=== PATIENT | female | born 1950 | race African-American/Black ===

== ENCOUNTER 2016-09-24 22:23 | Inpatient (IN) | payer OTHER, MEDICAID ==
[~2016-09-24] VITALS: Ht 165.1 cm; Wt 73.7 kg
[~2016-09-24 22:23] MED LIST: ATOR40TA49 PO; BENT20TA PO; CETI10 PO; FIORIC PO; HYDR-2768 PO; LISI-363 PO; LORTA5 PO; MULTTAB24 PO; NAPHSOL EACH EYE; OFLO1DRO8 EACH EYE; PRAV20; PROM25SU8 PO; SLOWTAB PO; SULF-154 PO; VENTAER INH; VITATAB11
[2016-09-24 22:26] VITALS: BP 227/112; PULSE 102; RESP 18; TEMP 100; O2SAT 100
[2016-09-24] MEDS ORDERED: ASPIRIN 81 MG CHEW TAB PO ONE (22:45)
[2016-09-24] MEDS ORDERED: NITROGLYCERIN 0.4 MG SL 25 TABS/BTL SL ONE (22:45)
[2016-09-24] MEDS ORDERED: SODIUM CHLORIDE 0.9% FLUSH 10 ML FLUSH IVF PRN (22:45)
[2016-09-24] MEDS ORDERED: NITROGLYCERIN 2% OINT 1 GM PACKET TOP ONE (22:45)
[2016-09-24 22:46] VITALS: BP 262/146; PULSE 107; RESP 28; TEMP 99.3; O2SAT 98
[2016-09-24 22:49] VITALS: BP_SYST 197; BP_SYST 262; BP_DIAS 135; BP_DIAS 146; PULSE 107
[2016-09-24 22:51] VITALS: O2SAT 98
[2016-09-24 23:14] LABS: AUTOMATED NEUTROPHIL # 6.2 TH/MM3 (1.8-7.7); BASOPHIL # 0.1 TH/MM3 (0-0.2); EOSINOPHIL # 0.2 TH/MM3 (0-0.4); HEMATOCRIT 40.7 % (35.0-46.0); HEMO FLAGS DIFF FINAL; LYMPH % 21.4 % (9.0-44.0); LYMPHOCYTE # 1.9 TH/MM3 (1.0-4.8); MEAN CELL VOLUME 87.8 FL (80.0-100.0); MEAN CORPUSCULAR HEMOGLOBIN 28.4 PG (27.0-34.0); MEAN CORPUSCULAR HGB CONC 32.3 % (32.0-36.0); MONO % 6.7 % (0.0-8.0); NEUT % 68.9 % (16.0-70.0); PLATELET COUNT 242 TH/MM3 (150-450); RED BLOOD COUNT 4.64 MIL/MM3 (4.00-5.30); RED CELL DISTRIBUTION WIDTH 13.3 % (11.6-17.2)
--- NOTE | 2016-09-24 23:17 | PD ---
HPI Chief Complaint: Chest Pain Time Seen by Provider: 22:44 Travel History International Travel<30 days: No Contact w/Intl Traveler<30days: No Traveled to known affect area: No History of Present Illness HPI The patient is a 66 year old female who presents to the [facility] emergency department with a history of chest pain that she reports began 2 days ago. She reports that the location of the pain was across her chest. She reports that it was a pressure sensation like someone was sitting on her chest. She reports that it has been constant. She reports that additionally today she began to have a sharp pain in the left side of her chest. She reports having shortness of breath associated with this. She reports having nausea and dizziness that occurred twice earlier today. The patient reports that she is currently being evaluated by Dr. Julien for a high-grade uterine carcinoma suspicious for carcinosarcoma. She reports that she has a hysterectomy scheduled for Friday. The patient reports that she does have a history of asthma. She last used her inhaler at 5 AM. She reports that she last took her blood pressure medication at 5 AM. The patient arrives with a blood pressure 197/135. The patient reports that she's had vaginal bleeding intermittently for the last 2 days. She reports having lower abdominal pain. The patient reports that she's had a dry cough. She reports having nausea without vomiting. On review of systems, the patient otherwise denies any neck pain, diarrhea, urinary symptoms, or neurologic symptoms. The patient denies having any prior history of cardiac disease. She denies ever having a stress test done previously. [facility] Past Medical History Narrative Medical The patient's past medical history is significant for type 2 diabetes mellitus, hyperlipidemia, hypertension, high grade uterine carcinoma, pulmonary nodules. Asthma: Yes Cardiovascular Problems: Yes (htn ) High Cholesterol: Yes Hypertension: Yes Immunizations Current: Yes Migraines: Yes Tetanus Vaccination: Unknown Influenza Vaccination: No ?: Not Menopausal: Yes Past Surgical History Narrative Surgical The patient's past surgical history is significant for a bilateral tubal ligation. Hysterectomy: No Social History Alcohol Use: Yes (occasional ) Tobacco Use: No Substance Use: No Allergies-Medications (Allergen,Severity, Reaction): Coded Allergies: No Known Allergies (Verified , 09/24/16) Reported Meds & Prescriptions Reported Meds & Active Scripts Active Reported Metformin (Metformin HCl) 500 Mg Tab 500 Mg PO DAILY With a meal Pravastatin 20 Mg Tab 20 Mg PO DAILY Lisinopril 20 Mg Tab 20 Mg PO DAILY Hydrochlorothiazide 25 Mg Tab 25 Mg PO BID Proventil Hfa 6.7 GM Inh (Albuterol Sulfate) 90 Mcg/Act Aer 1 Puff INH Q4H PRN Review of Systems Except as stated in HPI: all other systems reviewed are Neg General / Constitutional: No: Fever Eyes: No: Visual changes HENT: No: Headaches Cardiovascular: Positive: Chest Pain or Discomfort, Dyspnea on exertion Respiratory: Positive: Cough, Shortness of Breath, Wheezing Gastrointestinal: Positive: Nausea, Abdominal Pain, No: Vomiting, Diarrhea, Hematemesis, Hematochezia, Constipation, Changes in Bowel Habits, Indigestion, Loss of Appetite Genitourinary: No: Dysuria Musculoskeletal: Positive: Myalgias, No: Pain Skin: No Rash Neurologic: No: Weakness, Focal Abnormalities, Coordination Problem, Change in Mentation, Slurred Speech, Sensory Disturbance Psychiatric: No: Depression Endocrine: No: Polydipsia Hematologic/Lymphatic: No: Easy Bruising Physical Exam Narrative General: The patient is a well-developed well-nourished female in no acute distress. Head and Neck exam: Head is normocephalic atraumatic. Eyes: EOMI, pupils are equal round and reactive to light. Nose: Midline septum with pink mucous membranes Mouth: Dentition unremarkable. Moist mucus membranes. Posterior oropharynx is not erythematous. No tonsillar hypertrophy. Uvula midline. Airway patent. Neck: No palpable lymphadenopathy. No nuchal rigidity. No thyromegaly. Cardiovascular: Sinus tachycardia in the 1 teens without murmurs, gallops, or rubs. No pulse deficit to the extremities as simultaneous auscultation and palpation of her radial artery. Lungs: Clear to auscultation bilaterally. No wheezes, rhonchi, or rales. Abdomen: Soft, with reported tenderness on palpation in bilateral lower quadrants of the abdomen in the suprapubic area. No guarding, rebound, or rigidity. Negative [place] sign. No tenderness specifically on palpation of McBurney's point. Normal bowel sounds are audible. Extremities: No clubbing, cyanosis, or edema. 2+ pulses in all 4 extremities. No calf tenderness on palpation. Back: No spinous process tenderness to palpation. No costovertebral angle tenderness to palpation. Neurologic Exam: Grossly nonfocal. Skin Exam: No rash noted. Intact skin that is warm and dry. Data Data Last Documented VS Vital Signs Date Time Temp Pulse Resp B/P Pulse Ox O2 Delivery O2 Flow Rate FiO2 09/24/16 22:51 98 Room Air 09/24/16 22:49 107 262/146 197/135 09/24/16 22:46 99.3 28 Orders Electrocardiogram (09/24/16 22:45) B-Type Natriuretic Peptide (09/24/16 22:45) Ckmb (Isoenzyme) Profile (09/24/16 22:45) Complete Blood Count With Diff (09/24/16 22:45) Comprehensive Metabolic Panel (09/24/16 22:45) D-Dimer (09/24/16 22:45) Magnesium (Mg) (09/24/16 22:45) Prothrombin Time / Inr (Pt) (09/24/16 22:45) Act Partial Throm Time (Ptt) (09/24/16 22:45) Troponin I (09/24/16 22:45) Lipase (09/24/16 22:45) Chest, Single Ap (09/24/16 22:45) Ecg Monitoring (09/24/16 22:45) Bilateral Bp Monitoring (09/24/16 22:45) Iv Access Insert/Monitor (09/24/16 22:45) Oximetry (09/24/16 22:45) Oxygen Administration (09/24/16 22:45) Aspirin Chew (Aspirin Chew) (09/24/16 22:45) Nitroglycerin 2% Oint (Nitroglycerin 2% (09/24/16 22:45) Sodium Chloride 0.9% Flush (Ns Flush) (09/24/16 22:45) Nitroglycerin Sl (Nitrostat Sl) (09/24/16 22:45) Labetalol Inj (Trandate Inj) (09/24/16 23:30) CKMB (09/24/16 23:00) CKMB% (09/24/16 23:00) Ct Pulmonary Angiogram (09/25/16 00:35) Urinalysis - C+S If Indicated (09/25/16 01:24) Morphine Inj (Morphine Inj) (09/25/16 01:30) Ondansetron Inj (Zofran Inj) (09/25/16 01:30) Enalaprilat Inj (Vasotec Inj) (09/25/16 01:30) Admit Order (Ed Use Only) (09/25/16 01:33) Labs Laboratory Tests Test 09/24/16 23:00 White Blood Count 9.0 TH/MM3 Red Blood Count 4.64 MIL/MM3 Hemoglobin 13.2 GM/DL Hematocrit 40.7 % Mean Corpuscular Volume 87.8 FL Mean Corpuscular Hemoglobin 28.4 PG Mean Corpuscular Hemoglobin 32.3 % Concent Red Cell Distribution Width 13.3 % Platelet Count 242 TH/MM3 Mean Platelet Volume 9.0 FL Neutrophils (%) (Auto) 68.9 % Lymphocytes (%) (Auto) 21.4 % Monocytes (%) (Auto) 6.7 % Eosinophils (%) (Auto) 2.0 % Basophils (%) (Auto) 1.0 % Neutrophils # (Auto) 6.2 TH/MM3 Lymphocytes # (Auto) 1.9 TH/MM3 Monocytes # (Auto) 0.6 TH/MM3 Eosinophils # (Auto) 0.2 TH/MM3 Basophils # (Auto) 0.1 TH/MM3 CBC Comment DIFF FINAL Differential Comment Prothrombin Time 11.1 SEC Prothromb Time International 1.0 RATIO Ratio Activated Partial 30.8 SEC Thromboplast Time D-Dimer Quantitative (PE/DVT) 0.70 MG/L FEU Sodium Level 135 MEQ/L Potassium Level 3.6 MEQ/L Chloride Level 100 MEQ/L Carbon Dioxide Level 28.8 MEQ/L Anion Gap 6 MEQ/L Blood Urea Nitrogen 11 MG/DL Creatinine 1.02 MG/DL Estimat Glomerular Filtration 65 ML/MIN Rate Random Glucose 122 MG/DL Calcium Level 9.3 MG/DL Magnesium Level 2.1 MG/DL Total Bilirubin 0.6 MG/DL Aspartate Amino Transf 22 U/L (AST/SGOT) Alanine Aminotransferase 28 U/L (ALT/SGPT) Alkaline Phosphatase 103 U/L Total Creatine Kinase 508 U/L Creatine Kinase MB 4.3 NG/ML Creatine Kinase MB % 0.8 % Troponin I LESS THAN 0.02 NG/ML B-Type Natriuretic Peptide 40 PG/ML Total Protein 8.1 GM/DL Albumin 3.8 GM/DL Lipase 160 U/L [facility] Medical Decision Making Medical Screen Exam Complete: Yes Emergency Medical Condition: Yes Medical Record Reviewed: Yes Interpretation(s) Last Impressions CT Angiography 09/25/16 0035 Signed Impressions: Service Date/Time: Sunday, September 25, 2016 01:37 - CONCLUSION: 1. The study is negative for pulmonary embolism. 2. Numerous bilateral pulmonary nodules measuring up to 7 mm. Recommend correlation with clinical history for history of malignancy. In the absence of malignancy, recommend followup CT in 6 months. James Crook MD Chest X-Ray 09/24/16 2245 Signed Impressions: Service Date/Time: Saturday, September 24, 2016 23:16 - CONCLUSION: The lungs are clear. James Crook MD Differential Diagnosis Acute coronary syndrome, versus congestive heart failure, versus pulmonary embolism, versus pain related to lung metastasis, versus pneumonia Narrative Course During the course of the patients emergency department visit, the patients history, examination, and differential diagnosis were reviewed with the patient. The patient had IV access obtained and blood work sent for analysis. The patient's was on a cardiac care unit nurse with oximetry and blood pressure monitoring. An ECG was done on arrival. The patient's ECG reveals a sinus tachycardia heart rate of 104, no acute ST segment elevation or depression. The patient was initially provided aspirin 162 mg by mouth 1, sublingual nitroglycerin 1, nitroglycerin 1 inch to the chest wall, labetalol 10 mg IV. The patients laboratory studies were reviewed and remarkable for a CBC that is within normal limits, CMP is remarkable for sodium of 135, creatinine 1.02, glucose 122, CPK 508, MB percent 0.8, troponin I less than 0.02, BNP is 40, lipase 160, PT 11.1, PTT 30.8, d-dimer 0.70. The patient will have a CTA to rule out PE. Radiology studies were reviewed and remarkable for a chest x-ray that shows that the patient's lungs are clear. CTA to rule out PE shows that the study is negative for pulmonary embolism. Numerous bilateral pulmonary nodules measuring up to 7 mm are noted. Given the patient's new chest pain and the fact that she is point to be undergoing a hysterectomy on Friday of this next week. I did recommend that she be admitted for further evaluation of her chest pain including her rule out serial cardiac enzyme protocol and stress testing and follow. The patients results were discussed with the patient, including the plan of care. I explained that further testing and/ or monitoring is indicated based on the patients history, examination, and/ or laboratory findings. Therefore, I recommended admission for additional evaluation. The patient expressed understanding and was agreeable with this plan. The patient was admitted to the hospital in stable condition and sent to a bed under the care of the chest pain center. Diagnosis Primary Impression: Chest pain, rule out acute myocardial infarction Additional Impressions: Uterine cancer Qualified Code: C54.9 - Malignant neoplasm of body of uterus, unspecified site Pulmonary nodules Admitting Information Admitting Physician Requests: Observation Nidhi Cheng MD Sep 24, 2016 23:17
[2016-09-24] MEDS ORDERED: LABETALOL HCL 100 MG/20 ML VIAL IV PUSH ONE (23:30)
[2016-09-24 23:33] LABS: APTT (PATIENT) 30.8 SEC (24.3-30.1); PROTHROMBIN TIME - PATIENT 11.1 SEC (9.8-11.6)
[2016-09-24 23:42] LABS: ANION GAP 6 MEQ/L (5-15); AST (GOT) 22 U/L (15-37); BICARBONATE 28.8 MEQ/L (21.0-32.0); BLOOD UREA NITROGEN 11 MG/DL (7-18); CHLORIDE 100 MEQ/L (98-107); GLOMERULAR FILTRATION RATE 65 ML/MIN (>89); MAGNESIUM 2.1 MG/DL (1.5-2.5); POTASSIUM 3.6 MEQ/L (3.5-5.1); SODIUM (NA) 135 MEQ/L (136-145)
[2016-09-24 23:47] LABS: ALKALINE PHOSPHATASE 103 U/L (45-117); ALT (GPT) 28 U/L (10-53); CREATINE KINASE 508 U/L (26-192); TOTAL BILIRUBIN ADULT 0.6 MG/DL (0.2-1.0)
[2016-09-25] VITALS (10 sets, daily range): BP systolic 130–208; BP diastolic 67–102; PULSE 85–107; RESP 18–24; TEMP 99.1–102.5; O2SAT 96–98
[2016-09-25] LABS: CKMB 4.3 NG/ML (0.5-3.6)
--- NOTE | 2016-09-25 00:48 | RADRPT ---
EXAM DATE/TIME: 09/24/2016 23:16 [facility] COMPARISON: No previous studies available for comparison. INDICATIONS : Chest pain. MEDICAL HISTORY : None. SURGICAL HISTORY : None. ENCOUNTER: Initial ACUITY: 1 day PAIN SCORE: 0/10 LOCATION: Bilateral chest FINDINGS: A single view of the chest demonstrates the lungs to be symmetrically aerated without evidence of mas s, infiltrate or effusion. The cardiomediastinal contours are unremarkable. Osseous structures are intact. CONCLUSION: The lungs are clear. James Crook MD on September 25, 2016 at 0:46 Board Certified Radiologist. This report was verified electronically.
[2016-09-25] MEDS ORDERED: ONDANSETRON HCL 4 MG/2 ML VIAL IV PUSH ONE (01:30)
[2016-09-25] MEDS ORDERED: MORPHINE SULFATE 4 MG/ML INJ IV PUSH ONE (01:30)
[2016-09-25] MEDS ORDERED: ENALAPRILAT 1.25 MG/ML VIAL IV PUSH ONE (01:30)
[2016-09-25] MEDS ORDERED: IOHEXOL 350 MG/ML 10 ML VIAL (for RAD DIAG) IV ONE (01:42)
--- NOTE | 2016-09-25 01:53 | RADRPT ---
EXAM DATE/TIME: 09/25/2016 01:37 This report includes an Addendum and supersedes previous reports for this exam. [facility] COMPARISON: No previous studies available for comparison. INDICATIONS : Shortness of breath with chest pain. Elevated D-Dimer. IV CONTRAST: 70 cc Omnipaque 350 (iohexol) IV RADIATION DOSE: 23.38 CTDIvol (mGy) MEDICAL HISTORY : Cardiovascular disease. Hypertension. Asthma SURGICAL HISTORY : None. ENCOUNTER: Initial ACUITY: 1 day PAIN SCALE: 10/10 LOCATION: Bilateral chest TECHNIQUE: Volumetric scanning of the chest was performed using a pulmonary embolism protocol MIP images were re constructed. Using automated exposure control and adjustment of the mA and/or kV according to patien t size, radiation dose was kept as low as reasonably achievable to obtain optimal diagnostic quality images. DICOM format image data is available electronically for review and comparison. Follow-up recommendations for detected pulmonary nodules are based at a minimum on nodule size and pa tient risk factors according to Fleischner Society Guidelines. FINDINGS: PULMONARY ARTERIES: No filling defects are seen in the pulmonary arteries through the segmental level. LUNGS: There are at least 10 noncalcified nodules in both lungs. The largest is lower lateral left lung nuc lear pleural surface measuring 7 mm (image #[id number]). The other nodules measure 4 mm or less. PLEURAE: There is no pleural thickening or pleural effusion. MEDIASTINUM: There is good visualization of the great vessels of the middle mediastinum. No evidence of mediastin al or hilar adenopathy/mass. CONCLUSION: 1. The study is negative for pulmonary embolism. 2. Numerous bilateral pulmonary nodules measuring up to 7 mm. Recommend correlation with clinical history for history of malignancy. In the absence of malignancy, recommend followup CT in 6 months. James Crook MD on September 25, 2016 at 1:46 Board Certified Radiologist. This report was verified electronically. ADDENDUM: The multiple pulmonary nodules were described in detail on the CT scan of the chest dated 08/09/16. T here is been little change in this very short interval. These still remain concerning for malignancy . Yoshi Huerta MD FACR on September 25, 2016 at 9:54 Board Certified Radiologist. This report was verified electronically.
[2016-09-25] MEDS ORDERED: SODIUM CHLORIDE 0.9% FLUSH 10 ML FLUSH IV FLUSH PRN (03:00)
[2016-09-25] MEDS ORDERED: ALBU6.7H INH (03:14)
[2016-09-25] MEDS ORDERED: HYDR25TA5 PO (03:14)
[2016-09-25] MEDS ORDERED: PRAV20TA2 PO (03:14)
[2016-09-25] MEDS ORDERED: LISI-515 PO (03:14)
[2016-09-25] MEDS ORDERED: METF500T PO (03:14)
[2016-09-25 04:08] LABS: BACTERIA, URINE RARE /hpf; BLOOD, URINE MOD (NEG); GLUCOSE,URINE NEG (NEG); KETONE, URINE NEG (NEG); NITRITE,URINE NEG (NEG); RENAL EPITHELIAL CELLS 2 /hpf; SQUAMOUS EPITHELIAL CELL URINE <1 /hpf (0-5); URINE COLOR LIGHT-YELLOW (YELLW/STRAW)
[2016-09-25 04:09] LABS: COMMENT (UR) CULTURE INDICATED; CULTURE IF INDICATED CULTURE INDICATED
[2016-09-25 04:31] LABS: CREATINE KINASE 438 U/L (26-192)
[2016-09-25 04:44] LABS: CKMB 1.7 NG/ML (0.5-3.6)
[2016-09-25] MEDS: NITROGLYCERIN 2% OINT 1 GM PACKET TOP SCH ×4 (06:02→23:46)
[2016-09-25 06:49] LABS: CREATINE KINASE 420 U/L (26-192)
[2016-09-25 07:02] LABS: CKMB 1.2 NG/ML (0.5-3.6)
[2016-09-25] MEDS: LISINOPRIL 10 MG TAB PO SCH (09:56)
[2016-09-25] MEDS: ACETAMINOPHEN/HYDROcodone 325 MG/7.5 MG TAB PO PRN ×3 (09:56→20:57)
[2016-09-25] MEDS: SODIUM CHLORIDE 0.9% FLUSH 10 ML FLUSH IV FLUSH SCH ×2 (09:57→21:00)
[2016-09-25] MEDS ORDERED: DEXTROSE 50% IN WATER 50 ML VIAL(D50) IV PRN (10:45)
[2016-09-25] MEDS ORDERED: LISINOPRIL 20 MG TAB PO SCH (10:45)
[2016-09-25] MEDS ORDERED: GLUCAGON 1 MG/ML VIAL IM/SQ PRN (10:45)
[2016-09-25] MEDS: INSULIN ASPART SUPPLEMENTAL SCALE SQ SCH ×3 (11:00→21:00)
--- NOTE | 2016-09-25 11:39 | HHI.HP ---
[facility] Primary Care Physician Ashia Hewitt M.D. Chief Complaint Chest pain History of Present Illness Ms. Lowry is a 66-year-old female patient with a known medical history of asthma , type 2 diabetes, hypertension, hyperlipidemia and high grade uterine carcinoma who presented to the ED with complaints of chest pain. Patient states that the pain began 2 days ago in her midsternal chest area while she was ironing at her home. She characterized the pain as intermittent, aching and sharp in nature lasting about 2-3 minutes and would slowly subside. She does admit to associated headache and difficulty breathing. Denies any associated nausea, vomiting or diaphoresis. Currently denies any chest discomfort but does complain of aching pain in her lower abdomen with movement. It is important to note that patient has been following with Dr. Julien for a high-grade uterine carcinoma and vaginal bleeding and has a scheduled hysterectomy for this Friday. Denies any recent illness including fever, chills, cough, shortness of breath, vomiting or diarrhea. UA was collected in ED indicative of a UTI. D- dimer elevated at 0.70 and CTA performed showing numerous bilateral pulmonary nodules. Records were reviewed and Dr. Julien aware, previous CT chest obtained 2 weeks ago. Review of Systems Respiratory: COMPLAINS OF: Shortness of breath Cardiovascular: COMPLAINS OF: Chest pain Past Family Social History Allergies: Coded Allergies: No Known Allergies (Verified , 09/24/16) Past Medical History Hypertension Hyperlipidemia Type 2 diabetes mellitus High grade uterine carcinoma Multiple pulmonary nodules Past Surgical History Bilateral tubal ligation Reported Medications Reported Meds & Active Scripts Active Reported Metformin (Metformin HCl) 500 Mg Tab 500 Mg PO DAILY With a meal Pravastatin 20 Mg Tab 20 Mg PO DAILY Lisinopril 20 Mg Tab 20 Mg PO DAILY Hydrochlorothiazide 25 Mg Tab 25 Mg PO BID Proventil Hfa 6.7 GM Inh (Albuterol Sulfate) 90 Mcg/Act Aer 1 Puff INH Q4H PRN Active Ordered Medications Current Medications Medications (Trade) Dose Ordered Sig/Courtney Route Start Time Stop Time Status Last Admin (NS Flush) 2 ml UNSCH PRN IVF 09/24/16 22:45 (NS Flush) 2 ml UNSCH PRN IV FLUSH 09/25/16 03:00 (NS Flush) 2 ml BID IV FLUSH 09/25/16 09:00 09/25/16 09:57 ([place] 7.5-325 Mg) 1 tab Q4H PRN PO 09/25/16 03:00 09/25/16 09:56 (Zofran Inj) 4 mg Q6H PRN IV 09/25/16 03:00 (Prinivil) 10 mg DAILY PO 09/25/16 09:00 09/25/16 09:56 (Nitroglycerin 2% Oint) 1 inch Q6HR TOP 09/25/16 06:00 09/25/16 06:02 (Hydrodiuril) 25 mg BID PO 09/25/16 21:00 (Prinivil) 20 mg DAILY PO 09/25/16 10:45 (Pravachol) 20 mg DAILY PO 09/25/16 10:45 (D50w (Vial) Inj) 25 ml UNSCH PRN IV 09/25/16 10:45 (Glucagon Inj) 1 mg UNSCH PRN IM/SQ 09/25/16 10:45 Family History Paternal medical history is significant for [place] at the age of 4747 years old and is now . Maternal medical history significant for liver disease. Social History Patient denies any current tobacco or alcohol use. Denies any illicit drug use. Physical Exam Vital Signs Vital Signs Date Time Temp Pulse Resp B/P Pulse Ox O2 Delivery O2 Flow Rate FiO2 09/25/16 09:45 99.1 96 18 181/85 97 09/25/16 05:14 92 18 177/86 97 09/25/16 03:32 86 18 179/95 97 09/25/16 02:50 97 Nasal Cannula 1.00 09/25/16 02:00 99 18 207/93 98 09/25/16 01:00 95 18 208/102 98 09/24/16 22:51 98 Room Air 09/24/16 22:50 98 Room Air 09/24/16 22:49 107 262/146 197/135 09/24/16 22:46 99.3 107 28 262/146 98 09/24/16 22:26 100.0 102 18 227/112 100 Physical Exam GENERAL: Well-nourished, well-developed female patient, lying in bed. SKIN: Warm and dry. HEAD: Atraumatic. Normocephalic. EYES: Pupils equal and round. No scleral icterus. No injection or drainage. ENT: No nasal bleeding or discharge. Mucous membranes pink and moist. NECK: Trachea midline. No JVD. CARDIOVASCULAR: Regular rate and rhythm. Chest pain reproducible to palpation. RESPIRATORY: No accessory muscle use. Clear to auscultation. Breath sounds equal bilaterally. GASTROINTESTINAL: Abdomen soft. Tender to palpation. MUSCULOSKELETAL: Extremities without clubbing, cyanosis, or edema. No obvious deformities. NEUROLOGICAL: Awake and alert. No obvious cranial nerve deficits. Motor grossly within normal limits. Five out of 5 muscle strength in the arms and legs. Normal speech. PSYCHIATRIC: Appropriate mood and affect; insight and judgment normal. Laboratory Laboratory Tests Test 09/24/16 09/25/16 09/25/16 09/25/16 23:00 03:30 03:35 05:45 White Blood Count 9.0 Red Blood Count 4.64 Hemoglobin 13.2 Hematocrit 40.7 Mean Corpuscular Volume 87.8 Mean Corpuscular Hemoglobin 28.4 Mean Corpuscular Hemoglobin 32.3 Concent Red Cell Distribution Width 13.3 Platelet Count 242 Mean Platelet Volume 9.0 Neutrophils (%) (Auto) 68.9 Lymphocytes (%) (Auto) 21.4 Monocytes (%) (Auto) 6.7 Eosinophils (%) (Auto) 2.0 Basophils (%) (Auto) 1.0 Neutrophils # (Auto) 6.2 Lymphocytes # (Auto) 1.9 Monocytes # (Auto) 0.6 Eosinophils # (Auto) 0.2 Basophils # (Auto) 0.1 CBC Comment DIFF FINAL Differential Comment Prothrombin Time 11.1 Prothromb Time International 1.0 Ratio Activated Partial 30.8 Thromboplast Time D-Dimer Quantitative (PE/DVT) 0.70 Sodium Level 135 Potassium Level 3.6 Chloride Level 100 Carbon Dioxide Level 28.8 Anion Gap 6 Blood Urea Nitrogen 11 Creatinine 1.02 Estimat Glomerular Filtration 65 Rate Random Glucose 122 Calcium Level 9.3 Magnesium Level 2.1 Total Bilirubin 0.6 Aspartate Amino Transf 22 (AST/SGOT) Alanine Aminotransferase 28 (ALT/SGPT) Alkaline Phosphatase 103 Total Creatine Kinase 508 438 420 Creatine Kinase MB 4.3 1.7 1.2 Creatine Kinase MB % 0.8 0.4 0.3 Troponin I LESS THAN 0.02 LESS THAN 0.02 LESS THAN 0.02 B-Type Natriuretic Peptide 40 Total Protein 8.1 Albumin 3.8 Lipase 160 Urine Color LIGHT-YELLOW Urine Turbidity HAZY Urine pH 8.0 Urine Specific [place] 1.036 Urine Protein TRACE Urine Glucose (UA) NEG Urine Ketones NEG Urine Occult Blood MOD Urine Nitrite NEG Urine Bilirubin NEG Urine Urobilinogen LESS THAN 2.0 Urine Leukocyte Esterase LARGE Urine RBC 26 Urine WBC 135 Urine Squamous Epithelial <1 Cells Urine Renal Epithelial Cells 2 Urine Bacteria RARE Microscopic Urinalysis Comment CULTURE INDICATED Date/Time Procedure Status Source Growth 09/25/16 03:35 Urine Culture Received Urine Clean Catch Pending Result Diagram: 09/24/16 2300 09/24/[address] Angiography 09/25/16 0035 Signed Impressions: Service Date/Time: Sunday, September 25, 2016 01:37 - CONCLUSION: 1. The study is negative for pulmonary embolism. 2. Numerous bilateral pulmonary nodules measuring up to 7 mm. Recommend correlation with clinical history for history of malignancy. In the absence of malignancy, recommend followup CT in 6 months. James Crook MD ADDENDUM: The multiple pulmonary nodules were described in detail on the CT scan of the chest dated 08/09/16. There is been little change in this very short interval. These still remain concerning for malignancy. Yoshi Huerta MD FACR Chest X-Ray 09/24/16 2245 Signed Impressions: Service Date/Time: Saturday, September 24, 2016 23:16 - CONCLUSION: The lungs are clear. James Crook MD Assessment and Plan Assessment and Plan * Chest pain: Admitted to chest pain center. Serial EKGs and serial troponins ordered for ruling out purposes. Trponins all negative. CXR negative. EKG unremarkable, NSR, no ST change. D-dimer elevated, CTA performed showing multiple pulmonary nodules. Negative for PE. Patient seen and examined in the chest pain center by Dr. Hugo Presley and Nuclear ETT ordered. If test is negative with no presence of ischemia patient will be discharged home with recommendations to follow up with PCP and Dr. Julien. Control pain [place] PRN per pain scale. * Hypertension: Significantly elevated upon presentation. Continue home medications, Lisinopril and HCTZ. Monitor BP. Control pain. * Dyslipidemia: Continue home Pravastatin * Type 2 diabetes mellitus: ACCU checks ACHS, with sliding scale insulin, cover as needed. * Urinary tract infection: UA obtained showing increase in leukocyte esterase, urine culture pending. Will order for Bactrim prescription upon discharge. Patient is stable at this time and agreeable to the plan. Giovani Berry Sep 25, 2016 11:39
[2016-09-25] MEDS: PRAVASTATIN SOD 20 MG TAB PO SCH (12:18)
[2016-09-25] MEDS: ONDANSETRON HCL 4 MG/2 ML VIAL IV PRN ×2 (15:00→20:56)
[2016-09-25] MEDS ORDERED: REGADENOSON INJ 0.4 MG/5 ML SYR ONE (15:10)
--- NOTE | 2016-09-25 15:55 | EKG ---
Date Performed: 09/25/2016 Time Performed: 05:50:42 PTAGE: 66 years EKG: Sinus rhythm NORMAL ECG PREVIOUS TRACING : 09/25/2016 03.19 Since previous tracing, no significant change noted DOCTOR: Hugo Presley Interpretating Date/Time 09/25/2016 15:52:56
--- NOTE | 2016-09-25 15:55 | EKG ---
Date Performed: 09/25/2016 Time Performed: 03:19:52 PTAGE: 66 years EKG: Sinus rhythm NORMAL ECG PREVIOUS TRACING : 07/10/2010 13.34 Since previous tracing, no significant change noted DOCTOR: Hugo Presley Interpretating Date/Time 09/25/2016 15:53:19
--- NOTE | 2016-09-25 15:57 | EKG ---
Date Performed: 09/24/2016 Time Performed: 22:44:16 PTAGE: 66 years EKG: SINUS TACHYCARDIA POSSIBLE LEFT ATRIAL ENLARGEMENT ABNORMAL RHYTHM ECG NO PREVIOUS TRACING DOCTOR: Hugo Presley Interpretating Date/Time 09/25/2016 15:54:51
--- NOTE | 2016-09-25 15:59 | TR ---
Date Performed: 09/25/2016 Time Performed: 15:28:26 DOCTOR: Hugo Presley DRUG LIST: CLINICAL HISTORY: REASON FOR TEST: REASON FOR ENDING: OBSERVATION: CONCLUSION: Lexiscan stress test was performed under standard four minute protocol. Rad[place] e was injected one minute prior to ending the test. No electrocardiographic abormalities were present to suggest ischemia. Nuclear imaging and interpretation are pending. COMMENTS:
[2016-09-25] MEDS ORDERED: SODIUM CHLOR 0.9% 1000 ML INJ 1,000 ML IV SCH (17:33)
[2016-09-25] MEDS ORDERED: cefTRIAXone INJ 1,000 MG in SODIUM CHLORIDE 0.9% INJ 100 ML IV ONE (18:00)
[2016-09-25] MEDS ORDERED: ACETAMINOPHEN 325 MG TAB PO ONE (18:00)
--- NOTE | 2016-09-25 18:02 | RADRPT ---
EXAM DATE/TIME: 09/25/2016 14:24 CORRECTION Corrected on: September 26, 2016; Surgical History now reads None [place] COMPARISON: CT PULMONARY ANGIOGRAM, September 25, 2016, 1:37. CHEST SINGLE AP, September 24, 2016, 23:16. INDICATIONS : Left chest pain with dyspnea, dizziness and nausea for 2 days. Angina. DOSE: 27.2 mCi Tc99m Myoview at stress. 8.7 mCi Tc99m Myoview at rest. 0.4 mg Lexiscan STRESS SYMPTOMS: Nausea. EJECTION FRACTION: 66% MEDICAL HISTORY : Hypercholesterolemia. Hypertension. Asthma. SURGICAL HISTORY : None ENCOUNTER: Initial ACUITY: 2 days PAIN SCALE: 7/10 LOCATION: Left chest TECHNIQUE: The patient underwent pharmacologic stress with infusion of prescribed dose. Continuous ECG tracing was monitored during stress. Gated SPECT imaging was performed after stress and conventional SPECT i maging was performed at rest. The examination was performed on a SPECT/CT scanner, both attenuation and non-corrected datasets were reviewed. FINDINGS: DISTRIBUTION: The maximum perfused segment at stress is in the lateral wall. There is a summed stress score of zero . PERFUSION STUDY: The pattern of perfusion at stress is within normal limits. GATED STUDY: There is intact wall motion and thickening without hypokinetic or dyskinetic segments. CONCLUSION: 1. Normal wall motion and calculated ejection fraction. 2. No fixed or reversible wall defects to suggest ischemia or infarction. RISK CATEGORY: Low (<1% Annual Mortality Rate) Ricky Rahman MD on September 25, 2016 at 17:57 Board Certified Radiologist. This report was verified electronically.
[2016-09-25] MEDS: HYDROCHLOROTHIAZIDE 25 MG TAB PO SCH (20:56)
[2016-09-26] VITALS (7 sets, daily range): BP systolic 118–158; BP diastolic 65–74; PULSE 98–110; RESP 18; TEMP 97.8–101.1; O2SAT 95–97
[2016-09-26] MEDS: NITROGLYCERIN 2% OINT 1 GM PACKET TOP SCH ×4 (06:00→22:03)
[2016-09-26] MEDS: INSULIN ASPART SUPPLEMENTAL SCALE SQ SCH ×4 (06:35→21:00)
[2016-09-26] MEDS: ACETAMINOPHEN/HYDROcodone 325 MG/7.5 MG TAB PO PRN ×3 (06:50→22:04)
[2016-09-26 08:07] LABS: AUTOMATED NEUTROPHIL # 17.1 TH/MM3 (1.8-7.7); BASOPHIL # 0.1 TH/MM3 (0-0.2); BASOPHIL % 0.5 % (0.0-2.0); HEMO FLAGS DIFF FINAL; LYMPH % 4.2 % (9.0-44.0); LYMPHOCYTE # 0.8 TH/MM3 (1.0-4.8); MEAN CELL VOLUME 88.4 FL (80.0-100.0); MEAN CORPUSCULAR HEMOGLOBIN 28.6 PG (27.0-34.0); MEAN CORPUSCULAR HGB CONC 32.4 % (32.0-36.0); MONO % 6.1 % (0.0-8.0); NEUT % 89.2 % (16.0-70.0); PLATELET COUNT 195 TH/MM3 (150-450); RED BLOOD COUNT 4.07 MIL/MM3 (4.00-5.30); RED CELL DISTRIBUTION WIDTH 13.3 % (11.6-17.2); WHITE BLOOD COUNT 19.2 TH/MM3 (4.0-11.0)
[2016-09-26 08:30] LABS: ALT (GPT) 17 U/L (10-53); ANION GAP 9 MEQ/L (5-15); AST (GOT) 15 U/L (15-37); BLOOD UREA NITROGEN 11 MG/DL (7-18); CHLORIDE 98 MEQ/L (98-107); GLOMERULAR FILTRATION RATE 57 ML/MIN (>89); MAGNESIUM 1.9 MG/DL (1.5-2.5); POTASSIUM 3.3 MEQ/L (3.5-5.1); SODIUM (NA) 133 MEQ/L (136-145)
[2016-09-26 08:44] LABS: ALKALINE PHOSPHATASE 86 U/L (45-117); FREE T4 1.49 NG/DL (0.76-1.46); TOTAL BILIRUBIN ADULT 1.9 MG/DL (0.2-1.0)
[2016-09-26] MEDS: SODIUM CHLORIDE 0.9% FLUSH 10 ML FLUSH IV FLUSH SCH ×2 (09:43→21:00)
[2016-09-26] MEDS: LISINOPRIL 10 MG TAB PO SCH (09:43)
[2016-09-26] MEDS: PRAVASTATIN SOD 20 MG TAB PO SCH (09:43)
[2016-09-26] MEDS: HYDROCHLOROTHIAZIDE 25 MG TAB PO SCH ×2 (09:43→21:00)
--- NOTE | 2016-09-26 11:17 | HHI.PR ---
Subjective Remarks Follow up for chest pain, UTI, uterine cancer. The patient states she's feeling "a little" better this morning. She had some chest discomfort last night, but none since. Denies any shortness of breath today. She complains of lower abdominal pain and heavy vaginal bleeding which is concerning to her. Denies dysuria. Denies fevers today but did have fevers last night, Tmax 102.5. She is concerned about going home. She is requesting to stay in the hospital until her surgery on Friday. She is requesting to see Dr. Julien. Objective Vitals Vital Signs Date Time Temp Pulse Resp B/P Pulse Ox O2 Delivery O2 Flow Rate FiO2 09/26/16 08:30 98.3 105 18 129/66 95 09/26/16 00:16 97.8 101 18 158/72 95 09/25/16 23:54 97 09/25/16 22:32 18 09/25/16 21:12 99.3 100 24 200/88 96 09/25/16 18:31 100.5 09/25/16 17:16 102.5 107 20 169/81 96 Result Diagram: 09/26/16 0752 09/26/16 [address] Angiography 09/25/16 0035 Signed Impressions: Service Date/Time: Sunday, September 25, 2016 01:37 - CONCLUSION: 1. The study is negative for pulmonary embolism. 2. Numerous bilateral pulmonary nodules measuring up to 7 mm. Recommend correlation with clinical history for history of malignancy. In the absence of malignancy, recommend followup CT in 6 months. James Crook MD ADDENDUM: The multiple pulmonary nodules were described in detail on the CT scan of the chest dated 08/09/16. There is been little change in this very short interval. These still remain concerning for malignancy. Yoshi Huerta MD FACR Myocardial Perfusion Scan Nuc Med 09/25/16 0000 Signed Impressions: Service Date/Time: Sunday, September 25, 2016 14:24 - CONCLUSION: 1. Normal wall motion and calculated ejection fraction. 2. No fixed or reversible wall defects to suggest ischemia or infarction. RISK CATEGORY: Low (<1%% Annual Mortality Rate) Ricky Rahman MD Chest X-Ray 09/24/16 5085 Signed Impressions: Service Date/Time: Saturday, September 24, 2016 23:16 - CONCLUSION: The lungs are clear. James Crook MD Objective Remarks GENERAL: Well-nourished, well-developed female patient in NAD. SKIN: Warm and dry. No rash. HEENT: Normocephalic. Atraumatic. Pupils equal and round. Mucous membranes pink and moist. CARDIOVASCULAR: Regular rate and rhythm. S1, S2 noted. No murmur appreciated. RESPIRATORY: No accessory muscle use. Clear to auscultation. Breath sounds equal bilaterally. GASTROINTESTINAL: Abdomen soft, nondistended, diffuse lower abdominal TTP. Normoactive bowel sounds x4. MUSCULOSKELETAL: No obvious deformities. Extremities without clubbing, cyanosis , or edema. NEUROLOGICAL: Awake and alert. No obvious cranial nerve deficits. Motor grossly within normal limits. Normal speech. PSYCHIATRIC: Appropriate mood and affect; insight and judgment normal. Medications and IVs Current Medications Medications (Trade) Dose Ordered Sig/Courtney Route Start Time Stop Time Status Last Admin (NS Flush) 2 ml UNSCH PRN IVF 09/24/16 22:45 (NS Flush) 2 ml UNSCH PRN IV FLUSH 09/25/16 03:00 09/25/16 17:44 (NS Flush) 2 ml BID IV FLUSH 09/25/16 09:00 09/26/16 09:43 ([place] 7.5-325 Mg) 1 tab Q4H PRN PO 09/25/16 03:00 09/26/16 06:50 (Zofran Inj) 4 mg Q6H PRN IV 09/25/16 03:00 09/25/16 20:56 (Prinivil) 10 mg DAILY PO 09/25/16 09:00 09/26/16 09:43 (Nitroglycerin 2% Oint) 1 inch Q6HR TOP 09/25/16 06:00 09/26/16 06:00 (Hydrodiuril) 25 mg BID PO 09/25/16 21:00 09/26/16 09:43 (Pravachol) 20 mg DAILY PO 09/25/16 10:45 09/26/16 09:43 (D50w (Vial) Inj) 25 ml UNSCH PRN IV 09/25/16 10:45 Glucagon 1 mg 1 mg UNSCH PRN IM/SQ 09/25/16 10:45 (Rocephin Inj/NS Inj) 100 ml @ 200 mls/hr Q24H IV 09/26/16 18:00 A/P Problem List: (1) Chest pain, rule out acute myocardial infarction ICD Code: R07.9 Status: Acute (2) Endometrial carcinoma ICD Code: C54.1 Status: Acute Assessment and Plan 66-year-old female with history of high-grade endometrial cancer, HTN, HLD, DM, asthma, presents with chest pain. Chest pain: Patient initially admitted to [facility], ACS ruled out with negative serial cardiac enzymes and EKG without acute ischemic changes. Nuclear stress test was unremarkable. D-dimer elevated, CT-PA negative for PE however did show multiple pulmonary nodules, little change compared to previous CT chest on 08/09/16. Patient transferred to hospitalist due to UTI with high-grade fevers. Chest pain resolved. Sepsis with UTI: Patient meets sepsis criteria with fever Tmax 102.5, tachycardia HR 107, leukocytosis WBC 19.2 K, sourceUTI. Continue antibiotics with IV Rocephin. Preliminary urine culture with group B strep, Staphylococcus species, awaiting final culture&sensitivities. Monitor CBC. 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 Patient complains of worsening heavy vaginal bleeding. She does not feel comfortable going home, requests to see Dr. Julien. Will consult Dr. Julien. Continue pain control prn. Pulmonary Nodules: seen on chest CT, consistent with previous CT 08/09/16. Dr Julien aware and following. Hypokalemia: likely secondary to decreased oral intake. Given po KCl replacement. Monitor. Hypertension: chronic, stable. Continue patient's home meds, lisinopril and HCTZ. Monitor BP, adjust antihypertensives as needed. Diabetes Mellitus: chronic, holding Metformin for now after receiving contrast. Monitor Accu-checks. Cover with SSI. Hyperlipidemia: chronic, continue home statin. DVT Prophylaxis: teds/SCDs Jossie Ricketts PA-C Sep 26, 2016 11:17
[2016-09-26] MEDS ORDERED: POTASSIUM CHLORIDE 20 MEQ CONTROLLED RELEASE TAB PO ONE (12:00)
--- NOTE | 2016-09-26 15:29 | PD.CONS ---
History of Present Illness Service [facility]C Consult Requested By SUSAN Bolden Reason for Consult heavy vaginal bleeding uterine sarcoma Primary Care Physician Ashia Hewitt M.D. Diagnoses: (1) Uterine cancer (2) Chest pain, rule out acute myocardial infarction (3) UTI (urinary tract infection) History of Present Illness This is a 66 year old female with diagnosis of carcinosarcoma of the uterus who we first met in the [facility]c clinic on 09/06/16. At the time of her initial consultation with Dr. Julien she reported postmenopausal bleeding for at least 4 months. She was seen by Dr. Grimm who performed an U/S that shown uterus that measured at least 10cm, endometrial biopsy was performed and showed a malignant spindle-cell tumor, high grade suspicious for carcinosarcoma. CT scan obtained shown multiple pulmonary nodules, CT of abd/pelvis showed no evidence of metastatic disease but commented on a markedly enlarged uterus with a wide fundus. No overt adenopathy ascites, retroperitoneal adenopathy, or ascites. Do to finding Ms. Lowry is scheduled for X Lap hyst with BSO, staging and possible biopsies. She presented to the hospital on 09/24/16 with complaints of chest pain and SOA. 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 During her stay in the ER she has been ruled out for VA and PE. CT scan shown pulmonary nodules that have not changed from prior CT. Mrs. Lowry had hem completed on admission 09/24/16 was 13 today 09/26/16 had decreased some to 11. The patient reports that since this past Friday her PMB has increased a great deal, she reports going through at least 1 large stanley-pad every hour. I spoke with her ER nurse who confirmed that Ms. Lowry is changing large stanley-pads at least 2 an hour for the past few hours. Ms. Lowry reports that she is also having a lot more pelvic cramping along with the bleeding. She has been febrile during her hospital stay and has been found to have at UTI. Review of Systems Respiratory: COMPLAINS OF: Shortness of breath Cardiovascular: COMPLAINS OF: Chest pain Gastrointestinal: COMPLAINS OF: Abdominal pain Genitourinary: COMPLAINS OF: Abnormal vaginal bleeding Except as stated in HPI: all other systems reviewed are Neg Past Family Social History Allergies: Coded Allergies: No Known Allergies (Verified , 09/24/16) Past Medical History diabetes high cholesterol hypertension vaginal bleeding past 3 months uterine cancer pulmonary nodules concerning for metastatic disease Past Surgical History tubal ligation Reported Medications Proventil HFA 6.7mg HCTZ Hydrochlorothiazide 25mg Lisinopril 20mg Metformin 500mg Pravastatin 40mg Active Ordered Medications Current Medications Aspirin (Aspirin Chew) 162 mg ONCE ONCE PO Last administered on 09/25/16 00: 33; Start 09/24/16 at 22:45; Stop 09/24/16 at 22:48; Status DC Nitroglycerin (Nitroglycerin 2% Oint) 1 inch ONCE ONCE TOP Last administered on 09/25/16 00:34; Start 09/24/16 at 22:45; Stop 09/24/16 at 22:48; Status DC Sodium Chloride (NS Flush) 2 ml UNSCH PRN IVF FLUSH AFTER USING IV ACCESS; Start 09/24/16 at 22:45 Nitroglycerin (Nitrostat Sl) 0.4 mg ONCE ONCE SL Last administered on 00:33; Start 09/24/16 at 22:45; Stop 09/24/16 at 22:48; Status DC Labetalol HCl (Trandate Inj) 10 mg ONCE ONCE IV PUSH Last administered on 09/25 00:34; Start 09/24/16 at 23:30; Stop 09/24/16 at 23:31; Status DC Morphine Sulfate (Morphine Inj) 4 mg ONCE ONCE IV PUSH Last administered on 02:06; Start 09/25/16 at 01:30; Stop 09/25/16 at 01:31; Status DC Ondansetron HCl (Zofran Inj) 4 mg ONCE ONCE IV PUSH Last administered on 02:05; Start 09/25/16 at 01:30; Stop 09/25/16 at 01:31; Status DC Enalaprilat (Vasotec Inj) 1.25 mg ONCE ONCE IV PUSH Last administered on 09/25 02:06; Start 09/25/16 at 01:30; Stop 09/25/16 at 01:31; Status DC Iohexol (Omnipaque 350 Inj) 70 ml STK-MED ONCE IV Last administered on 01:42; Start 09/25/16 at 01:42; Stop 09/25/16 at 01:43; Status DC Sodium Chloride (NS Flush) 2 ml UNSCH PRN IV FLUSH FLUSH AFTER USING IV ACCESS Last administered on 09/25/16 17:44; Start 09/25/16 at 03:00 Sodium Chloride (NS Flush) 2 ml BID IV FLUSH Last administered on 09/26/16 09: 43; Start 09/25/16 at 09:00 Acetaminophen/ Hydrocodone Bitart ([place] 7.5-325 Mg) 1 tab Q4H PRN PO PAIN SCALE 1 TO 7 Last administered on 09/26/16 13:02; Start 09/25/16 at 03:00 Ondansetron HCl (Zofran Inj) 4 mg Q6H PRN IV NAUSEA Last administered on 20:56; Start 09/25/16 at 03:00 Lisinopril (Prinivil) 10 mg DAILY PO Last administered on 09/26/16 09:43; Start 09/25/16 at 09:00 Nitroglycerin (Nitroglycerin 2% Oint) 1 inch Q6HR TOP Last administered on 09/26 13:03; Start 09/25/16 at 06:00 Hydrochlorothiazide (Hydrodiuril) 25 mg BID PO Last administered on 09/26/16 09:43; Start 09/25/16 at 21:00 Lisinopril (Prinivil) 20 mg DAILY PO ; Start 09/25/16 at 10:45; Stop 09/25/16 at 11:54; Status DC Pravastatin Sodium (Pravachol) 20 mg DAILY PO Last administered on 09/26/16 09 :43; Start 09/25/16 at 10:45 Insulin Aspart (NovoLOG SUPPLEMENTAL SCALE) 1 ACHS SLIDING SCALE SQ ; Start at 11:00 Dextrose (D50w (Vial) Inj) 25 ml UNSCH PRN IV HYPOGLYCEMIA-SEE COMMENTS; Start 09/25/16 at 10:45 Glucagon (Glucagon Inj) 1 mg UNSCH PRN IM/SQ HYPOGLYCEMIA-SEE COMMENTS; Start 09/25/16 at 10:45 Regadenoson 0.4 mg 0.4 mg STK-MED ONCE .ROUTE Last administered on 09/25/16 15 :10; Start 09/25/16 at 15:10; Stop 09/25/16 at 15:11; Status DC Ceftriaxone Sodium 1000 mg/ Sodium Chloride 100 ml @ 200 mls/hr ONCE ONCE IV Last administered on 09/25/16 17:44; Start 09/25/16 at 18:00; Stop 09/25/16 at 18:29; Status DC Sodium Chloride (NS 1000 ml Inj) 1,000 ml @ 125 mls/hr Q8H IV Last administered on 09/25/16 17:44; Start 09/25/16 at 17:33; Stop 09/26/16 at 01:32 ; Status DC Acetaminophen 650 mg 650 mg NOW ONCE PO Last administered on 09/25/16 18:00; Start 09/25/16 at 18:00; Stop 09/25/16 at 18:01; Status DC Ceftriaxone Sodium/Sodium Chloride (Rocephin Inj/NS Inj) 100 ml @ 200 mls/hr Q24H IV ; Start 09/26/16 at 18:00 Potassium Chloride (KCl) 40 meq ONCE ONCE PO Last administered on 09/26/16 13 :02; Start 09/26/16 at 12:00; Stop 09/26/16 at 12:01; Status DC Social History Pt is single non smoker or alcohol Physical Exam Vital Signs Vital Signs Date Time Temp Pulse Resp B/P Pulse Ox O2 Delivery O2 Flow Rate FiO2 09/26/16 11:22 98.9 104 18 134/65 96 09/26/16 09:30 110 09/26/16 08:30 98.3 105 18 129/66 95 09/26/16 00:16 97.8 101 18 158/72 95 09/25/16 23:54 97 09/25/16 22:32 18 09/25/16 21:12 99.3 100 24 200/88 96 09/25/16 18:31 100.5 09/25/16 17:16 102.5 107 20 169/81 96 Physical Exam GENERAL: This is a well-nourished, well-developed patient, in no apparent distress. SKIN: No rashes, ecchymoses or lesions. Cool and dry. HEAD: Atraumatic. Normocephalic. No temporal or scalp tenderness. EYES: Pupils equal round and reactive. Extraocular motions intact. No scleral icterus. No injection or drainage. CARDIOVASCULAR: Regular rate and rhythm without murmurs, gallops, or rubs. RESPIRATORY: Clear to auscultation. Breath sounds equal bilaterally. No wheezes , rales, or rhonchi. GASTROINTESTINAL: Abdomen soft, tender to palpation, + BS X 4 MUSCULOSKELETAL: Extremities without clubbing, cyanosis, or edema. No joint tenderness, effusion, or edema noted. No calf tenderness. Negative Homans sign bilaterally. NEUROLOGICAL: Awake and alert. Normal speech. Laboratory Laboratory Tests Test 09/26/16 07:52 White Blood Count 19.2 Red Blood Count 4.07 Hemoglobin 11.7 Hematocrit 36.0 Mean Corpuscular Volume 88.4 Mean Corpuscular Hemoglobin 28.6 Mean Corpuscular Hemoglobin 32.4 Concent Red Cell Distribution Width 13.3 Platelet Count 195 Mean Platelet Volume 8.5 Neutrophils (%) (Auto) 89.2 Lymphocytes (%) (Auto) 4.2 Monocytes (%) (Auto) 6.1 Eosinophils (%) (Auto) 0.0 Basophils (%) (Auto) 0.5 Neutrophils # (Auto) 17.1 Lymphocytes # (Auto) 0.8 Monocytes # (Auto) 1.2 Eosinophils # (Auto) 0.0 Basophils # (Auto) 0.1 CBC Comment DIFF FINAL Differential Comment Sodium Level 133 Potassium Level 3.3 Chloride Level 98 Carbon Dioxide Level 26.0 Anion Gap 9 Blood Urea Nitrogen 11 Creatinine 1.15 Estimat Glomerular Filtration 57 Rate Random Glucose 132 Lactic Acid Level 1.1 Calcium Level 8.5 Phosphorus Level 2.4 Magnesium Level 1.9 Total Bilirubin 1.9 Aspartate Amino Transf 15 (AST/SGOT) Alanine Aminotransferase 17 (ALT/SGPT) Alkaline Phosphatase 86 Total Protein 7.1 Albumin 2.9 Free Thyroxine 1.49 Thyroid Stimulating Hormone 0.512 3rd Gen Date/Time Procedure Status Source Growth 09/25/16 03:35 Urine Culture - Preliminary Resulted Urine Clean Catch Group B Beta Strep Staphylococcus Species Result Diagram: 09/26/16 0752 09/26/16 [address] Angiography 09/25/16 0035 Signed Impressions: Service Date/Time: Sunday, September 25, 2016 01:37 - CONCLUSION: 1. The study is negative for pulmonary embolism. 2. Numerous bilateral pulmonary nodules measuring up to 7 mm. Recommend correlation with clinical history for history of malignancy. In the absence of malignancy, recommend followup CT in 6 months. James Crook MD ADDENDUM: The multiple pulmonary nodules were described in detail on the CT scan of the chest dated 08/09/16. There is been little change in this very short interval. These still remain concerning for malignancy. Yoshi Huerta MD FACR Myocardial Perfusion Scan Nuc Med 09/25/16 0000 Signed Impressions: Service Date/Time: Sunday, September 25, 2016 14:24 - CONCLUSION: 1. Normal wall motion and calculated ejection fraction. 2. No fixed or reversible wall defects to suggest ischemia or infarction. RISK CATEGORY: Low (<1%% Annual Mortality Rate) Ricky Rahman MD Chest X-Ray 09/24/16 2245 Signed Impressions: Service Date/Time: Saturday, September 24, 2016 23:16 - CONCLUSION: The lungs are clear. James Crook MD Assessment and Plan Problem List: (1) Uterine cancer Status: Acute Plan: Ms. Lowry is scheduled for X Lap hysterectomy with BSO and staging, poss BX. for Friday09/30/16 At this point surgery is still scheduled to go forward for Friday09/30/[address] Julien Patient continue to have vaginal bleeding order was placed to IR for uterine artery embolization to help with decreasing vaginal bleeding. OK to discharge home once Ok with Med Team (2) Pulmonary nodules Status: Acute Plan: Concerning for metastatic disease (3) UTI (urinary tract infection) Status: Acute Plan: Antibiotics per Med Team and we thank them for their care with Ms. Lowry continue to monitor for fevers, elevation in WBCs with labs today pt is going to be put on full admission for sepsis per Med Team (4) Chest pain, rule out acute myocardial infarction Status: Resolved Plan: Ms. Lowry has r/o for cardiac event and PE continue to monitor for cp supportive care nitroglycerine per EMR Discussed Condition With RN Yaima Ricketts, PA Dr. Julien and he is in agreement with plan of care. Problem Qualifiers (1) Uterine cancer: Qualified Code: C54.9 - Malignant neoplasm of body of uterus, unspecified site (2) UTI (urinary tract infection): Qualified Code: N39.0 - Urinary tract infection with hematuria, site unspecified Haris Merrill Sep 26, 2016 15:17
[2016-09-26 16:26] LABS: HEMOGLOBIN A1a 1.2 %; HEMOGLOBIN A1b 1.8 %; HEMOGLOBIN Ao 84.3 %; HEMOGLOBIN LA1C 2.1 %; HEMOGLOBIN P3 3.9 %
[2016-09-26] MEDS: cefTRIAXone INJ 1,000 MG in SODIUM CHLORIDE 0.9% INJ 100 ML IV SCH (18:10)
[2016-09-26] MEDS: ONDANSETRON HCL 4 MG/2 ML VIAL IV PRN (22:03)
[2016-09-27] VITALS (15 sets, daily range): BP systolic 115–191; BP diastolic 64–101; PULSE 78–101; RESP 14–18; TEMP 96.6–98.5; O2SAT 91–100
[2016-09-27] MEDS: ACETAMINOPHEN/HYDROcodone 325 MG/7.5 MG TAB PO PRN ×2 (05:03→23:29)
[2016-09-27] MEDS: NITROGLYCERIN 2% OINT 1 GM PACKET TOP SCH ×4 (05:03→23:29)
[2016-09-27] MEDS: INSULIN ASPART SUPPLEMENTAL SCALE SQ SCH ×4 (07:00→20:56)
--- NOTE | 2016-09-27 08:25 | MB ---
cc: CRESCENCIO MIRELES THERESE A. M.D. MOLPUS, KELLY L. MD SCHNEIDER, JULIE D. MD BARTHOLOMEW, BETH A. MD DATE OF CONSULTATION 09/27/2016 REASON FOR CONSULTATION Patient known to us with uterine carcinosarcoma, vaginal bleeding. PHYSICIANS REQUESTING CONSULT Priyanka Menjivar MD and Crescencio Mireles This patient is seen and evaluated by me. The findings are reviewed and she is examined and counseled by me in conjunction with our nurse practitioner (Haris Merrill). I agree with her findings, assessment, and plan of care. HISTORY This is a 66-year-old female who we recently met in an office consultation with a diagnosis of postmenopausal bleeding, enlarged uterus and endometrial sampling suggesting a sarcoma favoring a carcinosarcoma. Additional findings were that of multifocal bilateral pulmonary nodules greater than 20 that were suspicious for metastatic disease. There was no overt adenopathy, ascites, intraperitoneal or retroperitoneal nodularity. The uterus itself was quite prominent estimated at approximately 16 cm with a widened fundus and lower uterine segment. She is scheduled for surgery this forthcoming Friday (09/30/2016) via exploratory laparotomy. The patient presented to the emergency room with chest pain, a sense of feeling short of breath. She has been evaluated and apparently excluded pulmonary emboli or a cardiac event. However, she reports in the 48 hours, she has had heavier more bleeding than she has noticed at any time in the prior five months. She has been passing fairly large clots both by her report and confirmed by her nurse often staining a with a large volume of blood. Previous hemoglobin 13, hemoglobin yesterday 11, hemoglobin this morning not yet available. She is seen in consultation for further evaluation and recommendation regarding these findings. In addition to her cardiac/pulmonary evaluation, she has been started on antibiotics for a urinary tract infection. She has been intermittently febrile this morning and she is afebrile. PAST MEDICAL HISTORY, SURGICAL HISTORY, MEDICATIONS, FAMILY HISTORY, REVIEW OF SYSTEMS As outlined in the chart and as are documented. Nothing further to add to that, the exception being the increased bleeding over the last two days and nurse reports that it is often even somewhat serosanguineous in appearance. OBJECTIVE Her urine culture showed group B beta strep and staph species. A CT angiography again notes multiple pulmonary nodules that are suspicious for malignancy. It was negative for pulmonary emboli. The largest pulmonary nodule is 7 mm. Myocardial perfusion scan shows an ejection fraction of 66%, normal wall motion and no fixed or reversible wall defect to suggest ischemia or infarction. Chest x-ray shows no acute change. Labs yesterday white count 19, H&H 11.7 and 36.0, platelets 195. Electrolytes potassium slightly low at 3.3, BUN and creatinine 11 and 1.15. Calcium, mag and phos were essentially normal. Free T4 was elevated at 1.49. Troponin-I were less than 0.02. PHYSICAL EXAMINATION Maximum temperature yesterday 101.1 degrees, currently afebrile, pulse 91-105, respiration 18, blood pressure 120-180 over 65-88, O2 saturations greater than equal to 96%. GENERAL: She is alert, oriented x3 in no acute distress. Reports that her chest pain has resolved. LUNGS: Her lungs are clear at the apices. CARDIOVASCULAR: Regular rate and rhythm. LYMPH NODE SURVEY: Negative. Mild rales at the bases. ABDOMEN: Soft in the right and left upper quadrant. It is nonacute, some discomfort in the lower midline below the umbilicus where there is a mass effect consistent with enlarged uterus. BACK: No CVA tenderness or spinal point tenderness. PELVIC: Exam deferred given recent office pelvic exam. EXTREMITIES: Nontender. Neurovascular intact. No palpable cords. DISCUSSION Time is spent discussion with Kinsey Lowry reviewing the findings in her case today. I am sorry that she is feeling poorly. In the absence of a cardiac event and forthcoming surgery, it would be helpful if she could stop taking the aspirin if primary medicine and cardiology have no opposition. We are still going to move forward as scheduled for surgery barring any significant change. She is to continue antibiotics which should help get ahead of a urinary tract infection between now and the time of scheduled. I spoke with Dr. Toney Haji in interventional radiology and she is tentatively scheduled for bilateral uterine artery embolization today due to her recent significant increase in active bleeding in an effort to try to reduce bleeding to help offset more profound anemia and to help reduce blood loss at the time of surgery. She understands she has a markedly enlarged uterus, hemorrhagic significant tumor consistent with sarcoma and the multiple pulmonary nodules are suspicious for metastatic disease which would not be unlike the clinical behavior of a sarcoma. I reviewed the anticipated surgery. The plan for exploratory laparotomy, the pros, cons, risks and benefits, as well as the problems associated with not having the surgery. She expressed a good understanding and agrees. Furthermore, she understands the procedure recommended with the uterine artery embolization. She is in favor of that, in favor of anything that helps reduce the bleeding and she agrees to move forward as well. ASSESSMENT 1. Uterine sarcoma with increased bleeding, especially in the last 48 hours. 2. Chest pain apparently ruled out for pulmonary emboli and acute cardiac event. 3. Urinary tract infection on antibiotics. 4. Extensive discussion. 5. Plan for surgery this forthcoming Friday09/30/2016. PLAN 1. Continue supportive care, antibiotics, electrolyte repletion, hydration. I am grateful for the excellent medical and cardiac care. 2. Interventional radiology has been consulted to move forward with bilateral uterine artery embolization today. 3. Continue antibiotics for urinary tract infection. 4. Anticipate moving forward with surgery on Friday. She will need to be n.p.o. after midnight, clear liquids on Friday and the mechanical bowel prep as she has previously been instructed. SCD's telephone cleaner to the operating room, but I would avoid preoperative heparin. Thank you the consultation. MD DARRYL Castillo/ROSAS /7:39 AM /8:00 AM
[2016-09-27] MEDS: SODIUM CHLORIDE 0.9% FLUSH 10 ML FLUSH IV FLUSH SCH ×2 (09:00→20:56)
[2016-09-27] MEDS ORDERED: fentaNYL CITRATE 250 MCG/5 ML AMP ONE (10:14)
[2016-09-27] MEDS ORDERED: MIDAZOLAM HCL 2 MG/2 ML VIAL ONE ×3 (10:14→12:06)
[2016-09-27] MEDS ORDERED: KETOROLAC TROMETHAMINE 30 MG/ML (IVP) VIAL ONE (11:10)
--- NOTE | 2016-09-27 11:14 | HHI.PR ---
Subjective Remarks Follow up for sepsis/UTI, uterine cancer, heavy vaginal bleeding. The patient reports continue heavy vaginal bleeding. Denies any fevers/chills or dysuria. Denies chest pain or shortness of breath. She is hoping to stay until her procedure on Friday, does not feel comfortable going home with continued heavy bleeding. She is going for uterine embolization today. Objective Vitals Vital Signs Date Time Temp Pulse Resp B/P Pulse Ox O2 Delivery O2 Flow Rate FiO2 09/27/16 08:23 97 21 09/27/16 08:09 98.3 82 18 115/64 97 09/27/16 08:04 85 09/27/16 06:35 95 162/88 09/27/16 06:26 18 09/27/16 04:41 98.4 91 18 180/80 100 09/27/16 00:14 98.5 101 18 120/65 96 09/26/16 21:58 101.1 105 18 135/74 97 09/26/16 16:16 98 09/26/16 15:13 98.3 98 18 118/65 96 09/26/16 11:22 98.9 104 18 134/65 96 Result Diagram: 09/26/16 0752 09/26/16 [address] Angiography 09/25/16 0035 Signed Impressions: Service Date/Time: Sunday, September 25, 2016 01:37 - CONCLUSION: 1. The study is negative for pulmonary embolism. 2. Numerous bilateral pulmonary nodules measuring up to 7 mm. Recommend correlation with clinical history for history of malignancy. In the absence of malignancy, recommend followup CT in 6 months. James Crook MD ADDENDUM: The multiple pulmonary nodules were described in detail on the CT scan of the chest dated 08/09/16. There is been little change in this very short interval. These still remain concerning for malignancy. Yoshi Huerta MD FACR Myocardial Perfusion Scan Nuc Med 09/25/16 0000 Signed Impressions: Service Date/Time: Sunday, September 25, 2016 14:24 - CONCLUSION: 1. Normal wall motion and calculated ejection fraction. 2. No fixed or reversible wall defects to suggest ischemia or infarction. RISK CATEGORY: Low (<1%% Annual Mortality Rate) Ricky Rahman MD Chest X-Ray 09/24/16 4245 Signed Impressions: Service Date/Time: Saturday, September 24, 2016 23:16 - CONCLUSION: The lungs are clear. James Crook MD Objective Remarks GENERAL: Well-nourished, well-developed female patient in NAD. SKIN: Warm and dry. No rash. HEENT: Normocephalic. Atraumatic. Pupils equal and round. Mucous membranes pink and moist. CARDIOVASCULAR: Regular rate and rhythm. S1, S2 noted. No murmur appreciated. RESPIRATORY: No accessory muscle use. Clear to auscultation. Breath sounds equal bilaterally. GASTROINTESTINAL: Abdomen soft, nondistended, diffuse lower abdominal TTP. Normoactive bowel sounds x4. MUSCULOSKELETAL: No obvious deformities. Extremities without clubbing, cyanosis , or edema. NEUROLOGICAL: Awake and alert. No obvious cranial nerve deficits. Motor grossly within normal limits. Normal speech. PSYCHIATRIC: Appropriate mood and affect; insight and judgment normal. Medications and IVs Current Medications Medications (Trade) Dose Ordered Sig/Courtney Route Start Time Stop Time Status Last Admin (NS Flush) 2 ml UNSCH PRN IVF 09/24/16 22:45 (NS Flush) 2 ml UNSCH PRN IV FLUSH 09/25/16 03:00 09/25/16 17:44 (NS Flush) 2 ml BID IV FLUSH 09/25/16 09:00 09/26/16 09:43 ([place] 7.5-325 Mg) 1 tab Q4H PRN PO 09/25/16 03:00 09/27/16 05:03 (Zofran Inj) 4 mg Q6H PRN IV 09/25/16 03:00 09/26/16 22:03 (Prinivil) 10 mg DAILY PO 09/25/16 09:00 09/26/16 09:43 (Nitroglycerin 2% Oint) 1 inch Q6HR TOP 09/25/16 06:00 09/27/16 05:03 (Hydrodiuril) 25 mg BID PO 09/25/16 21:00 09/26/16 21:00 (Pravachol) 20 mg DAILY PO 09/25/16 10:45 09/26/16 09:43 (D50w (Vial) Inj) 25 ml UNSCH PRN IV 09/25/16 10:45 Glucagon 1 mg 1 mg UNSCH PRN IM/SQ 09/25/16 10:45 (Rocephin Inj/NS Inj) 100 ml @ 200 mls/hr Q24H IV 09/26/16 18:00 09/26/16 18:10 A/P Problem List: (1) Chest pain, rule out acute myocardial infarction ICD Code: R07.9 Status: Resolved (2) Endometrial carcinoma ICD Code: C54.1 Status: Acute Assessment and Plan 66-year-old female with history of high-grade endometrial cancer, HTN, HLD, DM, asthma, presents with chest pain. Chest pain: Patient initially admitted to [facility], ACS ruled out with negative serial cardiac enzymes and EKG without acute ischemic changes. Nuclear stress test was unremarkable. D-dimer elevated, CT-PA negative for PE however did show multiple pulmonary nodules, little change compared to previous CT chest on 08/09/16. Patient transferred to hospitalist due to UTI with high-grade fevers. Chest pain resolved. Sepsis with UTI: Patient meets sepsis criteria with fever Tmax 102.5, tachycardia HR 107, leukocytosis WBC 19.2 K, sourceUTI. Continue antibiotics with IV Rocephin. Urine culture with group B strep, Staphylococcus aureus, sensitive to Rocephin, will continue with plan to transition to po abx at discharge. 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 Patient complains of worsening heavy vaginal bleeding. Consult Dr. Julien. IR consulted for uterine artery embolization. Continue pain control prn. Pulmonary Nodules: seen on chest CT, consistent with previous CT 08/09/16. Dr Julien aware and following. Hypokalemia: likely secondary to decreased oral intake. Give po KCl replacement. Monitor. Hypertension: chronic, stable. Continue patient's home meds, lisinopril and HCTZ. Monitor BP, adjust antihypertensives as needed. Diabetes Mellitus: chronic, holding Metformin for now after receiving contrast. Monitor Accu-checks. Cover with SSI. Hyperlipidemia: chronic, continue home statin. DVT Prophylaxis: teds/SCDs Discharge Planning Admit to inpatient with sepsis/UTI, heavy vaginal bleeding, going for uterine artery embolization today. Transfer to . Jossie Ricketts PA-C Sep 27, 2016 11:14 am
--- NOTE | 2016-09-27 12:57 | PD.RAD ---
Post Procedure Progress Note Pre Procedure Diagnosis: (1) Endometrial carcinoma (2) Vaginal bleeding Post Procedure Diagnosis: (1) Endometrial carcinoma (2) Vaginal bleeding Procedure Date: Sep 27, 2016 Supervising Radiologist: James Hjai JR Proceduralist/Assist: Kirk Schmitt, RT(R), Ludy Jaramillo, RT(R), Patty Villalobos RT(R)() Anesthesia: Conscious Sedation Plan of Activity Patient to Unit: ROPU Patient Condition: Good See PACS Report for procedural detail/treatment Vascular-Arterial Procedure Procedure 1 Procedure(s): Angiogram, Embolization Access Access Site(s): Bilateral Femoral Artery Findings: Pelvic angiography shows pelvic mass with neoangiogenesis. Many tiny feeding branches arising off of the anterior circulation of both internal iliac arteries. Successful gelfoam embolization of the majority of the branches suppling the uterus and mass. Some branches just too tiny to gain access with a catheter. The volume embolized should decrease or stop the vaginal bleeding and will aid in surgical blood loss. Jr. Adithya,James Shafer MD Sep 27, 2016 12:57
[2016-09-27] MEDS ORDERED: HYDROmorphone HCL PF 1 MG/ML VIAL IV ONE (13:30)
[2016-09-27] MEDS ORDERED: POTASSIUM CHLORIDE 20 MEQ CONTROLLED RELEASE TAB PO ONE (13:45)
[2016-09-27] MEDS ORDERED: NALOXONE HCL 0.4 MG/ML AMP IV PRN (14:00)
[2016-09-27] MEDS ORDERED: ONDANSETRON HCL 4 MG/2 ML VIAL IV PRN (14:00)
[2016-09-27] MEDS: PCA - TOTAL MG DILAUDID DELIVERED PER SHIFT OTHER SCH ×2 (14:00→22:35)
[2016-09-27] MEDS ORDERED: IOHEXOL 350 MG/ML 50 ML BTL (for RAD DIAG) OTHER ONE (14:12)
[2016-09-27] MEDS: HYDROmorphone HCL PCA 6 MG/30 ML IV SCH (14:45)
--- NOTE | 2016-09-27 15:36 | RADRPT ---
EXAM DATE/TIME: 09/27/2016 00:00 [facility] COMPARISON: No previous studies available for comparison. INDICATIONS : Patient presents with uterine cancer in need of uterine embolization due to vaginal bleeding. Patient for surgery on Friday. MEDICAL HISTORY : HTN DM High grade uterine carcinoma Hyperlipidemia Multiple pulmonary nodules SURGICAL HISTORY : Bilat tubal ligation ENCOUNTER: Initial ACUITY: 2 days PAIN SCORE: 3/10 LOCATION: abdomenLower FLUORO TIME: 32.0 minutes IMAGE SERIES: 29 ACCESS SITE: Bilateral Femoral artery SEDATION TIME: 123 minutes CONTRAST: 1.) 134 cc Omnipaque (iohexol) 350 MEDICATION(S): 1.) 8 mg midazolam (Versed) IV 2.) 400 mcg fentanyl (Sublimaze) IV 3.) 30 mg toradol IV 4.) 300 mcg Nitroglycerin IV DEVICE(S): 1.) Right uterine artery Gelfoam 2.) Left uterine artery Gelfoam PROCEDURE : 1. Ultrasound-guided puncture of the right and left common femoral arteries. 2. Left internal iliac artery arteriogram. 3. Left uterine artery arteriogram. 4. Embolization of the left uterine artery. 5. Right internal iliac artery arteriogram. 6. Right uterine artery arteriogram. 7. Embolization of the right uterine artery. 8. Conscious sedation with continuous EKG and oximetry monitoring. The risks, benefits and alternatives to the procedure were explained and verbal and written consent w as obtained. The site was prepped in sterile fashion. Full sterile technique was used, including ca p, mask, sterile gloves and gown and a large sterile sheet. Hand hygiene and 2% chlorhexidine and/or betadine/alcohol prep was utilized per protocol for cutaneous antisepsis. The skin and subcutaneous tissues were infiltrated with local anesthetic solution. With ultrasound and fluoroscopic guidance the right femoral artery was punctured. An Omni Flush cath eter was placed over aortic bifurcation into the left internal iliac artery where imaging was perform ed to identify the uterine artery. These diagnostic images do not show a dominant primary supply fro m a single vessel to the uterus and mass. Rather multiple small vessels are seen arising from the ant erior division of the internal iliac artery. 3 branches of the anterior division of the internal carine c artery were selected. One was selected with the Berenstein catheter while the remaining 2 were yomi cted with a microcatheter. Selective angiography was performed from these levels with Gelfoam emboliz ation also performed. This was performed to stasis. The ipsilateral internal iliac artery was then selected from the right approach. This generated diffi culty as the tight angle kept kinking the catheter. A second access was therefore performed involving the left common femoral artery. This was performed in the same fashion as the right access. The righ t internal iliac artery was then selected from this approach and this resolved the issue. Selective a ngiography of the right internal iliac artery shows multiple branches arising from the anterior divis ion supplying the uterus and mass. No dominant uterine artery branch is identified. The shear number of these vessels necessitated more proximal embolization. This embolization was performed utilizing G elfoam. This included the obturator artery. Stasis was noted. Both sheaths were removed and hemostasi s obtained involving pressure. Conscious sedation was performed with the prescribed dosages and duration as above in the presence of an independent trained radiology nurse to assist in the monitoring of the patient. EKG and oximetry remained stable throughout the procedure. The patient tolerated the procedure well and there were n o complications. The patient was sent to post anesthesia recovery in stable condition. CONCLUSION: Patient with a uterine mass with significant neoangiogenesis. Bilateral pelvic embolization performed as detailed above. James Haji Jr., MD on September 27, 2016 at 15:27 Board Certified Radiologist. This report was verified electronically.
[2016-09-27] MEDS: cefTRIAXone INJ 1,000 MG in SODIUM CHLORIDE 0.9% INJ 100 ML IV SCH (17:41)
[2016-09-27] MEDS: PRAVASTATIN SOD 20 MG TAB PO SCH (17:42)
[2016-09-27] MEDS: LISINOPRIL 10 MG TAB PO SCH (17:42)
[2016-09-27] MEDS: HYDROCHLOROTHIAZIDE 25 MG TAB PO SCH (21:04)
[2016-09-28] VITALS (8 sets, daily range): BP systolic 129–161; BP diastolic 68–89; PULSE 86–103; RESP 16–18; TEMP 97.4–102.2; O2SAT 93–100
[2016-09-28] MEDS: PCA - TOTAL MG DILAUDID DELIVERED PER SHIFT OTHER SCH ×3 (06:31→22:53)
[2016-09-28] MEDS: INSULIN ASPART SUPPLEMENTAL SCALE SQ SCH ×4 (06:35→20:10)
[2016-09-28] MEDS: NITROGLYCERIN 2% OINT 1 GM PACKET TOP SCH ×4 (06:36→23:33)
[2016-09-28] MEDS: SODIUM CHLORIDE 0.9% FLUSH 10 ML FLUSH IV FLUSH SCH ×2 (09:00→20:10)
[2016-09-28] MEDS: HYDROCHLOROTHIAZIDE 25 MG TAB PO SCH ×2 (09:28→20:11)
[2016-09-28] MEDS: LISINOPRIL 10 MG TAB PO SCH (09:28)
[2016-09-28] MEDS: PRAVASTATIN SOD 20 MG TAB PO SCH (09:28)
[2016-09-28 13:04] LABS: AUTOMATED NEUTROPHIL # 10.3 TH/MM3 (1.8-7.7); BASOPHIL # 0.1 TH/MM3 (0-0.2); BASOPHIL % 0.5 % (0.0-2.0); EOSINOPHIL # 0.2 TH/MM3 (0-0.4); EOSINOPHIL % 1.4 % (0.0-4.0); HEMATOCRIT 33.9 % (35.0-46.0); HEMO FLAGS DIFF FINAL; LYMPH % 9.4 % (9.0-44.0); LYMPHOCYTE # 1.2 TH/MM3 (1.0-4.8); MEAN CELL VOLUME 87.7 FL (80.0-100.0); MEAN CORPUSCULAR HEMOGLOBIN 28.4 PG (27.0-34.0); MEAN CORPUSCULAR HGB CONC 32.4 % (32.0-36.0); MONO % 8.2 % (0.0-8.0); NEUT % 80.5 % (16.0-70.0); PLATELET COUNT 214 TH/MM3 (150-450); RED BLOOD COUNT 3.86 MIL/MM3 (4.00-5.30); RED CELL DISTRIBUTION WIDTH 12.8 % (11.6-17.2); WHITE BLOOD COUNT 12.8 TH/MM3 (4.0-11.0)
[2016-09-28 13:33] LABS: BICARBONATE 29.6 MEQ/L (21.0-32.0); POTASSIUM 3.5 MEQ/L (3.5-5.1)
[2016-09-28] MEDS: cefTRIAXone INJ 1,000 MG in SODIUM CHLORIDE 0.9% INJ 100 ML IV SCH (17:10)
[2016-09-28] MEDS: ACETAMINOPHEN 325 MG TAB PO PRN (18:12)
[2016-09-29] VITALS: BP 178/83; PULSE 90; RESP 17; TEMP 99.1; O2SAT 98
[2016-09-29] MEDS: HYDROmorphone HCL PCA 6 MG/30 ML IV SCH (02:51)
[2016-09-29] MEDS: ACETAMINOPHEN 325 MG TAB PO PRN ×2 (02:54→16:53)
[2016-09-29 04:00] VITALS: BP 173/83; PULSE 98; RESP 18; TEMP 101.4; O2SAT 97
[2016-09-29] MEDS: NITROGLYCERIN 2% OINT 1 GM PACKET TOP SCH ×3 (06:05→17:42)
[2016-09-29] MEDS: PCA - TOTAL MG DILAUDID DELIVERED PER SHIFT OTHER SCH ×3 (06:06→22:00)
[2016-09-29] MEDS: INSULIN ASPART SUPPLEMENTAL SCALE SQ SCH ×4 (06:10→22:35)
[2016-09-29 07:09] LABS: AUTOMATED NEUTROPHIL # 9.9 TH/MM3 (1.8-7.7); BASOPHIL # 0.1 TH/MM3 (0-0.2); BASOPHIL % 0.7 % (0.0-2.0); EOSINOPHIL # 0.2 TH/MM3 (0-0.4); EOSINOPHIL % 1.2 % (0.0-4.0); HEMATOCRIT 34.2 % (35.0-46.0); HEMO FLAGS DIFF FINAL; LYMPH % 12.1 % (9.0-44.0); LYMPHOCYTE # 1.6 TH/MM3 (1.0-4.8); MEAN CELL VOLUME 86.9 FL (80.0-100.0); MEAN CORPUSCULAR HEMOGLOBIN 28.4 PG (27.0-34.0); MEAN CORPUSCULAR HGB CONC 32.7 % (32.0-36.0); MONO % 9.8 % (0.0-8.0); NEUT % 76.2 % (16.0-70.0); PLATELET COUNT 228 TH/MM3 (150-450); RED BLOOD COUNT 3.94 MIL/MM3 (4.00-5.30); WHITE BLOOD COUNT 12.9 TH/MM3 (4.0-11.0)
[2016-09-29 07:23] VITALS: BP 143/72; PULSE 80; RESP 18; TEMP 97.2; O2SAT 96
--- NOTE | 2016-09-29 07:25 | HHI.PR ---
Subjective Remarks Late entry for 09/28/2016 Patient is doing well. She continues to have small amount of vaginal bleeding. Had an episode of fever in the morning but again later in the day she had fever. Objective Vitals Vital Signs Date Time Temp Pulse Resp B/P Pulse Ox O2 Delivery O2 Flow Rate FiO2 09/29/16 06:06 17 09/29/16 04:00 101.4 98 18 173/83 97 09/29/16 03:30 18 09/29/16 03:20 18 09/29/16 02:51 19 09/29/16 00:00 99.1 90 17 178/83 98 09/28/16 22:53 18 09/28/16 21:13 93 09/28/16 20:00 97.4 91 18 137/74 97 09/28/16 17:00 101.1 89 161/89 97 09/28/16 12:00 98.1 86 18 129/68 97 09/28/16 08:30 94 Nasal Cannula 1.00 09/28/16 08:00 102.2 103 16 153/71 94 I/O 09/28/16 09/28/16 09/28/16 09/29/16 09/29/16 09/29/16 06:59 14:59 22:59 06:59 14:59 22:59 Intake Total 240 ml 720 ml 240 ml Balance 240 ml 720 ml 240 ml Intake Oral 240 ml 720 ml 240 ml # Voids 2 1 2 # Bowel Movements 1 Result Diagram: 09/29/16 0640 09/28/16 1157 Imaging Last Impressions Embolization, Transcatheter 09/27/16 0000 Signed Impressions: Service Date/Time: Tuesday, September 27, 2016 00:00 - CONCLUSION: Patient with a uterine mass with significant neoangiogenesis. Bilateral pelvic embolization performed as detailed above. James Haji Jr., MD CT Angiography 09/25/16 0035 Signed Impressions: Service Date/Time: Sunday, September 25, 2016 01:37 - CONCLUSION: 1. The study is negative for pulmonary embolism. 2. Numerous bilateral pulmonary nodules measuring up to 7 mm. Recommend correlation with clinical history for history of malignancy. In the absence of malignancy, recommend followup CT in 6 months. James Crook MD ADDENDUM: The multiple pulmonary nodules were described in detail on the CT scan of the chest dated 08/09/16. There is been little change in this very short interval. These still remain concerning for malignancy. Yoshi Huerta MD FACR Myocardial Perfusion Scan Nuc Med 09/25/16 0000 Signed Impressions: Service Date/Time: Sunday, September 25, 2016 14:24 - CONCLUSION: 1. Normal wall motion and calculated ejection fraction. 2. No fixed or reversible wall defects to suggest ischemia or infarction. RISK CATEGORY: Low (<1%% Annual Mortality Rate) Ricky Rahman MD Chest X-Ray 09/24/16 2245 Signed Impressions: Service Date/Time: Saturday, September 24, 2016 23:16 - CONCLUSION: The lungs are clear. James Crook MD Objective Remarks GENERAL: AOX3, NAD. SKIN: Warm and dry. HEAD: Normocephalic. EYES: No scleral icterus. No injection or drainage. NECK: Supple, trachea midline. No JVD or lymphadenopathy. CARDIOVASCULAR: Regular rate and rhythm without murmurs, gallops, or rubs. RESPIRATORY: Breath sounds equal bilaterally. No accessory muscle use. GASTROINTESTINAL: Abdomen soft, non-tender, nondistended. MUSCULOSKELETAL: No cyanosis, or edema. BACK: Nontender without obvious deformity. No CVA tenderness. A/P Problem List: (1) Chest pain, rule out acute myocardial infarction ICD Code: R07.9 - Chest pain, rule out acute myocardial infarction Status: Resolved (2) Endometrial carcinoma ICD Code: C54.1 - Malignant neoplasm of endometrium Status: Acute Assessment and Plan 66-year-old female with history of high-grade endometrial cancer, HTN, HLD, DM, asthma, presents with chest pain. Chest pain: Patient initially admitted to [facility], ACS ruled out with negative serial cardiac enzymes and EKG without acute ischemic changes. Nuclear stress test was unremarkable. D-dimer elevated, CT-PA negative for PE however did show multiple pulmonary nodules, little change compared to previous CT chest on 08/09/16. Patient transferred to hospitalist due to UTI with high-grade fevers. Chest pain resolved. Sepsis with UTI: Patient meets sepsis criteria with fever Tmax 102.5, tachycardia HR 107, leukocytosis WBC 19.2 K, sourceUTI. Continue antibiotics with IV Rocephin. Urine culture with group B strep, Staphylococcus aureus, sensitive to Rocephin, will continue with plan to transition to po abx at discharge. - Due to persistent fever, will obtain blood cultures. 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 Patient complains of worsening heavy vaginal bleeding. Consult Dr. Julien. IR consulted for uterine artery embolization. Continue pain control prn. Pulmonary Nodules: seen on chest CT, consistent with previous CT 08/09/16. Dr Julien aware and following. Hypokalemia: likely secondary to decreased oral intake. Give po KCl replacement. Monitor. Hypertension: chronic, stable. Continue patient's home meds, lisinopril and HCTZ. Monitor BP, adjust antihypertensives as needed. Diabetes Mellitus: chronic, holding Metformin for now after receiving contrast. Monitor Accu-checks. Cover with SSI. Hyperlipidemia: chronic, continue home statin. DVT Prophylaxis: teds/SCDAntionette Kirk DO Sep 29, 2016 07:25
[2016-09-29] MEDS: HYDROCHLOROTHIAZIDE 25 MG TAB PO SCH ×2 (08:30→22:46)
[2016-09-29] MEDS: LISINOPRIL 10 MG TAB PO SCH (08:30)
[2016-09-29] MEDS: PRAVASTATIN SOD 20 MG TAB PO SCH (08:30)
[2016-09-29] MEDS: SODIUM CHLORIDE 0.9% FLUSH 10 ML FLUSH IV FLUSH SCH ×2 (08:30→22:45)
[2016-09-29] MEDS ORDERED: PEG (High)/E-LYTE SOLN 4000 ML BTL PO ONE (09:00)
--- NOTE | 2016-09-29 11:51 | RADRPT ---
EXAM DATE/TIME: 09/29/2016 07:34 [facility] COMPARISON: No previous studies available for comparison. INDICATIONS : Cough MEDICAL HISTORY : Cardiovascular disease. Hypertension. Asthma SURGICAL HISTORY : None. ENCOUNTER: Initial ACUITY: 4 - 6 days PAIN SCORE: 0/10 LOCATION: chest FINDINGS: A single view of the chest demonstrates the lungs to be symmetrically aerated without evidence of mas s, infiltrate or effusion. Minimal linear density right lung base. The cardiomediastinal contours are unremarkable. Osseous structures are intact. CONCLUSION: 1. Right basilar subsegmental atelectasis. Elliott Toro MD on September 29, 2016 at 7:48 Board Certified Radiologist. This report was verified electronically.
[2016-09-29 12:00] VITALS: BP 162/94; PULSE 100; RESP 18; TEMP 100.3; O2SAT 96
[2016-09-29] MEDS ORDERED: METOCLOPRAMIDE HCL 10 MG/2 ML VIAL IV PRN (13:45)
[2016-09-29] MEDS ORDERED: ONDANSETRON HCL 4 MG/2 ML VIAL IV PUSH SCH (13:45)
--- NOTE | 2016-09-29 15:15 | HHI.PR ---
Subjective Remarks Follow up for UTI, persistent fever. Patient continues to have low grade fever. She also has mild vaginal bleeding as well. Objective Vitals Vital Signs Date Time Temp Pulse Resp B/P (MAP) Pulse Ox O2 Delivery O2 Flow Rate FiO2 09/29/16 12:00 100.3 100 18 162/94 (116) 96 09/29/16 07:23 97.2 80 18 143/72 (95) 96 09/29/16 06:06 17 09/29/16 04:00 101.4 98 18 173/83 (113) 97 09/29/16 03:30 18 09/29/16 03:20 18 09/29/16 02:51 19 09/29/16 00:00 99.1 90 17 178/83 (114) 98 09/28/16 22:53 18 09/28/16 21:13 93 09/28/16 20:00 97.4 91 18 137/74 (95) 97 09/28/16 17:00 101.1 89 161/89 (113) 97 I/O 09/28/16 09/28/16 09/28/16 09/29/16 09/29/16 09/29/16 07:00 15:00 23:00 07:00 15:00 23:00 Intake Total 240 ml 240 ml 480 ml 240 ml Balance 240 ml 240 ml 480 ml 240 ml Intake Oral 240 ml 240 ml 480 ml 240 ml # Voids 2 1 2 # Bowel Movements 1 # Sanitary Pads 1 Pads Result Diagram: 09/29/16 0640 09/28/16 1157 Imaging Last Impressions Embolization, Transcatheter 09/27/16 0000 Signed Impressions: Service Date/Time: Tuesday, September 27, 2016 00:00 - CONCLUSION: Patient with a uterine mass with significant neoangiogenesis. Bilateral pelvic embolization performed as detailed above. James Haji Jr., MD CT Angiography 09/25/16 0035 Signed Impressions: Service Date/Time: Sunday, September 25, 2016 01:37 - CONCLUSION: 1. The study is negative for pulmonary embolism. 2. Numerous bilateral pulmonary nodules measuring up to 7 mm. Recommend correlation with clinical history for history of malignancy. In the absence of malignancy, recommend followup CT in 6 months. James Crook MD ADDENDUM: The multiple pulmonary nodules were described in detail on the CT scan of the chest dated 08/09/16. There is been little change in this very short interval. These still remain concerning for malignancy. Yoshi Huerta MD FACR Myocardial Perfusion Scan Nuc Med 09/25/16 0000 Signed Impressions: Service Date/Time: Sunday, September 25, 2016 14:24 - CONCLUSION: 1. Normal wall motion and calculated ejection fraction. 2. No fixed or reversible wall defects to suggest ischemia or infarction. RISK CATEGORY: Low (<1%% Annual Mortality Rate) Ricky Rahman MD Chest X-Ray 09/24/16 2245 Signed Impressions: Service Date/Time: Saturday, September 24, 2016 23:16 - CONCLUSION: The lungs are clear. James Crook MD Objective Remarks GENERAL: AOX3, NAD. SKIN: Warm and dry. HEAD: Normocephalic. EYES: No scleral icterus. No injection or drainage. NECK: Supple, trachea midline. No JVD or lymphadenopathy. CARDIOVASCULAR: Regular rate and rhythm without murmurs, gallops, or rubs. RESPIRATORY: Breath sounds equal bilaterally. No accessory muscle use. GASTROINTESTINAL: Abdomen soft, non-tender, nondistended. MUSCULOSKELETAL: No cyanosis, or edema. BACK: Nontender without obvious deformity. No CVA tenderness. Procedures 09/27/2016 Procedure(s): Angiogram, Embolization A/P Problem List: (1) Chest pain, rule out acute myocardial infarction ICD Code: R07.9 - Chest pain, rule out acute myocardial infarction Status: Resolved (2) Endometrial carcinoma ICD Code: C54.1 - Malignant neoplasm of endometrium Status: Acute (3) UTI (urinary tract infection) ICD Code: N39.0 - Urinary tract infection, site not specified Status: Acute Assessment and Plan 66-year-old female with history of high-grade endometrial cancer, HTN, HLD, DM, asthma, presents with chest pain. Chest pain: Patient initially admitted to [facility], ACS ruled out with negative serial cardiac enzymes and EKG without acute ischemic changes. Nuclear stress test was unremarkable. D-dimer elevated, CT-PA negative for PE however did show multiple pulmonary nodules, little change compared to previous CT chest on 08/09/16. Patient transferred to hospitalist due to UTI with high-grade fevers. Chest pain resolved. Sepsis with UTI: Patient meets sepsis criteria with fever Tmax 102.5, tachycardia HR 107, leukocytosis WBC 19.2 K, sourceUTI. Continue antibiotics with IV Rocephin. Urine culture with group B strep, Staphylococcus aureus. - Blood cultures pending. - Will switch abx to Cefazolin 2g now and 1g Q8hrs for GBS coverage. This should also cover MSSA. 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 Patient complains of worsening heavy vaginal bleeding. Consult Dr. Julien. IR consulted for uterine artery embolization. Continue pain control prn. Pulmonary Nodules: seen on chest CT, consistent with previous CT 08/09/16. Dr Julien aware and following. Hypokalemia: likely secondary to decreased oral intake. Given po KCl replacement. Hypertension: chronic, stable. Continue patient's home meds, lisinopril and HCTZ. Increase Lisinopril 10 --> 20mg Qday. Diabetes Mellitus: chronic, holding Metformin for now after receiving contrast. Monitor Accu-checks. Cover with SSI. Hyperlipidemia: chronic, continue home statin. DVT Prophylaxis: teds/SCDs Problem Qualifiers (1) UTI (urinary tract infection): Antionette Mireles DO Sep 29, 2016 15:15
[2016-09-29 16:00] VITALS: BP 164/89; PULSE 96; RESP 18; TEMP 100.7; O2SAT 94
[2016-09-29 16:51] LABS: BICARBONATE 28.7 MEQ/L (21.0-32.0); POTASSIUM 3.4 MEQ/L (3.5-5.1)
[2016-09-29] MEDS ORDERED: LISINOPRIL 10 MG TAB PO ONE (17:15)
[2016-09-29] MEDS: cefTRIAXone INJ 1,000 MG in SODIUM CHLORIDE 0.9% INJ 100 ML IV SCH (17:41)
[2016-09-29 20:00] VITALS: BP 131/72; PULSE 75; RESP 16; TEMP 98.3; O2SAT 98
[2016-09-29] MEDS ORDERED: ceFAZolin 2 GM PREMIX 50 ML IV ONE ×2 (22:00)
[2016-09-30] VITALS: BP 144/79; PULSE 75; RESP 17; TEMP 97.7; O2SAT 98
[2016-09-30] MEDS: NITROGLYCERIN 2% OINT 1 GM PACKET TOP SCH ×4 (00:28→18:14)
[2016-09-30 04:00] VITALS: BP 135/70; PULSE 88; RESP 16; TEMP 98.5; O2SAT 98
[2016-09-30] MEDS: PCA - TOTAL MG DILAUDID DELIVERED PER SHIFT OTHER SCH ×3 (06:00→21:07)
[2016-09-30] MEDS ORDERED: INSULIN HUMAN REGULAR 1,000 UNITS/10 ML VIAL SQ PRN (06:00)
[2016-09-30] MEDS ORDERED: CHLORHEXIDINE GLUCONATE 2 % 1 PACK (2 CLOTHS) TOPICAL PRN (06:00)
[2016-09-30] MEDS ORDERED: METOPROLOL TARTRATE 25 MG TAB PO PRN (06:00)
[2016-09-30] MEDS ORDERED: LACTATED RINGER'S 1000 ML IV PRN (06:00)
[2016-09-30] MEDS ORDERED: SODIUM CHLORID 0.9% 500 ML IV PRN (06:00)
[2016-09-30] MEDS ORDERED: POVIDONE IODINE 5% (ANTISEPSIS KIT) 4 APPLICATIONS EACH NARE PRN (06:00)
[2016-09-30 06:10] VITALS: BP 163/77; PULSE 88; RESP 18; TEMP 98.3; O2SAT 95
[2016-09-30] MEDS: INSULIN ASPART SUPPLEMENTAL SCALE SQ SCH ×5 (06:11→22:45)
[2016-09-30] MEDS ORDERED: SUGAMMADEX SODIUM 200 MG/2 ML VIAL IV PUSH ONE ×2 (07:17)
[2016-09-30] MEDS ORDERED: MIDAZOLAM HCL 2 MG/2 ML VIAL ONE (07:17)
[2016-09-30] MEDS ORDERED: ACETAMINOPHEN 1000 MG/100 ML VIAL IV ONE (07:17)
[2016-09-30] MEDS ORDERED: ARTIFICIAL TEARS OPTH OINT 3.5 APPLIC/3.5 GM TUBO ONE (07:17)
[2016-09-30] MEDS ORDERED: fentaNYL CITRATE 250 MCG/5 ML AMP ONE ×2 (07:18→11:20)
[2016-09-30] MEDS ORDERED: HYDROmorphone HCL PF 2 MG/ML VIAL ONE (07:18)
[2016-09-30] MEDS ORDERED: DEXAMETHASONE SOD PHOS 4 MG/ML VIAL ONE (07:18)
[2016-09-30] MEDS: ceFAZolin 2 GM PREMIX 50 ML IV SCH ×2 (07:25→07:30)
[2016-09-30] MEDS ORDERED: ONDANSETRON ODT 4 MG TAB PO ONE (08:30)
[2016-09-30] MEDS ORDERED: ALBUTEROL SULFATE 90 MCG/ACT HFA 8 GM INHALER INH PRN (10:30)
[2016-09-30] MEDS ORDERED: NALOXONE HCL 0.4 MG/ML AMP IV PRN ×2 (10:45)
[2016-09-30] MEDS ORDERED: SODIUM CHLORIDE 0.9% FLUSH 10 ML FLUSH IV FLUSH PRN (10:45)
[2016-09-30] MEDS ORDERED: MORPHINE SULFATE 30 MG/30 ML PCA IV SCH (10:45)
[2016-09-30] MEDS ORDERED: *morphine SULFATE 8 MG/ML PERIprocedure ONLY ONE (11:14)
[2016-09-30] MEDS: INSULIN NovoLIN REGULAR SUPPLEMENTAL SCALE SQ SCH ×4 (11:33→22:45)
[2016-09-30] MEDS ORDERED: 1/2 NS + KCL 20 MEQ INJ 1,000 ML ONE (11:36)
[2016-09-30] MEDS: 1/2 NS + KCL 20 MEQ INJ 1,000 ML IV SCH ×2 (11:50→21:05)
[2016-09-30] MEDS ORDERED: ONDANSETRON HCL 4 MG/2 ML VIAL IV PUSH ONE (12:00)
[2016-09-30] MEDS ORDERED: PROPOFOL 200 MG/20 ML AMP IV ONE (12:00)
[2016-09-30] MEDS ORDERED: LACTATED RINGER'S 1000 ML INJ 2,000 ML IV ONE (12:00)
[2016-09-30] MEDS ORDERED: ePHEDrine/NS 25 MG/5 ML SYR IV ONE (12:00)
[2016-09-30 12:30] VITALS: BP 149/77; PULSE 98; RESP 20; TEMP 96.8; O2SAT 96
[2016-09-30] MEDS: PRAVASTATIN SOD 20 MG TAB PO SCH (12:37)
[2016-09-30] MEDS: LISINOPRIL 20 MG TAB PO SCH (12:37)
[2016-09-30] MEDS: HYDROCHLOROTHIAZIDE 25 MG TAB PO SCH ×2 (12:37→20:58)
[2016-09-30] MEDS: KETOROLAC TROMETHAMINE 30 MG/ML (IVP) VIAL IVP SCH ×2 (12:47→18:14)
[2016-09-30] MEDS ORDERED: DO NOT ADM ANY ANTICOAGULANT DRUGS PRN (13:00)
--- NOTE | 2016-09-30 13:49 | HHI.PR ---
Objective Vitals Vital Signs Date Time Temp Pulse Resp B/P (MAP) Pulse Ox O2 Delivery O2 Flow Rate FiO2 09/30/16 12:30 96.8 98 20 149/77 (101) 96 09/30/16 12:00 98.4 96 17 145/74 (97) 97 Room Air 09/30/16 11:45 96 18 144/73 (96) 98 09/30/16 11:30 97 17 137/67 (90) 97 09/30/16 11:15 95 20 132/60 (84) 98 09/30/16 11:04 98.4 104 17 134/73 (93) 100 Simple Mask 6 09/30/16 06:10 98.3 88 18 163/77 (105) 95 09/30/16 06:00 18 09/30/16 04:00 98.5 88 16 135/70 (91) 98 09/30/16 00:00 97.7 75 17 144/79 (100) 98 09/29/16 22:00 16 09/29/16 20:00 98.3 75 16 131/72 (91) 98 09/29/16 16:00 100.7 96 18 164/89 (114) 94 09/29/16 14:00 16 I/O 09/29/16 09/29/16 09/29/16 09/30/16 09/30/16 09/30/16 07:00 15:00 23:00 07:00 15:00 23:00 Intake Total 240 ml 1080 ml 145 ml 2082 ml Output Total 450 ml Balance 240 ml 1080 ml 145 ml 1632 ml Intake Oral 240 ml 480 ml IV Total 600 ml 145 ml 82 ml Other 2000 ml Output Urine Total 400 ml Estimated Blood Loss 50 ml # Voids 2 11 2 # Bowel Movements 1 9 2 # Sanitary Pads 1 Pads 1 Pads 1 Pads Result Diagram: 09/29/16 0640 09/29/16 1514 Imaging Last Impressions Chest X-Ray 09/29/16 0000 Signed Impressions: Service Date/Time: Thursday, September 29, 2016 07:34 - CONCLUSION: 1. Right basilar subsegmental atelectasis. Elliott Toro MD Embolization, Transcatheter 09/27/16 0000 Signed Impressions: Service Date/Time: Tuesday, September 27, 2016 00:00 - CONCLUSION: Patient with a uterine mass with significant neoangiogenesis. Bilateral pelvic embolization performed as detailed above. James Haji Jr., MD CT Angiography 09/25/16 0035 Signed Impressions: Service Date/Time: Sunday, September 25, 2016 01:37 - CONCLUSION: 1. The study is negative for pulmonary embolism. 2. Numerous bilateral pulmonary nodules measuring up to 7 mm. Recommend correlation with clinical history for history of malignancy. In the absence of malignancy, recommend followup CT in 6 months. James Crook MD ADDENDUM: The multiple pulmonary nodules were described in detail on the CT scan of the chest dated 08/09/16. There is been little change in this very short interval. These still remain concerning for malignancy. Yoshi Huerta MD FACR Myocardial Perfusion Scan Nuc Med 09/25/16 0000 Signed Impressions: Service Date/Time: Sunday, September 25, 2016 14:24 - CONCLUSION: 1. Normal wall motion and calculated ejection fraction. 2. No fixed or reversible wall defects to suggest ischemia or infarction. RISK CATEGORY: Low (<1%% Annual Mortality Rate) Ricky Rahman MD Objective Remarks GENERAL: AOX3, NAD. SKIN: Warm and dry. HEAD: Normocephalic. EYES: No scleral icterus. No injection or drainage. NECK: Supple, trachea midline. No JVD or lymphadenopathy. CARDIOVASCULAR: Regular rate and rhythm without murmurs, gallops, or rubs. RESPIRATORY: Breath sounds equal bilaterally. No accessory muscle use. GASTROINTESTINAL: Abdomen soft, non-tender, nondistended. MUSCULOSKELETAL: No cyanosis, or edema. BACK: Nontender without obvious deformity. No CVA tenderness. Procedures 09/27/2016 Procedure(s): Angiogram, Embolization 09.30.2016 PROCEDURE Exploratory laparotomy, total abdominal hysterectomy, bilateral salpingo-oophorectomy, omentectomy, repair of umbilical hernia A/P Problem List: (1) Chest pain, rule out acute myocardial infarction ICD Code: R07.9 - Chest pain, rule out acute myocardial infarction Status: Resolved (2) Endometrial carcinoma ICD Code: C54.1 - Malignant neoplasm of endometrium Status: Acute (3) UTI (urinary tract infection) ICD Code: N39.0 - Urinary tract infection, site not specified Status: Acute Assessment and Plan 66-year-old female with history of high-grade endometrial cancer, HTN, HLD, DM, asthma, presents with chest pain. Chest pain: Patient initially admitted to [facility], ACS ruled out with negative serial cardiac enzymes and EKG without acute ischemic changes. Nuclear stress test was unremarkable. D-dimer elevated, CT-PA negative for PE however did show multiple pulmonary nodules, little change compared to previous CT chest on 08/09/16. Patient transferred to hospitalist due to UTI with high-grade fevers. Chest pain resolved. Sepsis with UTI: Patient meets sepsis criteria with fever Tmax 102.5, tachycardia HR 107, leukocytosis WBC 19.2 K, sourceUTI. Continue antibiotics with IV Rocephin. Urine culture with group B strep, Staphylococcus aureus. - Blood cultures NGTD. - Continue Cefazolin 1g Q8hrs for GBS coverage. This should also cover MSSA. - Will continue Oral Keflex on discharge. 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 Patient complains of worsening heavy vaginal bleeding. Consult Dr. Julien. IR consulted for uterine artery embolization. Continue pain control prn. - Patient underwent surgical intervention 09/30/2016. Pulmonary Nodules: seen on chest CT, consistent with previous CT 08/09/16. Dr Julien aware and following. Hypokalemia: likely secondary to decreased oral intake. Given po KCl replacement. Hypertension: chronic, stable. Continue patient's home meds, lisinopril and HCTZ. Increased Lisinopril 10 --> 20mg Qday. Diabetes Mellitus: chronic, holding Metformin for now after receiving contrast. Monitor Accu-checks. Cover with SSI. Hyperlipidemia: chronic, continue home statin. DVT Prophylaxis: teds/SCDs Discharge plan: When okay with [facility], patient can be discharged. Problem Qualifiers (1) UTI (urinary tract infection): Antionette Mireles DO Sep 30, 2016 13:49
[2016-09-30] MEDS ORDERED: PCA - TOTAL MG MORPHINE DELIVERED PER SHIFT SCH ×2 (14:00)
--- NOTE | 2016-09-30 14:06 | MP ---
cc: DENISE MOTT M.D., KELLY L. MD SCHNEIDER,ERMELINDA HARPER MD DATE OF SURGERY 09/30/2016 PREOPERATIVE DIAGNOSES 1. High-grade uterine cancer suspicious for sarcoma. 2. Enlarged uterus. 3. Postmenopausal bleeding. 4. Umbilical hernia. POSTOPERATIVE DIAGNOSES 1. High-grade uterine cancer suspicious for sarcoma. 2. Enlarged uterus. 3. Postmenopausal bleeding. 4. Umbilical hernia. PROCEDURE Exploratory laparotomy, total abdominal hysterectomy, bilateral salpingo-oophorectomy, omentectomy, repair of umbilical hernia SURGEON Oneyda Julien MD SUPERVISING FLOORPERSON [place] lead recreation assistant. ANESTHESIA General endotracheal anesthesia ESTIMATED BLOOD LOSS 50 cc. IV FLUIDS 2000 cc. URINE OUTPUT 400 cc. HISTORY This is a 66-year-old female with postmenopausal bleeding, prominent uterus with mass-like effect of the the uterus and the uterine cavity. Biopsy showed a high-grade tumor with features suggestive of sarcoma. Whereas physical exam and imaging showed dilated lower uterine segment and prominent cervix and whereas the imaging did not show any overt retroperitoneal or intraperitoneal disease, there were multiple bilateral pulmonary nodules that were suspicious for metastatic disease. She was counseled regarding these findings and treatment options and was scheduled for surgery today but presented to the emergency room last week with increased bleeding, also chest pain, shortness of breath was evaluated and excluded to have had a myocardial infarction or pulmonary emboli. Because of the worsening bleeding, the high-grade nature of her tumor and her forthcoming surgery, she underwent bilateral embolization of pelvic vasculature as numerous neovasculature and feeders were noted to the uterus and pelvic tumor in an effort to reduce bleeding and surgical blood loss. FINDINGS The uterus was prominent. Mass-like effects in the endometrial cavity and the fundus. Left tube and ovary grossly appeared normal. The right tube and ovary appeared to be surgically absent (history of ectopic ). The lower uterine segment was dilated with a prominent vasculature in the lower uterine segment and cervix. There was tumor extruding through a dilated cervical os which is clinically suspicious for carcinosarcoma. There was no overt adenopathy. No overtly enlarged pelvic or para-aortic lymph nodes. The liver/diaphragm edges were smooth. The large and small bowel adjacent mesentery were without peritoneal implants. There was a small bit of omentum stuck into umbilical hernia defect and this was reduced. PROCEDURE She was taken to the operating room, placed in dorsal lithotomy position. After general endotracheal anesthesia was administered, time-out was undertaken. She was identified by sight recognition and hospital ID [email or web address] and the proposed procedure was reviewed and confirmed. She was carefully positioned in Marcos stirrups. Arms were tucked out to the sides. She was prepped and draped the usual sterile fashion. Ioban was placed across the abdomen, midline incision made from the symphysis to the umbilicus, carried down to the level of the fascia. There was some minimal scar tissue upon entry. The peritoneal cavity was entered. The peritoneal incision was extended the length of the skin incision. Adhesions were taken down repair in the umbilical region and the omentum was removed from the umbilical hernia. Lap pads and Bookwalter retractor were used to assist in surgical exposure. The corners of the uterus were clamped with curved Cal clamps. The round ligament was isolated on the left as the peritoneum, anterior and posterior leaves of the broad ligament were opened. The round ligament was secured using the Essure device. Retroperitoneal dissection was continued above the pelvic brim isolating the left gonadal vessels as the left ureter where was isolated. The intervening peritoneum was opened. The infundibulopelvic ligament was cauterized in several spots and transected. The vesicouterine peritoneum was dissected off the lower uterine segment and cervix on the left than the uterine vessels were skeletonized. Attention was directed toward the right side where the right round ligament was isolated. The anterior and posterior leaves of the broad ligament were opened. The round ligament was isolated, sealed with the Essure device and then transected. The posterior peritoneum was opened further. The right ureter was identified. The right infundibulopelvic ligament was isolated. The intervening peritoneum was opened, isolating the gonadal vessels. At least part or all of the ovary and tube appeared to be surgically absent. The right gonadal vessels were secured in several adjacent locations to secure hemostasis and transected. The vesicouterine peritoneum was dissected off the lower uterine segment and cervix and the posterior peritoneum was opened on the right and the left and the right uterine vessels were skeletonized. The uterine vessels were doubly clamped bilaterally as well as being back-clamped. There was some decreased perfusion certainly noted due to the preoperative embolization but quite vascular anatomy and this further resulted in blanching of the specimen. The uterine vessels were cut on the right, suture ligated with the lower clamp removed and then again suture ligated with the upper clamp removed, doubly suture ligating the vessels. Attention was directed toward the contralateral side where similarly 0 Vicryl sutures were used to ligate the uterine vessels and then the second time to ligate them with the fixation stitch tied securely. The cardinal ligaments were taken down with straight Lawler clamps, were then cut and suture ligated and the remaining paracervical and uterosacral ligaments were taken down using the Essure device where the tissue was isolated, clamped, cauterized and cut in a stepwise fashion. Curved Lawler clamps were placed below the cervix at the lateral vaginal angles and the specimen was removed, the cervix from the upper vagina with sharp dissection. The specimen was inspected. The entire cervix was removed. It was dilated with tumor extruding through the os. The specimen included uterus, cervix, left tube and ovary and whenever residual right adnexa was present. The vaginal cuff was secured at the corners with interrupted [id number] sutures including the posterior peritoneum and the edge of the uterosacral ligament. The vaginal cuff was closed with interrupted [id number] 0 Vicryl sutures which rendered it completely hemostatic and well supported. The pelvis was thoroughly irrigated. Small bleeders were rendered hemostatic with bipolar cautery. Inspection and palpation of the pelvic lymph nodes revealed no overtly enlarged lymph nodes on either the right or the left side. Similarly palpation of the para-aortic region revealed no overtly enlarged lymph nodes. Given the findings suggestive of metastatic disease and the high-grade nature of tumor combined with a probability of considering postoperative systemic therapy, it was felt that lymphadenectomy to search for microscopic disease would be associated with morbidity that exceeded benefit. The lap pad and the Bookwalter retractor were removed. Inspection and palpation of the abdominal anatomy was carried out with the findings as described above. All of the lap pads were removed. The omentum which was partially denuded because of its incorporation into the umbilical hernia, a large portion of the infracolic omentum was therefore removed. Nonvascular attachments were taken down with cautery. Vascular attachments were isolated, cauterized and transected in a stepwise fashion to remove the attenuated portion of the omentum and to provide a specimen for evaluation for microscopic disease. The omentum otherwise grossly appeared normal such that there was no overt evidence of disease in the omentum. All foreign objects were removed. The lap pad and the Bookwalter retractor had been disassembled and removed. Visual and manual inspection confirmed correct counts and attention was directed toward closing. The umbilical defect was reapproximated initially with interrupted 0 Vicryl sutures and then dissection was continued such that the looped PDS was used to incorporate the fascial edges at the apex of our closure to reinforce the fascia below the umbilicus. The abdominal wall was then closed with a running modified Smead-Fonseca fashion starting at apices and meeting in the midpoint where the sutures were tied. The suture knot was buried below the fascia. The subcutaneous tissue was irrigated. Kelly's fascia was reapproximated with 2-0 Vicryl sutures and skin edges closed with 3-0 Vicryl subcuticular. Steri-Strips and dry sterile dressing was placed over the incision. Preliminary and final counts were now correct. She was returned to dorsal supine position and was pending reversal of anesthesia when I left the operating room to precede her to the Post-Anesthesia Care Unit. MD DARRYL Castillo/RAFIA /11:40 AM /1:44 PM
--- NOTE | 2016-09-30 16:29 | PD.ONC.PN ---
Subjective Subjective Remarks post op note pt is resting in bed pain 7/10 using COTTON CHOPPER educated pt on how often she can use the COTTON CHOPPER denies any n/v still feels sleepy no other complaints Objective Data Date Time Temp Pulse Resp B/P (MAP) Pulse Ox O2 Delivery O2 Flow Rate FiO2 09/30/16 14:00 16 09/30/16 12:30 96.8 98 20 149/77 (101) 96 09/30/16 12:00 98.4 96 17 145/74 (97) 97 Room Air 09/30/16 11:45 96 18 144/73 (96) 98 09/30/16 11:30 97 17 137/67 (90) 97 09/30/16 11:15 95 20 132/60 (84) 98 09/30/16 11:04 98.4 104 17 134/73 (93) 100 Simple Mask 6 09/30/16 06:10 98.3 88 18 163/77 (105) 95 09/30/16 06:00 18 09/30/16 04:00 98.5 88 16 135/70 (91) 98 09/30/16 00:00 97.7 75 17 144/79 (100) 98 09/29/16 22:00 16 09/29/16 20:00 98.3 75 16 131/72 (91) 98 09/30/16 09/30/16 09/30/16 07:00 15:00 23:00 Intake Total 145 ml 2202 ml 364 ml Output Total 1450 ml Balance 145 ml 752 ml 364 ml Result Diagram: 09/29/16 0640 09/29/16 1514 Culture Results Microbiology Date/Time Source Procedure Growth Status 09/29/16 02:30 Blood Peripheral Aerobic Blood Culture - Preliminary NO GROWTH IN 1 DAY Resulted 09/29/16 02:30 Blood Peripheral Anaerobic Blood Culture - Preliminary NO GROWTH IN 1 DAY Resulted 09/29/16 02:20 Blood Peripheral Aerobic Blood Culture - Preliminary NO GROWTH IN 1 DAY Resulted 09/29/16 02:20 Blood Peripheral Anaerobic Blood Culture - Preliminary NO GROWTH IN 1 DAY Resulted Administered Medications Medications (Trade) Dose Ordered Sig/Courtney Route PRN Reason Start Time Stop Time Status Last Admin Dose Admin Nitroglycerin (Nitroglycerin 2% Oint) 1 inch Q6HR TOP 09/25/16 06:00 09/30/16 12:48 Hydrochlorothiazide (Hydrodiuril) 25 mg BID PO 09/25/16 21:00 09/30/16 12:37 Pravastatin Sodium (Pravachol) 20 mg DAILY PO 09/25/16 10:45 09/30/16 12:37 Dextrose (D50w (Vial) Inj) 25 ml UNSCH PRN IV HYPOGLYCEMIA-SEE COMMENTS 09/25/16 10:45 09/29/16 22:38 Hydromorphone HCl (Dilaudid COTTON CHOPPER Inj) 6 mg UNSCH IV 09/27/16 14:00 09/29/16 02:51 COTTON CHOPPER Dosage Infused (Pha) 1 Q8HR OTHER 09/27/16 14:00 09/30/16 14:00 Ondansetron HCl (Zofran Inj) 4 mg Q6H PRN IV NAUSEA OR VOMITING 09/27/16 14:00 09/29/16 16:44 Acetaminophen (Tylenol) 650 mg Q4H PRN PO Headache, fever 09/28/16 09:00 09/29/16 16:53 Cefazolin Sodium/ Dextrose 50 ml @ 100 mls/hr LIBRARY TECHNICIAN IV 09/29/16 13:45 10/01/16 13:44 09/30/16 07:25 Lisinopril (Prinivil) 20 mg DAILY PO 09/30/16 09:00 09/30/16 12:37 Cefazolin Sodium 1000 mg/Sodium Chloride 100 ml @ 200 mls/hr Q8H IV 09/30/16 06:00 09/30/16 15:42 Lactated Ringer's 1,000 ml @ 30 mls/hr Q24H PRN IV SEE LABEL COMMENTS 09/30/16 06:00 10/03/16 05:59 09/30/16 06:23 Ketorolac Tromethamine (Toradol Inj) 15 mg Q6H IVP 09/30/16 12:00 10/03/16 06:01 09/30/16 12:47 Potassium Chloride/Sodium Chloride 1,000 ml @ 100 mls/hr Q10H IV 09/30/16 12:00 09/30/16 11:50 Objective Remarks GENERAL: Well-nourished, well-developed patient. SKIN: Warm and dry. HEAD: Normocephalic. EYES: No scleral icterus. No injection or drainage. CARDIOVASCULAR: Regular rate and rhythm without murmurs. RESPIRATORY: Breath sounds equal bilaterally. No accessory muscle use. GASTROINTESTINAL: dressing c/d/i EXTREMITIES: teds and scds MUSCULOSKELETAL: Adequate muscle tone. NEUROLOGICAL: No obvious focal deficit. Awake, alert, and oriented x3. PSYCHIATRIC: Appropriate mood and affect; insight and judgment normal. Assessment/Plan Problem List: (1) Post-operative state ICD Codes: Z98.890 - Other specified postprocedural states Status: Acute Plan: s/p X lap hyst with BSO and omentectomy post op orders in the chart COTTON CHOPPER for pain ADAT remove dejesus on post op day #2 OOB to chair with assistance IS at bedside and pt using (2) Uterine cancer ICD Codes: C55 - Malignant neoplasm of uterus, part unspecified Status: Acute Plan: treatment recommendation depends on final pathology pt will follow up in our office 2 weeks after surgery for discussion of final pathology Problem Qualifiers (1) Uterine cancer: Haris Merrill Sep 30, 2016 16:29
[2016-09-30 20:00] VITALS: BP 152/86; PULSE 86; RESP 17; TEMP 97.6; O2SAT 96
[2016-09-30] MEDS ORDERED: SODIUM CHLORIDE 0.9% FLUSH 10 ML FLUSH IV FLUSH SCH (21:00)
[2016-09-30] MEDS: SODIUM CHLORIDE 0.9% FLUSH 10 ML FLUSH IV FLUSH SCH ×2 (21:08→22:45)
[2016-10-01] VITALS (7 sets, daily range): BP systolic 143–190; BP diastolic 75–88; PULSE 76–115; RESP 16–18; TEMP 96.6–97.5; O2SAT 95–98
[2016-10-01] MEDS: NITROGLYCERIN 2% OINT 1 GM PACKET TOP SCH ×5 (00:15→18:29)
[2016-10-01] MEDS: KETOROLAC TROMETHAMINE 30 MG/ML (IVP) VIAL IVP SCH ×4 (00:18→18:29)
[2016-10-01] MEDS: INSULIN ASPART SUPPLEMENTAL SCALE SQ SCH ×3 (01:43→16:00)
[2016-10-01] MEDS: INSULIN NovoLIN REGULAR SUPPLEMENTAL SCALE SQ SCH ×3 (05:28→16:00)
[2016-10-01] MEDS: PCA - TOTAL MG DILAUDID DELIVERED PER SHIFT OTHER SCH ×2 (05:45→14:00)
[2016-10-01 08:19] LABS: AUTOMATED NEUTROPHIL # 9.9 TH/MM3 (1.8-7.7); BASOPHIL % 0.2 % (0.0-2.0); EOSINOPHIL % 0.2 % (0.0-4.0); HEMATOCRIT 32.1 % (35.0-46.0); LYMPH % 10.2 % (9.0-44.0); LYMPHOCYTE # 1.3 TH/MM3 (1.0-4.8); MEAN CELL VOLUME 87.9 FL (80.0-100.0); MEAN CORPUSCULAR HEMOGLOBIN 28.3 PG (27.0-34.0); MEAN CORPUSCULAR HGB CONC 32.2 % (32.0-36.0); MONO % 9.7 % (0.0-8.0); NEUT % 79.7 % (16.0-70.0); PLATELET COUNT 246 TH/MM3 (150-450); RED BLOOD COUNT 3.65 MIL/MM3 (4.00-5.30); RED CELL DISTRIBUTION WIDTH 13.1 % (11.6-17.2); WHITE BLOOD COUNT 12.4 TH/MM3 (4.0-11.0)
[2016-10-01 08:25] LABS: HEMO FLAGS AUTO DIFF
[2016-10-01] MEDS: PRAVASTATIN SOD 20 MG TAB PO SCH (09:00)
[2016-10-01] MEDS: LISINOPRIL 20 MG TAB PO SCH (09:05)
[2016-10-01] MEDS: 1/2 NS + KCL 20 MEQ INJ 1,000 ML IV SCH ×2 (09:05→19:43)
[2016-10-01] MEDS: SODIUM CHLORIDE 0.9% FLUSH 10 ML FLUSH IV FLUSH SCH (09:05)
[2016-10-01] MEDS: HYDROCHLOROTHIAZIDE 25 MG TAB PO SCH ×2 (09:06→22:47)
[2016-10-01 09:15] LABS: PLATELET ESTIMATE SMEAR NORMAL (NORMAL); PLATELET MORPHOLOGY NORMAL (NORMAL); SCAN/DIFF AUTO DIFF CONFIRMED
[2016-10-01] MEDS: HYDROmorphone HCL PCA 6 MG/30 ML IV SCH (11:34)
[2016-10-01] MEDS ORDERED: cloNIDine HCL 0.1 MG TAB PO PRN (12:30)
[2016-10-01] MEDS ORDERED: PERC7.5T13 PO (12:50)
[2016-10-01] MEDS: oxyCODONE/ACETAMINOPHEN 5 MG/325 MG TAB PO PRN ×2 (13:01→22:46)
--- NOTE | 2016-10-01 16:22 | HHI.PR ---
Subjective Remarks Follow up for UTI, persistent fever, vaginal bleeding. Patient is POD #1, currently on TOOL GRINDER SET UP OPERATOR GEAR pump. She does complain of soreness around the surgical area. No fever, chills. Pain is adequately controlled. Objective Vitals Vital Signs Date Time Temp Pulse Resp B/P (MAP) Pulse Ox O2 Delivery O2 Flow Rate FiO2 10/01/16 14:00 16 10/01/16 12:00 97.1 77 18 160/81 (107) 97 10/01/16 11:34 16 10/01/16 09:37 98 10/01/16 08:49 97.4 77 18 190/88 (122) 98 10/01/16 05:45 16 10/01/16 05:19 96.8 76 16 154/76 (102) 97 10/01/16 00:00 96.6 76 17 170/84 (112) 97 09/30/16 21:07 16 09/30/16 20:00 97.6 86 17 152/86 (108) 96 I/O 09/30/16 09/30/16 09/30/16 10/01/16 10/01/16 10/01/16 06:59 14:59 22:59 06:59 14:59 22:59 Intake Total 145 ml 2082 ml 484 ml Output Total 450 ml 1450 ml Balance 145 ml 1632 ml -966 ml Intake Oral 120 ml IV Total 145 ml 82 ml 364 ml Other 2000 ml Output Urine Total 400 ml 1450 ml Estimated Blood Loss 50 ml # Voids 2 # Bowel Movements 2 0 # Sanitary Pads 1 Pads 1 Pads Result Diagram: 10/01/16 0710/01/16 07 Imaging Last Impressions Chest X-Ray 09/29/16 0000 Signed Impressions: Service Date/Time: Thursday, September 29, 2016 07:34 - CONCLUSION: 1. Right basilar subsegmental atelectasis. Elliott Toro MD Embolization, Transcatheter 09/27/16 0000 Signed Impressions: Service Date/Time: Tuesday, September 27, 2016 00:00 - CONCLUSION: Patient with a uterine mass with significant neoangiogenesis. Bilateral pelvic embolization performed as detailed above. James Haji Jr., MD CT Angiography 09/25/16 0035 Signed Impressions: Service Date/Time: Sunday, September 25, 2016 01:37 - CONCLUSION: 1. The study is negative for pulmonary embolism. 2. Numerous bilateral pulmonary nodules measuring up to 7 mm. Recommend correlation with clinical history for history of malignancy. In the absence of malignancy, recommend followup CT in 6 months. James Crook MD ADDENDUM: The multiple pulmonary nodules were described in detail on the CT scan of the chest dated 08/09/16. There is been little change in this very short interval. These still remain concerning for malignancy. Yoshi Huerta MD FACR Myocardial Perfusion Scan Nuc Med 09/25/16 0000 Signed Impressions: Service Date/Time: Sunday, September 25, 2016 14:24 - CONCLUSION: 1. Normal wall motion and calculated ejection fraction. 2. No fixed or reversible wall defects to suggest ischemia or infarction. RISK CATEGORY: Low (<1%% Annual Mortality Rate) Ricky Rahman MD Objective Remarks GENERAL: AOX3, NAD. SKIN: Warm and dry. HEAD: Normocephalic. EYES: No scleral icterus. No injection or drainage. NECK: Supple, trachea midline. No JVD or lymphadenopathy. CARDIOVASCULAR: Regular rate and rhythm without murmurs, gallops, or rubs. RESPIRATORY: Breath sounds equal bilaterally. No accessory muscle use. GASTROINTESTINAL: Abdomen soft, non-tender, nondistended. MUSCULOSKELETAL: No cyanosis, or edema. BACK: Nontender without obvious deformity. No CVA tenderness. Procedures 09/27/2016 Procedure(s): Angiogram, Embolization 09.30.2016 PROCEDURE Exploratory laparotomy, total abdominal hysterectomy, bilateral salpingo-oophorectomy, omentectomy, repair of umbilical hernia A/P Problem List: (1) Chest pain, rule out acute myocardial infarction ICD Code: R07.9 - Chest pain, rule out acute myocardial infarction Status: Resolved (2) Endometrial carcinoma ICD Code: C54.1 - Malignant neoplasm of endometrium Status: Acute (3) UTI (urinary tract infection) ICD Code: N39.0 - Urinary tract infection, site not specified Status: Acute Assessment and Plan 66-year-old female with history of high-grade endometrial cancer, HTN, HLD, DM, asthma, presents with chest pain. Chest pain: Patient initially admitted to [facility], ACS ruled out with negative serial cardiac enzymes and EKG without acute ischemic changes. Nuclear stress test was unremarkable. D-dimer elevated, CT-PA negative for PE however did show multiple pulmonary nodules, little change compared to previous CT chest on 08/09/16. Patient transferred to hospitalist due to UTI with high-grade fevers. Chest pain resolved. Sepsis with UTI: Patient meets sepsis criteria with fever Tmax 102.5, tachycardia HR 107, leukocytosis WBC 19.2 K, sourceUTI. Continue antibiotics with IV Rocephin. Urine culture with group B strep, Staphylococcus aureus. - Blood cultures NGTD. - Continue Cefazolin 1g Q8hrs for GBS coverage. This should also cover MSSA. 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 Patient complains of worsening heavy vaginal bleeding. Consult Dr. Julien. IR consulted for uterine artery embolization. Continue pain control prn. - Patient underwent surgical intervention (Ex lap, Total hysterectomy, oophorectomy) 09/30/2016. Pulmonary Nodules: seen on chest CT, consistent with previous CT 08/09/16. Dr Julien aware and following. Hypokalemia: likely secondary to decreased oral intake. Given po KCl replacement. Hypertension: chronic, stable. Continue patient's home meds, lisinopril and HCTZ. Increased Lisinopril 10 --> 20mg Qday. - Will add clonidine 0.1mg PRN. Diabetes Mellitus: chronic, holding Metformin for now after receiving contrast. Monitor Accu-checks. Cover with SSI. Hyperlipidemia: chronic, continue home statin. DVT Prophylaxis: teds/SCDs Discharge plan: When okay with Drapery And Upholstery Measurer, patient can be discharged. Problem Qualifiers (1) UTI (urinary tract infection): Antionette Mireles DO Oct 01, 2016 16:22
[2016-10-02] VITALS: BP 154/79; PULSE 77; RESP 18; TEMP 97.7; O2SAT 96
[2016-10-02] MEDS: PCA - TOTAL MG DILAUDID DELIVERED PER SHIFT OTHER SCH ×2 (00:55→06:42)
[2016-10-02] MEDS: SODIUM CHLORIDE 0.9% FLUSH 10 ML FLUSH IV FLUSH PRN ×2 (01:02→12:51)
[2016-10-02] MEDS: KETOROLAC TROMETHAMINE 30 MG/ML (IVP) VIAL IVP SCH ×4 (01:02→17:54)
[2016-10-02 04:00] VITALS: BP 154/77; PULSE 75; RESP 18; TEMP 96.8; O2SAT 95
[2016-10-02] MEDS: 1/2 NS + KCL 20 MEQ INJ 1,000 ML IV SCH (04:00)
[2016-10-02] MEDS: NITROGLYCERIN 2% OINT 1 GM PACKET TOP SCH ×3 (06:32→17:54)
[2016-10-02] MEDS: INSULIN NovoLIN REGULAR SUPPLEMENTAL SCALE SQ SCH ×4 (06:41→21:24)
[2016-10-02] MEDS: INSULIN ASPART SUPPLEMENTAL SCALE SQ SCH ×4 (06:42→21:31)
--- NOTE | 2016-10-02 07:46 | PD.ONC.PN ---
Subjective Subjective Remarks POD #2 Pt was getting back into bed after using bedside commode she states her pain in controlled and denies any N/V she feels "gas" pains has been OOB to chair will ambulate today using IS without difficulty Objective Data Date Time Temp Pulse Resp B/P (MAP) Pulse Ox O2 Delivery O2 Flow Rate FiO2 10/02/16 06:42 16 10/02/16 04:00 96.8 75 18 154/77 (102) 95 10/02/16 00:55 16 10/02/16 00:00 97.7 77 18 154/79 (104) 96 10/01/16 20:00 97.5 115 18 143/75 (97) 95 10/01/16 16:00 96.8 81 18 180/87 (118) 98 10/01/16 14:00 16 10/01/16 12:00 97.1 77 18 160/81 (107) 97 10/01/16 11:34 16 10/01/16 09:37 98 10/01/16 08:49 97.4 77 18 190/88 (122) 98 10/02/16 10/02/16 10/02/16 07:00 15:00 23:00 Output Total 1050 ml Balance -1050 ml Result Diagram: 10/01/16 0710/01/16 0726 Administered Medications Medications (Trade) Dose Ordered Sig/Courtney Route PRN Reason Start Time Stop Time Status Last Admin Dose Admin Nitroglycerin (Nitroglycerin 2% Oint) 1 inch Q6HR TOP 09/25/16 06:00 10/02/16 06:32 Hydrochlorothiazide (Hydrodiuril) 25 mg BID PO 09/25/16 21:00 10/01/16 22:47 Pravastatin Sodium (Pravachol) 20 mg DAILY PO 09/25/16 10:45 10/01/16 09:00 Dextrose (D50w (Vial) Inj) 25 ml UNSCH PRN IV HYPOGLYCEMIA-SEE COMMENTS 09/25/16 10:45 09/29/16 22:38 Hydromorphone HCl (Dilaudid BLANKET WINDER OPERATOR Inj) 6 mg UNSCH IV 09/27/16 14:00 10/01/16 11:34 BLANKET WINDER OPERATOR Dosage Infused (Pha) 1 Q8HR OTHER 09/27/16 14:00 10/02/16 06:42 Ondansetron HCl (Zofran Inj) 4 mg Q6H PRN IV NAUSEA OR VOMITING 09/27/16 14:00 09/29/16 16:44 Acetaminophen (Tylenol) 650 mg Q4H PRN PO Headache, fever 09/28/16 09:00 09/29/16 16:53 Lisinopril (Prinivil) 20 mg DAILY PO 09/30/16 09:00 10/01/16 09:05 Cefazolin Sodium 1000 mg/Sodium Chloride 100 ml @ 200 mls/hr Q8H IV 09/30/16 06:00 10/02/16 06:34 Lactated Ringer's 1,000 ml @ 30 mls/hr Q24H PRN IV SEE LABEL COMMENTS 09/30/16 06:00 10/03/16 05:59 09/30/16 06:23 Sodium Chloride (NS Flush) 2 ml BID IV FLUSH 09/30/16 21:00 09/30/16 22:45 Sodium Chloride (NS Flush) 2 ml UNSCH PRN IV FLUSH FLUSH AFTER USING IV ACCESS 09/30/16 10:45 10/02/16 01:02 Ketorolac Tromethamine (Toradol Inj) 15 mg Q6H IVP 09/30/16 12:00 10/03/16 06:01 10/02/16 06:35 Oxycodone/ Acetaminophen (Percocet 5-325 Mg) 2 tab Q4H PRN PO PAIN SCALE 6 TO 10 09/30/16 10:45 10/01/16 22:46 Objective Remarks GENERAL: Well-nourished, well-developed patient. SKIN: Warm and dry. HEAD: Normocephalic. EYES: No scleral icterus. No injection or drainage. CARDIOVASCULAR: Regular rate and rhythm without murmurs. RESPIRATORY: Breath sounds equal bilaterally. No accessory muscle use. GASTROINTESTINAL: Abdomen soft, +BS X 4, dressing C/D/I EXTREMITIES: TEDS NEUROLOGICAL: No obvious focal deficit. Awake, alert, and oriented x3. PSYCHIATRIC: Appropriate mood and affect; insight and judgment normal. Assessment/Plan Problem List: (1) Post-operative state ICD Codes: Z98.890 - Other specified postprocedural states Status: Acute Plan: POD # 2 s/p X lap hyst with BSO and omentectomy will stop BLANKET WINDER OPERATOR today and change to oral Percocet, instructed pt that she will have to ask for Percocet will D/C IVF and change diet to regular diet OOB to chair today and ambulate continue IS anticipate D/C home tomorrow (2) Uterine cancer ICD Codes: C55 - Malignant neoplasm of uterus, part unspecified Status: Acute Plan: treatment recommendation depends on final pathology pt will follow up in our office 2 weeks after surgery for discussion of final pathology Attending Statement Discussed this treatment plan with Dr. Julien and he is in agreement. Problem Qualifiers (1) Uterine cancer: Haris Merrill Oct 02, 2016 07:45
[2016-10-02] MEDS: LISINOPRIL 20 MG TAB PO SCH (07:47)
[2016-10-02] MEDS: HYDROCHLOROTHIAZIDE 25 MG TAB PO SCH ×2 (07:47→21:25)
[2016-10-02] MEDS: SODIUM CHLORIDE 0.9% FLUSH 10 ML FLUSH IV FLUSH SCH ×2 (07:47→21:34)
[2016-10-02] MEDS: PRAVASTATIN SOD 20 MG TAB PO SCH (07:47)
[2016-10-02] MEDS: oxyCODONE/ACETAMINOPHEN 5 MG/325 MG TAB PO PRN ×4 (07:47→21:29)
[2016-10-02 08:00] VITALS: BP 152/73; PULSE 95; RESP 18; TEMP 97; O2SAT 95
--- NOTE | 2016-10-02 11:02 | HHI.PR ---
Subjective Remarks Follow up for UTI, persistent fever, vaginal bleeding. Patient is status post exploratory laparoscopy, total hysterectomy, oophorectomy. MARINE WELDER pump was discontinued. Currently patient is doing well. She is ambulating some. Abdominal pain is improved. Objective Vitals Vital Signs Date Time Temp Pulse Resp B/P (MAP) Pulse Ox O2 Delivery O2 Flow Rate FiO2 10/02/16 08:00 97.0 95 18 152/73 (99) 95 10/02/16 06:42 16 10/02/16 04:00 96.8 75 18 154/77 (102) 95 10/02/16 00:55 16 10/02/16 00:00 97.7 77 18 154/79 (104) 96 10/01/16 20:00 97.5 115 18 143/75 (97) 95 10/01/16 16:00 96.8 81 18 180/87 (118) 98 10/01/16 14:00 16 10/01/16 12:00 97.1 77 18 160/81 (107) 97 10/01/16 11:34 16 I/O 10/01/16 10/01/16 10/01/16 10/02/16 10/02/16 10/02/16 06:59 14:59 22:59 06:59 14:59 22:59 Intake Total 1660 ml 106 ml Output Total 1600 ml 1050 ml Balance 60 ml -1050 ml 106 ml Intake Oral 240 ml IV Total 1420 ml 106 ml Output Urine Total 1600 ml 1050 ml # Sanitary Pads 1 Pads Result Diagram: 10/01/16 0726 10/01/16 0726 Imaging Last Impressions Chest X-Ray 09/29/16 0000 Signed Impressions: Service Date/Time: Thursday, September 29, 2016 07:34 - CONCLUSION: 1. Right basilar subsegmental atelectasis. Elliott Toro MD Embolization, Transcatheter 09/27/16 0000 Signed Impressions: Service Date/Time: Tuesday, September 27, 2016 00:00 - CONCLUSION: Patient with a uterine mass with significant neoangiogenesis. Bilateral pelvic embolization performed as detailed above. James Haji Jr., MD CT Angiography 09/25/16 0035 Signed Impressions: Service Date/Time: Sunday, September 25, 2016 01:37 - CONCLUSION: 1. The study is negative for pulmonary embolism. 2. Numerous bilateral pulmonary nodules measuring up to 7 mm. Recommend correlation with clinical history for history of malignancy. In the absence of malignancy, recommend followup CT in 6 months. James Crook MD ADDENDUM: The multiple pulmonary nodules were described in detail on the CT scan of the chest dated 08/09/16. There is been little change in this very short interval. These still remain concerning for malignancy. Yoshi Huerta MD FACR Myocardial Perfusion Scan Nuc Med 09/25/16 0000 Signed Impressions: Service Date/Time: Sunday, September 25, 2016 14:24 - CONCLUSION: 1. Normal wall motion and calculated ejection fraction. 2. No fixed or reversible wall defects to suggest ischemia or infarction. RISK CATEGORY: Low (<1%% Annual Mortality Rate) Ricky Rahman MD Objective Remarks GENERAL: AOX3, NAD. SKIN: Warm and dry. HEAD: Normocephalic. EYES: No scleral icterus. No injection or drainage. NECK: Supple, trachea midline. No JVD or lymphadenopathy. CARDIOVASCULAR: Regular rate and rhythm without murmurs, gallops, or rubs. RESPIRATORY: Breath sounds equal bilaterally. No accessory muscle use. GASTROINTESTINAL: Abdomen soft, non-tender, nondistended. MUSCULOSKELETAL: No cyanosis, or edema. BACK: Nontender without obvious deformity. No CVA tenderness. Procedures 09/27/2016 Procedure(s): Angiogram, Embolization 09.30.2016 PROCEDURE Exploratory laparotomy, total abdominal hysterectomy, bilateral salpingo-oophorectomy, omentectomy, repair of umbilical hernia A/P Problem List: (1) Chest pain, rule out acute myocardial infarction ICD Code: R07.9 - Chest pain, rule out acute myocardial infarction Status: Resolved (2) Endometrial carcinoma ICD Code: C54.1 - Malignant neoplasm of endometrium Status: Acute (3) UTI (urinary tract infection) ICD Code: N39.0 - Urinary tract infection, site not specified Status: Acute Assessment and Plan 66-year-old female with history of high-grade endometrial cancer, HTN, HLD, DM, asthma, presents with chest pain. Chest pain: Patient initially admitted to [facility], ACS ruled out with negative serial cardiac enzymes and EKG without acute ischemic changes. Nuclear stress test was unremarkable. D-dimer elevated, CT-PA negative for PE however did show multiple pulmonary nodules, little change compared to previous CT chest on 08/09/16. Patient transferred to hospitalist due to UTI with high-grade fevers. Chest pain resolved. Sepsis with UTI: Patient meets sepsis criteria with fever Tmax 102.5, tachycardia HR 107, leukocytosis WBC 19.2 K, sourceUTI. Continue antibiotics with IV Rocephin. Urine culture with group B strep, Staphylococcus aureus. - Blood cultures NGTD. - Continue Cefazolin 1g Q8hrs for GBS coverage. This should also cover MSSA. - Probably should continue Keflex for 4-5 more days after discharge. 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 Patient complains of worsening heavy vaginal bleeding. Consult Dr. Julien. IR consulted for uterine artery embolization. Continue pain control prn. - Patient underwent surgical intervention (Ex lap, Total hysterectomy, oophorectomy) 09/30/2016. Pulmonary Nodules: seen on chest CT, consistent with previous CT 08/09/16. Dr Julien aware and following. Hypokalemia: likely secondary to decreased oral intake. Given po KCl replacement. Hypertension: chronic, stable. Continue patient's home meds, lisinopril and HCTZ. Increased Lisinopril 10 --> 20mg Qday. - clonidine 0.1mg PRN. Diabetes Mellitus: chronic, holding Metformin for now after receiving contrast. Monitor Accu-checks. Cover with SSI. Hyperlipidemia: chronic, continue home statin. DVT Prophylaxis: teds/SCDs Discharge plan: Probable discharge on 10/03/2016. Problem Qualifiers (1) UTI (urinary tract infection): Antionette Mireles DO Oct 02, 2016 11:02
[2016-10-02] MEDS ORDERED: CEPH-460 PO (11:05)
[2016-10-02 12:00] VITALS: BP 157/78; PULSE 75; RESP 16; TEMP 96.7; O2SAT 94
[2016-10-02] MEDS: CEPHALEXIN MONOHYDRATE 500 MG CAP PO SCH ×2 (12:50→17:54)
[2016-10-02 16:00] VITALS: BP 178/88; PULSE 81; RESP 16; TEMP 97.8; O2SAT 97
[2016-10-02] MEDS: CALCIUM CARBONATE 500 MG CHEWABLE TAB CHEW PRN (17:54)
[2016-10-02 20:00] VITALS: BP 166/75; PULSE 93; RESP 17; TEMP 97.1; O2SAT 99
[2016-10-03] VITALS: BP 185/91; PULSE 75; RESP 18; TEMP 96.6; O2SAT 95
[2016-10-03] MEDS: KETOROLAC TROMETHAMINE 30 MG/ML (IVP) VIAL IVP SCH ×2 (00:57→05:02)
[2016-10-03] MEDS: CEPHALEXIN MONOHYDRATE 500 MG CAP PO SCH ×3 (00:58→13:43)
[2016-10-03] MEDS: NITROGLYCERIN 2% OINT 1 GM PACKET TOP SCH ×3 (00:58→13:44)
[2016-10-03 04:25] VITALS: BP 182/96; PULSE 80; RESP 18; TEMP 97.4; O2SAT 96
[2016-10-03] MEDS: oxyCODONE/ACETAMINOPHEN 5 MG/325 MG TAB PO PRN ×2 (04:56→13:42)
[2016-10-03] MEDS: INSULIN NovoLIN REGULAR SUPPLEMENTAL SCALE SQ SCH ×3 (06:32→16:00)
[2016-10-03] MEDS: INSULIN ASPART SUPPLEMENTAL SCALE SQ SCH (06:34)
[2016-10-03 08:00] VITALS: BP 162/84; PULSE 68; RESP 20; TEMP 98.2; O2SAT 95
[2016-10-03] MEDS: SODIUM CHLORIDE 0.9% FLUSH 10 ML FLUSH IV FLUSH SCH (11:40)
[2016-10-03] MEDS: LISINOPRIL 20 MG TAB PO SCH (11:41)
[2016-10-03] MEDS: HYDROCHLOROTHIAZIDE 25 MG TAB PO SCH (11:41)
[2016-10-03] MEDS: PRAVASTATIN SOD 20 MG TAB PO SCH (11:42)
[2016-10-03 12:29] VITALS: BP 183/94; PULSE 88; RESP 20; TEMP 97.3; O2SAT 98
--- NOTE | 2016-10-03 12:43 | HHI.PR ---
Subjective Remarks No complaints. No attempting to order lines. Tolerated food yesterday. Passing gas. Overall pain control. Objective Vitals Vital Signs Date Time Temp Pulse Resp B/P (MAP) Pulse Ox O2 Delivery O2 Flow Rate FiO2 10/03/16 12:29 97.3 88 20 183/94 (123) 98 10/03/16 08:00 98.2 68 20 162/84 (110) 95 10/03/16 06:00 16 10/03/16 05:35 16 10/03/16 04:25 97.4 80 18 182/96 (124) 96 10/03/16 00:00 96.6 75 18 185/91 (122) 95 10/02/16 20:00 97.1 93 17 166/75 (105) 99 10/02/16 19:00 18 10/02/16 16:00 97.8 81 16 178/88 (118) 97 I/O 10/02/16 10/02/16 10/02/16 10/03/16 10/03/16 10/03/16 06:59 14:59 22:59 06:59 14:59 22:59 Intake Total 446 ml Output Total 1050 ml 1 ml Balance -1050 ml 445 ml Intake Oral 240 ml IV Total 206 ml Output Urine Total 1050 ml Stool Total 1 ml # Voids 2 1 Result Diagram: 10/01/1672510/01/16 07 Objective Remarks GENERAL: This is a well-nourished, well-developed patient, in no apparent distress. CARDIOVASCULAR: Regular rate and rhythm RESPIRATORY: Clear to auscultation. Breath sounds equal bilaterally. No wheezes , rales, or rhonchi. GASTROINTESTINAL: Abdomen soft, non-tender, nondistended. Normal active bowel sounds, surgical site clean dry intact MUSCULOSKELETAL: Extremities without clubbing, cyanosis, or edema. NEURO: Alert & Oriented x4 to person, place, time, situation. Moves all ext x4 Procedures 09/27/2016 Procedure(s): Angiogram, Embolization 09.30.2016 PROCEDURE Exploratory laparotomy, total abdominal hysterectomy, bilateral salpingo-oophorectomy, omentectomy, repair of umbilical hernia A/P Problem List: (1) Chest pain, rule out acute myocardial infarction ICD Code: R07.9 - Chest pain, rule out acute myocardial infarction Status: Resolved (2) Endometrial carcinoma ICD Code: C54.1 - Malignant neoplasm of endometrium Status: Acute (3) UTI (urinary tract infection) ICD Code: N39.0 - Urinary tract infection, site not specified Status: Acute Assessment and Plan 66-year-old female with history of high-grade endometrial cancer with history of heavy vaginal bleeding status post total hysterectomy oophorectomy , HTN , HLD, DM, asthma, who presents with initially chest pain. Chest pain: Patient initially admitted to [facility], ACS ruled out with negative serial cardiac enzymes and EKG without acute ischemic changes. Nuclear stress test was unremarkable. D-dimer elevated, CT-PA negative for PE however did show multiple pulmonary nodules, little change compared to previous CT chest on 08/09/16. Patient was then transferred to hospitalist due to UTI with high- grade fevers. Now Chest pain resolved. Sepsis with UTI: Patient meets sepsis criteria with fever Tmax 102.5, tachycardia HR 107, leukocytosis WBC 19.2 K, sourceUTI. Continue antibiotics with IV Rocephin. Urine culture with group B strep, Staphylococcus aureus. - Blood cultures NGTD. - Continue Cefazolin 1g Q8hrs for GBS coverage. This should also cover MSSA now has transitioned to Keflex and will continue post discharge for 4 more days. 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 Patient complains of worsening heavy vaginal bleeding. Consult Dr. Julien. IR consulted for uterine artery embolization. Continue pain control prn. - Patient underwent surgical intervention (Ex lap, status post operative day #3 Total hysterectomy, oophorectomy) 09/30/2016. Patient tolerating diet, pain control. Continue postoperative care encourage activity. Pulmonary Nodules: seen on chest CT, consistent with previous CT 08/09/16. Dr Julien aware and following. Hypokalemia: Resolved Hypertension: chronic, overall stable. Continue patient's home meds, lisinopril 20 mg by mouth daily and HCTZ. - clonidine 0.1mg PRN. Diabetes Mellitus, type II, overall controlled: chronic, holding Metformin for now after receiving contrast. Monitor Accu-checks. Cover with SSI. Hyperlipidemia: chronic, continue home statin. DVT Prophylaxis: teds/SCDs Discharge Planning Discharge patient to home with outpatient follow-up with Dr. Sosa Problem Qualifiers (1) UTI (urinary tract infection): Zena,Stephanie MD Oct 03, 2016 12:43
--- NOTE | 2016-10-03 12:53 | HHI.DS ---
Discharge Summary Admission Date Sep 27, 2016 at 11:14 Discharge Date: Oct 03, 2016 Admitting Diagnosis cp ro mi, h/o htn, dm (1) Endometrial carcinoma ICD Code: C54.1 - Malignant neoplasm of endometrium Diagnosis: Principal Status: Acute (2) Chest pain, rule out acute myocardial infarction ICD Code: R07.9 - Chest pain, rule out acute myocardial infarction Diagnosis: Secondary Status: Resolved (3) UTI (urinary tract infection) ICD Code: N39.0 - Urinary tract infection, site not specified Diagnosis: Secondary Status: Resolved (4) Post-menopausal bleeding ICD Code: N95.0 - Postmenopausal bleeding Diagnosis: Secondary Status: Resolved (5) Sepsis ICD Code: A41.9 - Sepsis, unspecified organism Diagnosis: Secondary Status: Resolved Procedures 09/27/2016 Procedure(s): Angiogram, Embolization 09.30.2016 PROCEDURE Exploratory laparotomy, total abdominal hysterectomy, bilateral salpingo-oophorectomy, omentectomy, repair of umbilical hernia Brief History - From Admission Obtained from admissions history and physical Ms. Lowry is a 66-year-old female patient with a known medical history of asthma , type 2 diabetes, hypertension, hyperlipidemia and high grade uterine carcinoma who presented to the ED with complaints of chest pain. Patient states that the pain began 2 days ago in her midsternal chest area while she was ironing at her home. She characterized the pain as intermittent, aching and sharp in nature lasting about 2-3 minutes and would slowly subside. She does admit to associated headache and difficulty breathing. Denies any associated nausea, vomiting or diaphoresis. Currently denies any chest discomfort but does complain of aching pain in her lower abdomen with movement. It is important to note that patient has been following with Dr. Julien for a high-grade uterine carcinoma and vaginal bleeding and has a scheduled hysterectomy for this Friday. Denies any recent illness including fever, chills, cough, shortness of breath, vomiting or diarrhea. UA was collected in ED indicative of a UTI. D- dimer elevated at 0.70 and CTA performed showing numerous bilateral pulmonary nodules. CBC/BMP: 10/01/16 0726 10/01/16 0726 Significant Findings Laboratory Tests Test 10/01/16 07:26 White Blood Count 12.4 TH/MM3 (4.0-11.0) Red Blood Count 3.65 MIL/MM3 (4.00-5.30) Hemoglobin 10.3 GM/DL (11.6-15.3) Hematocrit 32.1 % (35.0-46.0) Neutrophils (%) (Auto) 79.7 % (16.0-70.0) Monocytes (%) (Auto) 9.7 % (0.0-8.0) Neutrophils # (Auto) 9.9 TH/MM3 (1.8-7.7) Monocytes # (Auto) 1.2 TH/MM3 (0-0.9) Imaging Last Impressions Chest X-Ray 09/29/16 0000 Signed Impressions: Service Date/Time: Thursday, September 29, 2016 07:34 - CONCLUSION: 1. Right basilar subsegmental atelectasis. Elliott Toro MD Embolization, Transcatheter 09/27/16 0000 Signed Impressions: Service Date/Time: Tuesday, September 27, 2016 00:00 - CONCLUSION: Patient with a uterine mass with significant neoangiogenesis. Bilateral pelvic embolization performed as detailed above. James Haji Jr., MD CT Angiography 09/25/16 0035 Signed Impressions: Service Date/Time: Sunday, September 25, 2016 01:37 - CONCLUSION: 1. The study is negative for pulmonary embolism. 2. Numerous bilateral pulmonary nodules measuring up to 7 mm. Recommend correlation with clinical history for history of malignancy. In the absence of malignancy, recommend followup CT in 6 months. James Crook MD ADDENDUM: The multiple pulmonary nodules were described in detail on the CT scan of the chest dated 08/09/16. There is been little change in this very short interval. These still remain concerning for malignancy. Yoshi Huerta MD FACR Myocardial Perfusion Scan Nuc Med 09/25/16 0000 Signed Impressions: Service Date/Time: Sunday, September 25, 2016 14:24 - CONCLUSION: 1. Normal wall motion and calculated ejection fraction. 2. No fixed or reversible wall defects to suggest ischemia or infarction. RISK CATEGORY: Low (<1%% Annual Mortality Rate) Ricky Rahman MD PE at Discharge GENERAL: This is a well-nourished, well-developed patient, in no apparent distress. CARDIOVASCULAR: Regular rate and rhythm RESPIRATORY: Clear to auscultation. Breath sounds equal bilaterally. No wheezes , rales, or rhonchi. GASTROINTESTINAL: Abdomen soft, non-tender, nondistended. Normal active bowel sounds, surgical site clean dry intact MUSCULOSKELETAL: Extremities without clubbing, cyanosis, or edema. NEURO: Alert & Oriented x4 to person, place, time, situation. Moves all ext x4 Hospital Course These are the medical issues addressed during this hospitalization: 66-year-old female with history of high-grade endometrial cancer, HTN, HLD, DM, asthma, presented initially to the emergency room with chest pain. Chest pain: Patient initially admitted to [facility], ACS ruled out with negative serial cardiac enzymes and EKG without acute ischemic changes. Nuclear stress test was unremarkable. D-dimer elevated, CT-PA negative for PE however did show multiple pulmonary nodules, little change compared to previous CT chest on 08/09/16. Patient transferred to hospitalist due to UTI with high-grade fevers. Chest pain resolved during hospitalization. Sepsis with group B strep and Staphylococcus aureus UTI: Patient meets sepsis criteria with fever Tmax 102.5, tachycardia HR 107, leukocytosis WBC 19.2 K, sourceUTI. antibiotics with IV Rocephin initiated and later transitioned to Keflex. Urine culture with group B strep, Staphylococcus aureus. - Blood cultures negative - Rocephin was then transitioned to Cefazolin 1g Q8hrs for GBS coverage. This should also cover MSSA. Upon discharge, prescription for Keflex prescribed. 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 . Dr. Julien was consulted and saw the patient and her hospitalization. IR consulted for uterine artery embolization. Continue pain control prn. - Patient underwent surgical intervention (Ex lap, Total hysterectomy, oophorectomy) on 09/30/2016 and underwent routine postoperative care. Pulmonary Nodules: seen on chest CT, consistent with previous CT 08/09/16. Dr Julien aware and following. Hypokalemia: likely secondary to decreased oral intake. Given po KCl replacement., Resolved upon discharge Hypertension: chronic, stable. Continue patient's home meds, lisinopril and HCTZ. Her home medication was Increased, Lisinopril 10 --> 20mg Qday. - clonidine 0.1mg PRN. Diabetes Mellitus: chronic, holding Metformin for now after receiving contrast. Monitor Accu-checks. Cover with SSI. Hyperlipidemia: chronic, continue home statin. DVT Prophylaxis: teds/SCDs, Lovenox given Pt Condition on Discharge: Good Discharge Disposition: Discharge Home Discharge Time: <= 30 minutes Discharge Instructions DIET: Follow Instructions for: As Tolerated, No Restrictions, Diabetic Diet Activities you can perform: See Additionl Instruction Activities to Avoid: Strenuous Activity, Bathing, Shower, Driving, Sexual Activity Follow up Referrals: [facility] - 2 Weeks with Oneyda Julien MD PCP Follow-up - 1 Week New Medications: Cephalexin (Keflex) 500 Mg Cap 500 MG PO Q6H for Infection, #20 CAP 0 Refills Oxycodone-Acetaminophen (Percocet) 7.5-325 mg Tab 1 TAB PO Q6H PRN for PAIN, #30 TAB 0 Refills Continued Medications: Albuterol 6.7 GM Inh (Proventil Hfa 6.7 GM Inh) 90 Mcg/Act Aer 1 PUFF INH Q4H PRN for SHORTNESS OF BREATH, #1 INHALER 0 Refills Hydrochlorothiazide (Hydrochlorothiazide) 25 Mg Tab 25 MG PO BID, #30 TAB Lisinopril (Lisinopril) 20 Mg Tab 20 MG PO DAILY, #30 TAB 0 Refills Pravastatin (Pravastatin) 20 Mg Tab 20 MG PO DAILY for Cholesterol Management, #30 TAB 0 Refills Stephanie Freitas MD Oct 03, 2016 12:53
[2016-10-03] MEDS: CALCIUM CARBONATE 500 MG CHEWABLE TAB CHEW PRN (13:41)
[2016-10-03] MEDS ORDERED: ENALAPRILAT 1.25 MG/ML VIAL IV PRN (14:00)
[2016-10-03 14:50] VITALS: BP 158/78
[2016-10-03 16:09] VITALS: BP 152/93; PULSE 95; RESP 20; TEMP 97.8; O2SAT 97
== END 2016-10-03 19:12 | disposition home or self-care (01) | DRG 739 ==
LOC: NEPE 22:23 → NEDA 09-25 01:35 → NEDH 09-25 05:49 → NEPHCDU 09-25 08:01 → OBSVTOIN 09-27 11:14 → HOCB 09-27 13:27 → HOCA 09-27 16:12
PROVIDERS: ADMIT Family Medicine; ATTEND Family Medicine
PROC: 04LF3DU Occlusion of Left Uterine Artery with Intraluminal Device, Percutaneous Approach (ICD-10-PCS; 2016-09-27)
PROC: 04LE3DT Occlusion of Right Uterine Artery with Intraluminal Device, Percutaneous Approach (ICD-10-PCS; 2016-09-27)
PROC: 0UT20ZZ Resection of Bilateral Ovaries, Open Approach (ICD-10-PCS; 2016-09-30)
PROC: 0UT70ZZ Resection of Bilateral Fallopian Tubes, Open Approach (ICD-10-PCS; 2016-09-30)
PROC: 0DNW0ZZ Release Peritoneum, Open Approach (ICD-10-PCS; 2016-09-30)
PROC: [UNRECOGNIZED PROCEDURE] (2016-09-30)
PROC: 0WQF0ZZ Repair Abdominal Wall, Open Approach (ICD-10-PCS; 2016-09-30)
PROC: 0UT90ZZ Resection of Uterus, Open Approach (ICD-10-PCS; principal; 2016-09-30 07:25)
PROC: 0UTC0ZZ Resection of Cervix, Open Approach (ICD-10-PCS; 2016-09-30 07:25)
DX: C54.1 Malignant neoplasm of endometrium (principal); A40.9 Streptococcal sepsis, unspecified; N39.0 Urinary tract infection, site not specified; E11.9 Type 2 diabetes mellitus without complications; B95.61 Methicillin susceptible Staphylococcus aureus infection as the cause of diseases classified elsewhere; I10 Essential (primary) hypertension; E78.5 Hyperlipidemia, unspecified; E87.6 Hypokalemia; I25.2 Old myocardial infarction; Z86.711 Personal history of pulmonary embolism; J45.909 Unspecified asthma, uncomplicated; K42.9 Umbilical hernia without obstruction or gangrene; K66.0 Peritoneal adhesions (postprocedural) (postinfection); N85.2 Hypertrophy of uterus; N93.9 Abnormal uterine and vaginal bleeding, unspecified; N95.0 Postmenopausal bleeding; Z79.82 Long term (current) use of aspirin; Z79.899 Other long term (current) drug therapy; G43.909 Migraine, unspecified, not intractable, without status migrainosus; R00.0 Tachycardia, unspecified; R91.8 Other nonspecific abnormal finding of lung field
CPT/HCPCS: 36247; 36248; 37243; 71010; 71275; 75736; 75774; 76937; 78452; 80048; 80053; 81001; 82550; 82552; 82948; 83036; 83605; 83690; 83735; 83880; 84100; 84439; 84443; 84484; 85025; 85379; 85610; 85730; 86850; 86900; 86901; 86920; 87040; 87077; 87086; 87186; 88305; 88307; 88311; 88341; 93005; 93017; 94150; 96374; 99152; 99153; 99285; A9502; C1769; C1887; C1894; G0378; G8987-GO; G8987-GP; G8988-GO; G8988-GP; J0131; J0690; J0696; J1100; J1170; J1885; J2250; J2270; J2405; J2785; J3010; J7030; J7120; Q9967

== ENCOUNTER 2016-11-29 20:54 | Emergency (ER) | payer OTHER ==
[~2016-11-29] VITALS: Ht 165.1 cm; Wt 70.0 kg
[~2016-11-29 20:54] MED LIST changes: +ALBU6.7H INH; -ATOR40TA49 PO; -BENT20TA PO; +CEPH-460 PO; -CETI10 PO; -FIORIC PO; -HYDR-2768 PO; +HYDR25TA5 PO; -LISI-363 PO; +LISI-515 PO; -LORTA5 PO; -MULTTAB24 PO; -NAPHSOL EACH EYE; -OFLO1DRO8 EACH EYE; +PERC7.5T13 PO; -PRAV20; +PRAV20TA2 PO; -PROM25SU8 PO; -SLOWTAB PO; -SULF-154 PO; -VENTAER INH; -VITATAB11
[2016-11-29 20:56] VITALS: BP 148/93; PULSE 137; RESP 16; TEMP 98.7; O2SAT 100
--- NOTE | 2016-11-29 21:25 | PD ---
HPI Chief Complaint: Abdominal Pain Time Seen by Provider: 21:13 Travel History International Travel<30 days: No Contact w/Intl Traveler<30days: No Traveled to known affect area: No History of Present Illness HPI patient is a 66-year-old female with a history of uterine cancer status post total hysterectomy September 30 of this year presents emergency Department with lower pelvic abdominal pain radiating to her left side. Patient states she's been taking her tramadol home without significant relief. States she's also been feeling very constipated. Nauseous without vomiting. States she called Dr. Julien who recommended that the pain didn't get any better to come in emergency department. She denies any fever or dysuria. Patient has had PET scans shows fairly widespread metastatic disease she is waiting to go forward with chemotherapy after discussion of possible palliative care instead. She is not currently on chemotherapy and has not started yet. Patient states the pain is severe left lower quadrant radiating to the left upper quadrant and the right lower quadrant. Denies any vaginal bleeding or discharge or blood in the stool in the stool. Patient states she's been able to tolerate by mouth fluids including boost but has not been able to tolerate any solid intake. PFSH Past Medical History Asthma: Yes Heart Rhythm Problems: No Cardiac Catheterization: No Cardiovascular Problems: Yes (HTN) High Cholesterol: Yes Congestive Heart Failure: No Diabetes: No Hypertension: Yes Immunizations Current: Yes Migraines: Yes Menopausal: Yes Past Surgical History Abdominal Surgery: Yes Coronary Artery Bypass Graft: No Hysterectomy: No Family History Family Myocardial Infarction: Yes Social History Alcohol Use: Yes (occasional ) Tobacco Use: No Substance Use: No Allergies-Medications (Allergen,Severity, Reaction): Coded Allergies: No Known Allergies (Verified , 11/29/16) Reported Meds & Prescriptions Reported Meds & Active Scripts Active Keflex (Cephalexin) 500 Mg Cap 500 Mg PO Q6H 5 Days [place] (Hydrocodone-Acetaminophen) 5-325 mg Tab 1 Tab PO Q6H PRN Keflex (Cephalexin) 500 Mg Cap 500 Mg PO Q6H Percocet (Oxycodone-Acetaminophen) 7.5-325 mg Tab 1 Tab PO Q6H PRN Reported Pravastatin 20 Mg Tab 20 Mg PO DAILY Lisinopril 20 Mg Tab 20 Mg PO DAILY Hydrochlorothiazide 25 Mg Tab 25 Mg PO BID Proventil Hfa 6.7 GM Inh (Albuterol Sulfate) 90 Mcg/Act Aer 1 Puff INH Q4H PRN Review of Systems Except as stated in HPI: all other systems reviewed are Neg Physical Exam Narrative GENERAL: Well-developed well-nourished, appears older than stated age. SKIN: Focused skin assessment warm/dry. HEAD: Atraumatic. Normocephalic. EYES: Pupils equal and round. No scleral icterus. No injection or drainage. ENT: No nasal bleeding or discharge. Mucous membranes pink and moist. NECK: Trachea midline. No JVD. CARDIOVASCULAR: Tachycardic with regular rhythm. No murmur appreciated. RESPIRATORY: No accessory muscle use. Clear to auscultation. Breath sounds equal bilaterally. GASTROINTESTINAL: Abdomen soft, fairly tender moderately distended abdomen. No rebound no percussive tenderness. Negative table bump sign. Hepatic and splenic margins not palpable. MUSCULOSKELETAL: No obvious deformities. No clubbing. No cyanosis. No edema. NEUROLOGICAL: Awake and alert. No obvious cranial nerve deficits. Motor grossly within normal limits. Normal speech. PSYCHIATRIC: Appropriate mood and affect; insight and judgment normal. Data Data Last Documented VS Vital Signs Date Time Temp Pulse Resp B/P (MAP) Pulse Ox O2 Delivery O2 Flow Rate FiO2 11/30/16 01:32 11/29/16 20:56 98.7 137 16 100 Room Air Orders Orders Complete Blood Count With Diff (11/29/16 21:21) Comprehensive Metabolic Panel (11/29/16 21:21) Lipase (11/29/16 21:21) Lactic Acid (11/29/16 21:21) Prothrombin Time / Inr (Pt) (11/29/16 21:21) Act Partial Throm Time (Ptt) (11/29/16 21:21) Urinalysis - C+S If Indicated (11/29/16 21:21) Iv Access Insert/Monitor (11/29/16 21:21) Ecg Monitoring (11/29/16 21:21) Oximetry (11/29/16 21:21) Morphine Inj (Morphine Inj) (11/29/16 21:30) Ondansetron Inj (Zofran Inj) (11/29/16 21:30) Sodium Chloride 0.9% Flush (Ns Flush) (11/29/16 21:30) Electrocardiogram (11/29/16 21:21) Sodium Chlorid 0.9% 500 Ml Inj (Ns 500 M (11/29/16 21:30) Ct Abd/Pel W Iv Contrast(Rout) (11/29/16 ) Iohexol 350 Inj (Omnipaque 350 Inj) (11/29/16 22:39) Urine Culture (11/29/16 23:42) Ed Discharge Order (11/30/16 00:52) Labs Laboratory Tests Test 11/29/16 21:25 11/29/16 23:42 White Blood Count 5.0 TH/MM3 Red Blood Count 4.47 MIL/MM3 Hemoglobin 12.5 GM/DL Hematocrit 38.4 % Mean Corpuscular Volume 86.0 FL Mean Corpuscular Hemoglobin 27.9 PG Mean Corpuscular Hemoglobin Concent 32.5 % Red Cell Distribution Width 14.0 % Platelet Count 226 TH/MM3 Mean Platelet Volume 8.9 FL Neutrophils (%) (Auto) 58.1 % Lymphocytes (%) (Auto) 29.4 % Monocytes (%) (Auto) 9.1 % Eosinophils (%) (Auto) 1.9 % Basophils (%) (Auto) 1.5 % Neutrophils # (Auto) 2.9 TH/MM3 Lymphocytes # (Auto) 1.5 TH/MM3 Monocytes # (Auto) 0.5 TH/MM3 Eosinophils # (Auto) 0.1 TH/MM3 Basophils # (Auto) 0.1 TH/MM3 CBC Comment DIFF FINAL Differential Comment Prothrombin Time 11.3 SEC Prothromb Time International Ratio 1.0 RATIO Activated Partial Thromboplast Time 28.9 SEC Blood Urea Nitrogen 12 MG/DL Creatinine 1.00 MG/DL Random Glucose 107 MG/DL Total Protein 7.4 GM/DL Albumin 3.3 GM/DL Calcium Level 9.7 MG/DL Alkaline Phosphatase 67 U/L Aspartate Amino Transf (AST/SGOT) 52 U/L Alanine Aminotransferase (ALT/SGPT) 17 U/L Total Bilirubin 0.6 MG/DL Sodium Level 134 MEQ/L Potassium Level 4.1 MEQ/L Chloride Level 99 MEQ/L Carbon Dioxide Level 26.7 MEQ/L Anion Gap 8 MEQ/L Estimat Glomerular Filtration Rate 67 ML/MIN Lactic Acid Level 1.7 mmol/L Lipase 106 U/L Urine Color YELLOW Urine Turbidity CLEAR Urine pH 5.5 Urine Specific [place] 1.050 Urine Protein 30 mg/dL Urine Glucose (UA) NEG mg/dL Urine Ketones NEG mg/dL Urine Occult Blood LARGE Urine Nitrite NEG Urine Bilirubin NEG Urine Urobilinogen LESS THAN 2.0 MG/DL Urine Leukocyte Esterase LARGE Urine RBC 37 /hpf Urine WBC /hpf Urine Squamous Epithelial Cells 1 /hpf Urine Mucus FEW /lpf Microscopic Urinalysis Comment CULTURE INDICATED MDM Medical Decision Making Medical Screen Exam Complete: Yes Emergency Medical Condition: Yes Differential Diagnosis Metastatic disease, obstruction, constipation Narrative Course Patient roomed in emergency department, cardiac on arrival she was quite responsive to opiate pain medication for her heart rate. On reassessment she is feeling much more comfortable. A CAT scan of her abdomen was obtained shows no obstructed but certainly has findings consistent with her metastatic disease history. Last 24 hours Impressions Abdomen/Pelvis CT 11/29/16 0000 Signed Impressions: Service Date/Time: Friday, November 29, 2016 22:28 - CONCLUSION: Abnormal study evidence of midline pelvic surgery alleged hysterectomy for uterine cancer. There is fluid throughout the pelvis and the abdomen occlusive paracolic gutters and extending up adjacent the liver and spleen. There is retroperitoneal adenopathy. Large soft tissue mass is noted adjacent to the right lower psoas muscle measuring up to 7 cm in size which may represent coalescent lymph nodes. Additionally in the pelvis adjacent to posterior superior to the urinary bladder suggestion of an inhomogeneous ill-defined density mixed character not simple fluid 6.4 cm in size could represent postsurgical change or any abscess or hematoma postoperative in the appropriate clinical situation Travis Mccollum MD Labs are reassuring but does have evidence for urinary tract infection. Will be discharged on pain medication and antibiotics. Her repeat abdominal exam was completely benign. Discussed follow-up with Dr. Julien by phone, discussed return to ED criteria. She stable for discharge. Diagnosis Primary Impression: Abdominal pain Qualified Codes: R10.9 - Unspecified abdominal pain Additional Impression: UTI (urinary tract infection) Additional Instructions: call Dr. Julien on Friday. Med/Other Pt SpecificInfo: Prescription(s) given Scripts Cephalexin (Keflex) 500 Mg Cap 500 MG PO Q6H for Infection for 5 Days, #20 CAP 0 Refills Prov: Daniel Nicolas MD 11/30/16 Hydrocodone-Acetaminophen ([place]) 5-325 mg Tab 1 TAB PO Q6H Y for PAIN, #15 TAB 0 Refills Prov: Daniel Nicolas MD 11/30/16 Disposition: 01 DISCHARGE HOME Condition: Stable Daniel Nicolas MD Nov 29, 2016 21:25
[2016-11-29] MEDS ORDERED: SODIUM CHLORID 0.9% 500 ML INJ 500 ML IV ONE (21:30)
[2016-11-29] MEDS ORDERED: ONDANSETRON HCL 4 MG/2 ML VIAL IVP ONE (21:30)
[2016-11-29] MEDS ORDERED: SODIUM CHLORIDE 0.9% FLUSH 10 ML FLUSH IV FLUSH PRN (21:30)
[2016-11-29] MEDS ORDERED: MORPHINE SULFATE 4 MG/ML INJ IV PUSH ONE (21:30)
[2016-11-29 21:51] LABS: AUTOMATED NEUTROPHIL # 2.9 TH/MM3 (1.8-7.7); BASOPHIL # 0.1 TH/MM3 (0-0.2); BASOPHIL % 1.5 % (0.0-2.0); EOSINOPHIL # 0.1 TH/MM3 (0-0.4); EOSINOPHIL % 1.9 % (0.0-4.0); HEMATOCRIT 38.4 % (35.0-46.0); HEMO FLAGS DIFF FINAL; LYMPH % 29.4 % (9.0-44.0); LYMPHOCYTE # 1.5 TH/MM3 (1.0-4.8); MEAN CORPUSCULAR HEMOGLOBIN 27.9 PG (27.0-34.0); MEAN CORPUSCULAR HGB CONC 32.5 % (32.0-36.0); MONO % 9.1 % (0.0-8.0); NEUT % 58.1 % (16.0-70.0); PLATELET COUNT 226 TH/MM3 (150-450); RED BLOOD COUNT 4.47 MIL/MM3 (4.00-5.30)
[2016-11-29 22:02] LABS: APTT (PATIENT) 28.9 SEC (24.3-30.1); PROTHROMBIN TIME - PATIENT 11.3 SEC (9.8-11.6)
[2016-11-29 22:05] LABS: ALT (GPT) 17 U/L (10-53)
[2016-11-29 22:07] LABS: ALKALINE PHOSPHATASE 67 U/L (45-117); TOTAL BILIRUBIN ADULT 0.6 MG/DL (0.2-1.0)
[2016-11-29 22:16] LABS: ANION GAP 8 MEQ/L (5-15); AST (GOT) 52 U/L (15-37); BICARBONATE 26.7 MEQ/L (21.0-32.0); BLOOD UREA NITROGEN 12 MG/DL (7-18); CHLORIDE 99 MEQ/L (98-107); GLOMERULAR FILTRATION RATE 67 ML/MIN (>89); SODIUM (NA) 134 MEQ/L (136-145)
[2016-11-29 22:17] LABS: POTASSIUM 4.1 MEQ/L (3.5-5.1)
[2016-11-29] MEDS ORDERED: IOHEXOL 350 MG/ML 10 ML VIAL (for RAD DIAG) IVCONTRAST ONE (22:39)
--- NOTE | 2016-11-29 23:01 | RADRPT ---
EXAM DATE/TIME: 11/29/2016 22:28 [facility] COMPARISON: No previous studies available for comparison. INDICATIONS : Right side abdominal pain. Recent hysterectomy for uterine cancer. IV CONTRAST: 100 cc Omnipaque 350 (iohexol) IV ORAL CONTRAST: No oral contrast ingested. RADIATION DOSE: 6.06 CTDIvol (mGy) MEDICAL HISTORY : Carcinoma, not otherwise specified. Hypertension. SURGICAL HISTORY : Hysterectomy. ENCOUNTER: Initial ACUITY: 2 days PAIN SCALE: 10/10 LOCATION: Right abdomen TECHNIQUE: Volumetric scanning of the abdomen and pelvis was performed. Using automated exposure control and ad justment of the mA and/or kV according to patient size, radiation dose was kept as low as reasonably achievable to obtain optimal diagnostic quality images. DICOM format image data is available electro nically for review and comparison. FINDINGS: There is evidence of midline pelvic surgery by history recent hysterectomy for uterine cancer. Noted is a large amount of free fluid in the pelvis along the paracolic gutters and extending up around the liver and spleen. In the pelvic there is a somewhat inhomogeneous soft tissue density 6-1/2 cm in si ze which could represent postsurgical change or a true soft tissue mass or abscess. There is retroper itoneal adenopathy and along the lower psoas margin findings of an inhomogeneous 7 cm mass which coul d represent coalescent lymph nodes. Gallbladder is distended with slight thickening of the wall with normal pancreas bilateral kidneys and adrenal glands as well as normal spleen. Bowel distribution is relatively benign. CONCLUSION: Abnormal study evidence of midline pelvic surgery alleged hysterectomy for uterine cancer. There is f luid throughout the pelvis and the abdomen occlusive paracolic gutters and extending up adjacent the liver and spleen. There is retroperitoneal adenopathy. Large soft tissue mass is noted adjacent to th e right lower psoas muscle measuring up to 7 cm in size which may represent coalescent lymph nodes. A dditionally in the pelvis adjacent to posterior superior to the urinary bladder suggestion of an inho mogeneous ill-defined density mixed character not simple fluid 6.4 cm in size could represent postsur gical change or any abscess or hematoma postoperative in the appropriate clinical situation Travis Mccollum MD on November 29, 2016 at 22:51 Board Certified Radiologist. This report was verified electronically.
[2016-11-30] MEDS ORDERED: NORC5TAB PO (00:17)
[2016-11-30 00:38] LABS: BLOOD, URINE LARGE (NEG); COMMENT (UR) CULTURE INDICATED; CULTURE IF INDICATED CULTURE INDICATED; GLUCOSE,URINE NEG (NEG); KETONE, URINE NEG (NEG); MUCUS URINE FEW /lpf (OCC); NITRITE,URINE NEG (NEG); PH, URINE 5.5 (5.0-8.5); SQUAMOUS EPITHELIAL CELL URINE 1 /hpf (0-5); URINE COLOR YELLOW (YELLW/STRAW)
[2016-11-30] MEDS ORDERED: CEPH-460 PO (00:52)
--- NOTE | 2016-11-30 17:18 | EKG ---
Date Performed: 11/29/2016 Time Performed: 21:29:05 PTAGE: 66 years EKG: SINUS TACHYCARDIA ABNORMAL RHYTHM ECG PREVIOUS TRACING : 09/25/2016 05.50 Compared to prior tracing no significant change DOCTOR: Rita Humphrey Interpretating Date/Time 11/30/2016 17:16:48
== END 2016-11-30 01:38 | disposition home or self-care (01) ==
LOC: NEPC 20:54
DX: R10.32 Left lower quadrant pain (principal); N39.0 Urinary tract infection, site not specified; B96.89 Other specified bacterial agents as the cause of diseases classified elsewhere; R94.31 Abnormal electrocardiogram [ECG] [EKG]; C55 Malignant neoplasm of uterus, part unspecified; C79.9 Secondary malignant neoplasm of unspecified site
CPT/HCPCS: 74177; 80053; 81001; 83605; 83690; 85025; 85610; 85730; 87086; 93005; 96374; 96375; 99285; J2270; J2405; J7040; Q9967

== ENCOUNTER 2016-12-02 07:57 | Day surgery (SDC) | payer OTHER ==
[~2016-12-02] VITALS: Ht 165.1 cm; Wt 65.5 kg
[~2016-12-02 07:57] MED LIST changes: +NORC5TAB PO
[2016-12-02] MEDS ORDERED: ZOFR8TAB PO (08:18)
[2016-12-02 08:21] VITALS: BP 143/103; PULSE 130; RESP 20; TEMP 99.2; O2SAT 98
[2016-12-02] MEDS ORDERED: ONDANSETRON HCL 4 MG/2 ML VIAL ONE (08:55)
[2016-12-02] MEDS ORDERED: POVIDONE IODINE 5% (ANTISEPSIS KIT) 4 APPLICATIONS EACH NARE SCH (09:00)
[2016-12-02] MEDS ORDERED: MUPIROCIN 2% OINT 1 APPLIC/GM SYR EACH NARE SCH (09:00)
[2016-12-02] MEDS ORDERED: ceFAZolin 2 GM PREMIX 50 ML - implanted port/tunneled catheter insertion IV SCH (09:00)
[2016-12-02] MEDS ORDERED: VANCOMYCIN 1000 MG/NS 250 ML - implanted port/tunneled catheter IV SCH ×2 (09:00)
[2016-12-02] MEDS ORDERED: CHLORHEXIDINE GLUCONATE 2 % 1 PACK (2 CLOTHS) TOPICAL SCH (09:00)
[2016-12-02] MEDS ORDERED: MIDAZOLAM HCL 2 MG/2 ML VIAL ONE ×2 (09:31→09:32)
[2016-12-02] MEDS ORDERED: LIDOCAINE 1%/EPINEPHrine 1:100,000 SOLN 20 ML VIAL ONE (09:48)
--- NOTE | 2016-12-02 10:34 | PD.RAD ---
Post Procedure Progress Note Pre Procedure Diagnosis: (1) Uterine cancer Post Procedure Diagnosis: (1) Uterine cancer Procedure Date: Dec 02, 2016 Supervising Radiologist: James Haji JR Proceduralist/Assist: Dayna Avila, RT(R)(), Brodie Mccartney RT(R)() Anesthesia: Conscious Sedation Plan of Activity Patient to Unit: ROPU Patient Condition: Good See PACS Report for procedural detail/treatment Central Venous Access Device Procedure 1 Right Internal Jugular Infusaport Placement single lumen [place]: 8 Findings: Port in good position and functions well. OK to use. Plan F/U with IR or physician in 10-14 days for a site check Jr. Adithya,James Shafer MD Dec 02, 2016 10:34
[2016-12-02 10:35] VITALS: BP 133/84; PULSE 121; RESP 16; TEMP 98.6; O2SAT 95
[2016-12-02] MEDS ORDERED: SODIUM CHLORIDE 0.9% FLUSH 10 ML FLUSH IVF PRN (10:45)
[2016-12-02 10:50] VITALS: BP 142/77; PULSE 111; RESP 16; O2SAT 95
--- NOTE | 2016-12-02 11:09 | RADRPT ---
EXAM DATE/TIME: 12/02/2016 09:57 [facility] COMPARISON: No previous studies available for comparison. INDICATIONS : Patient with a history of uterine cancer, needs chemotherapy. MEDICAL HISTORY : Diabetes Type II High cholesterol HTN Vaginal bleeding SURGICAL HISTORY : Tubal ligation ENCOUNTER: Initial ACUITY: 2 months PAIN SCORE: 7/10 LOCATION: back FLUORO TIME: 0.4 minutes IMAGE SERIES: 1 SEDATION TIME: 30 minutes ACCESS: Right internal jugular vein SEDATION: 1.) 4 mg midazolam (Versed) IV 2.) 200 mcg fentanyl (Sublimaze) IV Prophylactic antibiotics were administered with appropriate pre-procedure timing. Vancomycin within 2 hours of procedure, Ancef (or alternative) within 1 hour of procedure. DEVICE: 1. 8 [place] single lumen Power port PROCEDURE : 1. Continuous pulse oximetry and EKG monitoring. 2. Intravenous conscious sedation. 3. Ultrasound guidance for venous access. 4. Fluoroscopic guided implantable central venous port placement. The patient was placed supine. The neck was prepped in sterile fashion. Full sterile technique was u sed, including cap, mask, sterile gloves and gown, and a large sterile sheet. Hand hygiene and 2% ch lorhexidine Betadine was utilized per protocol for cutaneous antisepsis with appropriate dry time for site. Sterile gel and sterile probe cover were utilized for ultrasound guidance. The skin and sub cutaneous tissues were infiltrated with local anesthetic solution. Under direct ultrasound guidance, central venous access was accomplished in the targeted vessel. The ultrasound images depicting access guidance were stored and saved to PACS for permanent record. A s ubcutaneous pocket was created using blunt dissection. The port was introduced to the pocket. The c atheter tubing was fed through a subcutaneous tunnel to the venotomy site. The catheter tubing was c ut to a suitable length and then was introduced through a valved Peel-Away sheath and positioned with catheter tubing tip at the cavo-atrial junction level. The pocket incision was closed with subcutic ular Vicryl suture. Steri-Strips were applied. The port was flushed and locked with heparin solutio n per protocol. Sterile dressing was applied to the site. The patient tolerated the procedure well. Conscious sedation was performed with the prescribed dosages and duration as above in the presence of an independent trained radiology nurse to assist in the monitoring of the patient. EKG and oximetry remained stable throughout the procedure. The patient tolerated the procedure well and there were no complications. The patient was sent to post anesthesia recovery in stable condition. CONCLUSION: Uncomplicated ultrasound and fluoroscopic guided implanted central venous port catheter placement as described in detail above. An 8 [place] Power port was placed. James Haji Jr., MD on December 02, 2016 at 11:08 Board Certified Radiologist. This report was verified electronically.
[2016-12-02 11:20] VITALS: BP 131/81; PULSE 115; RESP 16; O2SAT 97
[2016-12-02 11:50] VITALS: BP 154/86; PULSE 112; RESP 18; O2SAT 97
== END 2016-12-02 12:53 | disposition home or self-care (01) ==
LOC: HROP 07:57 → HRIP 07:57 → HROP 12:53
PROVIDERS: ATTEND Obstetrics & Gynecology Gynecologic Oncology
DX: Z45.2 Encounter for adjustment and management of vascular access device (principal); C55 Malignant neoplasm of uterus, part unspecified; E78.00 Pure hypercholesterolemia, unspecified; I10 Essential (primary) hypertension
CPT/HCPCS: 36561; 76937; 77001; 99152; 99153; C1788; J0690; J1642; J2250; J2405; J3010; J3370; J7050

== ENCOUNTER 2016-12-05 17:31 | Inpatient (IN) | payer OTHER, MEDICARE ==
[~2016-12-05] VITALS: Ht 165.1 cm; Wt 77.0 kg
[~2016-12-05 17:31] MED LIST changes: -PERC7.5T13 PO; +ZOFR8TAB PO
[2016-12-05 18:40] VITALS: BP 89/62; PULSE 142; RESP 18; TEMP 97.8; O2SAT 100
[2016-12-05] MEDS ORDERED: SODIUM CHLOR 0.9% 1000 ML INJ 1,000 ML IV SCH ×3 (18:50→20:31)
--- NOTE | 2016-12-05 18:53 | PD ---
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 She presents via EMS for evaluation. The patient underwent her first chemotherapy session this morning, finished approximately 4 PM. She reports that she stood up to go to the bathroom when she felt dizzy, lightheaded, weak, nauseous. EMS notes that her blood pressure at the chemotherapy Center was initially in the systolic 90s after the symptoms started. She endorses lower abdominal pain which has been ongoing for weeks. She underwent hysterectomy in September. She denies fevers, chills, vomiting, chest pain. She does endorse some dyspnea. No other complaints at this time. PFSH Past Medical History Asthma: Yes Heart Rhythm Problems: No Cancer: Yes (UTERINE) Cardiac Catheterization: No Cardiovascular Problems: Yes (HTN) High Cholesterol: Yes Congestive Heart Failure: No Diabetes: Yes (BORDERLINE) Genitourinary: No Hepatitis: No Hypertension: Yes Psychiatric: No Respiratory: Yes (ASTHMA) Immunizations Current: Yes Migraines: Yes Thyroid Disease: No Menopausal: Yes Past Surgical History Abdominal Surgery: Yes AICD: No Coronary Artery Bypass Graft: No Gynecologic Surgery: Yes (HYSTERECTOMY) Hysterectomy: No Joint Replacement: No Pacemaker: No Social History Alcohol Use: Yes (occasional ) Tobacco Use: No Substance Use: No Allergies-Medications (Allergen,Severity, Reaction): Coded Allergies: No Known Allergies (Verified , 12/05/16) Reported Meds & Prescriptions Reported Meds & Active Scripts Active [place] (Hydrocodone-Acetaminophen) 5-325 mg Tab 1 Tab PO Q6H PRN Keflex (Cephalexin) 500 Mg Cap 500 Mg PO Q6H Reported Zofran (Ondansetron HCl) 8 Mg Tab 8 Mg PO TID Pravastatin 20 Mg Tab 20 Mg PO DAILY Lisinopril 20 Mg Tab 20 Mg PO DAILY Hydrochlorothiazide 25 Mg Tab 25 Mg PO BID Proventil Hfa 6.7 GM Inh (Albuterol Sulfate) 90 Mcg/Act Aer 1 Puff INH Q4H PRN Review of Systems Except as stated in HPI: all other systems reviewed are Neg Physical Exam Narrative GENERAL: Well-developed well-nourished female in no acute distress. She is noted to be hypotensive and tachycardic on initial examination. SKIN: Warm and dry. HEAD: Atraumatic. Normocephalic. EYES: Pupils equal and round. No scleral icterus. No injection or drainage. ENT: No nasal bleeding or discharge. Mucous membranes pink and moist. NECK: Trachea midline. No JVD. CARDIOVASCULAR: Regular rate and rhythm. No murmur appreciated. RESPIRATORY: No accessory muscle use. Clear to auscultation. Breath sounds equal bilaterally. GASTROINTESTINAL: Abdomen soft, tender to palpation in lower quadrants without guarding. MUSCULOSKELETAL: No obvious deformities. No clubbing. No cyanosis. No edema. NEUROLOGICAL: Awake and alert. No obvious cranial nerve deficits. Motor grossly within normal limits. Normal speech. PSYCHIATRIC: Appropriate mood and affect; insight and judgment normal. Data Data Last Documented VS Vital Signs Date Time Temp Pulse Resp B/P (MAP) Pulse Ox O2 Delivery O2 Flow Rate FiO2 12/05/16 19:34 128 38 129/75 (93) 100 Room Air 12/05/16 18:40 97.8 Orders Orders Complete Blood Count With Diff (12/05/16 18:50) Comprehensive Metabolic Panel (12/05/16 18:50) Lipase (12/05/16 18:50) Prothrombin Time / Inr (Pt) (12/05/16 18:50) Act Partial Throm Time (Ptt) (12/05/16 18:50) Urinalysis - C+S If Indicated (12/05/16 18:50) Iv Access Insert/Monitor (12/05/16 18:50) Ecg Monitoring (12/05/16 18:50) Oximetry (12/05/16 18:50) Sodium Chlor 0.9% 1000 Ml Inj (Ns 1000 M (12/05/16 18:50) Sodium Chloride 0.9% Flush (Ns Flush) (12/05/16 19:00) Electrocardiogram (12/05/16 18:50) Magnesium (Mg) (12/05/16 18:50) Chest, Single Ap (12/05/16 ) Ckmb (Isoenzyme) Profile (12/05/16 19:00) Troponin I (12/05/16 19:00) Lactic Acid Sepsis Protocol (12/05/16 19:00) Blood Culture (12/05/16 19:00) Ondansetron Inj (Zofran Inj) (12/05/16 19:15) Sodium Chlor 0.9% 1000 Ml Inj (Ns 1000 M (12/05/16 19:06) Isolation 08,20 (12/05/16 19:22) Piperacil-Tazo 4.5 Gm Premix (Zosyn 4.5 (12/05/16 19:30) Vancomycin Inj (Vancomycin Inj) (12/05/16 19:30) Beta Hydroxybutyrate (Acetone) (12/05/16 19:57) Ventilation & Perfusion Scan (12/05/16 20:01) Ct Abd/Pel W/O Iv Contrast (12/05/16 20:01) Type And Screen (12/05/16 20:24) Sodium Chlor 0.9% 1000 Ml Inj (Ns 1000 M (12/05/16 20:31) Admit Order (Ed Use Only) (12/05/16 21:07) CKMB (12/05/16 19:00) CKMB% (12/05/16 19:00) Labs Laboratory Tests Test 12/05/16 19:00 12/05/16 19:30 White Blood Count 6.5 TH/MM3 Red Blood Count 3.02 MIL/MM3 Hemoglobin 8.3 GM/DL Hematocrit 26.6 % Mean Corpuscular Volume 87.9 FL Mean Corpuscular Hemoglobin 27.6 PG Mean Corpuscular Hemoglobin Concent 31.4 % Red Cell Distribution Width 13.9 % Platelet Count 196 TH/MM3 Mean Platelet Volume 9.6 FL Neutrophils (%) (Auto) 82.6 % Lymphocytes (%) (Auto) 14.0 % Monocytes (%) (Auto) 3.0 % Eosinophils (%) (Auto) 0.2 % Basophils (%) (Auto) 0.2 % Neutrophils # (Auto) 5.4 TH/MM3 Lymphocytes # (Auto) 0.9 TH/MM3 Monocytes # (Auto) 0.2 TH/MM3 Eosinophils # (Auto) 0.0 TH/MM3 Basophils # (Auto) 0.0 TH/MM3 CBC Comment AUTO DIFF Differential Total Cells Counted 100 Neutrophils % (Manual) 78 % Band Neutrophils % 4 % Lymphocytes % 10 % Monocytes % 1 % Neutrophils # (Manual) 5.8 TH/MM3 Metamyelocytes 3 % Myelocytes 4 % Differential Comment FINAL DIFF MANUAL Platelet Estimate NORMAL Platelet Morphology Comment NORMAL Bailey Cells 1+ Prothrombin Time 12.7 SEC Prothromb Time International Ratio 1.1 RATIO Activated Partial Thromboplast Time 26.4 SEC Blood Urea Nitrogen 26 MG/DL Creatinine 2.10 MG/DL Random Glucose 197 MG/DL Total Protein 6.4 GM/DL Albumin 2.5 GM/DL Calcium Level 9.0 MG/DL Magnesium Level 2.2 MG/DL Alkaline Phosphatase 50 U/L Aspartate Amino Transf (AST/SGOT) 58 U/L Alanine Aminotransferase (ALT/SGPT) 14 U/L Total Bilirubin 0.9 MG/DL Sodium Level 133 MEQ/L Potassium Level 5.0 MEQ/L Chloride Level 100 MEQ/L Carbon Dioxide Level 15.6 MEQ/L Anion Gap 17 MEQ/L Estimat Glomerular Filtration Rate 28 ML/MIN Total Creatine Kinase 120 U/L Creatine Kinase MB 0.9 NG/ML Troponin I LESS THAN 0.02 NG/ML Lipase 100 U/L B-Hydroxybutyrate 3.27 MMOL/L Lactic Acid Level 5.5 mmol/L MDM Medical Decision Making Medical Screen Exam Complete: Yes Emergency Medical Condition: Yes Medical Record Reviewed: Yes Differential Diagnosis Sepsis, intra-abdominal abscess, pulmonary embolism, adverse reaction to chemotherapy, dehydration, electrolyte abnormality Narrative Course The patient was placed on ECG monitoring pulse oximetry. A twelve-lead EKG was obtained. The patient was placed on precautions given her recent chemotherapy. Plan is for lab work, blood cultures. 2 L of IV fluids and been initiated. She is tender in lower quadrants of the abdomen. Review of her chart record reveals a CT of the abdomen and pelvis on November 29 revealing an ill-defined density mixed character not simple fluid 6.4 some years in size which could represent post surgical change or abscess or hematoma. Certainly given her tachycardia and abdominal pain and concern of the for infectious process and therefore repeat CT abdomen and pelvis has been ordered. In addition, given her dyspnea, hypotension and tachycardia, history of malignancy, CT pulmonary angiogram has been ordered. She will be given broad-spectrum antibiotics. The patient has acute renal insufficiency and therefore the CT of the abdomen was changed to noncontrast and the CT pulmonary injury was canceled and replaced with ventilation perfusion scan. Hemoglobin is 8.3, it was and November 19. She notes that she's been having vaginal bleeding for the past 3 weeks. BUN 26, creatinine 2.1, GFR 28, lactic acid 5.5, carbon dioxide 15.6, anion gap 17 likely secondary to lactic acidosis. Most likely the patient has severe sepsis. Plan will be to admit the patient the account solutions analyst service. Diagnosis Primary Impression: Severe sepsis Additional Impressions: Status post chemotherapy Metabolic acidosis Admitting Information Admitting Physician Requests: Admit Chavo Castillo Dec 05, 2016 18:53
[2016-12-05] MEDS ORDERED: SODIUM CHLORIDE 0.9% FLUSH 10 ML FLUSH IV FLUSH PRN ×2 (19:00→21:15)
[2016-12-05] MEDS ORDERED: ONDANSETRON HCL 4 MG/2 ML VIAL IV PUSH ONE (19:15)
[2016-12-05 19:27] LABS: AUTOMATED NEUTROPHIL # 5.4 TH/MM3 (1.8-7.7); BASOPHIL % 0.2 % (0.0-2.0); EOSINOPHIL % 0.2 % (0.0-4.0); HEMATOCRIT 26.6 % (35.0-46.0); HEMOGLOBIN 8.3 GM/DL (11.6-15.3); LYMPHOCYTE # 0.9 TH/MM3 (1.0-4.8); MEAN CELL VOLUME 87.9 FL (80.0-100.0); MEAN CORPUSCULAR HEMOGLOBIN 27.6 PG (27.0-34.0); MEAN CORPUSCULAR HGB CONC 31.4 % (32.0-36.0); MEAN PLATELET VOLUME 9.6 FL (7.0-11.0); MONOCYTE # 0.2 TH/MM3 (0-0.9); NEUT % 82.6 % (16.0-70.0); PLATELET COUNT 196 TH/MM3 (150-450); RED BLOOD COUNT 3.02 MIL/MM3 (4.00-5.30); RED CELL DISTRIBUTION WIDTH 13.9 % (11.6-17.2); WHITE BLOOD COUNT 6.5 TH/MM3 (4.0-11.0)
[2016-12-05] MEDS ORDERED: VANCOMYCIN INJ 1,000 MG in SODIUM CHLOR 0.9% 250 ML INJ 250 ML IV ONE (19:30)
[2016-12-05] MEDS ORDERED: PIPERACIL-TAZO 4.5 GM PREMIX 100 ML IV ONE (19:30)
[2016-12-05 19:34] VITALS: BP 129/75; PULSE 128; RESP 38; O2SAT 100
[2016-12-05 19:38] LABS: ALT (GPT) 14 U/L (10-53)
[2016-12-05 19:41] LABS: ALKALINE PHOSPHATASE 50 U/L (45-117); TOTAL BILIRUBIN ADULT 0.9 MG/DL (0.2-1.0); TOTAL PROTEIN 6.4 GM/DL (6.4-8.2)
[2016-12-05 19:42] LABS: INTERNATIONAL NORMALIZED RATIO 1.1 RATIO; PROTHROMBIN TIME - PATIENT 12.7 SEC (9.8-11.6)
[2016-12-05 19:43] LABS: ALBUMIN 2.5 GM/DL (3.4-5.0); AST (GOT) 58 U/L (15-37); BICARBONATE 15.6 MEQ/L (21.0-32.0); BLOOD UREA NITROGEN 26 MG/DL (7-18); CHLORIDE 100 MEQ/L (98-107); GLOMERULAR FILTRATION RATE 28 ML/MIN (>89); GLUCOSE,RANDOM 197 MG/DL (74-106); LIPASE 100 U/L (73-393); MAGNESIUM 2.2 MG/DL (1.5-2.5); SODIUM (NA) 133 MEQ/L (136-145)
[2016-12-05 20:12] LABS: LACTIC ACID SEPSIS PROTOCOL 5.5 mmol/L (0.4-2.0)
[2016-12-05 21:15] LABS: BANDS 4 % (0-6); LYMPHOCYTES 10 % (9-44); METAMYELOCYTES 3 % (0-1); MONOCYTES 1 % (0-8); MYELOCYTES 4 % (0-0); NEUTROPHIL # MANUAL DIFF 5.8 TH/MM3 (1.8-7.7); POLYS (SEG NEUTROPHILS) 78 % (16-70)
[2016-12-05] MEDS ORDERED: ZOLPIDEM TARTRATE 5 MG TAB PO PRN (21:15)
[2016-12-05] MEDS ORDERED: RESP: ALBUTEROL 2.5 MG/IPRATROPIUM 0.5 MG NEB (PRN) INH (21:15)
[2016-12-05] MEDS ORDERED: LACTULOSE SYRUP 20 GM/30 ML CUP PO PRN (21:15)
[2016-12-05] MEDS ORDERED: BISACODYL 10 MG SUPP RECTAL PRN (21:15)
[2016-12-05] MEDS ORDERED: MISCELLANEOUS NURSING INFORMATION XX SCH (21:15)
[2016-12-05] MEDS ORDERED: CHLORHEXIDINE GLUCONATE 2 % 1 PACK (2 CLOTHS) TOP PRN (21:15)
[2016-12-05] MEDS ORDERED: SENNOSIDES 8.6 MG TAB PO PRN (21:15)
[2016-12-05] MEDS ORDERED: MAGNESIUM HYDROXIDE SUSP 30 ML CUP PO PRN (21:15)
[2016-12-05] MEDS ORDERED: oxyCODONE/ACETAMINOPHEN 5 MG/325 MG TAB PO PRN (21:15)
[2016-12-05 21:16] LABS: BURR CELLS 1+ (NORMAL)
--- NOTE | 2016-12-05 21:22 | RADRPT ---
EXAM DATE/TIME: 12/05/2016 20:03 [facility] COMPARISON: CT ABDOMEN & PELVIS W CONTRAST, November 29, 2016, 22:28. INDICATIONS : Evaluate for abscess,pain and bleeding. ORAL CONTRAST: No oral contrast ingested. RADIATION DOSE: 6.77 CTDIvol (mGy) MEDICAL HISTORY : Hypertension. Uterine cancer SURGICAL HISTORY : Hysterectomy. ENCOUNTER: Initial ACUITY: 1 day PAIN SCALE: 10/10 LOCATION: Abdomen TECHNIQUE: Volumetric scanning of the abdomen and pelvis was performed. Using automated exposure control and ad justment of the mA and/or kV according to patient size, radiation dose was kept as low as reasonably achievable to obtain optimal diagnostic quality images. DICOM format image data is available electro nically for review and comparison. FINDINGS: LOWER LUNGS: The visualized lower lungs are clear. LIVER: Homogeneous density without lesion. There is no dilation of the biliary tree. No calcified gallston es. SPLEEN: Normal size without lesion. PANCREAS: Within normal limits. KIDNEYS: Normal in size and shape. There is no mass, stone, or hydronephrosis. ADRENAL GLANDS: Within normal limits. VASCULAR: There is no aortic aneurysm. BOWEL/MESENTERY: Moderate hiatal hernia. Bowel structures are nondilated. Moderate ascites is noted, slightly increase d in volume from prior scan. There is extensive peritoneal disease present, mainly in the pelvis, how ever also involving portions of the omentum. ABDOMINAL WALL: Soft tissue density nodule in the umbilicus may be a metastatic deposit RETROPERITONEUM: Extensive para-aortic and retrocaval adenopathy again noted. Disease along the right psoas is contigu ous with retroperitoneal mass in the pelvis BLADDER: No wall thickening or mass. REPRODUCTIVE: Extensive central pelvic mass, presumably of gynecologic origin. Volume of disease appears to actuall y increased since recent previous exam which may reflect some hemorrhage into the mass process. INGUINAL: There is no lymphadenopathy or hernia. MUSCULOSKELETAL: Within normal limits for patient age. CONCLUSION: Apparent increase in volume of pelvic neoplastic disease may reflect hemorrhage into the disease proc ess. The current examination is limited by absence of IV contrast. See above for additional discussio n. Juan Ramos MD on December 05, 2016 at 21:11 Board Certified Radiologist. This report was verified electronically.
[2016-12-05 21:28] LABS: TROPONIN I LESS THAN 0.02 NG/ML (0.02-0.05)
[2016-12-05] MEDS ORDERED: diphenhydrAMINE HCL 25 MG CAP PO PRN (21:30)
[2016-12-05] MEDS ORDERED: DEXTROSE 50% IN WATER 50 ML VIAL(D50) IV PRN (21:30)
[2016-12-05] MEDS ORDERED: Vancomycin Consult Pharmacy 1 EA OTHER SCH (21:30)
[2016-12-05] MEDS ORDERED: SODIUM CHLOR 0.9% 250 ML INJ 250 ML IV ONE (21:30)
[2016-12-05] MEDS ORDERED: GLUCAGON 1 MG/ML VIAL IM/SQ PRN (21:30)
--- NOTE | 2016-12-05 21:36 | RADRPT ---
EXAM DATE/TIME: 12/05/2016 20:42 [facility] COMPARISON: No previous studies available for comparison. INDICATIONS : Short of breath. DOSE: 8.1 mCi Tc99m MAA IV 0.6 mCi Tc99m DTPA aerosol MEDICAL HISTORY : Hypertension. Asthma and uterine cancer. SURGICAL HISTORY : Hysterectomy. ENCOUNTER: Initial ACUITY: 1 day PAIN SCALE: 1/10 LOCATION: Bilateral chest TECHNIQUE: Following five minutes of tidal breathing of DTPA aerosol, planar images of the lungs were performed in eight projections. The patient was then injected with MAA, and eight-view perfusion scan was perf ormed. FINDINGS: There is a homogeneous pattern of aerosol delivery to the periphery of both lungs. No focal ventilat ory defects are seen. The perfusion lung scan demonstrates a homogenous pattern of uptake in both lungs. No segmental or s ubsegmental defects are seen. CONCLUSION: Low probability scan for pulmonary embolism Juan Ramos MD on December 05, 2016 at 21:33 Board Certified Radiologist. This report was verified electronically.
[2016-12-05 21:58] VITALS: O2SAT 96
[2016-12-05 22:30] VITALS: BP 123/72; PULSE 122; RESP 23; TEMP 97.7; O2SAT 95
--- NOTE | 2016-12-05 22:36 | RADRPT ---
EXAM DATE/TIME: 12/05/2016 21:58 [facility] COMPARISON: CHEST SINGLE AP, September 29, 2016, 7:34. INDICATIONS : Shortness of breath. MEDICAL HISTORY : Hypertension. Uterine cancer. SURGICAL HISTORY : Hysterectomy. ENCOUNTER: Initial ACUITY: 1 day PAIN SCORE: 10/10 LOCATION: Bilateral chest FINDINGS: Right chest port is present in good position and is accessed. A minimal atelectasis or scarring is pr esent in the right lung base. No evidence of effusion. Cardiac contours are satisfactory and stable. CONCLUSION: Minimal right base atelectasis or scarring. Juan Ramos MD on December 05, 2016 at 22:34 Board Certified Radiologist. This report was verified electronically.
--- NOTE | 2016-12-05 22:36 | HHI.HP ---
HPI Service Critical Care Medicine Primary Care Physician Ashia Hewitt M.D. Admission Diagnosis severe sepsis, metabolic acidosis, S/P chemotherapy Diagnosis: Chief Complaint: nausea, abdominal pain, dizziness, vaginal bleeding Travel History International Travel<30 Days: No Contact w/Intl Traveler <30 Da: No Traveled to Known Affected Are: No Sepsis Criteria SIRS Criteria (2 or more): Heart rate over 90, RR > 20 or PaCO2 < 32 Sepsis Criteria (SIRS+source): Infect source susp/known Severe Sepsis (+one): Lactate >2 Criteria Outcome: Meets severe sepsis criteria History of Present Illness HPI 66-year-old female with a medical history significant for type 2 diabetes mellitus, hyperlipidemia, hypertension, 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 Julien followed by chemotherapy. Patient has been declining and was recently evaluated by Dr. Julien earlier this month and was diagnosed to have worsening metastatic disease despite therapy. Patient has been having vaginal bleeding which has worsened recently and developed chills about a week back along with sweating and nausea with worsening abdominal pain. She had a port placed on Friday about 5 days back. The patient underwent her first chemotherapy session this morning with Taxol and carboplatinum, finished approximately 4 PM. She reports that she stood up to go to the bathroom when she felt dizzy, lightheaded, weak, nauseous. EMS notes that her blood pressure at the chemotherapy Center was initially in the systolic 90s after the symptoms started however subsequently her nausea vomiting abdominal pain worsened and she was brought to the ER with hypotension with systolic blood pressure 89/60s and heart rate 140s sinus tachycardia on arrival. She received 1 L normal saline bolus and her blood pressure came up to the 130 systolic range with heart rate 120s. Patient's hemoglobin was 8.3 down from 12 few weeks ago. She is also noted to have a lactic acidosis and renal insufficiency. Patient was felt to have sepsis and cultures were obtained and she was given empiric vancomycin and Zosyn in the ER. Patient was accepted for admission by critical care medicine service. When I evaluated the patient in the ER she was laying in the ER stretcher slightly tachypneic however not in any acute distress. She was complaining of abdominal pain. History was obtained by discussion with patient, ER PA as well as nursing staff and by reviewing records. History PFSH Past Medical History Asthma: Yes Heart Rhythm Problems: No Cancer: Yes (UTERINE) Cardiac Catheterization: No Cardiovascular Problems: Yes (HTN) High Cholesterol: Yes Congestive Heart Failure: No Diabetes: Yes (BORDERLINE) Genitourinary: No Hepatitis: No Hypertension: Yes Psychiatric: No Respiratory: Yes (ASTHMA) Immunizations Current: Yes Migraines: Yes Thyroid Disease: No Menopausal: Yes Past Surgical History Abdominal Surgery: Yes AICD: No Coronary Artery Bypass Graft: No Gynecologic Surgery: Yes (HYSTERECTOMY) Hysterectomy: No Joint Replacement: No Pacemaker: No Social History Alcohol Use: Yes (occasional ) Tobacco Use: No Substance Use: No Allergies-Medications Allergies-Medications (Allergen,Severity, Reaction): Coded Allergies: No Known Allergies (Verified , 12/05/16) Reported Meds & Prescriptions Reported Meds & Active Scripts Active [place] (Hydrocodone-Acetaminophen) 5-325 mg Tab 1 Tab PO Q6H PRN Keflex (Cephalexin) 500 Mg Cap 500 Mg PO Q6H Reported Zofran (Ondansetron HCl) 8 Mg Tab 8 Mg PO TID Pravastatin 20 Mg Tab 20 Mg PO DAILY Lisinopril 20 Mg Tab 20 Mg PO DAILY Hydrochlorothiazide 25 Mg Tab 25 Mg PO BID Proventil Hfa 6.7 GM Inh (Albuterol Sulfate) 90 Mcg/Act Aer 1 Puff INH Q4H PRN ROS Review of Systems Except as stated in HPI: all other systems reviewed are Neg Physical Exam Vital Signs Vital Signs Date Time Temp Pulse Resp B/P (MAP) Pulse Ox O2 Delivery O2 Flow Rate FiO2 12/05/16 21:58 96 21 12/05/16 19:34 128 38 129/75 (93) 100 Room Air 12/05/16 18:40 97.8 142 18 89/62 (71) 100 Physical Exam HEENT/Neuro: Pallor present, No icterus, tongue dry, KIRSTEN, Awake alert oriented 3, nonfocal grossly, moving all 4 extremities Neck: No JVD Chest/pulmonary: CTA bilaterally, no wheezing or crackles Cardiovascular: S1-S2 regular no gallop or murmur GI/abdomen: Soft, slightly distended, diffuse tenderness especially in lower abdomen with guarding, bowel sounds sluggish Extremities: Warm bilaterally, no edema Laboratory Laboratory Tests Test 12/05/16 19:00 12/05/16 19:30 12/05/16 21:32 White Blood Count 6.5 Red Blood Count 3.02 Hemoglobin 8.3 Hematocrit 26.6 Mean Corpuscular Volume 87.9 Mean Corpuscular Hemoglobin 27.6 Mean Corpuscular Hemoglobin Concent 31.4 Red Cell Distribution Width 13.9 Platelet Count 196 Mean Platelet Volume 9.6 Neutrophils (%) (Auto) 82.6 Lymphocytes (%) (Auto) 14.0 Monocytes (%) (Auto) 3.0 Eosinophils (%) (Auto) 0.2 Basophils (%) (Auto) 0.2 Neutrophils # (Auto) 5.4 Lymphocytes # (Auto) 0.9 Monocytes # (Auto) 0.2 Eosinophils # (Auto) 0.0 Basophils # (Auto) 0.0 CBC Comment AUTO DIFF Differential Total Cells Counted 100 Neutrophils % (Manual) 78 Band Neutrophils % 4 Lymphocytes % 10 Monocytes % 1 Neutrophils # (Manual) 5.8 Metamyelocytes 3 Myelocytes 4 Differential Comment FINAL DIFF MANUAL Platelet Estimate NORMAL Platelet Morphology Comment NORMAL Bailey Cells 1+ Prothrombin Time 12.7 Prothromb Time International Ratio 1.1 Activated Partial Thromboplast Time 26.4 Blood Urea Nitrogen 26 Creatinine 2.10 Random Glucose 197 Total Protein 6.4 Albumin 2.5 Calcium Level 9.0 Magnesium Level 2.2 Alkaline Phosphatase 50 Aspartate Amino Transf (AST/SGOT) 58 Alanine Aminotransferase (ALT/SGPT) 14 Total Bilirubin 0.9 Sodium Level 133 Potassium Level 5.0 Chloride Level 100 Carbon Dioxide Level 15.6 Anion Gap 17 Estimat Glomerular Filtration Rate 28 Total Creatine Kinase 120 Creatine Kinase MB 0.9 Troponin I LESS THAN 0.02 Lipase 100 B-Hydroxybutyrate 3.27 Lactic Acid Level 5.5 Blood Gas Puncture Site IV Blood Gas Patient Temperature 98.6 Venous Blood pH 7.36 Venous Blood Partial Pressure CO2 32 Venous Blood Partial Pressure O2 27 Venous Blood HCO3 18 Venous Blood Oxygen Saturation 39 Venous Blood Oxygen Content 3.9 Venous Blood Base Excess -6.9 Oxygen Delivery Device ROOM AIR Blood Gas Inspired Oxygen 21 Date/Time Source Procedure Growth Status 12/05/16 19:30 Blood Peripheral Aerobic Blood Culture Pending Received 12/05/16 19:30 Blood Peripheral Anaerobic Blood Culture Pending Received Result Diagram: 12/05/16189912/05/161899 Imaging Last Impressions Lung Scan-VQ Nuclear Medicine 12/05/162000 Signed Impressions: Service Date/Time: November 20:42 - CONCLUSION: Low probability scan for pulmonary embolism uJan Ramos MD Abdomen/Pelvis CT 12/05/162000 Signed Impressions: Service Date/Time: November 20:03 - CONCLUSION: Apparent increase in volume of pelvic neoplastic disease may reflect hemorrhage into the disease process. The current examination is limited by absence of IV contrast. See above for additional discussion. Juan Ramos MD Septic Shock Reassessment Heart: Regular rate and rhythm Lungs: Clear Skin: Warm Peripheral Pulses: Bounding Right Radial Capillary Refill: Brisk Caprini VTE Risk Assessment Caprini VTE Risk Assessment: Mod/High Risk (score >= 2) VTE Pharm Contraindication: Hemorrhage Caprini Risk Assessment Model Point Value = 1 Point Value = 2 Point Value = 3 Point Value = 5 Age 41-60 Minor surgery BMI > 25 kg/m2 Swollen legs Varicose veins or History of unexplained or recurrent spontaneous Oral contraceptives or hormone replacement Sepsis (< 1 month) Serious lung disease, including pneumonia (< 1 month) Abnormal pulmonary function Acute myocardial infarction Congestive heart failure (< 1 month) History of inflammatory bowel disease Medical patient at bed rest Age 61-74 Arthroscopic surgery Major open surgery (> 45 min) Laparoscopic surgery (> 45 min) Malignancy Confined to bed (> 72 hours) Immobilizing plaster cast Central venous access Age >= 75 History of VTE Family history of VTE Factor V Leiden Prothrombin [id number] Lupus anticoagulant Anticardiolipin antibodies Elevated serum homocysteine Heparin-induced thrombocytopenia Other congenital or acquired thrombophilia Stroke (< 1 month) Elective arthroplasty Hip, pelvis, or leg fracture Acute spinal cord injury (< 1 month) Prophylaxis Regimen Total Risk Factor Score Risk Level Prophylaxis Regimen 0-1 Low Early ambulation 2 Moderate Order ONE of the following: *Sequential Compression Device (SCD) *Heparin 5000 units SQ BID 3-4 Higher Order ONE of the following medications: *Heparin 5000 units SQ TID *Enoxaparin/Lovenox 40 mg SQ daily (WT < 150 kg, CrCl > 30 mL/min) *Enoxaparin/Lovenox 30 mg SQ daily (WT < 150 kg, CrCl > 10-29 mL/min) *Enoxaparin/Lovenox 30 mg SQ BID (WT < 150 kg, CrCl > 30 mL/min) AND/OR *Sequential Compression Device (SCD) 5 or more Highest Order ONE of the following medications: *Heparin 5000 units SQ TID (Preferred with Epidurals) *Enoxaparin/Lovenox 40 mg SQ daily (WT < 150 kg, CrCl > 30 mL/min) *Enoxaparin/Lovenox 30 mg SQ daily (WT < 150 kg, CrCl > 10-29 mL/min) *Enoxaparin/Lovenox 30 mg SQ BID (WT < 150 kg, CrCl > 30 mL/min) AND *Sequential Compression Device (SCD) Assessment and Plan Assessment and Plan 66-year-old female with: Hypotension Anemia secondary to blood loss Vaginal bleeding Suspected severe sepsis Lactic acidosis AK I Dehydration Stage IV metastatic uterine carcinosarcoma status post chemotherapy 12/05 ( followed by Dr. Julien) Diabetes mellitus History of Hypertension H/o Asthma Plan: Neuro: Follow neuro status. Percocet/morphine when necessary for pain. Cardiovascular: Aggressive fluid resuscitation. 2 units PRBCs to be transfused as hemoglobin on venous blood gas following 1 L NS was 7.1 and expected to drop with further fluid boluses. Hold all antihypertensives. If she has further hypotension despite fluids and PRBCs, may require pressors. Pulmonary: Supplemental O2 as needed, bronchodilators when necessary. GI/liver: Nothing by mouth for now. Zofran when necessary for nausea vomiting. Renal/: Aggressive fluid resuscitation. Bicarbonate drip ordered for metabolic acidosis. Strict intake output, monitor and replete electrolytes, follow BUN/creatinine. ID: Follow-up blood cultures, UA and urine cultures which are still pending. Continue empiric antibiotic coverage with IV vancomycin and Zosyn. ID consult requested for further evaluation of sepsis as patient has just received chemotherapy and is probably immunosuppressed and unable to mount a white count. Heme onc: Follow CBC and coags. 2 unit PRBCs to be transfused now. Dr. Julien consulted for follow-up for stage IV uterine carcinosarcoma s/p chemo which appears to be progressing despite treatment. CT Abd/pelvis shows pelvic mass with possible hemorrhage. Endocrine: SSI for glycemic control. If patient develops further hypotension we 'll initiate stress dose steroids. Check cortisol level in a.m. Prophylaxis: PPI/SCDs. No subcutaneous heparin in view of vaginal bleeding. Access: per IV, Port accessed. Discussed CODE STATUS with patient. She wishes to be full CODE STATUS for now and would be okay with CPR or intubation for short-term however would not want long-term life support. Prognosis appears poor in view of metastatic uterine carcinosarcoma. Consulted palliative care service to assist with deciding goals of therapy and for emotional support. Condition critical Time spent on critical care excluding procedures 60 minutes Jovany Lemus MD Dec 05, 2016 22:36
[2016-12-05 22:52] VITALS: BP 123/72; PULSE 112; RESP 20; TEMP 97.7; O2SAT 100
--- NOTE | 2016-12-05 22:59 | EKG ---
Date Performed: 12/05/2016 Time Performed: 19:31:43 PTAGE: 66 years EKG: SINUS TACHYCARDIA ABNORMAL RHYTHM ECG PREVIOUS TRACING : 11/29/2016 21.29 Compared to prior tracing no significant change DOCTOR: Lanre Villar Interpretating Date/Time 12/05/2016 22:58:38
[2016-12-05] MEDS: MORPHINE SULFATE 4 MG/ML INJ IV PUSH PRN (23:06)
[2016-12-05 23:10] VITALS: BP 139/65; PULSE 105; RESP 25; TEMP 97.8; O2SAT 95
[2016-12-05] MEDS: SODIUM BICARBONATE 8.4% INJ 150 MEQ in DEXTROSE 5% IN WATE 1000ML INJ 1,000 ML IV SCH ×2 (23:10)
[2016-12-05] MEDS: PANTOPRAZOLE SODIUM 40 MG VIAL IV PUSH SCH (23:10)
[2016-12-05] MEDS: ONDANSETRON HCL 4 MG/2 ML VIAL IV PUSH PRN (23:12)
[2016-12-06] VITALS (12 sets, daily range): BP systolic 132–184; BP diastolic 76–95; PULSE 87–110; RESP 16–28; TEMP 97.1–98.7; O2SAT 96–100
[2016-12-06 01:44] LABS: AMORPHOUS SEDIMENT, URINE RARE; BLOOD, URINE NEG (NEG); GLUCOSE,URINE NEG (NEG); HYALINE CAST, URINE 14 /lpf (RARE); KETONE, URINE 10 mg/dL (NEG); MUCUS URINE FEW /lpf (OCC); NITRITE,URINE NEG (NEG); PH, URINE 5.5 (5.0-8.5); SQUAMOUS EPITHELIAL CELL URINE 2 /hpf (0-5); URINE COLOR YELLOW (YELLW/STRAW); URINE LEUKOCYTE ESTERASE NEG (NEG)
[2016-12-06 01:46] LABS: BILIRUBIN, URINE NEG (NEG)
[2016-12-06] MEDS ORDERED: SODIUM CHLOR 0.9% 250 ML INJ 250 ML IV ONE (02:00)
[2016-12-06] MEDS ORDERED: LABETALOL HCL 100 MG/20 ML VIAL IV PUSH PRN (02:00)
[2016-12-06] MEDS: amLODIPine BESYLATE 5 MG TAB PO SCH ×2 (02:09→09:01)
[2016-12-06 03:26] LABS: AUTOMATED NEUTROPHIL # 6.9 TH/MM3 (1.8-7.7); BASOPHIL % 0.3 % (0.0-2.0); HEMATOCRIT 27.7 % (35.0-46.0); HEMOGLOBIN 9.1 GM/DL (11.6-15.3); LYMPH % 9.5 % (9.0-44.0); LYMPHOCYTE # 0.8 TH/MM3 (1.0-4.8); MEAN CELL VOLUME 80.6 FL (80.0-100.0); MEAN CORPUSCULAR HEMOGLOBIN 26.5 PG (27.0-34.0); MEAN CORPUSCULAR HGB CONC 32.9 % (32.0-36.0); MONO % 4.1 % (0.0-8.0); MONOCYTE # 0.3 TH/MM3 (0-0.9); NEUT % 86.1 % (16.0-70.0); PLATELET COUNT 132 TH/MM3 (150-450); RED BLOOD COUNT 3.44 MIL/MM3 (4.00-5.30); RED CELL DISTRIBUTION WIDTH 16.8 % (11.6-17.2); WHITE BLOOD COUNT 8.1 TH/MM3 (4.0-11.0)
[2016-12-06] MEDS: PIPERACIL-TAZO 3.375 GM PREMIX 50 ML IV SCH ×4 (03:26→22:57)
[2016-12-06] MEDS: MORPHINE SULFATE 4 MG/ML INJ IV PUSH PRN (03:26)
[2016-12-06 03:51] LABS: ALBUMIN 2.2 GM/DL (3.4-5.0); BICARBONATE 19.2 MEQ/L (21.0-32.0); CREATININE 1.79 MG/DL (0.50-1.00); MAGNESIUM 1.9 MG/DL (1.5-2.5); PHOSPHORUS 3.7 MG/DL (2.5-4.9); TOTAL BILIRUBIN ADULT 1.5 MG/DL (0.2-1.0); TOTAL PROTEIN 5.2 GM/DL (6.4-8.2)
[2016-12-06] MEDS: CHLORHEXIDINE GLUCONATE 2 % 1 PACK (2 CLOTHS) TOP SCH (04:00)
[2016-12-06] MEDS: INSULIN ASPART SUPPLEMENTAL SCALE SQ SCH ×5 (05:41→23:43)
[2016-12-06 05:48] LABS: BANDS 4 % (0-6); LYMPHOCYTES 7 % (9-44); MONOCYTES 5 % (0-8); MYELOCYTES 4 % (0-0); NEUTROPHIL # MANUAL DIFF 7.1 TH/MM3 (1.8-7.7); OVALOCYTES 1+ (NORMAL); POLYS (SEG NEUTROPHILS) 80 % (16-70)
[2016-12-06 05:49] LABS: ACANTHOCYTES OCC (NORMAL)
[2016-12-06] MEDS ORDERED: VANCOMYCIN INJ 1,000 MG in SODIUM CHLOR 0.9% 250 ML INJ 250 ML IV SCH (09:00)
[2016-12-06] MEDS: SODIUM CHLORIDE 0.9% FLUSH 10 ML FLUSH IV FLUSH SCH ×2 (09:01→20:28)
[2016-12-06] MEDS: DOCUSATE SODIUM 50 MG/SENNA 8.6 MG TAB PO SCH ×2 (09:01→22:57)
[2016-12-06] MEDS: PANTOPRAZOLE SODIUM 40 MG VIAL IV PUSH SCH (09:01)
--- NOTE | 2016-12-06 10:07 | MB ---
cc: TOO GARCIA MD, THERESE A. M.D. MOLPUS, KELLY L. MD SCHNEIDER, JULIE D. MD MCNISH, KARLA A. MD DATE OF CONSULTATION: 12/06/2016 REASON FOR CONSULTATION 1. Recurrent uterine carcinosarcoma. 2. Overall guidance regarding underlying cancer. REASON FOR ADMISSION Dehydration, anemia, electrolyte abnormalities, possible infection, failure to thrive. HISTORY OF PRESENT ILLNESS This is a 66-year-old female who is known to us. She had a hysterectomy in September to resect a large uterine mass which was a carcinosarcoma. She has had a slow recovery from surgery with a diminished performance status during which time there has been significant recurrence and metastasis of this disease. When she was seen recently on exam within the last couple of weeks she reported a little bit of vaginal discharge. Exam showed that there was tumor at the vaginal apex growing through the vaginal apex and previous PET/CT scan showed a 3 cm pelvic mass as well as some significant adenopathy, all consistent with recurrent disease. She was counseled extensively regarding the difficult nature of the situation, our concerns about her performance status, the potential limited effectiveness of treatment, and we offered Palliative Care/Hospice consultation. At the time and still to this day she remains philosophically in favor of treatment. We counseled her regarding treatment, agreed on Taxol and carboplatin. Initially I was going to dose reduce both medications 33% but because of limited improvement in her performance status we dose reduced both by 50%. She had a port placement without difficulty. She has been reporting increased abdominal pain and discomfort. She is again emphasized the difficult situation, her performance status is not good, she is not feeling well. The underlying tumor is causing either directly or indirectly most of her symptoms and without treatment there will be no chance of improving. Accordingly we moved forward with her first cycle of line-1 Taxol and carboplatin. She received line-1, cycle-1 Taxol and carboplatin, both dose reduced 50% yesterday (12/05/2016). However, during and shortly after treatment she was feeling even worse. She had tachycardia up to the 140s, felt more week and had some nausea. She was advised to go to and was assisted in presenting to the emergency room. She is seen and admitted now. I am very grateful for Dr. Garcia's excellent care and the care of others involved. I had the opportunity to speak with Dr. Garcia who provided excellent summary of the care provided. In synopsis she presents with signs and symptoms of significant volume contraction and anemia, acidosis and electrolyte abnormalities. The possibility of sepsis was considered. Cultures were obtained and she was started on broad-spectrum antibiotics. She has been given fluid resuscitation. Her electrolytes are being corrected and she is being transfused 2 units of packed red blood cells. Her renal function was abnormal. All of the aforementioned parameters are already showing some improvement with the steps of intervention taken. She is seen now in consultation. She is not an excellent historian and at times tends to be overly inclusive and difficult to focus, but in conversation she let it be known that what used to be a little bit of vaginal spotting is now periods of heavy bleeding and passing clots which would explain in part her anemia. Also, repeat imaging shows a profound and pronounced progression of tumor. There is a central pelvic mass occupying the entire pelvis extending up near the umbilicus, extending along the right pelvic sidewall. There is extensive paraaortic and retrocaval adenopathy, all of which has increased significantly since her physical exam and recent imaging just a couple of weeks ago. There are some changes within the mass suggesting that she may have bled into the mass as well, all consistent with recurrent progressive disease. Kinsey Lowry is made aware of this difficult situation again, our concerns about the improbability that treatment will significantly help as well as my concerns about her overall health and diminished performance status. I offered again the Palliative Care/Hospice. I believe Palliative Care has been consulted. She is trying to make a decision regarding her code status but she is not yet ready to shift to hospice care, although I think that is appropriate if at anytime she makes that decision. PAST MEDICAL HISTORY 1. Uterine carcinosarcoma with findings as described above. 2. Diabetes type 2. 3. Elevated cholesterol. 4. Hypertension. PAST SURGICAL HISTORY 1. Tubal ligation. 2. September 2016 exploratory laparotomy, total abdominal hysterectomy, bilateral salpingo-oophorectomy to resect uterine tumor. FAMILY HISTORY Noncontributory. CAPITAL MARK[employer] SPECIALIST HISTORY Five pregnancies, five births. SOCIAL HISTORY Not . Denies tobacco or alcohol use. MEDICATIONS As outlined in the chart including her new medications during this hospitalization. REVIEW OF SYSTEMS As per history of present illness. Additionally, she has been constipated and not had a bowel movement since Friday of last week. Her appetite is diminished, although she has not had any nausea or vomiting. Weakness is associated with all physical activity. She has been ambulating with a cane or walker to stabilize and as noted above the vaginal bleeding has increased, although she had not previously made us aware of this. Pain and distention in her abdomen are also more noticeable. IMAGING CAT scan is as summarized above. V/Q scan was low probability for pulmonary emboli. Chest x-ray shows a minimal right base atelectasis or scarring. LABORATORY Most recent labs show her H&H improved to 9.1 and 27.7, white count 8.1, platelets 132. Electrolytes show potassium normal at 4.3. BUN and creatinine are improved at 27 and 1.79. Lactic acid went from 5.5 to 1.7, normalized. Corrected calcium is 8. Bilirubin is 1.5. PHYSICAL EXAMINATION VITAL SIGNS: She is afebrile. Pulse is now ranging from 92-96, respirations 20-28, blood pressure 155-184/76-95. O2 saturation is 100%. She was on nasal cannula at one liter, and on room air when I saw her. GENERAL: She is alert and oriented x3, talkative, uncomfortable but no acute distress. ABDOMEN: Her abdomen is distended. There is a palpable mass effect below the umbilicus extending from the abdominal sidewall to sidewall. There is a nodule in the umbilicus. She has some tenderness on deep palpation but is nonacute. No rebound. Bowel sounds are present, hypoactive. 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 DISCUSSION Additional time is spent in discussion with her, reviewing her findings. Questions were asked and answered. I am sorry she is feeling poorly. Efforts will be made to continue to correct the problems that are correctable, to treat the symptoms that can be treated and reverse problems that are able to be addressed. I explained again that underlying this either directly or indirectly is the extensive recurrent tumor. She remains optimistic that the recent chemotherapy will provide some improvement. I remain optimistic with her but realistically the improbability of that is again explained, and this is in keeping with a previous series of discussions we have had with her or with her and her daughter. ASSESSMENT 1. Recurrent apparent stage IV uterine carcinosarcoma. 2. Significant progression of disease in a short period of time as summarized above. 3. Admitted now for dehydration, anemia, tachycardia, to rule out infection and failure to thrive. 4. Already showing improvement with the interventions that have been taken. Very grateful for the excellent care of Dr. Garcia and his colleagues. PLAN 1. Continue present management to address problems that can be reversed or improved. 2. Status post line-1, cycle-1, 50% dose reduced Taxol and carboplatin yesterday to address the underlying metastatic carcinosarcoma. Too soon to tell whether or not this would provide any measurable benefit. 3. Palliative Care is appropriate and at any time should she change her wishes Hospice consultation would also be appropriate. At the present time she remains steadfast in her hope to continue to take treatment for the underlying cancer. Thank you for the consultation. I will follow along in her care. MD DARRYL Castillo/MASON /8:57 AM /9:31 AM
[2016-12-06] MEDS: SODIUM BICARBONATE 8.4% INJ 150 MEQ in DEXTROSE 5% IN WATE 1000ML INJ 1,000 ML IV SCH ×4 (10:30→23:44)
[2016-12-06] MEDS ORDERED: ALBUTEROL SULFATE 90 MCG/ACT HFA 8 GM INHALER INH PRN (11:00)
--- NOTE | 2016-12-06 11:24 | HHI.CCPN ---
Subjective Remarks/Hospital Course 66-year-old female with a medical history significant for type 2 diabetes mellitus, hyperlipidemia, hypertension, 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 Julien followed by chemotherapy. Patient has been declining and was recently evaluated by Dr. Julien earlier this month and was diagnosed to have worsening metastatic disease despite therapy. Patient has been having vaginal bleeding which has worsened recently and developed chills about a week back along with sweating and nausea with worsening abdominal pain. She had a port placed on Friday about 5 days back. The patient underwent her first chemotherapy session this morning with Taxol and carboplatinum, finished approximately 4 PM. She reports that she stood up to go to the bathroom when she felt dizzy, lightheaded, weak, nauseous. EMS notes that her blood pressure at the chemotherapy Center was initially in the systolic 90s after the symptoms started however subsequently her nausea vomiting abdominal pain worsened and she was brought to the ER with hypotension with systolic blood pressure 89/60s and heart rate 140s sinus tachycardia on arrival. She received 1 L normal saline bolus and her blood pressure came up to the 130 systolic range with heart rate 120s. Patient's hemoglobin was 8.3 down from 12 few weeks ago. She is also noted to have a lactic acidosis and renal insufficiency. Patient was felt to have sepsis and cultures were obtained and she was given empiric vancomycin and Zosyn in the ER. Patient was accepted for admission by critical care medicine service. When I evaluated the patient in the ER she was laying in the ER stretcher slightly tachypneic however not in any acute distress. She was complaining of abdominal pain. History was obtained by discussion with patient, ER PA as well as nursing staff and by reviewing records. 12/06: Breathing comfortably. Hungry. Objective Vital Signs Date Time Temp Pulse Resp B/P (MAP) Pulse Ox O2 Delivery O2 Flow Rate FiO2 12/06/16 07:25 100 Nasal Cannula 1.00 12/06/16 06:00 92 12/06/16 04:00 98.7 25 155/87 12/05/16 21:58 21 Intake and Output 12/06/16 12/06/16 12/07/16 08:00 16:00 00:00 Intake Total 1268 ml Output Total 250 ml Balance 1018 ml Result Diagram: 12/06/16 0300 12/06/16 0300 Other Results Laboratory Tests Test 12/05/16 21:32 Blood Gas Puncture Site IV Blood Gas Patient Temperature 98.6 Venous Blood pH 7.36 (7.360-7.400) Venous Blood Partial Pressure CO2 32 mmHg (44-48) Venous Blood Partial Pressure O2 27 mmHg (35-40) Venous Blood HCO3 18 mmol/L (22-26) Venous Blood Oxygen Saturation 39 % (70-76) Venous Blood Oxygen Content 3.9 Vol % (9.0-17.0) Venous Blood Base Excess -6.9 mmol/L (-2-2) Oxygen Delivery Device ROOM AIR Blood Gas Inspired Oxygen 21 % Imaging Last Impressions Lung Scan-[facility] Nuclear Medicine 12/05/162000 Signed Impressions: Service Date/Time: November 20:42 - CONCLUSION: Low probability scan for pulmonary embolism Juan Ramos MD Abdomen/Pelvis CT 12/05/162000 Signed Impressions: Service Date/Time: November 20:03 - CONCLUSION: Apparent increase in volume of pelvic neoplastic disease may reflect hemorrhage into the disease process. The current examination is limited by absence of IV contrast. See above for additional discussion. Juan Ramos MD Objective Remarks HEENT/Neuro: No icterus, tongue dry, KIRSTEN, Awake alert oriented 3, nonfocal grossly, moving all 4 extremities, conversant. Neck: No JVD Chest/pulmonary: CTA bilaterally, no wheezing or crackles Cardiovascular: S1-S2 regular no gallop or murmur GI/abdomen: Soft, slightly distended, diffuse tenderness especially in lower abdomen with guarding, bowel sounds active Extremities: Warm bilaterally, no edema, well perfused. A/P Assessment and Plan 66-year-old female with: Hypotension Anemia secondary to blood loss Vaginal bleeding Suspected severe sepsis Lactic acidosis AK I Dehydration Stage IV metastatic uterine carcinosarcoma status post chemotherapy 12/05 ( followed by Dr. Julien) Diabetes mellitus History of Hypertension H/o Asthma Plan: Neuro: Follow neuro status. Percocet/morphine when necessary for pain. Cardiovascular: Aggressive fluid resuscitation. 2 units PRBCs to be transfused as hemoglobin on venous blood gas following 1 L NS was 7.1 and expected to drop with further fluid boluses. Hold all antihypertensives. Pulmonary: Supplemental O2 as needed, bronchodilators when necessary. GI/liver: Nothing by mouth for now. Zofran when necessary for nausea vomiting. Renal/: Aggressive fluid resuscitation. d/c Bicarbonate drip ordered for metabolic acidosis. Strict intake output, monitor and replete electrolytes, follow BUN/creatinine. ID: Follow-up blood cultures, UA and urine cultures which are still pending. Continue empiric antibiotic coverage with IV vancomycin and Zosyn. ID consult requested for further evaluation of sepsis as patient has just received chemotherapy and is probably immunosuppressed and unable to mount a white count. Heme onc: Follow CBC and coags. 2 unit PRBCs to be transfused now. Dr. Julien consulted for follow-up for stage IV uterine carcinosarcoma s/p chemo which appears to be progressing despite treatment. CT Abd/pelvis shows pelvic mass with possible hemorrhage. Endocrine: SSI for glycemic control. If patient develops further hypotension we 'll initiate stress dose steroids. Check cortisol level in a.m. Prophylaxis: PPI/SCDs. No subcutaneous heparin in view of vaginal bleeding. Access: per IV, Port accessed. Discussed CODE STATUS with patient. She wishes to be full CODE STATUS for now and would be okay with CPR or intubation for short-term however would not want long-term life support. Prognosis appears poor in view of metastatic uterine carcinosarcoma. Consulted palliative care service to assist with deciding goals of therapy and for emotional support. Overall impression: Improved but terminal situation. Lamin Doyle MD Dec 06, 2016 11:24
[2016-12-06] MEDS ORDERED: hydrALAZINE HCL 50 MG TAB PO PRN (13:15)
[2016-12-06] MEDS: ONDANSETRON ODT 4 MG TAB PO SCH ×2 (15:00→17:47)
--- NOTE | 2016-12-06 16:55 | PD.CONS ---
Consult Service Palliative Care . Consult Requested By Dr. Kevin Lemus . Primary Care Physician Ashia Hewitt M.D. . Reason for Consultation a. To assist with evaluation and management of symptoms including: abdominal / pelvic pain, weakness, constipation. b. To assist medical decision maker(s) with: better understanding of current medical conditions; weighing benefits/burdens of medical treatment options; making medical treatment decisions. . HPI History of Present Illness Ms. Lowry is a sweet 66 year old female with past medical history of hypertension , Type 2 diabetes, asthma, hyperlipidemia, migraine headaches, and uterine carcinosarcoma. Patient underwent exploratory laparotomy, total abdominal hysterectomy, bilateral soft bingo nephrectomy, omentectomy and repair of umbilical hernia by Dr. Julien on 09/30/16. 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 Given the high-grade nature of this tumor and suspicious pulmonary nodules there was discussion about recommendation for chemotherapy when she recovered postoperatively. She had a long postoperative recovery with overall poor performance status. Ms. Lowry reports about 1 month following surgery she started having increased weakness (inability to ambulate a few feet), new abdominal and back pain, nausea , vaginal bleeding, early satiety and eventual inability to eat. Patient was seen by Dr. Julien in follow-up on 11/20/16 with PET/CT scan that revealed significant progression of disease when compared to preoperative scan. PET scan revealed spots in lungs, retroperitoneal adenopathy and central pelvic recurrence (extends from pelvis to umbilicus) of disease. Additionally on physical exam there was tumor at the vaginal apex. Patient was counseled on these findings and wished to pursue chemotherapy. Patient underwent line 1 - cycle 1 - Taxol/carboplatin chemotherapy at a 50% dose reduction (due to poor performance status) on 12/05/16. Immediately following chemotherapy she felt profound weakness and nearly fell getting out of chair, tachycardic rate 140s, nausea/vomiting and abdominal pain. She was then transferred to [facility] emergency department for further evaluation. Patient was admitted to ICU for severe sepsis, renal insufficiency and metabolic acidosis. She received 1 L normal saline bolus and her blood pressure came up to the 130 systolic range with heart rate 120s. WBC 6.5, hemoglobin 8.3 , hematocrit 26.6, platelet 196, neutrophil 82.6%. Cultures were obtained, still pending. She was started on empiric vancomycin and Zosyn in the ER. Creatinine 2.10, BUN 26, GFR 28. Lactic acid 5.5. CT scan abdomen/ pelvis revealed apparent increase in volume of pelvic neoplastic disease, may reflect hemorrhage into disease process. VQ scan low probability for pulmonary embolism. Chest x-ray with minimal right basal atelectasis or scarring. Oneyda Julien, [facility] oncology was consulted and reports patient wants to continue aggressive care in hopes that chemotherapy will provide some clinical benefit. He agrees with comfort focused care if patient decides that is what she wants. Palliative care was consulted to assist with further clarification of treatment goals. . Function/Cognitive Trajectory Patient reports about 1 month following surgery she started having increased weakness (inability to ambulate a few feet), new abdominal and back pain, nausea , vaginal bleeding, early satiety and eventual inability to eat. . Review of Systems Constitutional: COMPLAINS OF: Fatigue, Fever, Chills, Change in appetite ( bites and sips of most meals. ), Pain, Generalized weakness Respiratory: COMPLAINS OF: Shortness of breath Cardiovascular: COMPLAINS OF: Dyspnea on Exertion Gastrointestinal: COMPLAINS OF: Abdominal pain, Constipation, Nausea, Vomiting , Anorexia Genitourinary: COMPLAINS OF: Abnormal vaginal bleeding Hematologic/Lymphatics: COMPLAINS OF: Bruising Past Family Social History Coded Allergies: No Known Allergies (Verified , 12/05/16) Past Medical History Hypertension Type 2 diabetes Hyperlipidemia Migraine headaches Stage IV uterine carcinosarcoma Asthma Migraines . Past Surgical History Exploratory laparotomy, total abdominal hysterectomy, bilateral soft bingo nephrectomy, omentectomy and repair of umbilical hernia Tubal ligation Right port placement Bilateral pelvic embolization . Reported Medications Reported Meds & Active Scripts Active [place] (Hydrocodone-Acetaminophen) 5-325 mg Tab 1 Tab PO Q6H PRN Keflex (Cephalexin) 500 Mg Cap 500 Mg PO Q6H Reported Zofran (Ondansetron HCl) 8 Mg Tab 8 Mg PO TID Pravastatin 20 Mg Tab 20 Mg PO DAILY Lisinopril 20 Mg Tab 20 Mg PO DAILY Hydrochlorothiazide 25 Mg Tab 25 Mg PO BID Proventil Hfa 6.7 GM Inh (Albuterol Sulfate) 90 Mcg/Act Aer 1 Puff INH Q4H PRN . Current Medications Medications (Trade) Dose Ordered Sig/Courtney Route Start Time Stop Time Status Last Admin (NS Flush) 2 ml UNSCH PRN IV FLUSH 12/05/16 21:15 (NS Flush) 2 ml BID IV FLUSH 12/06/16 09:00 12/06/16 09:01 (Percocet 5-325 Mg) 1 tab Q4H PRN PO 12/05/16 21:15 (Morphine Inj) 4 mg Q4HR PRN IV PUSH 12/05/16 21:15 12/06/16 03:26 (Protonix Inj) 40 mg DAILY IV PUSH 12/05/16 22:00 12/06/16 09:01 (Zofran Inj) 4 mg Q6H PRN IV PUSH 12/05/16 21:15 12/05/16 23:12 (Ambien) 5 mg HS PRN PO 12/05/16 21:15 (Duoneb Neb) 1 ampule Q2HR NEB PRN INH 12/05/16 21:15 Miscellaneous Information 1 Q361D XX 12/05/16 21:15 (Chlorhexidine 2% Cloth) 3 pack Taper DAILY@04 TOP 12/06/16 04:00 12/02/17 03:59 (Chlorhexidine 2% Cloth) 3 pack UNSCH PRN TOP 12/05/16 21:15 (Emilee-Colace) 1 tab BID PO 12/06/16 09:00 12/06/16 09:01 (Milk Of Magnesia Liq) 30 ml Q12H PRN PO 12/05/16 21:15 (Senokot) 17.2 mg Q12H PRN PO 12/05/16 21:15 12/06/16 09:01 (Dulcolax Supp) 10 mg DAILY PRN RECTAL 12/05/16 21:15 (Lactulose Liq) 30 ml DAILY PRN PO 12/05/16 21:15 Piperacillin Sod/ Tazobactam Sod 50 ml @ 100 mls/hr Q6H IV 12/06/16 04:00 12/06/16 09:00 Pharmacy Profile Note 0 ml @ 0 mls/hr UNSCH OTHER 12/05/16 21:30 (Benadryl) 25 mg Q4H PRN PO 12/05/16 21:30 Sodium Bicarbonate 150 meq/Dextrose 1,150 ml @ 100 mls/hr [id number] IV 12/05/16 23:00 12/06/16 10:30 (NovoLOG SUPPLEMENTAL SCALE) 1 Q6HR SQ 12/06/16 00:00 12/06/16 12:00 (D50w (Vial) Inj) 25 ml UNSCH PRN IV 12/05/16 21:30 (Glucagon Inj) 1 mg UNSCH PRN IM/SQ 12/05/16 21:30 Sodium Chloride 250 ml @ 15 mls/hr ONCE ONCE IV 12/06/16 02:00 12/06/16 18:39 12/06/16 02:10 (Trandate Inj) 10 mg Q2HR PRN IV PUSH 12/06/16 02:00 12/06/16 02:06 (Norvasc) 5 mg DAILY PO 12/06/16 02:00 12/06/16 09:01 Vancomycin HCl 1000 mg/Sodium Chloride 250 ml @ 250 mls/hr Q24H IV 12/06/16 22:00 Miscellaneous Information SPECIFIC LAB TO BE ... ONCE ONCE .XX 12/08/16 21:45 12/08/16 21:46 (Proair Hfa Inh) 1 puff Q4H PRN INH 12/06/16 11:00 UNV ([place] 5-325 Mg) 1 tab Q6H PRN PO 12/06/16 11:00 UNV (Pravachol) 20 mg DAILY PO 12/07/16 09:00 (Zofran Odt) 8 mg TID PO 12/06/16 15:00 (Apresoline) 50 mg Q8HR PRN PO 12/06/16 13:15 . Family History child . Daughter of CHF, renal disease at age 37. Son was shot and killed at age 25. Mother of liver failure. Dad of CHF. . Substance Use Tobacco: Never smoked. Alcohol: Rare alcohol use. Prescription med abuse: None. Illicits: none. . Psychosocial History . Supported by her daughter, Soumya and granddaughter, Joe. She has 13 grandchildren and 18 great grandchildren. Has 2 living daughters. . Spiritual/Cultural Factors Orthodox christopher. Supported by her uatsdin. . Living Will: Copy in medical record Health Care Surrogate: Copy in medical record Date completed: 12/06/16 . Health Care Surrogate(s): Sent to be scanned into EMR. . Documented care wishes: She indicates she would be ok with life support, but does not want to be kept on machines for more than 1 week. . Today's verbally stated goals: She desires continued aggressive care in hopes chemotherapy will provide some slowing of disease progression. . Family/friends goals: Daughter supports patient wishes. . Ethical and Legal Issues Patient is currently capacitated to make her own decisions. She completed Living Will and designation of health care surrogate forms today. . Physical Exam Vital Signs Date Time Temp Pulse Resp B/P (MAP) Pulse Ox O2 Delivery O2 Flow Rate FiO2 12/06/16 12:00 97.4 106 20 145/78 (100) 100 12/06/16 12:00 106 12/06/16 10:00 110 12/06/16 08:00 98.5 102 24 150/78 (102) 100 12/06/16 08:00 102 12/06/16 07:25 100 Nasal Cannula 1.00 12/06/16 07:00 100 Nasal Cannula 2.00 12/06/16 06:00 92 12/06/16 04:00 92 12/06/16 04:00 98.7 98 25 155/87 100 12/06/16 04:00 98.4 92 25 164/78 (106) 100 12/06/16 02:00 94 12/06/16 01:10 98.7 94 25 184/95 100 12/06/16 00:55 97.6 96 28 155/76 96 12/06/16 00:00 98.7 106 24 155/76 96 12/06/16 00:00 106 12/06/16 00:00 98.7 106 24 155/76 (102) 96 12/05/16 23:10 97.8 105 25 139/65 95 12/05/16 22:52 97.7 112 20 123/72 100 12/05/16 22:30 97.7 122 23 123/72 (89) 95 12/05/16 22:30 122 12/05/16 21:58 96 21 12/05/16 19:34 128 38 129/75 (93) 100 Room Air 12/05/16 18:40 97.8 142 18 89/62 (71) 100 12/06/16 12/07/16 19:00 07:00 Intake Total 630 ml Balance 630 ml Intake IV Total 630 ml Exam CONSTITUTIONAL/GENERAL: This is an adequately nourished patient, in no apparent distress. TUBES/LINES/DRAINS: Oxygen via NC, right chest port, PIV left hand, catheter. SKIN: No jaundice, rashes, or lesions. Ecchymoses on upper extremities. No wounds seen anteriorly. Skin temperature appropriate. Not diaphoretic. HEAD: Atraumatic. Normocephalic. EYES: Pupils equal and round and reactive. Extraocular motions intact. No scleral icterus. No injection or drainage. Fundi not examined. ENT: Hearing grossly normal. Nose without bleeding or purulent drainage. Throat without exudate. NECK: Trachea midline. CARDIOVASCULAR: Regular rate and rhythm without murmurs, gallops, or rubs. RESPIRATORY/CHEST: Symmetric, unlabored respirations. Clear to auscultation. GASTROINTESTINAL: Abdomen distended. Abdominal mass noted. Tender lower abdomen. Bowel sounds present. GENITOURINARY: Without palpable bladder distension. Arellano catheter in place. MUSCULOSKELETAL: Extremities without clubbing, cyanosis, or edema. No joint tenderness or effusion noted. No calf tenderness. No mottling or clubbing. LYMPHATICS: No palpable cervical or supraclavicular adenopathy. NEUROLOGICAL: Awake and alert. Generalized weakness. Follows commands. Cognitively sharp. Moves all extremities. PSYCHIATRIC: No obvious anxiety/depression. no apparent hallucinations or other psychotic thought process. . Diagnostic Tests Laboratory Laboratory Tests Test 12/05/16 19:00 12/05/16 19:30 12/05/16 21:32 12/06/16 01:10 White Blood Count 6.5 TH/MM3 (4.0-11.0) Red Blood Count 3.02 MIL/MM3 (4.00-5.30) Hemoglobin 8.3 GM/DL (11.6-15.3) Hematocrit 26.6 % (35.0-46.0) Mean Corpuscular Volume 87.9 FL (80.0-100.0) Mean Corpuscular Hemoglobin 27.6 PG (27.0-34.0) Mean Corpuscular Hemoglobin Concent 31.4 % (32.0-36.0) Red Cell Distribution Width 13.9 % (11.6-17.2) Platelet Count 196 TH/MM3 (150-450) Mean Platelet Volume 9.6 FL (7.0-11.0) Neutrophils (%) (Auto) 82.6 % (16.0-70.0) Lymphocytes (%) (Auto) 14.0 % (9.0-44.0) Monocytes (%) (Auto) 3.0 % (0.0-8.0) Eosinophils (%) (Auto) 0.2 % (0.0-4.0) Basophils (%) (Auto) 0.2 % (0.0-2.0) Neutrophils # (Auto) 5.4 TH/MM3 (1.8-7.7) Lymphocytes # (Auto) 0.9 TH/MM3 (1.0-4.8) Monocytes # (Auto) 0.2 TH/MM3 (0-0.9) Eosinophils # (Auto) 0.0 TH/MM3 (0-0.4) Basophils # (Auto) 0.0 TH/MM3 (0-0.2) CBC Comment AUTO DIFF Differential Total Cells Counted 100 Neutrophils % (Manual) 78 % (16-70) Band Neutrophils % 4 % (0-6) Lymphocytes % 10 % (9-44) Monocytes % 1 % (0-8) Neutrophils # (Manual) 5.8 TH/MM3 (1.8-7.7) Metamyelocytes 3 % (0-1) Myelocytes 4 % (0-0) Differential Comment FINAL DIFF MANUAL Platelet Estimate NORMAL (NORMAL) Platelet Morphology Comment NORMAL (NORMAL) Bailey Cells 1+ (NORMAL) Prothrombin Time 12.7 SEC (9.8-11.6) Prothromb Time International Ratio 1.1 RATIO Activated Partial Thromboplast Time 26.4 SEC (24.3-30.1) Blood Urea Nitrogen 26 MG/DL (7-18) Creatinine 2.10 MG/DL (0.50-1.00) Random Glucose 197 MG/DL (74-106) Total Protein 6.4 GM/DL (6.4-8.2) Albumin 2.5 GM/DL (3.4-5.0) Calcium Level 9.0 MG/DL (8.5-10.1) Magnesium Level 2.2 MG/DL (1.5-2.5) Alkaline Phosphatase 50 U/L (45-117) Aspartate Amino Transf (AST/SGOT) 58 U/L (15-37) Alanine Aminotransferase (ALT/SGPT) 14 U/L (10-53) Total Bilirubin 0.9 MG/DL (0.2-1.0) Sodium Level 133 MEQ/L (136-145) Potassium Level 5.0 MEQ/L (3.5-5.1) Chloride Level 100 MEQ/L (98-107) Carbon Dioxide Level 15.6 MEQ/L (21.0-32.0) Anion Gap 17 MEQ/L (5-15) Estimat Glomerular Filtration Rate 28 ML/MIN (>89) Total Creatine Kinase 120 U/L (26-192) Creatine Kinase MB 0.9 NG/ML (0.5-3.6) Troponin I LESS THAN 0.02 NG/ML Lipase 100 U/L (73-393) B-Hydroxybutyrate 3.27 MMOL/L (0.00-0.39) Lactic Acid Level 5.5 mmol/L (0.4-2.0) Blood Gas Puncture Site IV Blood Gas Patient Temperature 98.6 Venous Blood pH 7.36 (7.360-7.400) Venous Blood Partial Pressure CO2 32 mmHg (44-48) Venous Blood Partial Pressure O2 27 mmHg (35-40) Venous Blood HCO3 18 mmol/L (22-26) Venous Blood Oxygen Saturation 39 % (70-76) Venous Blood Oxygen Content 3.9 Vol % (9.0-17.0) Venous Blood Base Excess -6.9 mmol/L (-2-2) Oxygen Delivery Device ROOM AIR Blood Gas Inspired Oxygen 21 % Urine Color YELLOW (YELLW/STRAW) Urine Turbidity CLOUDY (CLEAR) Urine pH 5.5 (5.0-8.5) Urine Specific [place] 1.034 (1.002-1.035) Urine Protein 30 mg/dL (NEG-TRACE) Urine Glucose (UA) NEG mg/dL (NEG) Urine Ketones 10 mg/dL (NEG) Urine Occult Blood NEG (NEG) Urine Nitrite NEG (NEG) Urine Bilirubin NEG (NEG) Urine Urobilinogen LESS THAN 2.0 MG/DL (LESS Urine Leukocyte Esterase NEG (NEG) Urine RBC 3 /hpf (0-3) Urine WBC 1 /hpf (0-5) Urine Squamous Epithelial Cells 2 /hpf (0-5) Urine Amorphous Sediment RARE Urine Hyaline Casts 14 /lpf (RARE) Urine Mucus FEW /lpf (OCC) Microscopic Urinalysis Comment CULT NOT INDICATED Test 12/06/16 03:00 White Blood Count 8.1 TH/MM3 (4.0-11.0) Red Blood Count 3.44 MIL/MM3 (4.00-5.30) Hemoglobin 9.1 GM/DL (11.6-15.3) Hematocrit 27.7 % (35.0-46.0) Mean Corpuscular Volume 80.6 FL (80.0-100.0) Mean Corpuscular Hemoglobin 26.5 PG (27.0-34.0) Mean Corpuscular Hemoglobin Concent 32.9 % (32.0-36.0) Red Cell Distribution Width 16.8 % (11.6-17.2) Platelet Count 132 TH/MM3 (150-450) Mean Platelet Volume 9.0 FL (7.0-11.0) Neutrophils (%) (Auto) 86.1 % (16.0-70.0) Lymphocytes (%) (Auto) 9.5 % (9.0-44.0) Monocytes (%) (Auto) 4.1 % (0.0-8.0) Eosinophils (%) (Auto) 0.0 % (0.0-4.0) Basophils (%) (Auto) 0.3 % (0.0-2.0) Neutrophils # (Auto) 6.9 TH/MM3 (1.8-7.7) Lymphocytes # (Auto) 0.8 TH/MM3 (1.0-4.8) Monocytes # (Auto) 0.3 TH/MM3 (0-0.9) Eosinophils # (Auto) 0.0 TH/MM3 (0-0.4) Basophils # (Auto) 0.0 TH/MM3 (0-0.2) CBC Comment AUTO DIFF Differential Total Cells Counted 100 Neutrophils % (Manual) 80 % (16-70) Band Neutrophils % 4 % (0-6) Lymphocytes % 7 % (9-44) Monocytes % 5 % (0-8) Neutrophils # (Manual) 7.1 TH/MM3 (1.8-7.7) Myelocytes 4 % (0-0) Differential Comment FINAL DIFF MANUAL Platelet Estimate LOW (NORMAL) Platelet Morphology Comment NORMAL (NORMAL) Ovalocytes 1+ (NORMAL) Acanthocytes OCC (NORMAL) Blood Urea Nitrogen 27 MG/DL (7-18) Creatinine 1.79 MG/DL (0.50-1.00) Random Glucose 160 MG/DL (74-106) Total Protein 5.2 GM/DL (6.4-8.2) Albumin 2.2 GM/DL (3.4-5.0) Calcium Level 7.0 MG/DL (8.5-10.1) Phosphorus Level 3.7 MG/DL (2.5-4.9) Magnesium Level 1.9 MG/DL (1.5-2.5) Alkaline Phosphatase 45 U/L (45-117) Aspartate Amino Transf (AST/SGOT) 63 U/L (15-37) Alanine Aminotransferase (ALT/SGPT) 12 U/L (10-53) Total Bilirubin 1.5 MG/DL (0.2-1.0) Sodium Level 137 MEQ/L (136-145) Potassium Level 4.3 MEQ/L (3.5-5.1) Chloride Level 106 MEQ/L (98-107) Carbon Dioxide Level 19.2 MEQ/L (21.0-32.0) Anion Gap 12 MEQ/L (5-15) Estimat Glomerular Filtration Rate 34 ML/MIN (>89) Lactic Acid Level 1.7 mmol/L (0.4-2.0) Protein Corrected Calcium 8.0 MG/DL (8.5-10.1) Result Diagram: 12/06/16 0300 12/06/16 0300 Microbiology Microbiology Date/Time Source Procedure Growth Status 12/05/16 19:30 Blood Peripheral Aerobic Blood Culture - Preliminary NO GROWTH IN 1 DAY Resulted 12/05/16 19:30 Blood Peripheral Anaerobic Blood Culture - Preliminary NO GROWTH IN 1 DAY Resulted 12/05/16 19:30 Blood Peripheral Aerobic Blood Culture - Preliminary NO GROWTH IN 1 DAY Resulted 12/05/16 19:30 Blood Peripheral Anaerobic Blood Culture - Preliminary NO GROWTH IN 1 DAY Resulted Imaging Last Impressions Lung Scan-VQ Nuclear Medicine 12/05/162000 Signed Impressions: Service Date/Time: November 20:42 - CONCLUSION: Low probability scan for pulmonary embolism Juan Ramos MD Abdomen/Pelvis CT 12/05/162000 Signed Impressions: Service Date/Time: November 20:03 - CONCLUSION: Apparent increase in volume of pelvic neoplastic disease may reflect hemorrhage into the disease process. The current examination is limited by absence of IV contrast. See above for additional discussion. Juan Ramos MD Chest X-Ray 12/05/16 0000 Signed Impressions: Service Date/Time: November 21:58 - CONCLUSION: Minimal right base atelectasis or scarring. Juan Ramos MD Patient/Family Conference Present at Family Conference: met with patient. Family Conference Time (mins): 75 Family Conference Location: Bedside Issues Discussed: * Palliative care role, purpose, approach * Additional medical, psychosocial, and spiritual history * Patients general health, functional status, and cognitive changes in the months leading up to the current hospitalization * Patient/family understanding of the current medical problems * Patient/family understanding of prognosis * Patients goals of care as best understood from advance directives and/or conversations and/or values * Current medical treatment options and benefits/burdens of those options * Likely scenarios comparing ongoing aggressive care with a transition to comfort measures only * Questions answered to the best of my ability * Palliative care contact information provided Assessment and Plan Disease Oriented Problem List: (1) Hyperlipidemia (2) Hypertension (3) Severe sepsis (4) Metabolic acidosis (5) Uterine cancer (6) Vaginal bleeding (7) Pulmonary nodules (8) Asthma Symptom Scale: (1) Constipation 0-10 Scale: Unable to quantify Comment: unknown last bowel movement (2) Pain 0-10 Scale: 7 (3) Weakness 0-10 Scale: Unable to quantify Pertinent Non-Medical Issues Psychosocial: Single. Supported by her daughter and granddaughter. Spiritual: Orthodox christopher. Legal: Patient is currently capacitated to make her own decisions. She completed Living Will and designation of health care surrogate forms today, sent o [facility] to be scanned into EMR. Ethical issues impacting care: No known concerns at this time. . Important Contacts * Soumya Chris, daughter/co- HCS: [phone] or [phone] * Yossi Ricketts, nephew/co-HCS: [phone] * Rc Chavarria Jr., grandson/ alternate HCS; [phone] Prognosis Poor prognosis given advanced recurrent aggressive carcinosarcoma. . Code Status: Full Code Plan * Decision Maker: Patient is currently capacitated to make her own decisions. Living will and HCS paperwork in EMR. Should she lose capacity she has named Sowmyadarychapo Chris (daughter AND Yossi Ricketts (nephew) as primary HCS and Rc Chavarria Jr (grandson) as alternate HCS. * FULL CODE * Palliative care met with patient: She is realistic and has a great understanding of cancer progression. She hopes for the ability for the chemotherapy to have time to slow the cancer. She has tremendous christopher and belief that God is in charge. She is not yet ready to consider hospice, but I suspect may transition at some point. She is able to verbalize the significant health decline over the past few months. She would like to speak with me again and asks for more support. * Teresa Haji LCSW to see at next visit. * SYMPTOMS: Pain: abdominal pain due to recurrent carcinosarcoma. Rates pain 7 on 0-10 scale. Current doses of Morphine adequately controlling pain per patient report. Constipation: unknown last bowel movement. Had Senna today. Weakness: due to progressive worsening cancer, chemotherapy. * Palliative care number provided. * Palliative care will continue to follow throughout hospital course to assist with symptom management and clarification of goals as needed. . Thank you for the opportunity to participate in the care of Ms. Lowry. Attestation To help prompt me to consider important information that might be impacting today's encounter and assessment, information from prior notes written by myself or my colleagues may have been "brought forward" into today's note. My signature on this note, however, is an attestation that I personally performed the exam, history, and/or decision-making noted today, and, unless otherwise indicated, the interactions with patient, family, and staff as well as the review of records all occurred today. I also attest that the listed assessment and stated plan reflect my best clinical judgment today based on the combination of historical information, prior notes, and today's exam/ interactions. When time spent is documented, it refers only to time spent today by the signer, or if indicated, combined time spent today by collaborating physician/nurse practitioner. Lin Dang Dec 06, 2016 16:48
--- NOTE | 2016-12-06 19:03 | PD.ID.CON ---
History of Present Illness Service ID Consult Requested By Dr.Nimish Allan JACKSON MD Reason for Consult Evaluation and Mment of sepsis in an Immune compromised pt. Primary Care Physician Ashia Hewitt M.D. Diagnoses: History of Present Illness Ms. Lowry is a 66 y/o AAF with PMH significant for uterine carcinosarcoma. Patient underwent exploratory laparotomy, total abdominal hysterectomy, bilateral salpingo-oophorectomy,nephrectomy, omentectomy and repair of umbilical hernia by Dr. Julien on 09/30/16. 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 She had a long postoperative recovery with overall poor performance status. Ms. Lowry reports about 1 month following surgery she started having increased weakness (inability to ambulate a few feet) , new abdominal and back pain, nausea, vaginal bleeding, early satiety and eventual inability to eat. Patient was seen by Dr. Julien in follow-up on with PET/CT scan that revealed significant progression of disease when compared to preoperative scan. PET scan revealed spots in lungs, retroperitoneal adenopathy and central pelvic recurrence (extends from pelvis to umbilicus) of disease. Additionally on physical exam there was tumor at the vaginal apex. Patient was counseled on these findings and wished to pursue chemotherapy. Patient underwent line 1 - cycle 1 - Taxol/carboplatin chemotherapy at a 50% dose reduction (due to poor performance status) on 12/05/16. Immediately following chemotherapy she felt profound weakness and nearly fell getting out of chair, tachycardic rate 140s, nausea/vomiting and abdominal pain. She was then transferred to [facility] emergency department for further evaluation. Patient has a port in left chest wall. Patient was admitted to ICU for severe sepsis, renal insufficiency and metabolic acidosis. She received 1 L normal saline bolus and her blood pressure came up to the 130 systolic range with heart rate 120s. WBC 6.5, hemoglobin 8.3, hematocrit 26.6, platelet 196, neutrophil 82.6%. Cultures were obtained, still pending. She was started on empiric vancomycin and Zosyn in the ER. Creatinine 2.10, BUN 26, GFR 28. Lactic acid 5.5. CT scan abdomen/ pelvis revealed apparent increase in volume of pelvic neoplastic disease, may reflect hemorrhage into disease process. VQ scan low probability for pulmonary embolism. Chest x-ray with minimal right basal atelectasis or scarring. ID was consulted for evaluation and Mment of sepsis in an IC pt post chemotherapy. Review of Systems Constitutional: COMPLAINS OF: Diaphoretic episodes, Fatigue, Weight loss, Dizziness, Change in appetite, DENIES: Fever, Weight gain, Chills, Night Sweats Endocrine: COMPLAINS OF: Abnorml menstrual pattern, DENIES: Heat/cold intolerance, Polydipsia, Polyuria, Polyphagia Eyes: DENIES: Blurred vision, Diplopia, Eye inflammation, Eye pain, Vision loss , Photosensitivity, Double Vision Ears, nose, mouth, throat: DENIES: Tinnitus, Hearing loss, Vertigo, Nasal discharge, Oral lesions, Throat pain, Hoarseness, Ear Pain, Running Nose, Epistaxis, Sinus Pain, Toothache, Odynophagia Respiratory: COMPLAINS OF: Shortness of breath, DENIES: Apneas, Cough, Snoring , Wheezing, Hemoptysis, Sputum production Cardiovascular: COMPLAINS OF: Dyspnea on Exertion, DENIES: Chest pain, Palpitations, Syncope, PND, Lower Extremity Edema, Orthopnea, Claudication Gastrointestinal: COMPLAINS OF: Abdominal pain, Nausea, Anorexia, DENIES: Black stools, Bloody stools, Constipation, Diarrhea, Vomiting, Difficulty Swallowing Genitourinary: COMPLAINS OF: Abnormal vaginal bleeding Musculoskeletal: DENIES: Joint pain, Muscle aches, Stiffness, Joint Swelling, Back pain, Neck pain Integumentary: DENIES: Abnormal pigmentation, Pruritus, Rash, Nail changes, Breast masses, Breast skin changes, Nipple discharge Hematologic/lymphatic: DENIES: Bruising, Lymphadenopathy Immunologic/allergic: DENIES: Eczema, Urticaria Neurologic: DENIES: Abnormal gait, Headache, Localized weakness, Paresthesias, Seizures, Speech Problems, Tremor, Poor Balance Psychiatric: DENIES: Anxiety, Confusion, Mood changes, Depression, Hallucinations, Agitation, Suicidal Ideation, Homicidal Ideation, Delusions Except as stated in HPI: all other systems reviewed are Neg Past Family Social History Allergies: Coded Allergies: No Known Allergies (Verified , 12/05/16) Past Medical History Hypertension Type 2 diabetes Hyperlipidemia Migraine headaches Stage IV uterine carcinosarcoma Asthma Migraines Past Surgical History Exploratory laparotomy, total abdominal hysterectomy, bilateral soft bingo nephrectomy, omentectomy and repair of umbilical hernia Tubal ligation Right port placement Bilateral pelvic embolization Reported Medications I attest reviewed, obtained or updated the patient's home medications as well as current medications for name, frequency, dose and route of administration. Reported Meds & Active Scripts Active [place] (Hydrocodone-Acetaminophen) 5-325 mg Tab 1 Tab PO Q6H PRN Keflex (Cephalexin) 500 Mg Cap 500 Mg PO Q6H Reported Zofran (Ondansetron HCl) 8 Mg Tab 8 Mg PO TID Pravastatin 20 Mg Tab 20 Mg PO DAILY Lisinopril 20 Mg Tab 20 Mg PO DAILY Hydrochlorothiazide 25 Mg Tab 25 Mg PO BID Proventil Hfa 6.7 GM Inh (Albuterol Sulfate) 90 Mcg/Act Aer 1 Puff INH Q4H PRN Active Ordered Medications Current Medications Medications (Trade) Dose Ordered Sig/Courtney Route Start Time Stop Time Status Last Admin (NS Flush) 2 ml UNSCH PRN IV FLUSH 12/05/16 21:15 (NS Flush) 2 ml BID IV FLUSH 12/06/16 09:00 12/06/16 09:01 (Percocet 5-325 Mg) 1 tab Q4H PRN PO 12/05/16 21:15 (Morphine Inj) 4 mg Q4HR PRN IV PUSH 12/05/16 21:15 12/06/16 03:26 (Protonix Inj) 40 mg DAILY IV PUSH 12/05/16 22:00 12/06/16 09:01 (Zofran Inj) 4 mg Q6H PRN IV PUSH 12/05/16 21:15 12/05/16 23:12 (Ambien) 5 mg HS PRN PO 12/05/16 21:15 (Duoneb Neb) 1 ampule Q2HR NEB PRN INH 12/05/16 21:15 Miscellaneous Information 1 Q361D XX 12/05/16 21:15 (Chlorhexidine 2% Cloth) 3 pack Taper DAILY@04 TOP 12/06/16 04:00 12/02/17 03:59 (Chlorhexidine 2% Cloth) 3 pack UNSCH PRN TOP 12/05/16 21:15 (Emilee-Colace) 1 tab BID PO 12/06/16 09:00 12/06/16 09:01 (Milk Of Magnesia Liq) 30 ml Q12H PRN PO 12/05/16 21:15 (Senokot) 17.2 mg Q12H PRN PO 12/05/16 21:15 12/06/16 09:01 (Dulcolax Supp) 10 mg DAILY PRN RECTAL 12/05/16 21:15 (Lactulose Liq) 30 ml DAILY PRN PO 12/05/16 21:15 Piperacillin Sod/ Tazobactam Sod 50 ml @ 100 mls/hr Q6H IV 12/06/16 04:00 12/06/16 17:47 Pharmacy Profile Note 0 ml @ 0 mls/hr UNSCH OTHER 12/05/16 21:30 (Benadryl) 25 mg Q4H PRN PO 12/05/16 21:30 Sodium Bicarbonate 150 meq/Dextrose 1,150 ml @ 100 mls/hr [id number] IV 12/05/16 23:00 12/06/16 10:30 (NovoLOG SUPPLEMENTAL SCALE) 1 Q6HR SQ 12/06/16 00:00 12/06/16 12:00 (D50w (Vial) Inj) 25 ml UNSCH PRN IV 12/05/16 21:30 (Glucagon Inj) 1 mg UNSCH PRN IM/SQ 12/05/16 21:30 (Trandate Inj) 10 mg Q2HR PRN IV PUSH 12/06/16 02:00 12/06/16 02:06 (Norvasc) 5 mg DAILY PO 12/06/16 02:00 12/06/16 09:01 Vancomycin HCl 1000 mg/Sodium Chloride 250 ml @ 250 mls/hr Q24H IV 12/06/16 22:00 Miscellaneous Information SPECIFIC LAB TO BE ARJUN... ONCE ONCE .XX 12/08/16 21:45 12/08/16 21:46 (Proair Hfa Inh) 1 puff Q4H PRN INH 12/06/16 11:00 UNV ([place] 5-325 Mg) 1 tab Q6H PRN PO 12/06/16 11:00 UNV (Pravachol) 20 mg DAILY PO 12/07/16 09:00 (Zofran Odt) 8 mg TID PO 12/06/16 15:00 12/06/16 17:47 (Apresoline) 50 mg Q8HR PRN PO 12/06/16 13:15 Family History Infant child . Daughter of CHF, renal disease at age 37. Son was shot and killed at age 25. Mother of liver failure. Dad of CHF. Social History Tobacco: Never smoked. Alcohol: Rare alcohol use. Prescription med abuse: None. Illicits: none. . Supported by her daughter, Soumya and granddaughter, Joe. She has 13 grandchildren and 18 great grandchildren. Has 2 living daughters. Physical Exam Vital Signs Vital Signs Date Time Temp Pulse Resp B/P (MAP) Pulse Ox O2 Delivery O2 Flow Rate FiO2 12/06/16 18:55 97.1 87 16 135/84 (101) 98 12/06/16 12:00 97.4 106 20 145/78 (100) 100 12/06/16 12:00 106 12/06/16 10:00 110 12/06/16 08:00 98.5 102 24 150/78 (102) 100 12/06/16 08:00 102 12/06/16 07:25 100 Nasal Cannula 1.00 12/06/16 07:00 100 Nasal Cannula 2.00 12/06/16 06:00 92 12/06/16 04:00 92 12/06/16 04:00 98.7 98 25 155/87 100 12/06/16 04:00 98.4 92 25 164/78 (106) 100 12/06/16 02:00 94 12/06/16 01:10 98.7 94 25 184/95 100 12/06/16 00:55 97.6 96 28 155/76 96 12/06/16 00:00 98.7 106 24 155/76 96 12/06/16 00:00 106 12/06/16 00:00 98.7 106 24 155/76 (102) 96 12/05/16 23:10 97.8 105 25 139/65 95 12/05/16 22:52 97.7 112 20 123/72 100 12/05/16 22:30 97.7 122 23 123/72 (89) 95 12/05/16 22:30 122 12/05/16 21:58 96 21 12/05/16 19:34 128 38 129/75 (93) 100 Room Air Physical Exam GENERAL: This is a well-nourished, well-developed patient, in no apparent distress. SKIN: No rashes, ecchymoses or lesions. Cool and dry. HEAD: Atraumatic. Normocephalic. No temporal or scalp tenderness. EYES: Pupils equal round and reactive. Extraocular motions intact. No scleral icterus. No injection or drainage. ENT: Nose without bleeding, purulent drainage or septal hematoma. Throat without erythema, tonsillar hypertrophy or exudate. Uvula midline. Airway patent. NECK: Trachea midline. Supple, nontender, no meningeal signs. CARDIOVASCULAR: Regular rate and rhythm without murmurs, gallops, or rubs. RESPIRATORY: Clear to auscultation. Breath sounds equal bilaterally with decrease in the bases. GASTROINTESTINAL: Abdomen soft, distended with diffuse tenderness. MUSCULOSKELETAL: Extremities without clubbing, cyanosis, or edema. No joint tenderness, effusion, or edema noted. No calf tenderness. Negative Homans sign bilaterally. NEUROLOGICAL: Awake and alert. Nonfocal examination Psych cooperative IV line sites with no evidence of infection. Laboratory Laboratory Tests Test 12/05/16 19:30 12/05/16 21:32 12/06/16 01:10 12/06/16 03:00 Lactic Acid Level 5.5 1.7 Blood Gas Puncture Site IV Blood Gas Patient Temperature 98.6 Venous Blood pH 7.36 Venous Blood Partial Pressure CO2 32 Venous Blood Partial Pressure O2 27 Venous Blood HCO3 18 Venous Blood Oxygen Saturation 39 Venous Blood Oxygen Content 3.9 Venous Blood Base Excess -6.9 Oxygen Delivery Device ROOM AIR Blood Gas Inspired Oxygen 21 Urine Color YELLOW Urine Turbidity CLOUDY Urine pH 5.5 Urine Specific [place] 1.034 Urine Protein 30 Urine Glucose (UA) NEG Urine Ketones 10 Urine Occult Blood NEG Urine Nitrite NEG Urine Bilirubin NEG Urine Urobilinogen LESS THAN 2.0 Urine Leukocyte Esterase NEG Urine RBC 3 Urine WBC 1 Urine Squamous Epithelial Cells 2 Urine Amorphous Sediment RARE Urine Hyaline Casts 14 Urine Mucus FEW Microscopic Urinalysis Comment CULT NOT INDICATED White Blood Count 8.1 Red Blood Count 3.44 Hemoglobin 9.1 Hematocrit 27.7 Mean Corpuscular Volume 80.6 Mean Corpuscular Hemoglobin 26.5 Mean Corpuscular Hemoglobin Concent 32.9 Red Cell Distribution Width 16.8 Platelet Count 132 Mean Platelet Volume 9.0 Neutrophils (%) (Auto) 86.1 Lymphocytes (%) (Auto) 9.5 Monocytes (%) (Auto) 4.1 Eosinophils (%) (Auto) 0.0 Basophils (%) (Auto) 0.3 Neutrophils # (Auto) 6.9 Lymphocytes # (Auto) 0.8 Monocytes # (Auto) 0.3 Eosinophils # (Auto) 0.0 Basophils # (Auto) 0.0 CBC Comment AUTO DIFF Differential Total Cells Counted 100 Neutrophils % (Manual) 80 Band Neutrophils % 4 Lymphocytes % 7 Monocytes % 5 Neutrophils # (Manual) 7.1 Myelocytes 4 Differential Comment FINAL DIFF MANUAL Platelet Estimate LOW Platelet Morphology Comment NORMAL Ovalocytes 1+ Acanthocytes OCC Blood Urea Nitrogen 27 Creatinine 1.79 Random Glucose 160 Total Protein 5.2 Albumin 2.2 Calcium Level 7.0 Phosphorus Level 3.7 Magnesium Level 1.9 Alkaline Phosphatase 45 Aspartate Amino Transf (AST/SGOT) 63 Alanine Aminotransferase (ALT/SGPT) 12 Total Bilirubin 1.5 Sodium Level 137 Potassium Level 4.3 Chloride Level 106 Carbon Dioxide Level 19.2 Anion Gap 12 Estimat Glomerular Filtration Rate 34 Protein Corrected Calcium 8.0 Date/Time Source Procedure Growth Status 12/05/16 19:30 Blood Peripheral Aerobic Blood Culture - Preliminary NO GROWTH IN 1 DAY Resulted 12/05/16 19:30 Blood Peripheral Anaerobic Blood Culture - Preliminary NO GROWTH IN 1 DAY Resulted Result Diagram: 12/06/1629912/06/16299 Imaging Last Impressions Lung Scan-VQ Nuclear Medicine 12/05/162000 Signed Impressions: Service Date/Time: November 20:42 - CONCLUSION: Low probability scan for pulmonary embolism Juan Ramos MD Abdomen/Pelvis CT 12/05/162000 Signed Impressions: Service Date/Time: November 20:03 - CONCLUSION: Apparent increase in volume of pelvic neoplastic disease may reflect hemorrhage into the disease process. The current examination is limited by absence of IV contrast. See above for additional discussion. Juan Ramos MD Chest X-Ray 12/05/16 Signed Impressions: Service Date/Time: November 21:58 - CONCLUSION: Minimal right base atelectasis or scarring. Juan Ramos MD Assessment and Plan Assessment and Plan Possible sepsis in an immunocompromised patient. May not be able to mount fever and white count. Hypotension present on admission: Acute anemia, Prerenal, sepsis. Elevated lactic acid: Sepsis, tumor necrosis/bleed. Uterine carcinosarcoma with hemorrhage and distant metastases to lung. Recommendations DC Vanco IV. Continue Zosyn IV for now. Follow blood cultures Chest x-ray was negative for any infiltrate UA was negative and did not reflex to culture. His blood cultures negative at 48 hours okay to stop antibiotics and observe off of antibiotics as this could be hypotension from acute bleeding into her tumor. The lactic acidosis also could be from bleeding into the tumor or necrosis within the tumor. Follow cultures follow clinically Palliative care noted. Dr. Julien notes reviewed. [email or web address] pt above clinical plan. covering for me this weekend and available prn. Discussed Condition With Living Will: Copy in medical record Health Care Surrogate: Copy in medical record Date completed: 12/06/16 Health Care Surrogate(s): Sent to be scanned into EMR. Documented care wishes: She indicates she would be ok with life support, but does not want to be kept on machines for more than 1 week. She desires continued aggressive care in hopes chemotherapy will provide some slowing of disease progression. Patient is currently capacitated to make her own decisions. She completed Living Will and designation of health care surrogate forms today. Christina Lemus MD Dec 06, 2016 19:02
[2016-12-06] MEDS ORDERED: VANCOMYCIN 1,000 MG/NS 250 ML IV SCH ×2 (22:00)
[2016-12-06] MEDS: ACETAMINOPHEN/HYDROcodone 325 MG/5 MG TAB PO PRN (22:56)
[2016-12-06] MEDS: ONDANSETRON HCL 4 MG/2 ML VIAL IV PUSH PRN (22:57)
[2016-12-07] VITALS (9 sets, daily range): BP systolic 99–144; BP diastolic 56–86; PULSE 0–107; RESP 14–20; TEMP 97.9–98.5; O2SAT 94–100
[2016-12-07] MEDS: PIPERACIL-TAZO 3.375 GM PREMIX 50 ML IV SCH (04:25)
[2016-12-07] MEDS: CHLORHEXIDINE GLUCONATE 2 % 1 PACK (2 CLOTHS) TOP SCH (04:26)
[2016-12-07 04:57] LABS: AUTOMATED NEUTROPHIL # 23.6 TH/MM3 (1.8-7.7); LYMPH % 2.6 % (9.0-44.0); LYMPHOCYTE # 0.6 TH/MM3 (1.0-4.8); MEAN CELL VOLUME 79.6 FL (80.0-100.0); MEAN CORPUSCULAR HEMOGLOBIN 26.6 PG (27.0-34.0); MEAN CORPUSCULAR HGB CONC 33.4 % (32.0-36.0); MEAN PLATELET VOLUME 8.8 FL (7.0-11.0); MONO % 2.3 % (0.0-8.0); MONOCYTE # 0.6 TH/MM3 (0-0.9); NEUT % 95.1 % (16.0-70.0); PLATELET COUNT 107 TH/MM3 (150-450); RED BLOOD COUNT 3.01 MIL/MM3 (4.00-5.30); RED CELL DISTRIBUTION WIDTH 16.7 % (11.6-17.2); WHITE BLOOD COUNT 24.8 TH/MM3 (4.0-11.0)
[2016-12-07] MEDS: ACETAMINOPHEN/HYDROcodone 325 MG/5 MG TAB PO PRN ×3 (05:04→18:00)
[2016-12-07 05:44] LABS: ALBUMIN 2.3 GM/DL (3.4-5.0); ALKALINE PHOSPHATASE 43 U/L (45-117); ALT (GPT) 15 U/L (10-53); AST (GOT) 86 U/L (15-37); BICARBONATE 29.3 MEQ/L (21.0-32.0); BLOOD UREA NITROGEN 31 MG/DL (7-18); CALCIUM 7.5 MG/DL (8.5-10.1); CHLORIDE 97 MEQ/L (98-107); CREATININE 2.55 MG/DL (0.50-1.00); FREE T4 1.32 NG/DL (0.76-1.46); GLOMERULAR FILTRATION RATE 23 ML/MIN (>89); GLUCOSE,RANDOM 142 MG/DL (74-106); MAGNESIUM 1.9 MG/DL (1.5-2.5); PHOSPHORUS 3.5 MG/DL (2.5-4.9); SODIUM (NA) 135 MEQ/L (136-145); TOTAL PROTEIN 5.3 GM/DL (6.4-8.2)
[2016-12-07] MEDS: INSULIN ASPART SUPPLEMENTAL SCALE SQ SCH ×3 (06:00→18:14)
[2016-12-07 07:53] LABS: BANDS 8 % (0-6); LYMPHOCYTES 2 % (9-44); MONOCYTES 3 % (0-8); NEUTROPHIL # MANUAL DIFF 23.6 TH/MM3 (1.8-7.7); OVALOCYTES 1+ (NORMAL); POLYS (SEG NEUTROPHILS) 87 % (16-70)
[2016-12-07] MEDS: PRAVASTATIN SOD 20 MG TAB PO SCH (09:44)
[2016-12-07] MEDS: SODIUM CHLORIDE 0.9% FLUSH 10 ML FLUSH IV FLUSH SCH ×2 (09:44→20:56)
[2016-12-07] MEDS: DOCUSATE SODIUM 50 MG/SENNA 8.6 MG TAB PO SCH ×2 (09:44→20:55)
[2016-12-07] MEDS: PANTOPRAZOLE SODIUM 40 MG VIAL IV PUSH SCH (09:44)
[2016-12-07] MEDS: ONDANSETRON ODT 4 MG TAB PO SCH ×3 (09:44→18:10)
[2016-12-07] MEDS: amLODIPine BESYLATE 5 MG TAB PO SCH (09:44)
[2016-12-07] MEDS: PIPERACIL-TAZO 2.25 GM PREMIX 50 ML IV SCH ×3 (09:45→20:53)
[2016-12-07] MEDS: SODIUM BICARBONATE 8.4% INJ 150 MEQ in DEXTROSE 5% IN WATE 1000ML INJ 1,000 ML IV SCH ×2 (13:36)
--- NOTE | 2016-12-07 13:43 | HHI.PR ---
Subjective Remarks Patient reports feeling very weak and tired. Still having some abdominal pain. No nausea or vomiting. Objective Vitals Vital Signs Date Time Temp Pulse Resp B/P (MAP) Pulse Ox O2 Delivery O2 Flow Rate FiO2 12/07/16 12:19 98.2 0 18 117/65 (82) 95 12/07/16 08:48 Room Air 12/07/16 08:26 97.9 103 18 128/76 (93) 97 12/07/16 05:34 97 12/07/16 04:00 98.2 101 20 144/86 (105) 96 12/07/16 00:00 98.5 98 20 116/64 (81) 96 12/06/16 20:11 98 Room Air 12/06/16 20:00 98.6 103 19 132/88 (103) 98 12/06/16 18:55 97.1 87 16 135/84 (101) 98 I/O 12/06/16 12/06/16 12/06/16 12/07/16 12/07/16 12/07/16 07:00 15:00 23:00 07:00 15:00 23:00 Intake Total 1698 ml 630 ml 1090 ml Output Total 250 ml 150 ml 550 ml Balance 1448 ml 630 ml -150 ml -550 ml 1090 ml Intake IV Total 808 ml 630 ml 1090 ml Packed Cells 800 ml Blood Product IV Normal Saline Flush 90 ml Output Urine Total 250 ml 150 ml 550 ml Bladder Scan Volume Amount 150 ml # Sanitary Pads 1 Pads 1 Pads Result Diagram: 12/07/1641912/07/16419 Objective Remarks GENERAL: Patient appear frail in no acute distress. CARDIOVASCULAR: Normal rate and regular rhythm without murmurs, gallops, or rubs. RESPIRATORY: Good respiratory efforts. Breath sounds equal and clear to auscultation bilaterally. GASTROINTESTINAL: Abdomen soft, non-tender, non-distended. Normal active bowel sounds MUSCULOSKELETAL: Extremities without cyanosis, or edema. NEURO: Alert & Oriented x4 to person, place, time, situation. Moves all ext x4 but with global weakness. PSYCH: Appropriate mood and affect. 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 Julien followed by chemotherapy. Patient has been declining and was recently evaluated by Dr. Julien earlier this month and was diagnosed to have worsening metastatic disease despite therapy. Patient has been having vaginal bleeding which has worsened recently and developed chills about a week back along with sweating and nausea with worsening abdominal pain. She had a port placed about 5 days back. Stage IV metastatic uterine cancer: Patient followed by Dr. Julien. Recommendation is to continue with supportive care. Palliative care and hospice would be appropriate if the patient's goals aligned - Pain control as needed. Possible sepsis in an immunocompromise patient. - Infectious disease following. Continue Zosyn IV for now. If blood cultures negative 48 hours. Can DC antibiotics and monitor off antibiotics. Hypotension could have been due to bleeding into her endometrial tumor. Hypotension and admission: Secondary to anemia and acute bleeding. Resolved - Patient has been resuscitated aggressively. Status post 2 units of PRBC. - Continue to monitor H&H. Bleeding has improved. Anemia secondary to blood loss from uterine bleeding. - Bleeding is improved. Status post transfusion. H&H stable. Continue to monitor. Acute renal failure: Secondary to prerenal azotemia. - Continue IV hydration - Follow renal functions. Diabetes mellitus: - Sliding scale insulin with Accu-Cheks. GI prophylaxis: Stool softener PRN constipation. DVT PPx: Chemoprophylaxis contraindicated due to anemia and bleeding. Krissy Leavitt MD Dec 07, 2016 13:43
[2016-12-07] MEDS: ONDANSETRON HCL 4 MG/2 ML VIAL IV PUSH PRN (20:51)
[2016-12-08] VITALS (10 sets, daily range): BP systolic 92–122; BP diastolic 50–72; PULSE 99–117; RESP 16–20; TEMP 97.1–98.3; O2SAT 91–100
[2016-12-08] MEDS: SODIUM BICARBONATE 8.4% INJ 150 MEQ in DEXTROSE 5% IN WATE 1000ML INJ 1,000 ML IV SCH ×2 (00:42)
[2016-12-08] MEDS: PIPERACIL-TAZO 2.25 GM PREMIX 50 ML IV SCH ×4 (04:00→21:16)
[2016-12-08] MEDS: CHLORHEXIDINE GLUCONATE 2 % 1 PACK (2 CLOTHS) TOP SCH (04:00)
[2016-12-08] MEDS: CALCIUM CARBONATE 500 MG CHEWABLE TAB CHEW PRN ×2 (04:30→08:49)
[2016-12-08 05:16] LABS: HEMATOCRIT 23.4 % (35.0-46.0); HEMOGLOBIN 7.7 GM/DL (11.6-15.3); MEAN CELL VOLUME 81.7 FL (80.0-100.0); MEAN CORPUSCULAR HEMOGLOBIN 26.7 PG (27.0-34.0); MEAN CORPUSCULAR HGB CONC 32.7 % (32.0-36.0); MEAN PLATELET VOLUME 9.6 FL (7.0-11.0); PLATELET COUNT 96 TH/MM3 (150-450); RED BLOOD COUNT 2.87 MIL/MM3 (4.00-5.30); RED CELL DISTRIBUTION WIDTH 16.8 % (11.6-17.2); WHITE BLOOD COUNT 23.8 TH/MM3 (4.0-11.0)
[2016-12-08 05:54] LABS: BICARBONATE 33.2 MEQ/L (21.0-32.0); CALCIUM 7.4 MG/DL (8.5-10.1); CREATININE 2.83 MG/DL (0.50-1.00)
[2016-12-08] MEDS: INSULIN ASPART SUPPLEMENTAL SCALE SQ SCH ×5 (06:00→19:43)
[2016-12-08 06:11] LABS: CALCIUM-PROTEIN CORRECTED 8.5 MG/DL (8.5-10.1); TOTAL PROTEIN 5.1 GM/DL (6.4-8.2)
[2016-12-08] MEDS: DOCUSATE SODIUM 50 MG/SENNA 8.6 MG TAB PO SCH ×2 (08:47→19:54)
[2016-12-08] MEDS: ACETAMINOPHEN/HYDROcodone 325 MG/5 MG TAB PO PRN ×2 (08:47→19:46)
[2016-12-08] MEDS: ONDANSETRON ODT 4 MG TAB PO SCH ×3 (08:47→17:38)
[2016-12-08] MEDS: PRAVASTATIN SOD 20 MG TAB PO SCH (08:47)
[2016-12-08] MEDS: SODIUM CHLORIDE 0.9% FLUSH 10 ML FLUSH IV FLUSH SCH ×2 (08:47→19:53)
[2016-12-08] MEDS: amLODIPine BESYLATE 5 MG TAB PO SCH (08:47)
[2016-12-08] MEDS: PANTOPRAZOLE SODIUM 40 MG VIAL IV PUSH SCH (08:47)
--- NOTE | 2016-12-08 09:13 | HHI.PR ---
Subjective Remarks Patient reports constipation. No BM in a week. Reports abdominal pain persisting. No nausea or vomiting. Objective Vitals Vital Signs Date Time Temp Pulse Resp B/P (MAP) Pulse Ox O2 Delivery O2 Flow Rate FiO2 12/08/16 08:23 Room Air 12/08/16 03:59 98.2 99 16 92/50 (64) 100 12/08/16 00:39 98.0 99 16 119/57 (77) 95 12/07/16 21:05 Room Air 12/07/16 20:00 98.3 96 14 99/56 (70) 100 12/07/16 17:27 97 21 12/07/16 16:11 98.1 107 18 117/70 (86) 97 12/07/16 12:19 98.2 100 18 117/65 (82) 95 12/07/16 10:09 94 I/O 12/07/16 12/07/16 12/07/16 12/08/16 12/08/16 12/08/16 07:00 15:00 23:00 07:00 15:00 23:00 Intake Total 1090 ml 240 ml 200 ml Output Total 550 ml 850 ml 1100 ml Balance -550 ml 1090 ml -610 ml -900 ml Intake Oral 240 ml 200 ml IV Total 1090 ml Output Urine Total 550 ml 850 ml 1100 ml Bladder Scan Volume Amount 150 ml # Sanitary Pads 1 Pads 1 Pads Result Diagram: 12/08/16 0405 12/08/16 0403 Objective Remarks GENERAL: Patient appear frail in no acute distress. CARDIOVASCULAR: Normal rate and regular rhythm without murmurs, gallops, or rubs. RESPIRATORY: Good respiratory efforts. Breath sounds equal and clear to auscultation bilaterally. GASTROINTESTINAL: Abdomen distended. diffusely tender to palpation. Normal active bowel sounds MUSCULOSKELETAL: Extremities without cyanosis, or edema. NEURO: Alert & Oriented x4 to person, place, time, situation. Moves all ext x4 but with global weakness. PSYCH: Appropriate mood and affect. 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 Julien followed by chemotherapy. Patient has been declining and was recently evaluated by Dr. Julien earlier this month and was diagnosed to have worsening metastatic disease despite therapy. Patient has been having vaginal bleeding which has worsened recently and developed chills about a week back along with sweating and nausea with worsening abdominal pain. She had a port placed about 5 days back. Stage IV metastatic uterine cancer: Patient followed by Dr. Julien. Recommendation is to continue with supportive care. Palliative care and hospice would be appropriate if the patient's goals aligned - Pain control as needed. Possible sepsis in an immunocompromise patient. - Infectious disease following. Continue Zosyn IV for now. WBC persistently elevated. - CT of the abdomen/pelvis to rule out infectious process such as abscess Hypotension and admission: Secondary to anemia and acute bleeding. Resolved - Patient has been resuscitated aggressively. Status post 2 units of PRBC. - Continue to monitor H&H. Bleeding has improved. Anemia secondary to blood loss from uterine bleeding. - Bleeding is improved. Status post transfusion. H&H trending down. Continue to monitor. May need transfusion in AM if continues to drop. Acute renal failure: Likely secondary to prerenal azotemia. Renal failure persisting - Continue IV hydration. DC sodium bicard. Change to NS. - Follow renal functions. - Consult Nephrology. Abdominal pain: Constipation vs cancer related pain - CT of the abdomen ordered. Stool softeners, laxative, enema as needed. Diabetes mellitus: - Sliding scale insulin with Accu-Cheks. GI prophylaxis: Stool softener PRN constipation. DVT PPx: Chemoprophylaxis contraindicated due to anemia, thrombocytopenia and bleeding. Krissy Leavitt MD Dec 08, 2016 09:13
--- NOTE | 2016-12-08 10:50 | RADRPT ---
EXAM DATE/TIME: 12/08/2016 09:18 [place] COMPARISON: No previous studies available for comparison. INDICATIONS : Abdominal pain. MEDICAL HISTORY : Hypertension. uterine cancer. SURGICAL HISTORY : Hysterectomy. ENCOUNTER: Subsequent ACUITY: 3 days PAIN SCORE: 10/10 LOCATION: Abdomen. FINDINGS: Supine view of the abdomen was performed. The abdominal bowel gas pattern is normal. No abnormal ma sses, calcifications, or organomegaly is seen. The osseous structures are unremarkable. CONCLUSION: No acute disease. Daniel Egan MD on December 08, 2016 at 10:48 Board Certified Radiologist. This report was verified electronically.
[2016-12-08] MEDS: NS + KCL 20 MEQ INJ 1,000 ML IV SCH ×2 (12:40→21:15)
[2016-12-08] MEDS ORDERED: DIATRIZOATE MEGLUM/DIATRIZOATE SOD 9 ML CUP PO ONE (12:45)
--- NOTE | 2016-12-08 17:05 | PD.CONS ---
HPI Consult Requested By Reason for Consult Acute renal insufficiency Primary Care Physician Ashia Hewitt M.D. History of Present Illness 66-year-old black female who unfortunately has a history of uterine carcinosarcoma status post hysterectomy with debulking September, with chemotherapy unfortunately subsequent diagnosis having metastatic disease. She underwent her first course of Taxol and carboplatin on the day of admission December 05, 2016. Subsequently developed hypotension, nausea and vomiting and vaginal bleeding her creatinine was noted to be 2.1 that day. Palliative care was offered given severity of her malignancy but the patient declined this option. Initially there was evidence of lactic acidosis, acute renal insufficiency improved but has worsened again with a creatinine 2.83 and a consultation. Also hypokalemia. Patient admitting to anorexia. Review of Systems Constitutional: COMPLAINS OF: Fatigue, Weight loss, Change in appetite, DENIES : Diaphoretic episodes, Fever, Weight gain, Chills, Dizziness, Night Sweats Eyes: DENIES: Vision loss Respiratory: DENIES: Apneas, Cough, Snoring, Wheezing, Hemoptysis, Sputum production, Shortness of breath Cardiovascular: DENIES: Chest pain, Palpitations, Syncope, Dyspnea on Exertion , PND, Lower Extremity Edema, Orthopnea, Claudication Gastrointestinal: COMPLAINS OF: Anorexia, DENIES: Abdominal pain, Black stools , Bloody stools, Constipation, Diarrhea, Nausea, Vomiting, Difficulty Swallowing Genitourinary: COMPLAINS OF: Abnormal vaginal bleeding, DENIES: Urinary frequency, Urinary incontinence, Urgency, Hematuria, Dysuria, Nocturia Musculoskeletal: DENIES: Joint pain, Muscle aches, Stiffness, Joint Swelling, Back pain, Neck pain Past Family Social History Allergies: Coded Allergies: No Known Allergies (Verified , 12/05/16) Past Medical History Metastatic uterine carcinosarcoma. Hypertension Diabetes mellitus Past Surgical History Hysterectomy with debulking of tumor September,. Reported Medications Reported Meds & Active Scripts Active [place] (Hydrocodone-Acetaminophen) 5-325 mg Tab 1 Tab PO Q6H PRN Keflex (Cephalexin) 500 Mg Cap 500 Mg PO Q6H Reported Zofran (Ondansetron HCl) 8 Mg Tab 8 Mg PO TID Pravastatin 20 Mg Tab 20 Mg PO DAILY Lisinopril 20 Mg Tab 20 Mg PO DAILY Hydrochlorothiazide 25 Mg Tab 25 Mg PO BID Proventil Hfa 6.7 GM Inh (Albuterol Sulfate) 90 Mcg/Act Aer 1 Puff INH Q4H PRN Active Ordered Medications Current Medications Sodium Chloride 1,000 ml @ 1,000 mls/hr Q1H IV Last administered on 19:38; Start 12/05/16 at 18:50; Stop 12/05/16 at 19:49; Status DC Sodium Chloride (NS Flush) 2 ml UNSCH PRN IV FLUSH FLUSH AFTER USING IV ACCESS ; Start 12/05/16 at 19:00; Stop 12/05/16 at 22:07; Status DC Ondansetron HCl (Zofran Inj) 4 mg ONCE ONCE IV PUSH Last administered on 12/05 19:40; Start 12/05/16 at 19:15; Stop 12/05/16 at 19:16; Status DC Sodium Chloride 1,000 ml @ 1,000 mls/hr Q1H IV Last administered on 23:15; Start 12/05/16 at 19:06; Stop 12/05/16 at 20:05; Status DC Piperacillin Sod/ Tazobactam Sod 100 ml @ 200 mls/hr ONCE ONCE IV Last administered on 12/05/16 19:41; Start 12/05/16 at 19:30; Stop 12/05/16 at 19 :59; Status DC Vancomycin HCl 1000 mg/Sodium Chloride 250 ml @ 250 mls/hr ONCE ONCE IV Last administered on 12/05/16 22:29; Start 12/05/16 at 19:30; Stop 12/06/16 at 19 :30; Status DC Sodium Chloride 1,000 ml @ 1,000 mls/hr Q1H IV ; Start 12/05/16 at 20:31; Stop 12/05/16 at 21:30; Status DC Sodium Chloride (NS Flush) 2 ml UNSCH PRN IV FLUSH FLUSH AFTER USING IV ACCESS ; Start 12/05/16 at 21:15 Sodium Chloride (NS Flush) 2 ml BID IV FLUSH Last administered on 12/08/16 08 :47; Start 12/06/16 at 09:00 Oxycodone/ Acetaminophen (Percocet 5-325 Mg) 1 tab Q4H PRN PO PAIN SCALE 1 TO 5; Start 12/05/16 at 21:15; Stop 12/06/16 at 20:01; Status DC Morphine Sulfate (Morphine Inj) 4 mg Q4HR PRN IV PUSH PAIN SCALE 6 TO 10 Last administered on 12/06/16 03:26; Start 12/05/16 at 21:15 Pantoprazole Sodium (Protonix Inj) 40 mg DAILY IV PUSH Last administered on 08:47; Start 12/05/16 at 22:00 Ondansetron HCl (Zofran Inj) 4 mg Q6H PRN IV PUSH NAUSEA OR VOMITING Last administered on 12/07/16 20:51; Start 12/05/16 at 21:15 Zolpidem Tartrate (Ambien) 5 mg HS PRN PO INSOMNIA; Start 12/05/16 at 21:15 Albuterol/ Ipratropium (Duoneb Neb) 1 ampule Q2HR NEB PRN INH WHEEZING; Start 12/05/16 at 21:15 Miscellaneous Information 1 Q361D XX ; Start 12/05/16 at 21:15 Chlorhexidine Gluconate (Chlorhexidine 2% Cloth) 3 pack Taper DAILY@04 TOP Last administered on 12/08/16 04:00; Start 12/06/16 at 04:00; Stop 12/02/17 at 03:59 Chlorhexidine Gluconate (Chlorhexidine 2% Cloth) 3 pack UNSCH PRN TOP HYGIENIC CARE; Start 12/05/16 at 21:15 Senna/Docusate Sodium ([place]-Colace) 1 tab BID PO Last administered on 08:47; Start 12/06/16 at 09:00 Magnesium Hydroxide (Milk Of Magnesia Liq) 30 ml Q12H PRN PO Mild constipation ; Start 12/05/16 at 21:15 Sennosides (Senokot) 17.2 mg Q12H PRN PO Moderate constipation Last administered on 12/06/16 09:01; Start 12/05/16 at 21:15 Bisacodyl (Dulcolax Supp) 10 mg DAILY PRN RECTAL SEVERE CONSITIPATION Last administered on 12/08/16 10:05; Start 12/05/16 at 21:15 Lactulose (Lactulose Liq) 30 ml DAILY PRN PO SEVERE CONSITIPATION; Start 12/05 at 21:15 Piperacillin Sod/ Tazobactam Sod 50 ml @ 100 mls/hr Q6H IV Last administered on 12/07/16 04:25; Start 12/06/16 at 04:00; Stop 12/07/16 at 09:28; Status DC Vancomycin HCl 1000 mg/Sodium Chloride 260 ml @ 250 mls/hr Q12H IV ; Start at 09:00; Stop 12/06/16 at 09:00; Status DC Pharmacy Profile Note 0 ml @ 0 mls/hr UNSCH OTHER ; Start 12/05/16 at 21:30; Stop 12/06/16 at 19:30; Status DC Sodium Chloride 250 ml @ 15 mls/hr ONCE ONCE IV Last administered on 00:38; Start 12/05/16 at 21:30; Stop 12/06/16 at 14:09; Status DC Diphenhydramine HCl (Benadryl) 25 mg Q4H PRN PO SEE LABEL COMMENTS; Start at 21:30 Sodium Bicarbonate 150 meq/Dextrose 1,150 ml @ 100 mls/hr [id number] IV Last administered on 12/08/16 00:42; Start 12/05/16 at 23:00; Stop 12/08/16 at 11 :55; Status DC Insulin Aspart (NovoLOG SUPPLEMENTAL SCALE) 1 Q6HR SQ Last administered on 12:00; Start 12/06/16 at 00:00 Dextrose (D50w (Vial) Inj) 25 ml UNSCH PRN IV HYPOGLYCEMIA-SEE COMMENTS; Start 12/05/16 at 21:30 Glucagon (Glucagon Inj) 1 mg UNSCH PRN IM/SQ HYPOGLYCEMIA-SEE COMMENTS; Start 12/05/16 at 21:30 Sodium Chloride 250 ml @ 15 mls/hr ONCE ONCE IV Last administered on 02:10; Start 12/06/16 at 02:00; Stop 12/06/16 at 18:39; Status DC Labetalol HCl (Trandate Inj) 10 mg Q2HR PRN IV PUSH SBP greater than 160mm Hg Last administered on 12/06/16 02:06; Start 12/06/16 at 02:00 Amlodipine Besylate (Norvasc) 5 mg DAILY PO Last administered on 12/08/16 08: 47; Start 12/06/16 at 02:00 Vancomycin HCl 1000 mg/Sodium Chloride 250 ml @ 250 mls/hr Q24H IV ; Start at 22:00; Stop 12/06/16 at 22:00; Status DC Miscellaneous Information SPECIFIC LAB TO BE ... ONCE ONCE .XX ; Start at 21:45; Stop 12/08/16 at 21:45; Status DC Albuterol Sulfate (Proair Hfa Inh) 1 puff Q4H PRN INH SHORTNESS OF BREATH; Start 12/06/16 at 11:00 Acetaminophen/ Hydrocodone Bitart ([place] 5-325 Mg) 1 tab Q6H PRN PO PAIN SCALE 1 TO 10 Last administered on 12/08/16 08:47; Start 12/06/16 at 20:00 Pravastatin Sodium (Pravachol) 20 mg DAILY PO Last administered on 12/08/16 08:47; Start 12/07/16 at 09:00 Ondansetron HCl (Zofran Odt) 8 mg TID PO Last administered on 12/07/16 18:10 ; Start 12/06/16 at 15:00 Hydralazine HCl (Apresoline) 50 mg Q8HR PRN PO SBP > 170; Start 12/06/16 at 13 :15 Piperacillin Sod/ Tazobactam Sod 50 ml @ 100 mls/hr Q6H IV Last administered on 12/08/16 16:09; Start 12/07/16 at 10:00 Calcium Carbonate (Tums Chew) 500 mg Q2H PRN CHEW heart burn Last administered on 12/08/16 08:49; Start 12/08/16 at 04:30 Potassium Chloride/Sodium Chloride 1,000 ml @ 125 mls/hr Q8H IV Last administered on 12/08/16 12:40; Start 12/08/16 at 12:00 Diatrizoate Meglum/ Diatrizoate Sod ( Gastroview Liq) 18 ml ONCE ONCE PO Last administered on 12/08/16 15:52; Start 12/08/16 at 12:45; Stop 12/08/16 at 12:46; Status DC Family History Noncontributory to current complaint. Social History No history of illicit drug use. Physical Exam Vital Signs Vital Signs Date Time Temp Pulse Resp B/P (MAP) Pulse Ox O2 Delivery O2 Flow Rate FiO2 12/08/16 16:10 98.1 109 18 111/55 (73) 92 12/08/16 11:33 97.2 113 18 117/64 (81) 93 12/08/16 08:23 Room Air 12/08/16 08:20 97.1 117 18 121/71 (88) 91 12/08/16 03:59 98.2 99 16 92/50 (64) 100 12/08/16 00:39 98.0 99 16 119/57 (77) 95 12/07/16 21:05 Room Air 12/07/16 20:00 98.3 96 14 99/56 (70) 100 12/07/16 17:27 97 21 Physical Exam GENERAL: Frail-appearing female who does appear to be somewhat malnourished. SKIN: Warm and dry. HEAD: Normocephalic. EYES: No scleral icterus. No injection or drainage. NECK: Supple, trachea midline. No JVD or lymphadenopathy. CARDIOVASCULAR: Regular rate and rhythm without murmurs, gallops, or rubs. RESPIRATORY: Breath sounds equal bilaterally. No accessory muscle use. GASTROINTESTINAL: Abdomen soft, non-tender, nondistended. MUSCULOSKELETAL: No cyanosis, trace edema of the lower legs. Wasting of the musculature of the limbs. BACK: Nontender without obvious deformity. No CVA tenderness. Laboratory Laboratory Tests Test 12/08/16 04:03 12/08/16 04:05 Blood Urea Nitrogen 30 Creatinine 2.83 Random Glucose 98 Total Protein 5.1 Calcium Level 7.4 Sodium Level 137 Potassium Level 3.3 Chloride Level 96 Carbon Dioxide Level 33.2 Anion Gap 8 Estimat Glomerular Filtration Rate 20 Protein Corrected Calcium 8.5 White Blood Count 23.8 Red Blood Count 2.87 Hemoglobin 7.7 Hematocrit 23.4 Mean Corpuscular Volume 81.7 Mean Corpuscular Hemoglobin 26.7 Mean Corpuscular Hemoglobin Concent 32.7 Red Cell Distribution Width 16.8 Platelet Count 96 Mean Platelet Volume 9.6 Date/Time Source Procedure Growth Status 12/05/16 19:30 Blood Peripheral Aerobic Blood Culture - Preliminary NO GROWTH IN 3 DAYS Resulted 12/05/16 19:30 Blood Peripheral Anaerobic Blood Culture - Preliminary NO GROWTH IN 3 DAYS Resulted Result Diagram: 12/08/16 0405 12/08/16 0403 Imaging Last 48 hours Impressions Abdomen X-Ray 12/08/16 0000 Signed Impressions: Service Date/Time: Thursday, December 08, 2016 09:18 - CONCLUSION: No acute disease. Daniel Egan MD Assessment and Plan Problem List: (1) Acute kidney insufficiency ICD Codes: N28.9 - Disorder of kidney and ureter, unspecified Status: Acute Plan: Patient may have had dehydration initially however she may have also sustained an acute kidney injury related to hypotension on presentation. Uncertain if the carboplatin could also be contributory to the patient's rising creatinine level at this time. She may still have some degree of dehydration. Continue IV fluids as ordered with monitoring of electrolytes and renal indices as well as volume status. If the patient's creatinine level however fails to improve intrinsic kidney injury likely significant and her renal indices may continue to worsen at which point consideration of renal replacement therapy will have to be discussed with the patient. Patient's overall condition and long term acute care registered nurse prognosis appeared to be poor after reviewing the records. Medications should be adjusted for the patient's estimated GFR if clinically indicated. Avoid agents with significant potential for nephrotoxicity possible including NSAIDs for analgesia, iodine contrast agents. Gadolinium is contraindicated if the GFR is below 30. (2) Hypokalemia ICD Codes: E87.6 - Hypokalemia Status: Acute (3) Metabolic acidosis ICD Codes: E87.2 - Acidosis Status: Resolved (4) Uterine cancer ICD Codes: C55 - Malignant neoplasm of uterus, part unspecified Status: Acute Plan: Metastatic. Patient refused palliative care. Received first course of Taxol and carboplatin [facility] admission. Mitali Garcia MD Dec 08, 2016 17:04
[2016-12-08 18:08] LABS: BILIRUBIN, URINE NEG (NEG); BLOOD, URINE SMALL (NEG); GLUCOSE,URINE NEG (NEG); KETONE, URINE NEG (NEG); MUCUS URINE FEW /lpf (OCC); NITRITE,URINE NEG (NEG); PH, URINE 8.5 (5.0-8.5); URINE COLOR LIGHT-YELLOW (YELLW/STRAW); URINE LEUKOCYTE ESTERASE SMALL (NEG)
--- NOTE | 2016-12-08 19:43 | RADRPT ---
EXAM DATE/TIME: 12/08/2016 18:01 [facility] COMPARISON: No previous studies available for comparison. INDICATIONS : Increased BUN and creatinine. MEDICAL HISTORY : Hypertension. Hypercholesterolemia. Diabtetes. Carcinoma, uterine. Asthma. Hyperlipidemia. UTI. SURGICAL HISTORY : Hysterectomy. ENCOUNTER: Initial ACUITY: 1 day PAIN SCORE: 0/10 LOCATION: Bilateral flank MEASUREMENTS: RIGHT KIDNEY: 11.2 x 4.9 x 4.3 cm LEFT KIDNEY: 10.4 x 5.0 x 5.6 cm FINDINGS: Prominent ascites in the abdomen. RIGHT KIDNEY: Renal cortex is normal in thickness and echotexture. No hydronephrosis, stone, or mass. LEFT KIDNEY: Renal cortex is normal in thickness and echotexture. No hydronephrosis, stone, or mass. BLADDER: Arellano catheter in a decompressed bladder. CONCLUSION: 1. Ascites. 2. Normal sonographic appearance to the kidneys. James Crook MD on December 08, 2016 at 19:40 Board Certified Radiologist. This report was verified electronically.
[2016-12-08] MEDS ORDERED: PHARMACY ORDERED LAB ONE (21:45)
[2016-12-09] VITALS (14 sets, daily range): BP systolic 114–153; BP diastolic 67–82; PULSE 97–122; RESP 16–20; TEMP 97.8–98.6; O2SAT 90–94
[2016-12-09] MEDS: ACETAMINOPHEN/HYDROcodone 325 MG/5 MG TAB PO PRN ×2 (03:28→10:39)
[2016-12-09] MEDS: NS + KCL 20 MEQ INJ 1,000 ML IV SCH ×3 (03:30→22:04)
[2016-12-09] MEDS: PIPERACIL-TAZO 2.25 GM PREMIX 50 ML IV SCH ×4 (03:30→22:53)
[2016-12-09] MEDS: CHLORHEXIDINE GLUCONATE 2 % 1 PACK (2 CLOTHS) TOP SCH (03:39)
[2016-12-09] MEDS: INSULIN ASPART SUPPLEMENTAL SCALE SQ SCH ×4 (03:50→23:03)
[2016-12-09 04:15] LABS: HEMATOCRIT 22.6 % (35.0-46.0); HEMOGLOBIN 7.5 GM/DL (11.6-15.3); MEAN CELL VOLUME 82.3 FL (80.0-100.0); MEAN CORPUSCULAR HEMOGLOBIN 27.2 PG (27.0-34.0); PLATELET COUNT 100 TH/MM3 (150-450); RED BLOOD COUNT 2.75 MIL/MM3 (4.00-5.30); RED CELL DISTRIBUTION WIDTH 16.6 % (11.6-17.2); WHITE BLOOD COUNT 19.8 TH/MM3 (4.0-11.0)
[2016-12-09 04:34] LABS: ALBUMIN 2.2 GM/DL (3.4-5.0); BICARBONATE 29.8 MEQ/L (21.0-32.0); CALCIUM 7.6 MG/DL (8.5-10.1); CREATININE 2.34 MG/DL (0.50-1.00); MAGNESIUM 1.9 MG/DL (1.5-2.5); PHOSPHORUS 3.7 MG/DL (2.5-4.9)
--- NOTE | 2016-12-09 08:33 | PD.ONC.PN ---
Subjective Subjective Remarks patient is resting in bed is not eating much explained that the imaging obtained in the hospital has shown advancement of disease in such a short period of time that our concern is that a great deal of the problems that she is having is related to the cancer and may not be able to be fixed during her hospital stay. I fear that she will not be able to improve her performance status enough to get chemo again. Patient states understanding but states that " it is in God's hands". We talked about Hospice and if she were to consider Hospice she would only want to be cared for at home. I explained that Hospice would support her wishes. Palliative Care is following and we appreciate care. Objective Data Date Time Temp Pulse Resp B/P (MAP) Pulse Ox O2 Delivery O2 Flow Rate FiO2 12/09/16 05:09 97 12/09/16 04:07 110 12/09/16 03:41 98.0 114 20 138/74 (95) 94 12/09/16 01:45 122 20 91 12/09/16 01:41 108 12/09/16 00:01 112 12/08/16 23:39 98.2 110 20 115/65 (82) 92 12/08/16 20:07 112 12/08/16 20:00 Room Air 12/08/16 19:30 98.3 117 18 122/72 (89) 94 12/08/16 16:10 98.1 109 18 111/55 (73) 92 12/08/16 16:04 103 12/08/16 11:33 97.2 113 18 117/64 (81) 93 12/08/16 11:24 116 12/08/16 08:23 Room Air 12/08/16 08:20 97.1 117 18 121/71 (88) 91 12/09/16 12/09/16 12/09/16 07:00 15:00 23:00 Intake Total 965 ml Output Total 700 ml Balance 265 ml Result Diagram: 12/09/1634912/09/16349 Laboratory Results Laboratory Tests Test 12/08/16 18:00 12/09/16 03:50 Urine Color LIGHT-YELLOW Urine Turbidity CLEAR Urine pH 8.5 Urine Specific [place] 1.012 Urine Protein 30 mg/dL Urine Glucose (UA) NEG mg/dL Urine Ketones NEG mg/dL Urine Occult Blood SMALL Urine Nitrite NEG Urine Bilirubin NEG Urine Urobilinogen LESS THAN 2.0 MG/DL Urine Leukocyte Esterase SMALL Urine RBC 18 /hpf Urine WBC 6 /hpf Urine Mucus FEW /lpf Urine Eosinophils NONE SEEN /HPF White Blood Count 19.8 TH/MM3 Red Blood Count 2.75 MIL/MM3 Hemoglobin 7.5 GM/DL Hematocrit 22.6 % Mean Corpuscular Volume 82.3 FL Mean Corpuscular Hemoglobin 27.2 PG Mean Corpuscular Hemoglobin Concent 33.0 % Red Cell Distribution Width 16.6 % Platelet Count 100 TH/MM3 Mean Platelet Volume 10.0 FL Blood Urea Nitrogen 26 MG/DL Creatinine 2.34 MG/DL Random Glucose 79 MG/DL Albumin 2.2 GM/DL Calcium Level 7.6 MG/DL Phosphorus Level 3.7 MG/DL Magnesium Level 1.9 MG/DL Sodium Level 138 MEQ/L Potassium Level 3.9 MEQ/L Chloride Level 101 MEQ/L Carbon Dioxide Level 29.8 MEQ/L Anion Gap 7 MEQ/L Estimat Glomerular Filtration Rate 25 ML/MIN Imaging Studies Last Impressions Renal Ultrasound 12/08/16 Signed Impressions: Service Date/Time: Thursday, December 08, 2016 18:01 - CONCLUSION: 1. Ascites. 2. Normal sonographic appearance to the kidneys. James Crook MD Abdomen X-Ray 12/08/16 Signed Impressions: Service Date/Time: Thursday, December 08, 2016 09:18 - CONCLUSION: No acute disease. Daniel Egan MD Lung Scan-V Nuclear Medicine 12/05/162000 Signed Impressions: Service Date/Time: November 20:42 - CONCLUSION: Low probability scan for pulmonary embolism Juan Ramos MD Abdomen/Pelvis CT 12/05/162000 Signed Impressions: Service Date/Time: November 20:03 - CONCLUSION: Apparent increase in volume of pelvic neoplastic disease may reflect hemorrhage into the disease process. The current examination is limited by absence of IV contrast. See above for additional discussion. Juan Ramos MD Chest X-Ray 12/05/16 Signed Impressions: Service Date/Time: November 21:58 - CONCLUSION: Minimal right base atelectasis or scarring. Juan Ramos MD Administered Medications Medications (Trade) Dose Ordered Sig/Courtney Route PRN Reason Start Time Stop Time Status Last Admin Dose Admin Sodium Chloride (NS Flush) 2 ml BID IV FLUSH 12/06/16 09:00 12/08/16 19:53 Morphine Sulfate (Morphine Inj) 4 mg Q4HR PRN IV PUSH PAIN SCALE 6 TO 10 12/05/16 21:15 12/06/16 03:26 Pantoprazole Sodium (Protonix Inj) 40 mg DAILY IV PUSH 12/05/16 22:00 12/08/16 08:47 Ondansetron HCl (Zofran Inj) 4 mg Q6H PRN IV PUSH NAUSEA OR VOMITING 12/05/16 21:15 12/07/16 20:51 Chlorhexidine Gluconate (Chlorhexidine 2% Cloth) 3 pack Taper DAILY@04 TOP 12/06/16 04:00 12/02/17 03:59 12/08/16 04:00 Senna/Docusate Sodium (Emilee-Colace) 1 tab BID PO 12/06/16 09:00 12/08/16 08:47 Sennosides (Senokot) 17.2 mg Q12H PRN PO Moderate constipation 12/05/16 21:15 12/06/16 09:01 Bisacodyl (Dulcolax Supp) 10 mg DAILY PRN RECTAL SEVERE CONSITIPATION 12/05/16 21:15 12/08/16 10:05 Insulin Aspart (NovoLOG SUPPLEMENTAL SCALE) 1 Q6HR SQ 12/06/16 00:00 12/06/16 12:00 Labetalol HCl (Trandate Inj) 10 mg Q2HR PRN IV PUSH SBP greater than 160mm Hg 12/06/16 02:00 12/06/16 02:06 Amlodipine Besylate (Norvasc) 5 mg DAILY PO 12/06/16 02:00 12/08/16 08:47 Acetaminophen/ Hydrocodone Bitart ([place] 5-325 Mg) 1 tab Q6H PRN PO PAIN SCALE 1 TO 10 12/06/16 20:00 12/09/16 03:28 Pravastatin Sodium (Pravachol) 20 mg DAILY PO 12/07/16 09:00 12/08/16 08:47 Ondansetron HCl (Zofran Odt) 8 mg TID PO 12/06/16 15:00 12/07/16 18:10 Piperacillin Sod/ Tazobactam Sod 50 ml @ 100 mls/hr Q6H IV 12/07/16 10:00 12/09/16 03:30 Calcium Carbonate (Tums Chew) 500 mg Q2H PRN CHEW heart burn 12/08/16 04:30 12/08/16 08:49 Potassium Chloride/Sodium Chloride 1,000 ml @ 125 mls/hr Q8H IV 12/08/16 12:00 12/09/16 03:30 Objective Remarks GENERAL: Well-nourished, well-developed patient. SKIN: Warm and dry. HEAD: Normocephalic. EYES: No scleral icterus. No injection or drainage. CARDIOVASCULAR: Regular rate and rhythm without murmurs. RESPIRATORY: Breath sounds equal bilaterally. No accessory muscle use. GASTROINTESTINAL: Abdomen distended and firm EXTREMITIES: teds and scds MUSCULOSKELETAL: Adequate muscle tone. NEUROLOGICAL: No obvious focal deficit. Awake, alert, and oriented x3. PSYCHIATRIC: Appropriate mood and affect; insight and judgment normal. Assessment/Plan Problem List: (1) Acute kidney insufficiency ICD Codes: N28.9 - Disorder of kidney and ureter, unspecified Status: Acute Plan: nephrology following: JENNA could be d/t continued dehydration, hypotension at time of admission renal U/S shown ascites otherwise WNL continue IV hydration monitor kidney function improved some today will be unable to continue with IV chemo if kidney function does not improve. (2) Uterine cancer ICD Codes: C55 - Malignant neoplasm of uterus, part unspecified Status: Chronic Plan: s/p Line one cycle one Taxol and Carboplatin IV chemo 12/05/16 at 50% dose reduction Palliative Care following recommend Hospice Patient still wishing to try chemo but seems to understand the difficult situation with her poor performance status, poor renal function and overall poor prognosis. (3) Severe sepsis ICD Codes: A41.9 - Sepsis, unspecified organism; R65.20 - Severe sepsis without septic shock Status: Acute Plan: elevated WBC blood cultures no growth in [address] shown no abscess but advancement of disease ID is following supportive care (4) Anemia ICD Codes: D64.9 - Anemia, unspecified Status: Chronic Plan: will transfuse 1 unit PRBCs today and do to frail nature will consider another unit tomorrow based on labs poor kidney function will hold Lasix Attending Statement Discussed with Dr. Julien and he is in agreement with plan of care. Problem Qualifiers (1) Anemia: Haris Merrill Dec 09, 2016 08:33
[2016-12-09] MEDS ORDERED: diphenhydrAMINE HCL 25 MG CAP PO PRN (09:00)
[2016-12-09] MEDS: ONDANSETRON ODT 4 MG TAB PO SCH ×3 (09:00→18:00)
[2016-12-09] MEDS ORDERED: SODIUM CHLOR 0.9% 250 ML INJ 250 ML IV ONE (09:00)
[2016-12-09] MEDS: SODIUM CHLORIDE 0.9% FLUSH 10 ML FLUSH IV FLUSH SCH ×2 (09:00→20:24)
[2016-12-09] MEDS: DOCUSATE SODIUM 50 MG/SENNA 8.6 MG TAB PO SCH ×2 (09:00→20:19)
[2016-12-09] MEDS ORDERED: ACETAMINOPHEN 325 MG TAB PO PRN (09:15)
--- NOTE | 2016-12-09 09:34 | HHI.PR ---
Subjective Remarks Patient report abdominal pain is slightly better since she had a bowel movement. However it is persisting and the [place] makes her drowsy. Extensive discussion with the patient regarding prognosis. She voiced complete understanding of her current situation and have come to terms that her condition is end-stage. Her goal is to go home with hospice at this point. She does not want to be at a nursing facility. Objective Vitals Vital Signs Date Time Temp Pulse Resp B/P (MAP) Pulse Ox O2 Delivery O2 Flow Rate FiO2 12/09/16 05:09 97 12/09/16 04:07 110 12/09/16 03:41 98.0 114 20 138/74 (95) 94 12/09/16 01:45 122 20 91 12/09/16 01:41 108 12/09/16 00:01 112 12/08/16 23:39 98.2 110 20 115/65 (82) 92 12/08/16 20:07 112 12/08/16 20:00 Room Air 12/08/16 19:30 98.3 117 18 122/72 (89) 94 12/08/16 16:10 98.1 109 18 111/55 (73) 92 12/08/16 16:04 103 12/08/16 11:33 97.2 113 18 117/64 (81) 93 12/08/16 11:24 116 I/O 12/08/16 12/08/16 12/08/16 12/09/16 12/09/16 12/09/16 07:00 15:00 23:00 07:00 15:00 23:00 Intake Total 200 ml 2100 ml 1170 ml 965 ml Output Total 1100 ml 900 ml 900 ml 700 ml Balance -900 ml 1200 ml 270 ml 265 ml Intake Oral 200 ml 0 ml 120 ml 60 ml IV Total 2100 ml 1050 ml 905 ml Output Urine Total 1100 ml 900 ml 900 ml 700 ml # Bowel Movements 1 3 1 # Sanitary Pads 1 Pads Result Diagram: 12/09/16 03512/09/16 035 Objective Remarks GENERAL: Patient appear frail in no acute distress. CARDIOVASCULAR: Normal rate and regular rhythm without murmurs, gallops, or rubs. RESPIRATORY: Good respiratory efforts. Breath sounds equal and clear to auscultation bilaterally. GASTROINTESTINAL: Abdomen distended. diffusely tender to palpation. Normal active bowel sounds MUSCULOSKELETAL: Extremities without cyanosis, or edema. NEURO: Alert & Oriented x4 to person, place, time, situation. Moves all ext x4 but with global weakness. PSYCH: Appropriate mood and affect. 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 Julien followed by chemotherapy. Patient has been declining and was recently evaluated by Dr. Julien earlier this month and was diagnosed to have worsening metastatic disease despite therapy. Patient has been having vaginal bleeding which has worsened recently and developed chills about a week back along with sweating and nausea with worsening abdominal pain. She had a port placed about 5 days prior to admission. 12/09/16. Extensive discussion with the patient regarding prognosis. She expressed a deep understanding of her condition that her cancer is not responding to treatment. Patient elected to de-escalate care and go home with hospice. Stage IV metastatic uterine cancer: Patient followed by Dr. Julien. She has progressive disease with poor functional status and unlikely to tolerate further chemotherapy. Oncology recommended hospice. Patient is now agreeable - Pain control as needed. - Consult hospice Possible sepsis in an immunocompromise patient. - Infectious disease following. Continue Zosyn IV for now. WBC elevated, slightly improving -Hold off on abdominal CT Hypotension on admission: Secondary to anemia and acute bleeding. - Patient has been resuscitated aggressively. Status post 2 units of PRBC. Repeat transfusion today per oncology. - Continue to monitor H&H. Bleeding has improved. Anemia secondary to blood loss from uterine bleeding. - Bleeding is improved. Status post transfusion. H&H trended down. Transfusion ordered for today again. Acute renal failure: Appreciate nephrology input. Failure could be due to dehydration and hypotension on admission. Improving - Continue IV hydration. - Follow renal functions. -Renal ultrasound unremarkable except for ascites. Abdominal pain: Probably related to cancer. KUB unremarkable - CT of the abdomen ordered. Patient responded to stool softener and laxative. She had bowel movements Diabetes mellitus: - Sliding scale insulin with Accu-Cheks. GI prophylaxis: Stool softener PRN constipation. DVT PPx: Chemoprophylaxis contraindicated due to anemia, thrombocytopenia and bleeding. SHARON Lemus Discharge Planning Home with hospice once arrangements are made. Krissy Leavitt MD Dec 09, 2016 09:34
[2016-12-09] MEDS: PANTOPRAZOLE SODIUM 40 MG VIAL IV PUSH SCH (09:41)
[2016-12-09] MEDS: PRAVASTATIN SOD 20 MG TAB PO SCH (09:42)
[2016-12-09] MEDS: amLODIPine BESYLATE 5 MG TAB PO SCH (09:42)
--- NOTE | 2016-12-09 10:58 | HHI.IDPN ---
Subjective Subjective Remarks Ms. Lowry is a 66 y/o AAF with PMH significant for uterine carcinosarcoma. Patient underwent exploratory laparotomy, total abdominal hysterectomy, bilateral salpingo-oophorectomy,nephrectomy, omentectomy and repair of umbilical hernia by Dr. Julien on 09/30/16. 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 She had a long postoperative recovery with overall poor performance status. Ms. Lowry reports about 1 month following surgery she started having increased weakness (inability to ambulate a few feet) , new abdominal and back pain, nausea, vaginal bleeding, early satiety and eventual inability to eat. Patient was seen by Dr. Julien in follow-up on with PET/CT scan that revealed significant progression of disease when compared to preoperative scan. PET scan revealed spots in lungs, retroperitoneal adenopathy and central pelvic recurrence (extends from pelvis to umbilicus) of disease. Additionally on physical exam there was tumor at the vaginal apex. Patient was counseled on these findings and wished to pursue chemotherapy. Patient underwent line 1 - cycle 1 - Taxol/carboplatin chemotherapy at a 50% dose reduction (due to poor performance status) on 12/05/16. Immediately following chemotherapy she felt profound weakness and nearly fell getting out of chair, tachycardic rate 140s, nausea/vomiting and abdominal pain. She was then transferred to [facility] emergency department for further evaluation. Patient has a port in left chest wall. Patient was admitted to ICU for severe sepsis, renal insufficiency and metabolic acidosis. She received 1 L normal saline bolus and her blood pressure came up to the 130 systolic range with heart rate 120s. WBC 6.5, hemoglobin 8.3, hematocrit 26.6, platelet 196, neutrophil 82.6%. Cultures were obtained, still pending. She was started on empiric vancomycin and Zosyn in the ER. Creatinine 2.10, BUN 26, GFR 28. Lactic acid 5.5. CT scan abdomen/ pelvis revealed apparent increase in volume of pelvic neoplastic disease, may reflect hemorrhage into disease process. VQ scan low probability for pulmonary embolism. Chest x-ray with minimal right basal atelectasis or scarring. ID was consulted for evaluation and Mment of sepsis in an IC pt post chemotherapy. Overnight events reviewed. No fevers No rash No diarrhea Antibiotics I attest reviewed, obtained or updated the patient's home medications as well as current medications for name, frequency, dose and route of administration. Reported Meds & Active Scripts Active Trevor (Hydrocodone-Acetaminophen) 5-325 mg Tab 1 Tab PO Q6H PRN Keflex (Cephalexin) 500 Mg Cap 500 Mg PO Q6H Reported Zofran (Ondansetron HCl) 8 Mg Tab 8 Mg PO TID Pravastatin 20 Mg Tab 20 Mg PO DAILY Lisinopril 20 Mg Tab 20 Mg PO DAILY Hydrochlorothiazide 25 Mg Tab 25 Mg PO BID Proventil Hfa 6.7 GM Inh (Albuterol Sulfate) 90 Mcg/Act Aer 1 Puff INH Q4H PRN Current Medications Medications (Trade) Dose Ordered Sig/Courtney Route Start Time Stop Time Status Last Admin (NS Flush) 2 ml UNSCH PRN IV FLUSH 12/05/16 21:15 (NS Flush) 2 ml BID IV FLUSH 12/06/16 09:00 12/09/16 09:00 (Morphine Inj) 4 mg Q4HR PRN IV PUSH 12/05/16 21:15 12/06/16 03:26 (Protonix Inj) 40 mg DAILY IV PUSH 12/05/16 22:00 12/09/16 09:41 (Zofran Inj) 4 mg Q6H PRN IV PUSH 12/05/16 21:15 12/07/16 20:51 (Ambien) 5 mg HS PRN PO 12/05/16 21:15 (Duoneb Neb) 1 ampule Q2HR NEB PRN INH 12/05/16 21:15 Miscellaneous Information 1 Q361D XX 12/05/16 21:15 (Chlorhexidine 2% Cloth) 3 pack Taper DAILY@04 TOP 12/06/16 04:00 12/02/17 03:59 12/08/16 04:00 (Chlorhexidine 2% Cloth) 3 pack UNSCH PRN TOP 12/05/16 21:15 (Emilee-Colace) 1 tab BID PO 12/06/16 09:00 12/08/16 08:47 (Milk Of Magnesia Liq) 30 ml Q12H PRN PO 12/05/16 21:15 (Senokot) 17.2 mg Q12H PRN PO 12/05/16 21:15 12/06/16 09:01 (Dulcolax Supp) 10 mg DAILY PRN RECTAL 12/05/16 21:15 12/08/16 10:05 (Lactulose Liq) 30 ml DAILY PRN PO 12/05/16 21:15 (NovoLOG SUPPLEMENTAL SCALE) 1 Q6HR SQ 12/06/16 00:00 12/06/16 12:00 (D50w (Vial) Inj) 25 ml UNSCH PRN IV 12/05/16 21:30 (Glucagon Inj) 1 mg UNSCH PRN IM/SQ 12/05/16 21:30 (Trandate Inj) 10 mg Q2HR PRN IV PUSH 12/06/16 02:00 12/06/16 02:06 (Norvasc) 5 mg DAILY PO 12/06/16 02:00 12/09/16 09:42 (Proair Hfa Inh) 1 puff Q4H PRN INH 12/06/16 11:00 (Trevor 5-325 Mg) 1 tab Q6H PRN PO 12/06/16 20:00 12/09/16 10:39 (Pravachol) 20 mg DAILY PO 12/07/16 09:00 12/09/16 09:42 (Zofran Odt) 8 mg TID PO 12/06/16 15:00 12/07/16 18:10 (Apresoline) 50 mg Q8HR PRN PO 12/06/16 13:15 Piperacillin Sod/ Tazobactam Sod 50 ml @ 100 mls/hr Q6H IV 12/07/16 10:00 12/09/16 09:43 (Tums Chew) 500 mg Q2H PRN CHEW 12/08/16 04:30 12/08/16 08:49 Potassium Chloride/Sodium Chloride 1,000 ml @ 125 mls/hr Q8H IV 12/08/16 12:00 12/09/16 03:30 Sodium Chloride 250 ml @ 15 mls/hr ONCE ONCE IV 12/09/16 09:00 12/10/16 01:39 (Tylenol) 650 mg Q4H PRN PO 12/09/16 09:15 (Benadryl) 25 mg Q4H PRN PO 12/09/16 09:00 Lines Line sites with no e.o infection Past Medical History Hypertension Type 2 diabetes Hyperlipidemia Migraine headaches Stage IV uterine carcinosarcoma Asthma Migraines Exploratory laparotomy, total abdominal hysterectomy, bilateral soft bingo nephrectomy, omentectomy and repair of umbilical hernia Tubal ligation Right port placement Bilateral pelvic embolization Allergies: Coded Allergies: No Known Allergies (Verified , 12/05/16) Objective . Vital Signs Date Time Temp Pulse Resp B/P (MAP) Pulse Ox O2 Delivery O2 Flow Rate FiO2 12/09/16 09:37 98.0 122 16 146/81 (102) 90 12/09/16 05:09 97 12/09/16 04:07 110 12/09/16 03:41 98.0 114 20 138/74 (95) 94 12/09/16 01:45 122 20 91 12/09/16 01:41 108 12/09/16 00:01 112 12/08/16 23:39 98.2 110 20 115/65 (82) 92 12/08/16 20:07 112 12/08/16 20:00 Room Air 12/08/16 19:30 98.3 117 18 122/72 (89) 94 12/08/16 16:10 98.1 109 18 111/55 (73) 92 12/08/16 16:04 103 12/08/16 11:33 97.2 113 18 117/64 (81) 93 12/08/16 11:24 116 . Laboratory Tests Test 12/08/16 04:05 12/09/16 03:50 White Blood Count 23.8 TH/MM3 19.8 TH/MM3 Red Blood Count 2.87 MIL/MM3 2.75 MIL/MM3 Hemoglobin 7.7 GM/DL 7.5 GM/DL Hematocrit 23.4 % 22.6 % Mean Corpuscular Volume 81.7 FL 82.3 FL Mean Corpuscular Hemoglobin 26.7 PG 27.2 PG Mean Corpuscular Hemoglobin Concent 32.7 % 33.0 % Red Cell Distribution Width 16.8 % 16.6 % Platelet Count 96 TH/MM3 100 TH/MM3 Mean Platelet Volume 9.6 FL 10.0 FL Laboratory Tests Test 12/08/16 04:03 12/09/16 03:50 Blood Urea Nitrogen 30 MG/DL 26 MG/DL Creatinine 2.83 MG/DL 2.34 MG/DL Random Glucose 98 MG/DL 79 MG/DL Total Protein 5.1 GM/DL Calcium Level 7.4 MG/DL 7.6 MG/DL Sodium Level 137 MEQ/L 138 MEQ/L Potassium Level 3.3 MEQ/L 3.9 MEQ/L Chloride Level 96 MEQ/L 101 MEQ/L Carbon Dioxide Level 33.2 MEQ/L 29.8 MEQ/L Anion Gap 8 MEQ/L 7 MEQ/L Estimat Glomerular Filtration Rate 20 ML/MIN 25 ML/MIN Protein Corrected Calcium 8.5 MG/DL Albumin 2.2 GM/DL Phosphorus Level 3.7 MG/DL Magnesium Level 1.9 MG/DL Imaging Last Impressions Renal Ultrasound 12/08/16 Signed Impressions: Service Date/Time: Thursday, December 08, 2016 18:01 - CONCLUSION: 1. Ascites. 2. Normal sonographic appearance to the kidneys. James Crook MD Abdomen X-Ray 12/08/16 Signed Impressions: Service Date/Time: Thursday, December 08, 2016 09:18 - CONCLUSION: No acute disease. Daniel Egan MD Lung Scan-V Nuclear Medicine 12/05/162000 Signed Impressions: Service Date/Time: November 20:42 - CONCLUSION: Low probability scan for pulmonary embolism Juan Ramos MD Abdomen/Pelvis CT 12/05/162000 Signed Impressions: Service Date/Time: November 20:03 - CONCLUSION: Apparent increase in volume of pelvic neoplastic disease may reflect hemorrhage into the disease process. The current examination is limited by absence of IV contrast. See above for additional discussion. Juan Ramos MD Chest X-Ray 12/05/16 Signed Impressions: Service Date/Time: November 21:58 - CONCLUSION: Minimal right base atelectasis or scarring. Juan Ramos MD Physical Exam GENERAL: This is a well-nourished, well-developed patient, in no apparent distress. SKIN: No rashes, ecchymoses or lesions. Cool and dry. HEAD: Atraumatic. Normocephalic. No temporal or scalp tenderness. EYES: Pupils equal round and reactive. Extraocular motions intact. No scleral icterus. No injection or drainage. ENT: Nose without bleeding, purulent drainage or septal hematoma. Throat without erythema, tonsillar hypertrophy or exudate. Uvula midline. Airway patent. NECK: Trachea midline. Supple, nontender, no meningeal signs. CARDIOVASCULAR: Regular rate and rhythm without murmurs, gallops, or rubs. RESPIRATORY: Clear to auscultation. Breath sounds equal bilaterally with decrease in the bases. GASTROINTESTINAL: Abdomen soft, distended with diffuse tenderness. MUSCULOSKELETAL: Extremities without clubbing, cyanosis, or edema. No joint tenderness, effusion, or edema noted. No calf tenderness. Negative Homans sign bilaterally. NEUROLOGICAL: Awake and alert. Nonfocal examination Psych cooperative IV line sites with no evidence of infection. Assessment & Plan Remarks Possible sepsis in an immunocompromised patient. May not be able to mount fever and white count. Hypotension present on admission: Acute anemia, Prerenal, sepsis. Elevated lactic acid: Sepsis, tumor necrosis/bleed. Uterine carcinosarcoma with hemorrhage and distant metastases to lung. Recommendations Continue Zosyn IV for now. Follow cultures Chest x-ray was negative for any infiltrate. UA was negative and did not reflex to culture. His blood cultures negative at 48 hours okay to stop antibiotics and observe off of antibiotics as this could be hypotension from acute bleeding into her tumor. The lactic acidosis also could be from bleeding into the tumor or necrosis within the tumor. Follow cultures follow clinically manjitw pt above clinical plan: pt reports to me she is considering going home with hospice. She does not want to go to a facility. and RN. Christina Lemus MD Dec 09, 2016 10:58
--- NOTE | 2016-12-09 11:44 | HHI.NPPN ---
Subjective History of Present Illness 66-year-old black female who unfortunately has a history of uterine carcinosarcoma status post hysterectomy with debulking September, with chemotherapy unfortunately subsequent diagnosis having metastatic disease. She underwent her first course of Taxol and carboplatin on the day of admission December 05, 2016. Subsequently developed hypotension, nausea and vomiting and vaginal bleeding her creatinine was noted to be 2.1 that day. Palliative care was offered given severity of her malignancy but the patient declined this option. Initially there was evidence of lactic acidosis, acute renal insufficiency improved but has worsened again with a creatinine 2.83 and a consultation. Also hypokalemia. Patient admitting to anorexia. Interval History Patient with no verbal complaints. Review of Systems General Constitutional: Fatigue, Weight Change Objective Data Data 12/09/16 12/10/16 19:00 07:00 # Sanitary Pads 1 Pads Vital Signs Date Time Temp Pulse Resp B/P (MAP) Pulse Ox O2 Delivery O2 Flow Rate FiO2 12/09/16 11:06 Room Air 12/09/16 09:37 98.0 122 16 146/81 (102) 90 12/09/16 05:09 97 12/09/16 04:07 110 12/09/16 03:41 98.0 114 20 138/74 (95) 94 12/09/16 01:45 122 20 91 12/09/16 01:41 108 12/09/16 00:01 112 12/08/16 23:39 98.2 110 20 115/65 (82) 92 12/08/16 20:07 112 12/08/16 20:00 Room Air 12/08/16 19:30 98.3 117 18 122/72 (89) 94 12/08/16 16:10 98.1 109 18 111/55 (73) 92 12/08/16 16:04 103 -: 12/09/16 0350 12/09/16 0350 Tubes & Lines: Arellano Physical Exam General Appearance: Malnourished Eyes Eye Exam: Sclera White Pulmonary Resp Exam: Clear Bilaterally, Breath Sounds Equal, No Distress Cardiology CV Exam: Regular, Normal Sinus Rhythm, Good Perfusion Gastrointestinal/Abdomen GI Exam: Soft, Non-Tender Integumentary Skin Exam: Clear, Warm Extremeties Extremities Exam: Trace Edema (legs.) Assessment/Plan Discussed Condition With: Patient Problem List: (1) Acute kidney insufficiency ICD Codes: N28.9 - Disorder of kidney and ureter, unspecified Status: Acute Plan: Patient may have had dehydration initially however she may have also sustained an acute kidney injury related to hypotension on presentation. Uncertain if the carboplatin could also be contributory to the patient's rising creatinine level. Patient's creatinine level and urine output have improved. Does have some edema so will reduce IV rate slightly today. Repeat renal indices tomorrow. Medications should be adjusted for the patient's estimated GFR if clinically indicated. Avoid agents with significant potential for nephrotoxicity possible including NSAIDs for analgesia, iodine contrast agents. Gadolinium is contraindicated if the GFR is below 30. (2) Hypokalemia ICD Codes: E87.6 - Hypokalemia Status: Resolved (3) Metabolic acidosis ICD Codes: E87.2 - Acidosis Status: Resolved (4) Uterine cancer ICD Codes: C55 - Malignant neoplasm of uterus, part unspecified Status: Chronic Plan: Metastatic. Patient refused palliative care. Received first course of Taxol and carboplatin Hugo admission. Mitali Garcia MD Dec 09, 2016 11:44
--- NOTE | 2016-12-09 12:52 | HHI.HCPN ---
Reason for visit a. To assist with evaluation and management of symptoms including: abdominal / pelvic pain, weakness, anxiety. b. To assist medical decision maker(s) with: better understanding of current medical conditions; weighing benefits/burdens of medical treatment options; making medical treatment decisions. . Subjective/Interval History Patient was seen and examined in room. Teresa Haji LCSW at bedside. Patient is awake and alert. She reports abdominal, back and hip pain. Rates pain 7-8/ 10. She reports minimal relief with PRN [place]. She reports more relief with PRN Morphine. Advised PRN Morphine available. She tells me the cancer is growing and that she needs to get her affairs in order. She hopes to be allowed to peacefully when God calls her home. She wants to go home with hospice and verbalizes some frustration with her family in that she wants them to come and help her get home and get her affairs in order. Tachycardic. Creatinine 2.34. WBC remains elevated. . Family/friend interactions Spoke with daughterEverton via phone to provide update. She and her daughter will be happy to meet with patient and hospice. She indicates she will be home to provide care for patient. Will ask hospice admission nurse to call daughter to arrange meeting. . Advance Directives Living Will: Copy in medical record Health Care Surrogate: Copy in medical record Advance Directive Specifics Date completed: 12/06/16 . Health Care Surrogate(s): Decision Maker: Patient is currently capacitated to make her own decisions. Living will and HCS paperwork in EMR. Should she lose capacity she has named Soumya Chris (daughter AND Yossi Ricketts (nephew) as primary HCS and Rc Chavarria Jr (grandson) as alternate HCS. . Documented care wishes: She indicates she would be ok with life support, but does not want to be kept on machines for more than 1 week. 12/09/16 elected NO CODE. . Significant change in goals: NO CODE. Hospice consulted, meeting arranged at 2pm today with patient and family. Plan for DC home with hospice. . Objective Vital Signs Date Time Temp Pulse Resp B/P (MAP) Pulse Ox O2 Delivery O2 Flow Rate FiO2 12/09/16 11:06 Room Air 12/09/16 09:37 98.0 122 16 146/81 (102) 90 12/09/16 05:09 97 10/30/17 04:07 110 12/09/16 03:41 98.0 114 20 138/74 (95) 94 12/09/16 01:45 122 20 91 12/09/16 01:41 108 12/09/16 00:01 112 12/08/16 23:39 98.2 110 20 115/65 (82) 92 12/08/16 20:07 112 12/08/16 20:00 Room Air 12/08/16 19:30 98.3 117 18 122/72 (89) 94 12/08/16 16:10 98.1 109 18 111/55 (73) 92 12/08/16 16:04 103 Intake & Output 12/09/16 12/09/16 07:00 19:00 Intake Total 2135 ml Output Total 1000 ml Balance 1135 ml Intake Oral 180 ml IV Total 1955 ml Output Urine Total 1000 ml # Bowel Movements 1 # Sanitary Pads 1 Pads Physical Exam CONSTITUTIONAL/GENERAL: This is an adequately nourished patient, in no apparent distress. TUBES/LINES/DRAINS: Oxygen via NC, right chest port, PIV left hand, catheter. SKIN: No jaundice, rashes, or lesions. Ecchymoses on upper extremities. No wounds seen anteriorly. Skin temperature appropriate. Not diaphoretic. EYES: Pupils equal and round and reactive. Extraocular motions intact. No scleral icterus. No injection or drainage. Fundi not examined. ENT: Hearing grossly normal. Nose without bleeding or purulent drainage. Throat without exudate. CARDIOVASCULAR: Tachycardic. RESPIRATORY/CHEST: Symmetric, mildly labored with movement. Clear to auscultation. GASTROINTESTINAL: Abdomen distended. Abdominal mass noted. Tender lower abdomen. Bowel sounds present. GENITOURINARY: Without palpable bladder distension. Arellano catheter in place. MUSCULOSKELETAL: Extremities without clubbing, cyanosis, or edema. NEUROLOGICAL: Awake and alert. Generalized weakness. Follows commands. Cognitively sharp. Moves all extremities. PSYCHIATRIC: + anxiety, "just wants to rest." . Diagnostic Tests Laboratory Laboratory Tests Test 12/07/16 04:20 12/08/16 04:03 12/08/16 04:05 12/08/16 18:00 White Blood Count 24.8 TH/MM3 (4.0-11.0) 23.8 TH/MM3 (4.0-11.0) Red Blood Count 3.01 MIL/MM3 (4.00-5.30) 2.87 MIL/MM3 (4.00-5.30) Hemoglobin 8.0 GM/DL (11.6-15.3) 7.7 GM/DL (11.6-15.3) Hematocrit 24.0 % (35.0-46.0) 23.4 % (35.0-46.0) Mean Corpuscular Volume 79.6 FL (80.0-100.0) 81.7 FL (80.0-100.0) Mean Corpuscular Hemoglobin 26.6 PG (27.0-34.0) 26.7 PG (27.0-34.0) Mean Corpuscular Hemoglobin Concent 33.4 % (32.0-36.0) 32.7 % (32.0-36.0) Red Cell Distribution Width 16.7 % (11.6-17.2) 16.8 % (11.6-17.2) Platelet Count 107 TH/MM3 (150-450) 96 TH/MM3 (150-450) Mean Platelet Volume 8.8 FL (7.0-11.0) 9.6 FL (7.0-11.0) Neutrophils (%) (Auto) 95.1 % (16.0-70.0) Lymphocytes (%) (Auto) 2.6 % (9.0-44.0) Monocytes (%) (Auto) 2.3 % (0.0-8.0) Eosinophils (%) (Auto) 0.0 % (0.0-4.0) Basophils (%) (Auto) 0.0 % (0.0-2.0) Neutrophils # (Auto) 23.6 TH/MM3 (1.8-7.7) Lymphocytes # (Auto) 0.6 TH/MM3 (1.0-4.8) Monocytes # (Auto) 0.6 TH/MM3 (0-0.9) Eosinophils # (Auto) 0.0 TH/MM3 (0-0.4) Basophils # (Auto) 0.0 TH/MM3 (0-0.2) CBC Comment AUTO DIFF Differential Total Cells Counted 100 Neutrophils % (Manual) 87 % (16-70) Band Neutrophils % 8 % (0-6) Lymphocytes % 2 % (9-44) Monocytes % 3 % (0-8) Neutrophils # (Manual) 23.6 TH/MM3 (1.8-7.7) Differential Comment FINAL DIFF MANUAL Platelet Estimate LOW (NORMAL) Platelet Morphology Comment NORMAL (NORMAL) Ovalocytes 1+ (NORMAL) Blood Urea Nitrogen 31 MG/DL (7-18) 30 MG/DL (7-18) Creatinine 2.55 MG/DL (0.50-1.00) 2.83 MG/DL (0.50-1.00) Random Glucose 142 MG/DL (74-106) 98 MG/DL (74-106) Total Protein 5.3 GM/DL (6.4-8.2) 5.1 GM/DL (6.4-8.2) Albumin 2.3 GM/DL (3.4-5.0) Calcium Level 7.5 MG/DL (8.5-10.1) 7.4 MG/DL (8.5-10.1) Phosphorus Level 3.5 MG/DL (2.5-4.9) Magnesium Level 1.9 MG/DL (1.5-2.5) Alkaline Phosphatase 43 U/L (45-117) Aspartate Amino Transf (AST/SGOT) 86 U/L (15-37) Alanine Aminotransferase (ALT/SGPT) 15 U/L (10-53) Total Bilirubin 1.0 MG/DL (0.2-1.0) Sodium Level 135 MEQ/L (136-145) 137 MEQ/L (136-145) Potassium Level 3.4 MEQ/L (3.5-5.1) 3.3 MEQ/L (3.5-5.1) Chloride Level 97 MEQ/L (98-107) 96 MEQ/L (98-107) Carbon Dioxide Level 29.3 MEQ/L (21.0-32.0) 33.2 MEQ/L (21.0-32.0) Anion Gap 9 MEQ/L (5-15) 8 MEQ/L (5-15) Estimat Glomerular Filtration Rate 23 ML/MIN (>89) 20 ML/MIN (>89) Hemoglobin A1c 6.0 % (4.3-6.0) Free Thyroxine 1.32 NG/DL (0.76-1.46) Thyroid Stimulating Hormone 3rd Gen 1.150 uIU/ML (0.358-3.740) Protein Corrected Calcium 8.5 MG/DL (8.5-10.1) Urine Color LIGHT-YELLOW (YELLW/STRAW) Urine Turbidity CLEAR (CLEAR) Urine pH 8.5 (5.0-8.5) Urine Specific [place] 1.012 (1.002-1.035) Urine Protein 30 mg/dL (NEG-TRACE) Urine Glucose (UA) NEG mg/dL (NEG) Urine Ketones NEG mg/dL (NEG) Urine Occult Blood SMALL (NEG) Urine Nitrite NEG (NEG) Urine Bilirubin NEG (NEG) Urine Urobilinogen LESS THAN 2.0 MG/DL (LESS Urine Leukocyte Esterase SMALL (NEG) Urine RBC 18 /hpf (0-3) Urine WBC 6 /hpf (0-5) Urine Mucus FEW /lpf (OCC) Urine Eosinophils NONE SEEN /HPF (NONE SEEN) Test 12/09/16 03:50 White Blood Count 19.8 TH/MM3 (4.0-11.0) Red Blood Count 2.75 MIL/MM3 (4.00-5.30) Hemoglobin 7.5 GM/DL (11.6-15.3) Hematocrit 22.6 % (35.0-46.0) Mean Corpuscular Volume 82.3 FL (80.0-100.0) Mean Corpuscular Hemoglobin 27.2 PG (27.0-34.0) Mean Corpuscular Hemoglobin Concent 33.0 % (32.0-36.0) Red Cell Distribution Width 16.6 % (11.6-17.2) Platelet Count 100 TH/MM3 (150-450) Mean Platelet Volume 10.0 FL (7.0-11.0) Blood Urea Nitrogen 26 MG/DL (7-18) Creatinine 2.34 MG/DL (0.50-1.00) Random Glucose 79 MG/DL (74-106) Albumin 2.2 GM/DL (3.4-5.0) Calcium Level 7.6 MG/DL (8.5-10.1) Phosphorus Level 3.7 MG/DL (2.5-4.9) Magnesium Level 1.9 MG/DL (1.5-2.5) Sodium Level 138 MEQ/L (136-145) Potassium Level 3.9 MEQ/L (3.5-5.1) Chloride Level 101 MEQ/L (98-107) Carbon Dioxide Level 29.8 MEQ/L (21.0-32.0) Anion Gap 7 MEQ/L (5-15) Estimat Glomerular Filtration Rate 25 ML/MIN (>89) Result Diagram: 12/09/16 0350 12/09/16 0350 Microbiology Microbiology Date/Time Source Procedure Growth Status 12/05/16 19:30 Blood Peripheral Aerobic Blood Culture - Preliminary NO GROWTH IN 4 DAYS Resulted 12/05/16 19:30 Blood Peripheral Anaerobic Blood Culture - Preliminary NO GROWTH IN 4 DAYS Resulted Imaging Last Impressions Renal Ultrasound 12/08/16 Signed Impressions: Service Date/Time: Thursday, December 08, 2016 18:01 - CONCLUSION: 1. Ascites. 2. Normal sonographic appearance to the kidneys. James Crook MD Abdomen X-Ray 12/08/16 Signed Impressions: Service Date/Time: Thursday, December 08, 2016 09:18 - CONCLUSION: No acute disease. Daniel Egan MD Lung Scan- Nuclear Medicine 12/05/162000 Signed Impressions: Service Date/Time: November 20:42 - CONCLUSION: Low probability scan for pulmonary embolism Juan Ramos MD Abdomen/Pelvis CT 12/05/162000 Signed Impressions: Service Date/Time: November 20:03 - CONCLUSION: Apparent increase in volume of pelvic neoplastic disease may reflect hemorrhage into the disease process. The current examination is limited by absence of IV contrast. See above for additional discussion. Juan Ramos MD Chest X-Ray 12/05/16 Signed Impressions: Service Date/Time: November 21:58 - CONCLUSION: Minimal right base atelectasis or scarring. Juan Ramos MD Assessment and Plan Disease Oriented Problem List: (1) Hyperlipidemia (2) Hypertension (3) Severe sepsis (4) Metabolic acidosis (5) Uterine cancer (6) Vaginal bleeding (7) Pulmonary nodules (8) Asthma Symptom Scale: (1) Constipation 0-10 Scale: 0 Comment: LBM 12/09/16 (2) Pain 0-10 Scale: 7 (3) Weakness 0-10 Scale: Unable to quantify (4) Anxiety 0-10 Scale: 3 Pertinent Non-Medical Issues Psychosocial: Single. Supported by her daughter and granddaughter. Spiritual: Protestant christopher. Legal: Patient is currently capacitated to make her own decisions. She completed Living Will and designation of health care surrogate forms today, sent o [facility] to be scanned into EMR. Ethical issues impacting care: No known concerns at this time. . Important Contacts * Soumya Chris, daughter/co- HCS: or [phone] * Yossi Ricketts, nephew/co-HCS: [phone] * Rc Chavarria Jr., grandson/ alternate HCS; [phone] . Prognosis Poor prognosis given advanced recurrent aggressive carcinosarcoma. . Code Status: No Code Plan * Decision Maker: Patient is currently capacitated to make her own decisions. Living will and HCS paperwork in EMR. Should she lose capacity she has named Soumya Chris (daughter AND Yossi Ricketts (nephew) as primary HCS and Rc Chavarria Jr (grandson) as alternate HCS. * NO CODE * Hospice consulted, meeting family 2-3pm. Patient hopes to go home with hospice. * SYMPTOMS: Pain: abdominal pain due to recurrent carcinosarcoma. Rates pain 7 on 0-10 scale. Current doses of Morphine adequately controlling pain per patient report. Constipation: bowels are now moving. Has PRN meds available. Weakness: due to progressive worsening cancer, chemotherapy. Anxiety: situational and increased due to dyspnea. Will benefit from PRN benzo when enrolled in hospice. * Palliative care will continue to follow throughout hospital course to assist with symptom management and clarification of goals as needed. . Lin Dang Dec 09, 2016 12:52
[2016-12-09] MEDS: MORPHINE SULFATE 4 MG/ML INJ IV PUSH PRN (20:33)
[2016-12-10] VITALS (12 sets, daily range): BP systolic 134–181; BP diastolic 75–100; PULSE 84–126; RESP 16–18; TEMP 98.5–99.3; O2SAT 91–94
[2016-12-10] MEDS: CHLORHEXIDINE GLUCONATE 2 % 1 PACK (2 CLOTHS) TOP SCH (02:52)
[2016-12-10] MEDS: PIPERACIL-TAZO 2.25 GM PREMIX 50 ML IV SCH ×4 (04:48→21:14)
[2016-12-10] MEDS: NS + KCL 20 MEQ INJ 1,000 ML IV SCH ×2 (04:54→16:09)
[2016-12-10] MEDS: INSULIN ASPART SUPPLEMENTAL SCALE SQ SCH ×4 (04:55→23:15)
[2016-12-10 05:49] LABS: BICARBONATE 23.1 MEQ/L (21.0-32.0); CALCIUM 8.1 MG/DL (8.5-10.1); CREATININE 1.89 MG/DL (0.50-1.00)
[2016-12-10] MEDS: ONDANSETRON ODT 4 MG TAB PO SCH ×3 (09:00→18:00)
[2016-12-10] MEDS: DOCUSATE SODIUM 50 MG/SENNA 8.6 MG TAB PO SCH ×2 (09:00→20:58)
[2016-12-10] MEDS: amLODIPine BESYLATE 5 MG TAB PO SCH (09:22)
[2016-12-10] MEDS: PRAVASTATIN SOD 20 MG TAB PO SCH (09:22)
[2016-12-10] MEDS: PANTOPRAZOLE SODIUM 40 MG VIAL IV PUSH SCH (09:23)
[2016-12-10] MEDS: SODIUM CHLORIDE 0.9% FLUSH 10 ML FLUSH IV FLUSH SCH ×2 (09:28→20:59)
--- NOTE | 2016-12-10 10:21 | HHI.PR ---
Addendum to Inpatient Note Addendum Reason: Additional Documentation Additional Information D/w : plan for home with hospice. Will sign off please call back if any change in clinical condition or questions. Christina Lemus MD Dec 10, 2016 10:21
--- NOTE | 2016-12-10 10:59 | HHI.NPPN ---
Subjective History of Present Illness 66-year-old black female who unfortunately has a history of uterine carcinosarcoma status post hysterectomy with debulking September, with chemotherapy unfortunately subsequent diagnosis having metastatic disease. She underwent her first course of Taxol and carboplatin on the day of admission December 05, 2016. Subsequently developed hypotension, nausea and vomiting and vaginal bleeding her creatinine was noted to be 2.1 that day. Palliative care was offered given severity of her malignancy but the patient declined this option. Initially there was evidence of lactic acidosis, acute renal insufficiency improved but has worsened again with a creatinine 2.83 and a consultation. Also hypokalemia. Patient admitting to anorexia. Interval History Says she is feeling better today Review of Systems General Constitutional: Fatigue, Weight Change Objective Data Data Vital Signs Date Time Temp Pulse Resp B/P (MAP) Pulse Ox O2 Delivery O2 Flow Rate FiO2 12/10/16 09:12 Room Air 12/10/16 04:21 98.7 110 18 150/75 (100) 93 12/10/16 04:03 115 12/10/16 00:08 112 12/09/16 23:10 98.3 116 18 137/76 (96) 94 12/09/16 20:13 112 12/09/16 20:00 Room Air 12/09/16 19:35 98.6 115 18 153/82 93 12/09/16 16:49 98.3 120 16 119/67 91 12/09/16 16:36 98.4 120 16 114/70 (85) 90 12/09/16 16:26 98.4 120 16 114/70 90 12/09/16 13:02 97.8 113 16 126/70 (88) 93 12/09/16 11:06 Room Air -: 12/09/16 0350 12/10/16 0450 Imaging Last Impressions Renal Ultrasound 12/08/16 0000 Signed Impressions: Service Date/Time: Thursday, December 08, 2016 18:01 - CONCLUSION: 1. Ascites. 2. Normal sonographic appearance to the kidneys. James Crook MD Abdomen X-Ray 12/08/16 0000 Signed Impressions: Service Date/Time: Thursday, December 08, 2016 09:18 - CONCLUSION: No acute disease. Daniel Egan MD Lung Scan-V Nuclear Medicine 12/05/162000 Signed Impressions: Service Date/Time: November 20:42 - CONCLUSION: Low probability scan for pulmonary embolism Juan Ramos MD Abdomen/Pelvis CT 12/05/162000 Signed Impressions: Service Date/Time: November 20:03 - CONCLUSION: Apparent increase in volume of pelvic neoplastic disease may reflect hemorrhage into the disease process. The current examination is limited by absence of IV contrast. See above for additional discussion. Juan Ramos MD Chest X-Ray 12/05/16 Signed Impressions: Service Date/Time: November 21:58 - CONCLUSION: Minimal right base atelectasis or scarring. Juan Ramos MD Tubes & Lines: Arellano Medication Review Current Medications Medications (Trade) Dose Ordered Sig/Courtney Route Start Time Stop Time Status Last Admin (NS Flush) 2 ml UNSCH PRN IV FLUSH 12/05/16 21:15 (NS Flush) 2 ml BID IV FLUSH 12/06/16 09:00 12/10/16 09:28 (Morphine Inj) 4 mg Q4HR PRN IV PUSH 12/05/16 21:15 12/09/16 20:33 (Protonix Inj) 40 mg DAILY IV PUSH 12/05/16 22:00 12/10/16 09:23 (Zofran Inj) 4 mg Q6H PRN IV PUSH 12/05/16 21:15 12/07/16 20:51 (Ambien) 5 mg HS PRN PO 12/05/16 21:15 (Duoneb Neb) 1 ampule Q2HR NEB PRN INH 12/05/16 21:15 Miscellaneous Information 1 Q361D XX 12/05/16 21:15 (Chlorhexidine 2% Cloth) 3 pack Taper DAILY@04 TOP 12/06/16 04:00 12/02/17 03:59 12/08/16 04:00 (Chlorhexidine 2% Cloth) 3 pack UNSCH PRN TOP 12/05/16 21:15 (Emilee-Colace) 1 tab BID PO 12/06/16 09:00 12/08/16 08:47 (Milk Of Magnesia Liq) 30 ml Q12H PRN PO 12/05/16 21:15 (Senokot) 17.2 mg Q12H PRN PO 12/05/16 21:15 12/06/16 09:01 (Dulcolax Supp) 10 mg DAILY PRN RECTAL 12/05/16 21:15 12/08/16 10:05 (Lactulose Liq) 30 ml DAILY PRN PO 12/05/16 21:15 (NovoLOG SUPPLEMENTAL SCALE) 1 Q6HR SQ 12/06/16 00:00 12/06/16 12:00 (D50w (Vial) Inj) 25 ml UNSCH PRN IV 12/05/16 21:30 (Glucagon Inj) 1 mg UNSCH PRN IM/SQ 12/05/16 21:30 (Trandate Inj) 10 mg Q2HR PRN IV PUSH 12/06/16 02:00 12/06/16 02:06 (Norvasc) 5 mg DAILY PO 12/06/16 02:00 12/10/16 09:22 (Proair Hfa Inh) 1 puff Q4H PRN INH 12/06/16 11:00 ([place] 5-325 Mg) 1 tab Q6H PRN PO 12/06/16 20:00 12/09/16 10:39 (Pravachol) 20 mg DAILY PO 12/07/16 09:00 12/10/16 09:22 (Zofran Odt) 8 mg TID PO 12/06/16 15:00 12/07/16 18:10 (Apresoline) 50 mg Q8HR PRN PO 12/06/16 13:15 Piperacillin Sod/ Tazobactam Sod 50 ml @ 100 mls/hr Q6H IV 12/07/16 10:00 12/10/16 09:22 (Tums Chew) 500 mg Q2H PRN CHEW 12/08/16 04:30 12/08/16 08:49 Potassium Chloride/Sodium Chloride 1,000 ml @ 100 mls/hr Q10H IV 12/08/16 12:00 12/10/16 04:54 (Tylenol) 650 mg Q4H PRN PO 12/09/16 09:15 12/09/16 15:21 (Benadryl) 25 mg Q4H PRN PO 12/09/16 09:00 12/09/16 15:21 Physical Exam General Appearance: No Acute Distress, Comfortable, Malnourished Eyes Eye Exam: Sclera White Pulmonary Resp Exam: Clear Bilaterally, Breath Sounds Equal, No Distress Cardiology CV Exam: Regular, Normal Sinus Rhythm, Good Perfusion Gastrointestinal/Abdomen GI Exam: Soft, Non-Tender Integumentary Skin Exam: Clear, Warm Extremeties Extremities Exam: No Edema Neurologic Neuro Exam: Alert, Awake Psychiatric Psych Exam: Appropriate Responses Assessment/Plan Discussed Condition With: Patient Problem List: (1) Acute kidney insufficiency ICD Codes: N28.9 - Disorder of kidney and ureter, unspecified Status: Acute Plan: Patient may have had dehydration initially however she may have also sustained an acute kidney injury related to hypotension on presentation. Uncertain if the carboplatin could also be contributory to the patient's rising creatinine level. SCr improving UOP good. Continue IVF. Consider reduction tomorrow if po intake improves. Reviewed palliative notes. Appears the patient may be transitioning to hospice care, but not clear. Will continue to follow. Medications should be adjusted for the patient's estimated GFR if clinically indicated. Avoid agents with significant potential for nephrotoxicity possible including NSAIDs for analgesia, iodine contrast agents. Gadolinium is contraindicated if the GFR is below 30. (2) Hypokalemia ICD Codes: E87.6 - Hypokalemia Status: Resolved Plan: KCl repletion as ordered (3) Metabolic acidosis ICD Codes: E87.2 - Acidosis Status: Resolved (4) Uterine cancer ICD Codes: C55 - Malignant neoplasm of uterus, part unspecified Status: Chronic Plan: Metastatic. Palliative care on board Received first course of Taxol and carboplatin just prior to admission. Olivia Archuleta Dec 10, 2016 10:59
--- NOTE | 2016-12-10 11:59 | HHI.PR ---
Subjective Remarks Patient wants to go home with hospice tomorrow. States her family is getting her home ready. Still having persistent pain and not eating much. Objective Vitals Vital Signs Date Time Temp Pulse Resp B/P (MAP) Pulse Ox O2 Delivery O2 Flow Rate FiO2 12/10/16 09:12 98.6 119 16 142/85 (104) 93 12/10/16 09:12 Room Air 12/10/16 04:21 98.7 110 18 150/75 (100) 93 12/10/16 04:03 115 12/10/16 00:08 112 12/09/16 23:10 98.3 116 18 137/76 (96) 94 12/09/16 20:13 112 12/09/16 20:00 Room Air 12/09/16 19:35 98.6 115 18 153/82 93 12/09/16 16:49 98.3 120 16 119/67 91 12/09/16 16:36 98.4 120 16 114/70 (85) 90 12/09/16 16:26 98.4 120 16 114/70 90 12/09/16 13:02 97.8 113 16 126/70 (88) 93 I/O 12/09/16 12/09/16 12/09/16 12/10/16 12/10/16 12/10/16 07:00 15:00 23:00 07:00 15:00 23:00 Intake Total 965 ml 50 ml 945 ml 1145 ml Output Total 700 ml 850 ml 1750 ml Balance 265 ml 50 ml 95 ml -605 ml Intake Oral 60 ml 120 ml 300 ml IV Total 905 ml 50 ml 375 ml 845 ml Packed Cells 400 ml Blood Product IV Normal Saline Flush 50 ml Output Urine Total 700 ml 850 ml 1750 ml # Bowel Movements 1 2 1 # Sanitary Pads 1 Pads 1 Pads Result Diagram: 12/09/16 0350 12/10/16 0450 Objective Remarks GENERAL: Patient appear frail in no acute distress. CARDIOVASCULAR: Normal rate and regular rhythm without murmurs, gallops, or rubs. RESPIRATORY: Good respiratory efforts. Breath sounds equal and clear to auscultation bilaterally. GASTROINTESTINAL: Abdomen distended. diffusely tender to palpation. Normal active bowel sounds MUSCULOSKELETAL: Extremities without cyanosis, or edema. NEURO: Alert & Oriented x4 to person, place, time, situation. Moves all ext x4 but with global weakness. PSYCH: Appropriate mood and affect. 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 Julien followed by chemotherapy. Patient has been declining and was recently evaluated by Dr. Julien earlier this month and was diagnosed to have worsening metastatic disease despite therapy. Patient has been having vaginal bleeding which has worsened recently and developed chills about a week back along with sweating and nausea with worsening abdominal pain. She had a port placed about 5 days prior to admission. 12/09/16. Extensive discussion with the patient regarding prognosis. She expressed a deep understanding of her condition that her cancer is not responding to treatment. Patient elected to de-escalate care and go home with hospice. Stage IV metastatic uterine cancer: Patient followed by Dr. Julien. She has progressive disease with poor functional status and unlikely to tolerate further chemotherapy. Oncology recommended hospice. Patient is now agreeable - Pain control as needed. - Patient states family is getting her home ready for tomorrow. Possible sepsis in an immunocompromise patient. - Infectious disease followed and sign off since patient elected for Hospice. Plan to DC antibiotics on DC tomorrow. - Hold off on abdominal CT Hypotension on admission: Secondary to anemia and acute bleeding. - Patient has been resuscitated aggressively. Status post multiple transfusion of PRBC. . - Patient elected to descalate care Anemia secondary to blood loss from uterine bleeding. - Bleeding is improved. Status post transfusion. Acute renal failure: Appreciate nephrology input. Failure could be due to dehydration and hypotension on admission. Improving - Continue IV hydration. - Follow renal functions. - Renal ultrasound unremarkable except for ascites. Abdominal pain: Probably related to cancer. KUB unremarkable - Patient responded to stool softener and laxative. She had bowel movements Diabetes mellitus: - Sliding scale insulin with Accu-Cheks. GI prophylaxis: Stool softener PRN constipation. DVT PPx: Chemoprophylaxis contraindicated due to anemia, thrombocytopenia and bleeding. DW Dr. Allan Berumen placed a call to Hospice to assist the patient with arrangements at home if possible. Discharge Planning Home with hospice once arrangements are made. Krissy Leavitt MD Dec 10, 2016 11:59
[2016-12-10] MEDS: ACETAMINOPHEN/HYDROcodone 325 MG/5 MG TAB PO PRN ×2 (12:39→22:25)
[2016-12-11] VITALS (11 sets, daily range): BP systolic 148–170; BP diastolic 86–99; PULSE 108–126; RESP 16–18; TEMP 98–98.6; O2SAT 94–98
[2016-12-11] MEDS: CHLORHEXIDINE GLUCONATE 2 % 1 PACK (2 CLOTHS) TOP SCH (00:14)
[2016-12-11] MEDS: PIPERACIL-TAZO 2.25 GM PREMIX 50 ML IV SCH ×4 (03:15→20:44)
[2016-12-11] MEDS: NS + KCL 20 MEQ INJ 1,000 ML IV SCH ×2 (03:15→14:32)
[2016-12-11] MEDS: INSULIN ASPART SUPPLEMENTAL SCALE SQ SCH ×4 (06:00→23:17)
[2016-12-11] MEDS: SODIUM CHLORIDE 0.9% FLUSH 10 ML FLUSH IV FLUSH SCH ×2 (08:08→20:49)
[2016-12-11] MEDS: DOCUSATE SODIUM 50 MG/SENNA 8.6 MG TAB PO SCH ×2 (08:09→20:43)
[2016-12-11] MEDS: PRAVASTATIN SOD 20 MG TAB PO SCH (08:09)
[2016-12-11] MEDS: amLODIPine BESYLATE 5 MG TAB PO SCH (08:09)
[2016-12-11] MEDS: ONDANSETRON ODT 4 MG TAB PO SCH ×3 (08:09→17:45)
[2016-12-11] MEDS: PANTOPRAZOLE SODIUM 40 MG VIAL IV PUSH SCH (08:09)
--- NOTE | 2016-12-11 09:04 | PD.ONC.PN ---
Subjective Subjective Remarks patient resting in bed states she is going to go home tomorrow with Hospice her family is here from [place] and she was happy to see them states pain controlled at this time she feels sleepy no complaints Objective Data Date Time Temp Pulse Resp B/P (MAP) Pulse Ox O2 Delivery O2 Flow Rate FiO2 12/11/16 04:09 116 12/11/16 03:18 98.6 116 16 158/86 (110) 94 12/11/16 00:07 114 12/10/16 23:15 98.5 120 16 134/77 (96) 93 12/10/16 22:20 154/88 (110) 12/10/16 21:07 181/100 (127) 12/10/16 20:45 99.3 123 16 164/97 (119) 94 12/10/16 20:04 126 12/10/16 20:00 Room Air 12/10/16 15:40 98.7 114 144/79 (100) 94 12/10/16 12:25 98.8 124 16 148/90 (109) 91 12/10/16 09:12 98.6 119 16 142/85 (104) 93 12/10/16 09:12 Room Air 12/11/16 12/11/16 12/11/16 07:00 15:00 23:00 Intake Total 1295 ml Output Total 2200 ml Balance -905 ml Result Diagram: 12/09/16 0350 12/10/16 0450 Administered Medications Medications (Trade) Dose Ordered Sig/Courtney Route PRN Reason Start Time Stop Time Status Last Admin Dose Admin Sodium Chloride (NS Flush) 2 ml BID IV FLUSH 12/06/16 09:00 12/11/16 08:08 Morphine Sulfate (Morphine Inj) 4 mg Q4HR PRN IV PUSH PAIN SCALE 6 TO 10 12/05/16 21:15 12/09/16 20:33 Pantoprazole Sodium (Protonix Inj) 40 mg DAILY IV PUSH 12/05/16 22:00 12/11/16 08:09 Ondansetron HCl (Zofran Inj) 4 mg Q6H PRN IV PUSH NAUSEA OR VOMITING 12/05/16 21:15 12/07/16 20:51 Zolpidem Tartrate (Ambien) 5 mg HS PRN PO INSOMNIA 12/05/16 21:15 12/10/16 22:25 Chlorhexidine Gluconate (Chlorhexidine 2% Cloth) Taper DAILY@04 TOP 12/06/16 04:00 12/02/17 03:59 12/08/16 04:00 Senna/Docusate Sodium (Emilee-Colace) 1 tab BID PO 12/06/16 09:00 12/11/16 08:09 Sennosides (Senokot) 17.2 mg Q12H PRN PO Moderate constipation 12/05/16 21:15 12/06/16 09:01 Bisacodyl (Dulcolax Supp) 10 mg DAILY PRN RECTAL SEVERE CONSITIPATION 12/05/16 21:15 12/08/16 10:05 Insulin Aspart (NovoLOG SUPPLEMENTAL SCALE) 1 Q6HR SQ 12/06/16 00:00 12/06/16 12:00 Labetalol HCl (Trandate Inj) 10 mg Q2HR PRN IV PUSH SBP greater than 160mm Hg 12/06/16 02:00 12/06/16 02:06 Amlodipine Besylate (Norvasc) 5 mg DAILY PO 12/06/16 02:00 12/11/16 08:09 Acetaminophen/ Hydrocodone Bitart ([place] 5-325 Mg) 1 tab Q6H PRN PO PAIN SCALE 1 TO 10 12/06/16 20:00 12/10/16 22:25 Pravastatin Sodium (Pravachol) 20 mg DAILY PO 12/07/16 09:00 12/11/16 08:09 Ondansetron HCl (Zofran Odt) 8 mg TID PO 12/06/16 15:00 12/11/16 08:09 Hydralazine HCl (Apresoline) 50 mg Q8HR PRN PO SBP > 170 12/06/16 13:15 12/10/16 21:10 Piperacillin Sod/ Tazobactam Sod 50 ml @ 100 mls/hr Q6H IV 12/07/16 10:00 12/11/16 03:15 Calcium Carbonate (Tums Chew) 500 mg Q2H PRN CHEW heart burn 12/08/16 04:30 12/08/16 08:49 Potassium Chloride/Sodium Chloride 1,000 ml @ 100 mls/hr Q10H IV 12/08/16 12:00 12/11/16 03:15 Acetaminophen (Tylenol) 650 mg Q4H PRN PO SEE LABEL COMMENTS 12/09/16 09:15 12/09/16 15:21 Diphenhydramine HCl (Benadryl) 25 mg Q4H PRN PO SEE LABEL COMMENTS 12/09/16 09:00 12/09/16 15:21 Objective Remarks GENERAL: Well-nourished, well-developed patient. SKIN: Warm and dry. HEAD: Normocephalic. EYES: No scleral icterus. No injection or drainage. GASTROINTESTINAL: distended NEUROLOGICAL: No obvious focal deficit. Awake, alert, and oriented x3. PSYCHIATRIC: Appropriate mood and affect; insight and judgment normal. Assessment/Plan Problem List: (1) Acute kidney insufficiency ICD Codes: N28.9 - Disorder of kidney and ureter, unspecified Status: Acute Plan: nephrology following: JENNA could be d/t continued dehydration, hypotension at time of admission renal U/S shown ascites otherwise WNL kidney function improved with hydration supportive care (2) Uterine cancer ICD Codes: C55 - Malignant neoplasm of uterus, part unspecified Status: Chronic Plan: s/p Line one cycle one Taxol and Carboplatin IV chemo 12/05/16 at 50% dose reduction poor prognosis patient is going to go home with Hospice tomorrow supportive/comfort care (3) Severe sepsis ICD Codes: A41.9 - Sepsis, unspecified organism; R65.20 - Severe sepsis without septic shock Status: Acute Plan: comfort care at this time (4) Anemia ICD Codes: D64.9 - Anemia, unspecified Status: Chronic Plan: transfused 1 unit PRBCs 12/10 Attending Statement Discussed with Dr. Julien and he is in agreement. Problem Qualifiers (1) Anemia: Haris Merrill Dec 11, 2016 09:04
[2016-12-11] MEDS: ACETAMINOPHEN/HYDROcodone 325 MG/5 MG TAB PO PRN ×2 (12:25→17:50)
--- NOTE | 2016-12-11 14:13 | HHI.PR ---
Subjective Remarks Patient reports she signed the papers with hospice today. They are making arrangements to get a home ready. Discussed with RN. Heart rate and BP elevated. Objective Vitals Vital Signs Date Time Temp Pulse Resp B/P (MAP) Pulse Ox O2 Delivery O2 Flow Rate FiO2 12/11/16 12:00 98.0 114 18 157/94 (115) 96 12/11/16 11:36 18 160/99 (119) 96 12/11/16 08:10 126 12/11/16 08:00 98.4 126 16 161/97 (118) 96 12/11/16 07:30 Room Air 12/11/16 04:09 116 12/11/16 03:18 98.6 116 16 158/86 (110) 94 12/11/16 00:07 114 12/10/16 23:15 98.5 120 16 134/77 (96) 93 12/10/16 22:20 154/88 (110) 12/10/16 21:07 181/100 (127) 12/10/16 20:45 99.3 123 16 164/97 (119) 94 12/10/16 20:04 126 12/10/16 20:00 Room Air 12/10/16 15:40 98.7 114 144/79 (100) 94 I/O 12/10/16 12/10/16 12/10/16 12/11/16 12/11/16 12/11/16 07:00 15:00 23:00 07:00 15:00 23:00 Intake Total 1145 ml 50 ml 2000 ml 1295 ml 50 ml Output Total 1750 ml 550 ml 1250 ml 2200 ml Balance -605 ml -500 ml 750 ml -905 ml 50 ml Intake Oral 300 ml 0 ml IV Total 845 ml 50 ml 2000 ml 1295 ml 50 ml Output Urine Total 1750 ml 550 ml 1250 ml 2200 ml # Bowel Movements 1 0 Result Diagram: 12/09/16 0350 12/10/16 0450 Objective Remarks GENERAL: Patient appear frail in no acute distress. CARDIOVASCULAR: Normal rate and regular rhythm without murmurs, gallops, or rubs. RESPIRATORY: Breath sounds equal and clear to auscultation bilaterally. GASTROINTESTINAL: Abdomen distended. diffusely tender to palpation. Normal active bowel sounds MUSCULOSKELETAL: Extremities without cyanosis, or edema. NEURO: Alert & Oriented x4 to person, place, time, situation. Moves all ext x4 but with global weakness. PSYCH: Appropriate mood and affect. 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 Julien followed by chemotherapy. Patient has been declining and was recently evaluated by Dr. Julien earlier this month and was diagnosed to have worsening metastatic disease despite therapy. Patient has been having vaginal bleeding which has worsened recently and developed chills about a week back along with sweating and nausea with worsening abdominal pain. She had a port placed about 5 days prior to admission. 12/09/16. Extensive discussion with the patient regarding prognosis. She expressed a deep understanding of her condition that her cancer is not responding to treatment. Patient elected to de-escalate care and go home with hospice. Stage IV metastatic uterine cancer: Patient followed by Dr. Julien. She has progressive disease with poor functional status and unlikely to tolerate further chemotherapy. Oncology recommended hospice. Patient is now agreeable - Pain control as needed. - Patient states family is getting her home ready. Possible sepsis in an immunocompromise patient. - Infectious disease followed and sign off since patient elected for Hospice. Plan to DC antibiotics on DC tomorrow. - Hold off on abdominal CT Hypertension and elevated heart rate: Probably related to pain. - Discussed with RN to treat pain as needed. - We'll start low-dose Coreg Anemia secondary to blood loss from uterine bleeding. - Bleeding is improved. Status post transfusion. Acute renal failure: Appreciate nephrology input. Failure could be due to dehydration and hypotension on admission. Improving - Continue IV hydration. - Follow renal functions. - Renal ultrasound unremarkable except for ascites. Abdominal pain: Probably related to cancer. KUB unremarkable - Patient responded to stool softener and laxative. She had bowel movements Diabetes mellitus: - Sliding scale insulin with Accu-Cheks. GI prophylaxis: Stool softener PRN constipation. DVT PPx: Chemoprophylaxis contraindicated due to anemia, thrombocytopenia and bleeding. Discharge Planning Patient signed with hospice today. Family and hospice making arrangements to prepare her home. She can be discharged home with hospice once arrangements are made. Krissy Leavitt MD Dec 11, 2016 14:12
[2016-12-11] MEDS: CARVEDILOL 3.125 MG TAB PO SCH ×2 (15:03→20:43)
[2016-12-12] MEDS: NS + KCL 20 MEQ INJ 1,000 ML IV SCH ×2 (00:05→14:48)
[2016-12-12] MEDS: CHLORHEXIDINE GLUCONATE 2 % 1 PACK (2 CLOTHS) TOP SCH (03:51)
[2016-12-12 05:00] VITALS: BP 161/91; PULSE 110; RESP 16; TEMP 97.6; O2SAT 98
[2016-12-12] MEDS: PIPERACIL-TAZO 2.25 GM PREMIX 50 ML IV SCH ×4 (05:01→21:01)
[2016-12-12] MEDS: INSULIN ASPART SUPPLEMENTAL SCALE SQ SCH ×4 (05:10→23:31)
--- NOTE | 2016-12-12 07:18 | PD.ONC.PN ---
Subjective Subjective Remarks patient is resting in bed asking for pain medication (RN informed) states she is going to go home with Hospice in the next day or so no other complaints Objective Data Date Time Temp Pulse Resp B/P (MAP) Pulse Ox O2 Delivery O2 Flow Rate FiO2 12/12/16 05:00 97.6 110 16 161/91 (114) 98 12/11/16 23:48 98.1 112 16 154/92 (112) 98 12/11/16 20:45 98.4 114 18 148/89 (108) 95 12/11/16 20:45 Room Air 12/11/16 20:45 108 12/11/16 16:18 123 12/11/16 16:15 98.4 123 18 170/90 (116) 95 12/11/16 12:00 98.0 114 18 157/94 (115) 96 12/11/16 11:36 18 160/99 (119) 96 12/11/16 08:10 126 12/11/16 08:00 98.4 126 16 161/97 (118) 96 12/11/16 07:30 Room Air 12/12/16 12/12/16 12/12/16 07:00 15:00 23:00 Intake Total 1000 ml Output Total 2850 ml Balance -1850 ml Result Diagram: 12/09/16 0350 12/10/16 0450 Administered Medications Medications (Trade) Dose Ordered Sig/Courtney Route PRN Reason Start Time Stop Time Status Last Admin Dose Admin Sodium Chloride (NS Flush) 2 ml BID IV FLUSH 12/06/16 09:00 12/11/16 08:08 Morphine Sulfate (Morphine Inj) 4 mg Q4HR PRN IV PUSH PAIN SCALE 6 TO 10 12/05/16 21:15 12/09/16 20:33 Pantoprazole Sodium (Protonix Inj) 40 mg DAILY IV PUSH 12/05/16 22:00 12/11/16 08:09 Ondansetron HCl (Zofran Inj) 4 mg Q6H PRN IV PUSH NAUSEA OR VOMITING 12/05/16 21:15 12/07/16 20:51 Zolpidem Tartrate (Ambien) 5 mg HS PRN PO INSOMNIA 12/05/16 21:15 12/10/16 22:25 Chlorhexidine Gluconate (Chlorhexidine 2% Cloth) Taper DAILY@04 TOP 12/06/16 04:00 12/02/17 03:59 12/08/16 04:00 Senna/Docusate Sodium (Emilee-Colace) 1 tab BID PO 12/06/16 09:00 12/11/16 08:09 Sennosides (Senokot) 17.2 mg Q12H PRN PO Moderate constipation 12/05/16 21:15 12/06/16 09:01 Bisacodyl (Dulcolax Supp) 10 mg DAILY PRN RECTAL SEVERE CONSITIPATION 12/05/16 21:15 12/08/16 10:05 Insulin Aspart (NovoLOG SUPPLEMENTAL SCALE) 1 Q6HR SQ 12/06/16 00:00 12/06/16 12:00 Dextrose (D50w (Vial) Inj) 25 ml UNSCH PRN IV HYPOGLYCEMIA-SEE COMMENTS 12/05/16 21:30 12/12/16 05:05 Labetalol HCl (Trandate Inj) 10 mg Q2HR PRN IV PUSH SBP greater than 160mm Hg 12/06/16 02:00 12/06/16 02:06 Amlodipine Besylate (Norvasc) 5 mg DAILY PO 12/06/16 02:00 12/11/16 08:09 Acetaminophen/ Hydrocodone Bitart ([place] 5-325 Mg) 1 tab Q6H PRN PO PAIN SCALE 1 TO 10 12/06/16 20:00 12/11/16 17:50 Pravastatin Sodium (Pravachol) 20 mg DAILY PO 12/07/16 09:00 12/11/16 08:09 Ondansetron HCl (Zofran Odt) 8 mg TID PO 12/06/16 15:00 12/11/16 08:09 Hydralazine HCl (Apresoline) 50 mg Q8HR PRN PO SBP > 170 12/06/16 13:15 12/10/16 21:10 Piperacillin Sod/ Tazobactam Sod 50 ml @ 100 mls/hr Q6H IV 12/07/16 10:00 12/12/16 05:01 Calcium Carbonate (Tums Chew) 500 mg Q2H PRN CHEW heart burn 12/08/16 04:30 12/08/16 08:49 Potassium Chloride/Sodium Chloride 1,000 ml @ 100 mls/hr Q10H IV 12/08/16 12:00 12/12/16 00:05 Acetaminophen (Tylenol) 650 mg Q4H PRN PO SEE LABEL COMMENTS 12/09/16 09:15 12/09/16 15:21 Diphenhydramine HCl (Benadryl) 25 mg Q4H PRN PO SEE LABEL COMMENTS 12/09/16 09:00 12/09/16 15:21 Carvedilol (Coreg) 3.125 mg Q12HR PO 12/11/16 15:00 12/11/16 20:43 Objective Remarks GENERAL: Well-nourished, well-developed patient. SKIN: Warm and dry. HEAD: Normocephalic. EYES: No scleral icterus. No injection or drainage. MUSCULOSKELETAL: Adequate muscle tone. NEUROLOGICAL: No obvious focal deficit. Awake, alert, and oriented x3. PSYCHIATRIC: Appropriate mood and affect; insight and judgment normal. Assessment/Plan Problem List: (1) Acute kidney insufficiency ICD Codes: N28.9 - Disorder of kidney and ureter, unspecified Status: Acute Plan: nephrology following: JENNA could be d/t continued dehydration, hypotension at time of admission renal U/S shown ascites otherwise WNL kidney function improved with hydration supportive care 12/12/16: encourage intake IVF (2) Uterine cancer ICD Codes: C55 - Malignant neoplasm of uterus, part unspecified Status: Chronic Plan: s/p Line one cycle one Taxol and Carboplatin IV chemo 12/05/16 at 50% dose reduction poor prognosis patient is going to go home with Hospice in the next day or two, she signed papers yesterday supportive/comfort care (3) Severe sepsis ICD Codes: A41.9 - Sepsis, unspecified organism; R65.20 - Severe sepsis without septic shock Status: Acute Plan: comfort care at this time (4) Anemia ICD Codes: D64.9 - Anemia, unspecified Status: Chronic Plan: transfused 1 unit PRBCs 12/10 Attending Statement Patient was seen and examined by both myself and Dr. Julien. Problem Qualifiers (1) Anemia: Haris Merrill Dec 12, 2016 07:18
[2016-12-12] MEDS: ACETAMINOPHEN/HYDROcodone 325 MG/5 MG TAB PO PRN ×3 (07:26→21:01)
[2016-12-12] MEDS: ONDANSETRON ODT 4 MG TAB PO SCH ×3 (09:00→16:40)
[2016-12-12] MEDS: SODIUM CHLORIDE 0.9% FLUSH 10 ML FLUSH IV FLUSH SCH ×2 (09:00→21:00)
[2016-12-12 09:33] VITALS: BP 161/99; PULSE 106; RESP 18; TEMP 98.4; O2SAT 99
[2016-12-12] MEDS: PANTOPRAZOLE SODIUM 40 MG VIAL IV PUSH SCH (09:37)
[2016-12-12] MEDS: CARVEDILOL 3.125 MG TAB PO SCH ×2 (09:38→20:47)
[2016-12-12] MEDS: amLODIPine BESYLATE 5 MG TAB PO SCH (09:38)
[2016-12-12] MEDS: DOCUSATE SODIUM 50 MG/SENNA 8.6 MG TAB PO SCH ×2 (09:38→21:00)
[2016-12-12] MEDS: PRAVASTATIN SOD 20 MG TAB PO SCH (09:38)
--- NOTE | 2016-12-12 10:48 | HHI.PR ---
Subjective Remarks Patient reports she is doing okay. Discuss with hospice nurse. Patient's family will be ready for hospice to deliver equipment at the home tonight. Plan for discharge tomorrow morning. Objective Vitals Vital Signs Date Time Temp Pulse Resp B/P (MAP) Pulse Ox O2 Delivery O2 Flow Rate FiO2 12/12/16 09:33 98.4 106 18 161/99 (119) 99 12/12/16 05:00 97.6 110 16 161/91 (114) 98 12/11/16 23:48 98.1 112 16 154/92 (112) 98 12/11/16 20:45 98.4 114 18 148/89 (108) 95 12/11/16 20:45 Room Air 12/11/16 20:45 108 12/11/16 16:18 123 12/11/16 16:15 98.4 123 18 170/90 (116) 95 12/11/16 12:00 98.0 114 18 157/94 (115) 96 12/11/16 11:36 18 160/99 (119) 96 I/O 12/11/16 12/11/16 12/11/16 12/12/16 12/12/16 12/12/16 07:00 15:00 23:00 07:00 15:00 23:00 Intake Total 1295 ml 1050 ml 50 ml 1000 ml Output Total 2200 ml 2500 ml 2850 ml Balance -905 ml 1050 ml -2450 ml -1850 ml Intake Oral 0 ml IV Total 1295 ml 1050 ml 50 ml 1000 ml Output Urine Total 2200 ml 2500 ml 2850 ml # Bowel Movements 0 1 Result Diagram: 12/09/16 0350 12/10/16 0450 Objective Remarks GENERAL: Patient appear frail in no acute distress. CARDIOVASCULAR: Normal rate and regular rhythm without murmurs, gallops, or rubs. RESPIRATORY: Breath sounds equal and clear to auscultation bilaterally. GASTROINTESTINAL: Abdomen distended. diffusely tender to palpation. Normal active bowel sounds NEURO: Alert & Oriented x4 to person, place, time, situation. Moves all ext x4 but with global weakness. PSYCH: Appropriate mood and affect. 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 Julien followed by chemotherapy. Patient has been declining and was recently evaluated by Dr. Julien earlier this month and was diagnosed to have worsening metastatic disease despite therapy. Patient has been having vaginal bleeding which has worsened recently and developed chills about a week back along with sweating and nausea with worsening abdominal pain. She had a port placed about 5 days prior to admission. 12/09/16. Extensive discussion with the patient regarding prognosis. She expressed a deep understanding of her condition that her cancer is not responding to treatment. Patient elected to de-escalate care and go home with hospice. Stage IV metastatic uterine cancer: Patient followed by Dr. Julien. She has progressive disease with poor functional status and unlikely to tolerate further chemotherapy. Oncology recommended hospice. Patient is now agreeable - Pain control as needed. - Patient states family is getting her home ready and it will be ready tonight for hospice to deliver equipment. Possible sepsis in an immunocompromise patient. - Infectious disease followed and sign off since patient elected for Hospice. Plan to DC antibiotics on discharge. Hypertension and elevated heart rate: Probably related to pain. - Discussed with RN to treat pain as needed. -Continue Coreg Anemia secondary to blood loss from uterine bleeding. - Bleeding is improved. Status post transfusion. Acute renal failure: Appreciate nephrology input. Failure could be due to dehydration and hypotension on admission. Improving - Continue IV hydration. - Follow renal functions. - Renal ultrasound unremarkable except for ascites. Abdominal pain: Probably related to cancer. KUB unremarkable - Patient responded to stool softener and laxative. She had bowel movements Diabetes mellitus: - Sliding scale insulin with Accu-Cheks. GI prophylaxis: Stool softener PRN constipation. DVT PPx: Chemoprophylaxis contraindicated due to anemia, thrombocytopenia and bleeding. Discharge Planning Discharge home tomorrow morning with hospice Krissy Leavitt MD Dec 12, 2016 10:48
[2016-12-12] MEDS ORDERED: CARV3.125 PO (10:51)
[2016-12-12 12:00] VITALS: BP 158/89; PULSE 108; RESP 18; TEMP 98; O2SAT 99
[2016-12-12 16:34] VITALS: BP 158/94; PULSE 115; RESP 18; TEMP 98.3; O2SAT 97
[2016-12-12] MEDS: D5-NS + KCL 20 MEQ INJ 1,000 ML IV SCH (17:39)
[2016-12-12 20:00] VITALS: PULSE 112
[2016-12-13 02:05] VITALS: BP 137/74; PULSE 102; RESP 16; TEMP 98.2; O2SAT 100
[2016-12-13] MEDS: D5-NS + KCL 20 MEQ INJ 1,000 ML IV SCH (02:06)
[2016-12-13] MEDS: PIPERACIL-TAZO 2.25 GM PREMIX 50 ML IV SCH ×2 (02:06→09:22)
[2016-12-13] MEDS: ACETAMINOPHEN/HYDROcodone 325 MG/5 MG TAB PO PRN ×2 (02:06→12:54)
[2016-12-13] MEDS: CHLORHEXIDINE GLUCONATE 2 % 1 PACK (2 CLOTHS) TOP SCH (02:12)
[2016-12-13] MEDS: INSULIN ASPART SUPPLEMENTAL SCALE SQ SCH ×2 (05:19→12:00)
[2016-12-13 08:00] VITALS: PULSE 101
[2016-12-13 09:00] VITALS: BP 144/78; PULSE 102; RESP 18; TEMP 98.2; O2SAT 100
[2016-12-13] MEDS: ONDANSETRON ODT 4 MG TAB PO SCH ×2 (09:00→12:57)
[2016-12-13] MEDS: DOCUSATE SODIUM 50 MG/SENNA 8.6 MG TAB PO SCH (09:00)
--- NOTE | 2016-12-13 09:19 | HHI.DS ---
Discharge Summary Admission Date Dec 05, 2016 at 21:09 Discharge Date: Dec 13, 2016 Admitting Diagnosis severe sepsis, metabolic acidosis, S/P chemotherapy (1) Uterine cancer ICD Code: C55 - Malignant neoplasm of uterus, part unspecified Status: Chronic (2) Acute kidney insufficiency ICD Code: N28.9 - Disorder of kidney and ureter, unspecified Status: Acute (3) Hypertension ICD Code: I10 - Hypertension Status: Acute (4) Vaginal bleeding ICD Code: N93.9 - Abnormal uterine and vaginal bleeding, unspecified Status: Acute (5) Anemia ICD Code: D64.9 - Anemia, unspecified Status: Chronic Procedures None Brief History - From Admission HPI 66-year-old female with a medical history significant for type 2 diabetes mellitus, hyperlipidemia, hypertension, 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 Julien followed by chemotherapy. Patient has been declining and was recently evaluated by Dr. Julien earlier this month and was diagnosed to have worsening metastatic disease despite therapy. Patient has been having vaginal bleeding which has worsened recently and developed chills about a week back along with sweating and nausea with worsening abdominal pain. She had a port placed on Friday about 5 days back. The patient underwent her first chemotherapy session this morning with Taxol and carboplatinum, finished approximately 4 PM. She reports that she stood up to go to the bathroom when she felt dizzy, lightheaded, weak, nauseous. EMS notes that her blood pressure at the chemotherapy Center was initially in the systolic 90s after the symptoms started however subsequently her nausea vomiting abdominal pain worsened and she was brought to the ER with hypotension with systolic blood pressure 89/60s and heart rate 140s sinus tachycardia on arrival. She received 1 L normal saline bolus and her blood pressure came up to the 130 systolic range with heart rate 120s. Patient's hemoglobin was 8.3 down from 12 few weeks ago. She is also noted to have a lactic acidosis and renal insufficiency. Patient was felt to have sepsis and cultures were obtained and she was given empiric vancomycin and Zosyn in the ER. Patient was accepted for admission by critical care medicine service. When I evaluated the patient in the ER she was laying in the ER stretcher slightly tachypneic however not in any acute distress. She was complaining of abdominal pain. History was obtained by discussion with patient, ER PA as well as nursing staff and by reviewing records. History PFSH Past Medical History Asthma: Yes Heart Rhythm Problems: No Cancer: Yes (UTERINE) Cardiac Catheterization: No Cardiovascular Problems: Yes (HTN) High Cholesterol: Yes Congestive Heart Failure: No Diabetes: Yes (BORDERLINE) Genitourinary: No Hepatitis: No Hypertension: Yes Psychiatric: No Respiratory: Yes (ASTHMA) Immunizations Current: Yes Migraines: Yes Thyroid Disease: No Menopausal: Yes Past Surgical History Abdominal Surgery: Yes AICD: No Coronary Artery Bypass Graft: No Gynecologic Surgery: Yes (HYSTERECTOMY) Hysterectomy: No Joint Replacement: No Pacemaker: No Social History Alcohol Use: Yes (occasional ) Tobacco Use: No Substance Use: No Allergies-Medications Allergies-Medications (Allergen,Severity, Reaction): Coded Allergies: No Known Allergies (Verified , 12/05/16) Reported Meds & Prescriptions Reported Meds & Active Scripts Active Stanford (Hydrocodone-Acetaminophen) 5-325 mg Tab 1 Tab PO Q6H PRN Keflex (Cephalexin) 500 Mg Cap 500 Mg PO Q6H Reported Zofran (Ondansetron HCl) 8 Mg Tab 8 Mg PO TID Pravastatin 20 Mg Tab 20 Mg PO DAILY Lisinopril 20 Mg Tab 20 Mg PO DAILY Hydrochlorothiazide 25 Mg Tab 25 Mg PO BID Proventil Hfa 6.7 GM Inh (Albuterol Sulfate) 90 Mcg/Act Aer 1 Puff INH Q4H PRN ROS Review of Systems Except as stated in HPI: all other systems reviewed are Neg CBC/BMP: 12/09/16 0350 12/10/16 0450 Imaging Last Impressions Renal Ultrasound 12/08/16 0000 Signed Impressions: Service Date/Time: Thursday, December 08, 2016 18:01 - CONCLUSION: 1. Ascites. 2. Normal sonographic appearance to the kidneys. James Crook MD Abdomen X-Ray 12/08/16 0000 Signed Impressions: Service Date/Time: Thursday, December 08, 2016 09:18 - CONCLUSION: No acute disease. Daniel Egan MD Lung Scan-V Nuclear Medicine 12/05/162000 Signed Impressions: Service Date/Time: November 20:42 - CONCLUSION: Low probability scan for pulmonary embolism Juan Ramos MD Abdomen/Pelvis CT 12/05/162000 Signed Impressions: Service Date/Time: November 20:03 - CONCLUSION: Apparent increase in volume of pelvic neoplastic disease may reflect hemorrhage into the disease process. The current examination is limited by absence of IV contrast. See above for additional discussion. Juan Ramos MD Chest X-Ray 12/05/16 Signed Impressions: Service Date/Time: November 21:58 - CONCLUSION: Minimal right base atelectasis or scarring. Juan Ramos MD PE at Discharge GENERAL: Patient appear frail in no acute distress. CARDIOVASCULAR: Normal rate and regular rhythm without murmurs, gallops, or rubs. RESPIRATORY: Breath sounds equal and clear to auscultation bilaterally. GASTROINTESTINAL: Abdomen distended. diffusely tender to palpation. Normal active bowel sounds NEURO: Alert & Oriented x4 to person, place, time, situation. Moves all ext x4 but with global weakness. PSYCH: Appropriate mood and affect. Pt update on day of discharge No new changes. Arrangements made for Hospice at home today. 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 Julien followed by chemotherapy. Patient has been declining and was recently evaluated by Dr. Julien earlier this month and was diagnosed to have worsening metastatic disease despite therapy. Patient has been having vaginal bleeding which has worsened recently and developed chills about a week back along with sweating and nausea with worsening abdominal pain. She had a port placed about 5 days prior to admission. 12/09/16. Extensive discussion with the patient regarding prognosis. She expressed a deep understanding of her condition that her cancer is not responding to treatment. Patient elected to de-escalate care and go home with hospice. Treatment course detailed below: Stage IV metastatic uterine cancer: Patient followed by Dr. Julien. She has progressive disease with poor functional status and unlikely to tolerate further chemotherapy. Oncology recommended hospice. Patient ultimately agreeable - Pain control as needed. Possible sepsis in an immunocompromise patient. - Infectious disease followed and sign off since patient elected for Hospice. All cultures were negative. No antibiotics on discharge. Hypertension and elevated heart rate: Probably related to pain. -Continue Coreg Anemia secondary to blood loss from uterine bleeding. - Bleeding is improved. Status post transfusion. Acute renal failure: Appreciate nephrology input. Failure could be due to dehydration and hypotension on admission. Improved - Encourage oral hydration. Unfortunately declining physically and not taking much oral intake. Abdominal pain: Probably related to cancer. KUB unremarkable - Patient responded to stool softener and laxative. She had bowel movements Diabetes mellitus: - Sliding scale insulin with Accu-Cheks. Discharge home with Hospice per the patient's wish. Pt Condition on Discharge: Deteriorating Discharge Disposition: Hospice/ Home Discharge Time: > 30 minutes Discharge Instructions DIET: Follow Instructions for: As Tolerated, No Restrictions Activities you can perform: Regular-No Restrictions New Medications: Carvedilol (Coreg) 3.125 Mg Tab 3.125 MG PO Q12HR, #60 TAB Continued Medications: Albuterol 6.7 GM Inh (Proventil Hfa 6.7 GM Inh) 90 Mcg/Act Aer 1 PUFF INH Q4H PRN for SHORTNESS OF BREATH, #1 INHALER 0 Refills Hydrocodone-Acetaminophen (Stanford) 5-325 mg Tab 1 TAB PO Q6H PRN for PAIN, #15 TAB 0 Refills Lisinopril (Lisinopril) 20 Mg Tab 20 MG PO DAILY, #30 TAB 0 Refills Ondansetron (Zofran) 8 Mg Tab 8 MG PO TID for Nausea/Vomiting, TAB 0 Refills Discontinued Medications: Cephalexin (Keflex) 500 Mg Cap 500 MG PO Q6H for Infection, #20 CAP 0 Refills Hydrochlorothiazide (Hydrochlorothiazide) 25 Mg Tab 25 MG PO BID, #30 TAB Pravastatin (Pravastatin) 20 Mg Tab 20 MG PO DAILY for Cholesterol Management, #30 TAB 0 Refills Krissy Leavitt MD Dec 13, 2016 09:19
[2016-12-13] MEDS: PRAVASTATIN SOD 20 MG TAB PO SCH (09:22)
[2016-12-13] MEDS: SODIUM CHLORIDE 0.9% FLUSH 10 ML FLUSH IV FLUSH SCH (09:22)
[2016-12-13] MEDS: PANTOPRAZOLE SODIUM 40 MG VIAL IV PUSH SCH (09:22)
[2016-12-13] MEDS: CARVEDILOL 3.125 MG TAB PO SCH (09:22)
[2016-12-13] MEDS: amLODIPine BESYLATE 5 MG TAB PO SCH (09:22)
== END 2016-12-13 15:43 | disposition hospice, home (50) | DRG 872 ==
LOC: NEPC 17:31 → NEDA 21:09 → N03A 22:18 → HCIS 12-06 14:08
PROVIDERS: ADMIT Family Medicine; ATTEND Family Medicine
DX: A41.9 Sepsis, unspecified organism (principal); N17.9 Acute kidney failure, unspecified; E87.2 Acidosis; C78.00 Secondary malignant neoplasm of unspecified lung; D69.6 Thrombocytopenia, unspecified; R18.8 Other ascites; C55 Malignant neoplasm of uterus, part unspecified; E86.0 Dehydration; E11.9 Type 2 diabetes mellitus without complications; D50.0 Iron deficiency anemia secondary to blood loss (chronic); R65.20 Severe sepsis without septic shock; E78.5 Hyperlipidemia, unspecified; E87.6 Hypokalemia; I10 Essential (primary) hypertension; J45.909 Unspecified asthma, uncomplicated; K59.00 Constipation, unspecified; F41.9 Anxiety disorder, unspecified; Z51.5 Encounter for palliative care; Z90.710 Acquired absence of both cervix and uterus; Z92.21 Personal history of antineoplastic chemotherapy
CPT/HCPCS: 36430; 71010; 74000; 74176; 76775; 78582; 80048; 80053; 81001; 82010; 82040; 82550; 82552; 82805; 82948; 83036; 83605; 83690; 83735; 84100; 84155; 84439; 84443; 84484; 85007; 85027; 85610; 85730; 86850; 86900; 86901; 86920; 87040; 87205; 93005; 96365; 96375; A9540; A9567; C9113; J1815; J2270; J2405; J2543; J3370; J3480; J7030; J7050; J7070; P9016; P9040; Q9963